=== PATIENT | female | born 1980 | race Caucasian/White ===

== ENCOUNTER 2023-06-07 14:27 | Outpatient (REF) | payer OTHER, SELFPAY ==
[2023-06-13 12:08] LABS: Age Gdln ACOG Testing Note (.); HPV Aptima Negative (Negative); IGP, Aptima HPV, rfx 16/18,45 Note (.)
== END 2023-06-07 14:28 | disposition home or self-care (01) ==
LOC: LAB 14:27
PROVIDERS: Visit Provider Obstetrics & Gynecology
DX: Z01.419 Encounter for gynecological examination (general) (routine) without abnormal findings (principal)
CPT/HCPCS: 87624; G0145

== ENCOUNTER 2023-06-11 10:19 | Outpatient (OUT) | payer OTHER, SELFPAY ==
[2023-06-11 10:56] LABS: Estimated Average Glucose 105 mg/dL; Glycohemoglobin A1C 5.3 % (4.5-6.2)
[2023-06-11 11:24] LABS: Free T3 2.22 pg/mL (2.18-3.98); Glucose 89 mg/dL (74-106); Thyroid Stimulating Hormone 1.791 uIU/mL (0.358-3.740)
[2023-06-12 07:07] LABS: Estradiol 74.1 pg/mL (.); Progesterone 0.4 ng/mL (.)
[2023-06-12 11:07] LABS: Insulin 5.3 uIU/mL (2.6-24.9)
[2023-06-12 12:07] LABS: C-Peptide, Serum 1.8 ng/mL (1.1-4.4)
[2023-06-13 16:09] LABS: Thyroglobulin Antibody <1.0 IU/mL (0.0-0.9); Thyroid Peroxidase (TPO) Ab <9 IU/mL (0-34)
[2023-06-14 13:07] LABS: Free Testosterone(Direct) 1.1 pg/mL (0.0-4.2); Testosterone 39 ng/dL (4-50)
[2023-06-15 14:09] LABS: Serotonin, Serum 101 ng/mL (31-207)
[2023-06-16 17:07] LABS: Estrone, Serum 178 pg/mL (.)
[2023-06-20 04:06] LABS: Thyroglobulin (TG-RIA) 28 ng/mL (.)
[2023-06-20 07:06] LABS: Reverse T3, Serum 23.1 ng/dL (9.2-24.1)
== END 2023-06-11 10:20 | disposition home or self-care (01) ==
LOC: LAB 10:22
PROVIDERS: PCP Family Medicine; Visit Provider Obstetrics & Gynecology
DX: R53.83 Other fatigue (principal); E34.9 Endocrine disorder, unspecified
CPT/HCPCS: 36415; 82306; 82530; 82627; 82670; 82679; 82728; 82947; 83036; 83525; 84144; 84260; 84270; 84402; 84403; 84432; 84436; 84439; 84443; 84481; 84482; 84681; 86376; 86800

== ENCOUNTER 2023-06-22 06:42 | Outpatient (OUT) | payer OTHER, SELFPAY ==
--- NOTE | 2023-06-22 06:45 | MM_ITS ---
Patient Name: MANDEEP DOMÍNGUEZ MR#: [id number] : 1980 Exam Date: 06/22/2023 Ordering Doctor: DR Rick Jones . RADIOLOGY REPORT PROCEDURE: MM TOMOSYNTHESIS SCREENING BI COMPARISON: MG MAMM SCREEN 3D JUDITH CAD, 06/15/2022. MG MAMM SCREEN 3D JUDITH CAD, 06/16/2021. INDICATIONS: Screening Calculator Name NCI Breast Cancer Risk Assessment Tool 5 Year Breast Cancer Risk 0.60% Lifetime Breast Cancer Risk 7.80% Personal Breast Cancer No Personal Ovarian Cancer No Treatments None Family Cancers Grandfather-paternal with esophagus/bone/skin cancer at age 75. LOCATION: [facility] BREAST COMPOSITION: Heterogeneously dense,which may obscure small masses. FINDINGS: DIAGNOSTIC CATEGORY 1--NEGATIVE. NO CHANGE FROM COMPARISON ASSESSMENT. Scattered benign-appearing calcifications are present. RIGHT BREAST: No significant suspicious finding. LEFT BREAST: No significant suspicious finding. RECOMMENDATIONS: ROUTINE MAMMOGRAM AND CLINICAL EVALUATION IN 12 MONTHS. PLEASE NOTE: A NORMAL MAMMOGRAM DOES NOT EXCLUDE THE POSSIBILITY OF BREAST CANCER. A CLINICALLY SUSPICIOUS PALPABLE LUMP SHOULD BE BIOPSIED. Dictated by: Mesfin Broussard MD on 06/22/2023 at 07:59 Approved by: Mesfin Broussard MD on 06/22/2023 at 08:01
== END 2023-06-22 06:43 | disposition home or self-care (01) ==
LOC: MAMMO 06:42
PROVIDERS: PCP Family Medicine; Visit Provider Obstetrics & Gynecology
DX: Z12.31 Encounter for screening mammogram for malignant neoplasm of breast (principal); Z80.8 Family history of malignant neoplasm of other organs or systems
CPT/HCPCS: 77063; 77067

== ENCOUNTER 2024-06-14 12:14 | Outpatient (REF) | payer OTHER, SELFPAY | END 2024-06-14 12:15 | disposition home or self-care (01) | LOC: LAB 12:14 | PROVIDERS: PCP Family Medicine; Visit Provider Obstetrics & Gynecology | DX: Z01.419 Encounter for gynecological examination (general) (routine) without abnormal findings (principal) | CPT/HCPCS: 87624; 88175 ==

== ENCOUNTER 2024-07-17 16:54 | Outpatient (OUT) | payer OTHER, SELFPAY ==
--- NOTE | 2024-07-17 17:00 | MM_ITS ---
Patient Name: MANDEEP DOMÍNGUEZ MR#: [id number] : 1980 Exam Date: 07/17/2024 Ordering Doctor: DR MICHELE STAFFORD . RADIOLOGY REPORT PROCEDURE: MM TOMOSYNTHESIS SCREENING BI COMPARISON: MM TOMOSYNTHESIS SCREENING BI, 06/22/2023. MG MAMM SCREEN 3D JUDITH CAD, 06/15/2022. MG MAMM SCREEN 3D JUDITH CAD, 06/16/2021. MG MAMM SCREEN JUDITH W CAD, 11/08/2019. INDICATIONS: Screening Calculator Name NCI Breast Cancer Risk Assessment Tool 5 Year Breast Cancer Risk 0.60% Lifetime Breast Cancer Risk 7.70% Personal Breast Cancer No Personal Ovarian Cancer No Treatments None Family Cancers Grandfather-paternal with esophagus/bone/skin cancer at age 75. LOCATION: [facility] BREAST COMPOSITION: The breasts are heterogeneously dense,which may obscure small masses. FINDINGS: DIAGNOSTIC CATEGORY 1--NEGATIVE. RIGHT BREAST: No significant suspicious finding. LEFT BREAST: No significant suspicious finding. RECOMMENDATIONS: ROUTINE MAMMOGRAM AND CLINICAL EVALUATION IN 12 MONTHS. PLEASE NOTE: A NORMAL MAMMOGRAM DOES NOT EXCLUDE THE POSSIBILITY OF BREAST CANCER. A CLINICALLY SUSPICIOUS PALPABLE LUMP SHOULD BE BIOPSIED. Dictated by: Varun Sauceda DO on 07/18/2024 at 15:56 Approved by: Varun Sauceda DO on 07/18/2024 at 15:57
== END 2024-07-17 16:55 | disposition home or self-care (01) ==
LOC: MAMMO 16:55
PROVIDERS: PCP Family Medicine; Visit Provider Obstetrics & Gynecology
DX: Z12.31 Encounter for screening mammogram for malignant neoplasm of breast (principal); Z80.8 Family history of malignant neoplasm of other organs or systems
CPT/HCPCS: 77063; 77067

== ENCOUNTER 2025-02-18 17:17 | Emergency (ER) | payer OTHER, SELFPAY ==
[2025-02-18 17:21] VITALS: BP 143/89; PULSE 81; TEMP 36.6; O2SAT 100; BMI 39.0
[2025-02-18 17:44] LABS: Glucose Urine UA NEGATIVE (NEGATIVE)
[2025-02-18 17:44] LABS: Hematocrit 38.4 % (36.0-48.0); Hemoglobin 12.7 g/dL (12.0-16.0); Immature Granulocytes Abs Auto 0.01 10^3/uL (0.00-0.03); Immature Granulocytes Pct Auto 0.2 % (0.0-0.5); Lymphocytes Absolute Auto 1.9 10^3/uL (1.2-3.8); Mean Corpuscular HGB Conc 33.1 g/dL (29.9-35.2); Mean Corpuscular Hemoglobin 30.5 pg (26.7-34.0); Mean Corpuscular Volume 92.3 fL (81.0-99.0); Platelet Count 227 10^3/uL (150-450); Red Blood Count 4.16 10^6/uL (4.20-5.40); White Blood Count 5.2 10^3/uL (4.0-11.0)
--- OUTSIDE RECORDS SUMMARY | 2025-02-18 17:54 | XMS_ITS | CCD ---
Author Organization [facility] Care Team Providers Care Services Host Name Role Phone Maik Brock Primary Care Provider Pricilla IBARRA, Delilah Unavailable Cali CURTIS, Keyur Unavailable KAREN ., DR BAUTISTA Attending Unavailable KAREN ., DR BAUTISTA Consulting Unavailable KAREN ., DR BAUTISTA Admitting Unavailable VINOD, DR PLEITEZ Primary Care Unavailable VINOD, DR PLEITEZ Primary Care Unavailable RICARDO ., JEANNE Admitting Unavailable GRECHNY ., ADE WONG Consulting Unavailcarmelita e RICARDO ., JEANNE Attending Unavailable VINOD, DR PLEITEZ Primary Care Unavailable HEMMER, DR KIMBERLEE Jarrett Admitting Unavailable HEMMER, DR KIMBERLEE Jarrett Attending Unavailable HEMMER, DR KIMBERLEE Jarrett Consulting Unavailable VINOD, DR PLEITEZ Primary Care Unavailable HEMMER, DR KIMBERLEE Jarrett Admitting Unavailable HEMMER, DR KIMBERLEE Jarrett Attending Unavailable ZIEBER, DR REINA Arias Consulting Unavailable HEMMER, DR KIMBERLEE Jarrett Consulting Unavailable KAREN ., DR BAUTISTA Admitting Unavailable KAREN ., DR BAUTISTA Attending Unavailable VINOD, DR PLEITEZ Primary Care Unavailable TRIANGLE, DR RUFINA Lau Consulting Unavailable KAREN ., DR BAUTISTA Consulting Unavailable Sabrina Marcos Unavailable Maik Brock MD Primary Care Provider Pricilla IBARRA, Delilah Unavailable Cali CURTIS, Keyur Unavailable MD Maik Brock Primary Care Provider [phone] PAUL Jimenez Attending Provider RINA Beth Referring Provider [phone] MD Nelson Donald Attending Provider ARIEL Us Emergency Provider MD Maik Brock Primary Care Provider [phone] DO Pretty Jimenez Emergency Provider Maik Brock MD Primary Care Provider MAIK BROCK Primary Care Unavailable KASEY PRICE Attending Un[facility] Unavailable Francisco Us Admitting Unavailable Maik Brock Primary Care Unavailable Francisco Us Attending Unavailable Maik Brock Primary Care Unavailable Pretty Jimenez Attending Unavailable Pretty Jimenez Admitting Unavailable HankinsMaik Primary Care Unavailable Nelson Donald Attending Unavailable Nelson Donald Admitting Unavailable Maik Brock MD Primary Care Provider [phone] Richard Candelario DO Unavailable Brittany MACHINIST/MACHINE BUILDER, Raiza Unavailable [phone] Brittany MACHINIST/MACHINE BUILDER, Raiza Unavailable Maik Brock MD Primary Care Provider Richard Candelario DO Attending Provider Maik Brock MD Primary Care Provider Richard Candelario DO Attending Provider Richard Candelario DO Unavailable Brittany MACHINIST/MACHINE BUILDER, Raiza Unavailable RICHARD CANDELARIO Attending Unavailable RAIZA SOTO Attending Unavailable RICK JONES Attending Unavailable KIMBERLEE BETH Attending Unavailable KIMBERLEE BETH Attending Unavailable MAIK BROCK Attending Unavailable KIMBERLEE BETH Attending Unavailable ADELE MOMIN Attending Unavailable ADELE MOMIN Attending Unavailable KIMBERLEE BETH Attending Unavailable RICHARD CANDELARIO Attending Unavailable Allergies Allergy ClassificationReported Allergen(s)Allergy TypeDate of OnsetReaction(s) Facility (20 sources)[facility] [id number] Work Phone: Medications Current Medications MedicationDrug Class(es)DatesSig (Normalized)Sig (Original)amLODIPine 5 mg oral tablet (20 sources)Dihydropyridine Calcium Channel BlockerStart: 09-20-2022 End: 06-37-6058nboy 1 tablet by mouth once dailyamlodipine besylate (AMLODIPINE ORAL) Take by mouth. 0 ActiveComment on above:Take by mouth.Take 1 tablet by mouth.amoxicillin 875 mg oral tablet (3 sources)Penicillin-class AntibacterialStart: 01-17-2025 End: 75-75-7275jvxc 1 tablet by mouth in the morningamoxicillin (Amoxil) 875 MG tablet Indications: Acute non-recurrent pansinusitis Take 1 tablet (875mg) by mouth in the morning and 1 tablet (875 mg) before bedtime. Do all this for 7 days. 14 otcbrr2401/17/2025 01/24/2025 ActiveStart: 72-31-4484zqbl 12.5 mL by mouth twice dailyAmoxicillin 400 MG/5ML 12.5 mL Orally Twice a day for 10 days 12 Oct, 2022 Activeamoxicillin 875 mg / clavulanate 125 mg oral tablet (3 sources)Penicillin-class AntibacterialStart: 75-54-7972scom 1 tablet by mouth twice dailyASHWAGANDHA EXTRACT ORAL (2 sources)take 7050 mg by mouth once dailyASHWAGANDHA EXTRACT ORAL Take by mouth once daily. VITAL HERBAL BRAND, 7050 MG DAILY 0 ActiveAtogepant (2 sources)Start: 01-68-3479ocpj 1 tablet by mouth once dailyStart: 10-11-2024 End: 46-67-1322ykrw 1 tablet by mouth once dailyAtogepant (Qulipta) 60 mg tablet Discontinued 60 MG PO Daily 90 90 0 October 11, 2024 12:00am November 15, 2024 11:34amAtogepant (Qulipta) 30 MG tablet (2 sources)Start: 11-03-2023 End: 64-95-2426pjxf 2 tablets by mouth once dailyAtogepant (Qulipta) 30 MG tablet Indications: Intractable chronic migraine without aura and withoutstatus migrainosus (CMS/HCC) Take 60 mg by mouth Daily 30 tablet 4 11/03/2023 11/21/2023 Discontinued (Other)Atogepant (Qulipta) 60 MG tablet (20 sources)Start: 71-07-5159ddnk 1 tablet by mouth once dailyAtogepant (Qulipta) 60 MG tablet Indications: Chronic migraine without aura, intractable, without status migrainosus TAKE 1 TABLET BY MOUTH DAILY 30 tablet 1 08/09/2024 ActiveStart: 51-93-7585mjfv 1 tablet by mouth once dailyAtogepant (Qulipta) 60 MG tablet Indications: Chronic migraine without aura, intractable, without st atus migrainosus (CMS/HCC) TAKE 1 TABLET BY MOUTH DAILY 30 tablet 1 08/09/2024 ActiveStart: 37-44-5533uqyi 1 tablet by mouth once dailyAtogepant (Qulipta) 60 MG tablet Indications: Chronic migraine without aura, intractable, without st atus migrainosus (CMS/HCC) Take 1 tablet by mouth Daily 30 tablet 05/16/2024 ActiveStart: 12-12-2023 End: 25-64-7577jfyr 1 tablet by mouth once dailyAtogepant (Qulipta) 60 MG tablet Indications: Intractable chronic migraine without aura and withoutstatus migrainosus (CMS/HCC) Take 1 tablet by mouth Daily 30 tablet 12/12/2023 01/11/2024 Activebaclofen 10 mg oral tablet (20 sources)gamma-Aminobutyric Acid-ergic AgonistStart: 68-29-5621uuim 1 tablet by mouth once dailyComment on above:Take 10 mg by mouth once daily.biotin 5 mg oral tablet (20 sources)Start: 95-76-7342wiry 1 tablet by mouth once dailyStart: 04-28-2018 take 1 tablet by mouth once dailybiotin 1,000 mcg chew Indications: Postoperative malabsorption , Obesity, Class I, BMI 30.0-34.9 (see actual BMI) , S/P gastric bypass Take 1 tablet by mouth once daily. 30 tablet 11 04/28/2018 ActiveComment on above:Take 1 tablet by mouth once daily.onabotulinumtoxina 200 unt injection (20 sources)Acetylcholine Release InhibitorStart: 05-03-2024 End: 06-90-7177vtwjlsmcvlxwfezmcY (Botox) injection 200 UnitsStart: 05-03-2024 End: 39-39-2203lctdgc 200 [IU] by intramuscular injection [id number] Units, Intramuscular, Once, On [place] 05/03/24 at 1430, For 1 dose, Charging context for this clinic-administered medication: Medically Necessary/InsuranceStart: 02-02-2024 End: 13-42-7638ldpbtluznvgpgorznK (Botox) injection 155 UnitsStart: 02-02-2024 End: 22-13-0927tbyanh 155 [IU] by intramuscular injection [id number] Units, Intramuscular, Once, On [place] 02/02/24 at 0945, For 1 dose, Charging context for this clinic-administered medication: Medically Necessary/InsuranceStart: 11-03-2023 End: 46-45-6975vddyqfbojxkgrxzipL (Botox) injection 200 UnitsStart: 11-03-2023 End: 18-18-2799yyrnuz 200 [IU] by intramuscular injection iwrl000 Units, Intramuscular, Once, On [place] 11/03/23 at 0945, For 1 dose, Charging context for this clinic-administered medication: Medically Necessary/Insurance onabotulinumtoxinA (Botox) 200 units injection Inject into the shoulder, thigh, or buttocks 1 (one)time Activecalcium citrate/vitamin D3 (CITRACAL + D ORAL) (8 sources)calcium citrate/vitamin D3 (CITRACAL + D ORAL) Take by mouth once daily. 0 ActiveComment on above:Take by mouth once daily.cephalexin 500 mg oral capsule (9 sources)Cephalosporin AntibacterialStart: 08-20-2024 End: 83-66-5551gtoc 1 capsule by mouth in the morning, then take 1 capsule by mouth in the evening, then take 1 capsule by mouth at bedtimecephalexin (Keflex) 500 MG capsule Indications: Acute cystitis with hematuria Take 1 capsule (500 mg) by mouth in the morning and 1 capsule (500 mg) in the evening and 1 capsule (500 mg) before bedtime. Do all this for 10 days. 30 capsule 08/20/2024 08/30/2024 ActiveStart: 11-15-2022 End: 41-65-8422tmel 1 capsule by mouth every eight hoursCephalexin 500 mg capsule Discontinued 500 MG PO Q8H 21 7 0 November 15, 2022 12:00am May 7:31pmcholecalciferol 0.025 mg oral capsule (20 sources)Vitamin DStart: 54-63-7712qgvm 1 capsule by mouth once dailyStart: 60-42-8575ytzo 1 tablet by mouth once dailycholecalciferol (VITAMIN D3) 2,000 unit tablet Indications: Postoperative malabsorption , Obesity, Class I, BMI 30.0-34.9 (see actual BMI) , S/P gastric bypass Take 1 tablet by mouth once daily. 30 tablet 11 04/28/2018 Activetake 1 capsule by mouth in the morning cholecalciferol (Vitamin D-3) 25 MCG (1000 UT) capsule Take 1,000 Units by mouth in the morning. ActiveComment on above:Take 1 tablet by mouth once daily. Elastic Bandages & Supports (Medical Compression Stockings) misc (14 sources)Start: 25-43-1784Edmixor Bandages & Supports (Medical Compression Stockings) misc Indications: Bilateral lower extremity edema , Varicose veins of both lower extremities, unspecified whether complicated 2 each Daily On in AM, off in PM. Dispense 2 pairs. 20-30 mmHg. Toeless if possible 2 each 1 10/16/2024 Activeestradiol 0.1 mg/ml vaginal cream (20 sources)EstrogenStart: 41-05-7644dkmgiargu (Estrace) 0.1 MG/GM vaginal cream Indications: Hormone imbalance 2g vaginal daily for 2 weeks, then 2 times weekly following initial 2 weeks 42.5 g 12/10/2024 ActiveStart: 32-76-6157vimw 1 tablet by mouth once dailyestradiol (ESTRACE) 1 mg tablet Take 1 mg by mouth once daily. 0 03/21/2020 ActiveComment on above:Take 1 mg by mouth once daily. estrogens, conjugated (fci) 0.9 mg oral tablet (12 sources)EstrogenStart: 05-13-2023 End: 58-35-4941vmvx 1 tablet by mouth once dailyStart: 57-04-5727wnio 1 tablet by mouth every twenty-four hoursPremarin 0.625 MG 1 tablet Orally Once a day Aug, Activefexofenadine hydrochloride 60 mg oral tablet (20 sources)Histamine-1 Receptor AntagonistStart: 23-86-1015psch 3 tablets by mouth once dailyStart: 09-20-2022 End: 30-53-5782zzxt 1 tablet by mouth once dailyFexofenadine 180 mg Tablet Discontinued 180 MG PO Daily September 20, 2022 12:00am May 26, 2023 7:32pm fluticasone propionate 0.05 mg/actuat metered dose nasal spray (18 sources)CorticosteroidStart: 97-24-9013uqpr 1 spray(s) nasal route once dailyfluticasone (FLONASE) 50 mcg/actuation nasal spray INSTILL 1 SPRAY IN EACH NOSTRIL DAILY 0 03/05/2020 ActiveFlonase Not-TakingComment on above:INSTILL 1 SPRAY IN EACH NOSTRIL DAILYfurosemide 20 mg oral tablet (20 sources)Loop Diuretic End: 46-75-6530fcef 1 tablet by mouth once dailyfurosemide (Lasix) 20 MG tablet Take 1 tablet by mouth 1 (one) time each day at the same time. 07/16/2024 DiscontinuedFUROSEMIDE ORAL Take by mouth once daily. 0 ActiveComment on above: Take by mouth once daily.hydroCHLOROthiazide 25 mg oral tablet (6 sources)Thiazide DiureticStart: 39-28-7461mnun 1 tablet by mouth once daily as needed for edematake 1 tablet by mouth every twenty-four hours hydroCHLOROthiazide 25 MG 1 tablet Orally Once a day Activelinaclotide 0.145 mg oral capsule (12 sources)Guanylate Cyclase-C AgonistStart: 07-23-2021 End: 92-83-0908lblv 1 capsule by mouth once dailylinaclotide (LINZESS) 145 mcg capsule Take 1 capsule by mouth once daily. 30 capsule 11 07/23/2021 Active Comment on above:Take 1 capsule by mouth once daily.LORazepam 1 mg oral tablet (20 sources)BenzodiazepineStart: 04-16-2024 End: 48-30-5278vxzs 1 tablet by mouth every twelve hours for anxiety and anxiety LORazepam (Ativan) 1 MG tablet Indications: Anxiety Take 1 tablet (1 mg) by mouth every 12 (twelve)hours 60 tablet 12/10/2024 ActiveStart: 10-13-2023 End: 26-49-9357shrn 1 tablet by mouth every twelve hours for anxiety and anxiety LORazepam (Ativan) 1 MG tablet Indications: Anxiety Take 1 tablet (1 mg) by mouth every 12 (twelve)hours 60 tablet 02/06/2024 04/14/2024 Discontinued (Reorder)Start: 60-73-0519izci 1 tablet by mouth every twelve hours as needed for anxietyStart: 71-39-1766dpgv 1 tablet by mouth twice daily as needed LORazepam (ATIVAN) 0.5 mg tab Take 1 mg by mouth as needed. Take 1 tab twice daily as needed. 0 06/19/2015 ActiveLORazepam ActiveComment on above:Take 1 tab twice daily as needed.magnesium oxide 500 mg oral tablet (2 sources)take 1 tablet by mouth once dailyMagnesium Oxide 500 mg magnesium tab Take 1 tablet by mouth once daily. 0 ActivemetroNIDAZOLE 500 mg oral tablet (5 sources)Nitroimidazole AntimicrobialStart: 11-20-2024 End: 66-10-8861zgvy 1 tablet by mouth in the morningmetroNIDAZOLE (Flagyl) 500 MG tablet Indications: BV (bacterial vaginosis) Take 1 tablet (500 mg) by mouth in the morning and 1 tablet (500 mg) before bedtime. Do all this for 7 days. Do not drink alcohol while taking this medication. 14 tablet 11/20/2024 11/27/2024 ActiveStart: 01-19-2022 End: 78-80-5720xlof 1 tablet by mouth three times dailymetroNIDAZOLE (FLAGYL) 500 mg tablet Take 1 tablet by mouth three times daily for 14 days. 42 tablet 0 01/19/2022 02/02/2022 ActiveComment on above:Take 1 tablet by mouth three times daily for 14 days.montelukast 10 mg oral tablet (5 sources)Leukotriene Receptor AntagonistStart: 86-85-7435hvmq 1 tablet by mouth once dailymontelukast (SINGULAIR) 10 mg tablet Take 10 mg by mouth once daily. 0 10/30/2021 ActiveComment on above:Take 10 mg by mouth once daily. Multiple Vitamin (multivitamin) capsule (20 sources)take 1 capsule by mouth once dailyMultiple Vitamin (multivitamin) capsule Take 1 capsule by mouth 1 (one) time each day. 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 0 ActiveNIFEdipine 30 mg osmotic 24 hr extended release oral tablet (20 sources)Dihydropyridine Calcium Channel BlockerStart: 11-20-2024 End: 12-02-8156pbxh 1 tablet by mouth once dailyNIFEdipine XL (Procardia XL) 30 MG 24 hr tablet Indications: Benign essential hypertension Take 1 tablet (30 mg) by mouth Daily Do not crush, chew, or split. 90 tablet 3 01/17/2025 Active Start: 13-24-3200dtma 1 tablet by mouth once dailyNIFEdipine XL (Procardia XL) 30 MG 24 hr tablet Indications: Benign essential hypertension Take 1 tablet (30 mg) by mouth Daily Do not crush, chew, or split. 30 tablet 2 08/13/2024 Active Hbplo-7-TUV-EPA-Fish Oil (FISH OIL) 1,000 mg (120 mg-180 mg) cap (2 sources)take 1 capsule by mouth twice uctrdTdxvm-8-GUI-EPA-Fish Oil (FISH OIL) 1,000 mg (120 mg-180 mg) cap Take 2 g by mouth two times a day.0 Active omeprazole 40 mg delayed release oral capsule (20 sources)Proton Pump InhibitorStart: 94-67-8052puin 1 capsule by mouth in the morningomeprazole (PriLOSEC) [address] capsule Indications: Gastroesophageal reflux disease, unspecified whether esophagitis present Take 1 capsule (40 mg) by mouth in the morning and 1 capsule (40 mg) in the evening. Take before meals. 200 capsule 3 09/28/2024 ActiveStart: 54-31-4072ynee 1 capsule by mouth before mealtimeomeprazole (PriLOSEC) [address] capsule Indications: Gastroesophageal reflux disease, unspecified whether esophagitis present Take 1 capsule (40 mg) by mouth in the morning. Take before meals. 100 capsule 3 07/30/2024 Active Start: 75-66-0300dzdm 1 capsule by mouth before mealtimeomeprazole (PriLOSEC) [address] capsule Indications: Gastroesophageal reflux disease, unspecified whether esophagitis present Take 1 capsule (40 mg) by mouth in the morning. Take before meals. 100 capsule 05/16/2024 ActiveStart: 55-44-1318njkd 1 capsule by mouth every twelve hours for gastroesophageal reflux disease and gastroesophageal reflux diseaseomeprazole (PriLOSEC) [address] capsule Indications: Gastroesophageal reflux disease, unspecified whether esophagitis present TAKE 1 CAPSULE BY MOUTH EVERY 12 HOURS 100 capsule 3 01/30/2024 ActiveStart: 09-08-2023 take 1 capsule by mouth every twelve hours for gastroesophageal reflux disease and gastroesophagealreflux diseaseomeprazole (PriLOSEC) [address] capsule Indications: Gastroesophageal reflux disease, unspecified whether esophagitis present Take 1 capsule (40 mg) by mouth every 12 (twelve) hours 100 capsule 3 09/08/2023 ActiveStart: 03-26-2021 End: 51-80-0278nhon 1 capsule by mouth twice dailytake 1 capsule by mouth once dailyOmeprazole 40 MG 1 capsule 30 minutes before morning meal Orally Once a day ActiveComment on above:Take 1 capsule by mouth twice daily before meals. 30 min before breakfast and dinner. Open capsule and take with small amount of yogurt perflutren lipid microspheres 1.3 mL in NaCl (PF) 0.9% 10 mL injection (DEFINITY) (14 sources)Start: 12-08-2020 End: 50-27-9277ybrtdhdygm lipid microspheres 1.3 mL in NaCl (PF) 0.9% 10 mL injection (DEFINITY)predniSONE 20 mg oral tablet (3 sources)Start: 81-56-0530mwjd 2 tablets by mouth once dailyPROGESTERONE, BULK, MISC (2 sources)PROGESTERONE, BULK, MISC 20 mg per day, 1 pump per day 0 Active Qulipta 60 MG tablet (13 sources)Start: 08-11-6599saus 1 tablet by mouth once dailyQulipta 60 MG tablet Indications: Chronic migraine without aura, intractable, without status migrainosus (CMS/HCC) Take 1 tablet by mouth Daily 30 tablet 07/10/2024 Active Start: 35-67-2894uzju 1 tablet by mouth once dailyQulipta 60 MG tablet Indications: Chronic migraine without aura, intractable, without status migrain osus (CMS/HCC) TAKE 1 TABLET BY MOUTH DAILY 30 tablet 4 12/09/2023 ActiveStart: 59-72-8404hkam 1 tablet by mouth once dailyQulipta 60 MG tablet Take 1 tablet by mouth Daily 11/03/2023 Drpmwb390 ml sodium chloride 9 mg/ml prefilled syringe (14 sources)Start: 12-08-2020 End: 00-11-9174tkwsfm chloride 0.9 % (flush) 10 mL (BD POSIFLUSH)topiramate 50 mg oral tablet (20 sources)Start: 05-26-2023 End: 35-19-9617ydkk 1 tablet by mouth in the morningtopiramate 50 MG tablet Indications: Migraine without aura, not intractable, without status migrainosus Take 1 tablet by mouth in the morning and 1 tablet before bedtime. 180 tablet 1 07/30/2024 ActiveStart: 01-12-2021 End: 52-54-0582Nnfaovmcgw 50 mg tablet Discontinued 50 MG PO As Directed September 20, 2022 12:00am September 23, 2022 8:33amComment on above:Take 1 tablet by mouth twice daily.TAKE 1 TABLET BY MOUTH TWICE DAILYTurmeric extract (17 sources)TURMERIC ORAL Take by mouth. 0 ActiveComment on above:Take by mouth. ubrogepant 100 mg oral tablet (20 sources)Start: 03-21-2020 End: 96-75-9669Lhbtauezma (Ubrelvy) 100 MG tablet Indications: Migraine without aura, not intractable, without status migrainosus TAKE 1 TABLET BY MOUTH at onset OF migraine may repeat in 2 (TWO) HOURS, no more TWICE DAILY and 2 (TWO) days a week 10 tablet 1 08/09/2024 ActiveComment on above:TAKE 1 TABLET at onset of migraine, may repeat in 2 HOURS but no more than 2 times per day or 2 times per weekVitamin B Complex (8 sources)vitamin B complex (B COMPLEX-VITAMIN B12 ORAL) Take by mouth once daily. 0 ActiveComment on above:Take by mouth once daily.vitamin D3-folic acid 250 mcg (10,000 unit)-1 mg tab (4 sources)take 1 tablet by mouth once dailyvitamin D3-folic acid 250 mcg (10,000 unit)-1 mg tab Take 1 tablet by mouth once daily. 0 Activezinc gluconate 50 mg oral tablet (2 sources)take 1 tablet by mouth once dailyZinc Gluconate 50 mg tablet Take 50 mg by mouth once daily. Copper 0 Active Completed/Discontinued Medications MedicationDrug Class(es)DatesSig (Normalized)Sig (Original)dexlansoprazole 60 mg delayed release oral capsule (1 source)Proton Pump Inhibitortake 1 capsule by mouth every twenty-four hours Dexilant 60 MG 1 capsule Orally Once a day Not-Takingfluconazole 150 mg oral tablet (10 sources)Azole AntifungalStart: 11-20-2024 End: 92-89-7088syxr 1 tablet by mouth once, then take 1 tablet by mouth once fluconazole (Diflucan) 150 MG tablet Indications: Yeast infection Take 1 tablet (150 mg) by mouth 1(one) time for 1 dose This is a 1 time dose, take single tablet by mouth. 1 tablet 1 11/20/2024 11/22/2024 Discontinued (Therapy completed)Start: 10-04-2021 End: 65-17-5363owrs 1 tablet by mouth oncefluconazole (DIFLUCAN) 150 mg tablet TAKE 1 TABLET BY MOUTH as a one time dose 1 tablet 1 01/19/2022 ActiveStart: 61-67-8591Babspegb 150 MG 1 tablet Orally Take 1 tablet then take 1 tablet again in 3 days after antibiotic for 3 days Nov, Not-TakingComment on above: TAKE 1 TABLET BY MOUTH as a one time doselidocaine 0.04 mg/mg medicated patch (7 sources)Antiarrhythmic, Amide Local AnestheticStart: 09-20-2022 End: 93-01-8471pjfew 1 dose topically once daily as needed for painLidocaine 4 % Adhesive Patch,Medicated Discontinued 1 PATCH TOPICAL Daily as needed for Pain September 20, 2022 12:00am September 23, 2022 8:33amLisinopril (1 source)Angiotensin Converting Enzyme InhibitorLisinopril Not-TakingMetformin & Diet Manage Prod 500 MG (1 source)Metformin & Diet Manage Prod 500 MG as directed Orally Not-Taking methylPREDNISolone 4 mg oral tablet (3 sources)CorticosteroidStart: 01-12-2025 End: 22-15-1761hrfxaxRYUJJJKnuuvu (Medrol Dospak) 4 MG tablets TAKE BY MOUTH DIRECTED ON PACKAGE 01/12/2025 01/17/2025 Discontinued (Therapy completed)Start: 50-17-0879urpsjzFTGTDKTimtfl 4 MG take half with breakfast, half with dinner Orally as directed for 6 days 2022 Activephenazopyridine hydrochloride 200 mg oral tablet (6 sources)Start: 11-15-2022 End: 08-46-1674aujz 1 tablet by mouth three times dailyPhenazopyridine (Pyridium) 200 mg tablet Discontinued 200 MG PO Three times daily 9 November 15, 2022 12:00am May 26, 2023 7:32pmpotassium chloride 1.33 meq/ml oral solution (20 sources)Start: 05-19-2023 End: 37-01-3735hrbw 15 mL by mouth in the morningPotassium Chloride 20 MEQ/15ML (10%) solution Indications: Benign essential hypertension Take 15 mL(20 mEq) by mouth in the morning and 15 mL (20 mEq) before bedtime. 450 mL 11 05/19/2023 11/22/2024Discontinued (Therapy completed)Start: 82-24-4436ches 20 mEq by mouth once dailyrifAXIMin 550 mg oral tablet (2 sources)Rifamycin AntibacterialStart: 07-16-2021 End: 82-43-3286zvfj 1 tablet by mouth twice dailyrifAXIMin (XIFAXAN) 550 mg tablet Take 1 tablet by mouth twice daily for 14 days. 28 tablet 0 07/16/2021 07/30/2021 ExpiredComment on above:Take 1 tablet by mouth twice daily for 14 days.sulfamethoxazole 800 mg / trimethoprim 160 mg oral tablet (1 source)Dihydrofolate Reductase Inhibitor Antibacterial, Sulfonamide AntimicrobialStart: 88-85-5867lram 1 tablet by mouth every twelve hoursBactrim DS 800-160 MG 1 tablet Orally Twice a day for 7 days Nov, Not-Taking Triamcinolone (1 source)CorticosteroidStart: 00-85-9417CJOIHBS - 10 mg Aug, 40 mg Problems Active Problems Problem ClassificationProblemDateDocumented DateEpisodic/ChronicAdjustment disorders (20 sources)Adjustment disorder with anxious mood; Translations: [Adjustment disorder with anxiety]Onset: 08-29-2022 Resolved: [id number]/social admission (2 sources)Drug therapy finding; Translations: [Other specified counseling] 44-67-7352SkrqdcrkFmwwgls disorders (20 sources)Anxiety; Translations: [Anxiety disorder, unspecified]Onset: 08-29-2022 Resolved: [id number] (20 sources)Asthma; Translations: [Unspecified asthma, uncomplicated]Onset: [id number] usually diagnosed in infancy, childhood, or adolescence (20 sources)Attention deficit hyperactivity disorder, predominantly inattentive type; Translations: [Other specified behavioral and emotional disorders with onset usually occurring in childhood and adolescence]Onset: ChronicEsophageal disorders (20 sources)Gastroesophageal reflux disease; Translations: [Gastro-esophageal reflux disease without esophagitis]Onset: 497559-28-5190TquocjwQytlzmdik hypertension (20 sources)Hypertensive disorder; Translations: [Essential (primary) hypertension]Onset: 06-02-2022 Resolved: 045649-13-7633VmmhgxpTumrdturtykmi congenital anomalies (20 sources)Medullary sponge kidney; Translations: [Medullary cystic kidney] Onset: 081908-99-7384OssweobZulsmaxs; including migraine (20 sources)Migraine; Translations: [Migraine, unspecified, not intractable, without status migrainosus]Onset: 07-27-2023 Resolved: 705085-10-7315HtwuhndQmassjp and fatigue (20 sources)Chronic fatigue syndrome; Translations: [Chronic fatigue syndrome] Onset: 173058-60-9115KreubugFkwqyeegih disorders (20 sources)Postartificial menopausal syndrome; Translations: [Other specified menopausal and perimenopausal disorders]Onset: 09-24-2014 Resolved: 994648-76-5320QaordupWnhxogsrbynse mental health disorders (20 sources)Primary insomnia; Translations: [Primary insomnia]Onset: 08-29-2022 Resolved: 276079-31-0575ZkocypuTtuvuuqdh of unspecified nature or uncertain behavior (20 sources)Polycythemia vera (clinical); Translations: [Polycythemia vera] Onset: 118022-49-1532EgqpbswHcniqrwuuhg deficiencies (20 sources)Vitamin D deficiency; Translations: [Vitamin D deficiency, unspecified]Onset: 245991-22-0491SqjivdxPfrlp aftercare (1 source)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; Translations: [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 THERAPY]Onset: 14-72-2671JaqoaepdXyuyf connective tissue disease (2 sources)Female pelvic floor dysfunction; Translations: [Other specified disorders of muscle]EpisodicOther connective tissue disease (1 source)Pelvic floor dysfunction; Translations: [Other specified disorders of muscle]EpisodicOther connective tissue disease (2 sources)Fibromyalgia; Translations: [Myalgia and myositis, unspecified] 66-86-7200PwmsxvhjYmcas ear and sense organ disorders (4 sources)Otalgia, left ear; Translations: [OTALGIA LEFT EAR]Onset: 06-01-2022 EpisodicOther endocrine disorders (14 sources)Hyperandrogenemia; Translations: [Androgen excess]Onset: 09-18-2009 56-45-9799DnzxnsbOzohi endocrine disorders (20 sources)Polycystic ovary syndrome; Translations: [Polycystic ovarian syndrome]Onset: 330521-88-5384LjjaotiXgjxc endocrine disorders (3 sources)Polycystic ovarian syndrome; Translations: [Polycystic ovaries]Onset: 012103-01-9875OhlrtmgZuffg endocrine disorders (20 sources)Increased androgen level; Translations: [Androgen excess]Onset: 231343-50-6961YxghfwyMvpdx endocrine disorders (4 sources)Disorder of endocrine system; Translations: [Endocrine disorder, unspecified]59-96-6802AvyunuueDfrxw female genital disorders (2 sources)Vaginal odor; Translations: [Other specified noninflammatory disorders of vagina]43-00-1000JghjaljsPmtgm female genital disorders (2 sources)Vaginal discharge; Translations: [Other specified noninflammatory disorders of vagina]10-54-0806OgvytlxaKjgub gastrointestinal disorders (20 sources)History of bypass of stomach; Translations: [Bariatric surgery status]Onset: 185784-88-6236IatgpjmiXsier gastrointestinal disorders (2 sources)Abdominal bloating; Translations: [Abdominal distension (gaseous)] EpisodicOther gastrointestinal disorders (1 source)Constipation; Translations: [Constipation, unspecified]EpisodicOther gastrointestinal disorders (2 sources)Bariatric surgery status; Translations: [Bariatric surgery status] 36-88-1494WpcnchkzWxvlh nervous system disorders (2 sources)Disturbance of attention; Translations: [Attention and concentration deficit]52-94-0971LfinroaOtufq nervous system disorders (1 source)Atypical facial pain; Translations: [ATYPICAL FACIAL PAIN]Onset: 91-28-0269SlgdbdjdUlnat nutritional; endocrine; and metabolic disorders (20 sources)Hemochromatosis; Translations: [Hemochromatosis, unspecified]Onset: 661359-06-8334MevqftjEjcjh nutritional; endocrine; and metabolic disorders (2 sources)Weight gain; Translations: [Abnormal weight gain]EpisodicOther skin disorders (2 sources)Loss of hair; Translations: [Nonscarring hair loss, unspecified] 06-07-0970ApkjqzyfXmkoh upper respiratory disease (20 sources)Seasonal allergic rhinitis; Translations: [Other seasonal allergic rhinitis]Onset: 191321-45-7174WnawgfhUsiud upper respiratory disease (2 sources)Allergic rhinitis due to pollen; Translations: [Allergic rhinitis due to pollen]66-62-7919OpqmhqwFdmrx upper respiratory infections (20 sources)Chronic sinusitis, unspecified; Translations: [Recurrent sinusitis] Onset: 08-68-7230AgtzgdzHyqjd upper respiratory infections (20 sources)Acute recurrent maxillary sinusitis; Translations: [Acute maxillary sinusitis]Onset: 03-10-2022 Resolved: 51-55-7254YupdbhxqLcqblvfr codes; unclassified (1 source)Family history of malignant neoplasm of other organs or systems; Translations: [FAM HX MALIG NEOPLASM OTH ORGN/SYS]Onset: 74-29-1711Jroqnyso Residual codes; unclassified (1 source)Acquired absence of both cervix and uterus; Translations: [ACQUIRED ABSENCE BOTH CERVIX AND UTERUS]Onset: 14-37-9786OxjzfzhtDpyciizn codes; unclassified (2 sources)Bilateral lower leg edema; Translations: [Localized edema]07-16-2024 EpisodicResidual codes; unclassified (2 sources)Bilateral lower limb edema; Translations: [Localized edema]10-16-2024 EpisodicScreening and history of mental health and substance abuse codes (1 source)Personal history of nicotine dependence; Translations: [PERSONAL HISTORY OF NICOTINE DEPEND]Onset: 78-46-5831EntregnhWlzusqjiahxh (1 source)Frequency of micturition; Translations: [Frequency of micturition] Onset: 11-15-2022 Past or Other Problems Problem ClassificationProblemDateDocumented DateEpisodic/ChronicAbdominal hernia (20 sources)Paraesophageal hernia; Translations: [Diaphragmatic hernia without obstruction or gangrene]Onset: 545562-46-9675BlkhyyufYjezhv of cervix (20 sources)Atypical squamous cells of undetermined significance on cervical Papanicolaou smear; Translations: [Atypical squamous cells of undetermined significance on cytologic smear of cervix (ASC-US)]Onset: 08-29-2022 Resolved: 953538-37-4727XfvynbmnPuqcei of other female genital organs (20 sources)Atypical squamous cells of undetermined significance on vaginal Papanicolaou smear; Translations: [Atypical squamous cells of undetermined significance on cytologic smear of vagina (ASC-US)]Onset: 08-29-2022 Resolved: 457168-17-4266CgskrgjrPsifoeauhi associated with dizziness or vertigo (20 sources)Dizziness; Translations: [Dizziness and giddiness]Onset: 08-29-2022 Resolved: 694712-64-2094WlsdqoylWeysemkueb and other anemia (20 sources)Iron deficiency anemia; Translations: [Iron deficiency anemia, unspecified]Onset: 945791-91-7526JxwgvakmTaabaygpwh and other anemia (20 sources)Anemia; Translations: [Anemia, unspecified]Onset: 08-29-2022 64-39-6364CzwkhcwzSzvvq and electrolyte disorders (20 sources)Hypokalemia; Translations: [Hypokalemia]Onset: EpisodicGastrointestinal hemorrhage (2 sources)Gastrointestinal hemorrhage; Translations: [Gastrointestinal hemorrhage, unspecified]Onset: 08-27-2018 Resolved: 742461-20-3154FyqdczwyUphlfraxekugn symptoms and ill-defined conditions (20 sources)Scalding pain on urination ; Translations: [Dysuria]Onset: 611700-81-2211OqywiwjmZyqejoqh; including migraine (20 sources)Headache; Translations: [Headache]Onset: 07-27-2023 Resolved: 031146-48-5703DoabftzrKyegsktdenuda and screening for infectious disease (20 sources)Encounter for screening for human papillomavirus (HPV); Translations: [Anti-nuclear factor positive]Onset: 434111-24-8402Vitemjtk Malaise and fatigue (20 sources)Fatigue; Translations: [Other fatigue]Onset: EpisodicMood disorders (20 sources)Depressive disorder; Translations: [Depression]Onset: 12-19-2015 Resolved: 382013-37-3964QrakhxhNgrmmbdrlsr chest pain (1 source)Chest pain, unspecified; Translations: [Chest pain, unspecified]Onset: 93-72-2492UbyawksuAqyxi circulatory disease (20 sources)Elevated blood-pressure reading without diagnosis of hypertension; Translations: [Elevated blood-pressure reading, without diagnosis of hypertension]Onset: 08-29-2022 Resolved: 998709-36-7200ZatidcnyObfda connective tissue disease (20 sources)Fibromyalgia; Translations: [Fibromyalgia]Onset: 08-29-2022 91-82-8155AcvhseblBanqb connective tissue disease (20 sources)Muscle pain; Translations: [Myalgia, unspecified site]Onset: 942606-66-5137ItiqijitNsqya connective tissue disease (1 source)Primary fibromyalgia syndrome; Translations: [Fibromyalgia]Onset: 10-61-0188BgzimydpHnwdp connective tissue disease (20 sources)Pain in limb; Translations: [Pain in unspecified limb]Onset: 07-27-2023 Resolved: 698537-57-0704VpmudmkuBpyuu gastrointestinal disorders (20 sources)Slow transit constipation; Translations: [Slow transit constipation] Onset: 200426-55-4858LpounmwoTmeah lower respiratory disease (20 sources)Dyspnea; Translations: [Shortness of breath]Onset: 11-21-2023 Resolved: 157791-14-9606PolluluvVlxdn nervous system disorders (20 sources)Skin sensation disturbance; Translations: [Unspecified disturbances of skin sensation]Onset: 366776-95-6976KbxtcambVzohq nutritional; endocrine; and metabolic disorders (20 sources)Morbid obesity; Translations: [Morbid (severe) obesity due to excess calories]Onset: 09-08-2017 Resolved: 080980-50-3115NpcmlizGcwzb screening for suspected conditions (not mental disorders or infectious disease) (20 sources)Encounter for screening mammogram for malignant neoplasm of breast; Translations: [Encounter for screening for malignant neoplasm of cervix]Onset: 91-49-5452LtymssxfKgojl upper respiratory disease (20 sources)Hypertrophy of nasal turbinates; Translations: [Hypertrophy of nasal turbinates]Onset: 166290-86-2401HftcsqjyUrgdd upper respiratory disease (20 sources)Cyst of nasal cavity; Translations: [Cyst and mucocele of nose and nasal sinus]Onset: 034433-45-6784MucwkoniBqptsbyi codes; unclassified (20 sources)Obstructive sleep apnea syndrome; Translations: [Obstructive sleep apnea (adult) (pediatric)]Onset: 08-29-2022 Resolved: 973006-03-0078IjkgwtnMmcbipqq codes; unclassified (20 sources)Insomnia; Translations: [Insomnia, unspecified]Onset: 07-27-2023 Resolved: 851780-50-8054VkajfznyGonjgih tract infections (20 sources)Urinary tract infectious disease; Translations: [Urinary tract infection, site not specified]Onset: 04-25-2023 Resolved: 651918-49-9879PrnlkxveTafjzhcs veins of lower extremity (20 sources)Varicose veins of lower extremity; Translations: [Asymptomatic varicose veins of unspecified lower extremity]Onset: Episodic Results Test NameValueInterpretationReference RangeFacility-PEPTIDEon 12-08-2024 C-PEPTIDE1.84 ng/mLNormal0.80-3.85Quest DiagnosticsComment on above:Performed By: #### 94293, 372, 20676, 58374, 5081, 457, 496, 745, 483, 867, 561, 866, 402, 4021 #### [facility] [address], [address] [place] [address] [employer] Developer: Indra Hagen MD #### 23805, 27920, 31561 #### [facility], [address] [place] [address] [employer] Developer: Gloria Segovia MD,PhD,RONAN #### 86645, 76465, 20924, 38983 #### [facility]/[place] [address] [place], [place] [employer] Developer: Antonio Reyes M.D.,PhDC-peptideon 12-08-2024 peptide [Mass/Vol]1.84 ng/mL0.80 - 3.85 ng/mLNOMS HealthcareCALCITRIOL 1,25 DIHYDROXYVITAMIN Don 48-27-1245LKTDPKY D, 1,25 (OH)2, TOTAL63 pg/oAMtsqef95-30 Quest DiagnosticsComment on above:Performed By: #### 04554, 372, 87106, 14273, 5081, 457, 496, 745, 483, 867, 561, 866, 402, 4021 #### [facility] [address], [address] [place] [address] [employer]: Indra Hagen MD #### 53294, 87403, 88932 #### [facility], [address] [place] [address] [employer]: Gloria Segovia MD,PhD,RONAN #### 03002, 95162, 99448, 83344 #### [facility] [address] [facility] [place], [place] [employer] Developer: Antonio Reyes M.D.,PhDVITAMIN D2, 1,25 (OH)2<8NormalQuest DiagnosticsComment on above:Result Comment: Vitamin D3, 1,25(OH)2 indicates both endogenous production and supplementation. Vitamin D2, 1,25(OH)2 is an indicator of exogenous sources, such as diet or supplementation. Interpretation and therapy are based on measurement of Vitamin D,1,25(OH)2, Total. This test was developed and its analytical performance characteristics have been determined by [facility] [place], [place]. It has not been cleared or approved by the FDA. This assay has been validated pursuant to the CLIA regulations and is used for clinical purposes.Performed By: #### 55773, 372, 50588, 11834, 5081, 457, 496, 745, 483, 867, 561, 866, 402, 4021 #### [facility] [address], [address] [place] [address] [employer]: Indra Hagen MD #### 49199, 43081, 97963 #### [facility]/[address] [address] [employer]: Gloria Segovia MD,PhD,RONAN #### 91871, 97860, 55415, 30893 #### [facility] [address] [facility] [place], [place] [employer] Developer: Antonio Reyes M.D.,PhDVITAMIN D3, 1,25 (OH)263 pg/mLNormal Quest DiagnosticsComment on above:Performed By: #### 51511, 372, 67690, 15509, 5081, 457, 496, 745, 483, 867, 561, 866, 402, 4021 #### [facility] [address] [facility], [address] [place], [place] [address] [employer]: Indra Hagen MD #### 14153, 73326, 68477 #### [facility], [address] [place] [address] [employer]: Gloria Segovia MD,PhD,RONAN #### 30272, 18533, 15113, 48663 #### [facility]/[place] [address] [facility] [address] [place] [employer] Developer: Antonio Reyes M.D.,PhDCORTISOL,FREE,LC/MS,[facility] 12-08-2024 CORTISOL,FREE,LC/MS,S0.68 mcg/dLNormalTallyfy DiagnosticsComment on above:Result Comment: Adult Reference Ranges for Cortisol, MS, Free: 8:00 - 10:00 AM 0.07-0.93 mcg/dL 4:00 - 6:00 PM 0.04-0.45 mcg/dL 10:00 - 11:00 PM 0.04-0.35 mcg/dL This test was developed and its analytical performance characteristics have been determined by [facility]. It has not been cleared or approved by the FDA. This assay has been validated pursuant to the CLIA regulations and is used for clinical purposes.Performed By: #### 39761, 372, 24382, 60410, 5081, 457, 496, 745, 483, 867, 561, 866, 402, 4021 #### [facility] [address], [address] [place] [address] [employer]: Indra Hagen MD #### 64012, 13889, 91804 #### [facility], [address] [place] [address] [employer]: Gloria Segovia MD,PhD,RONAN #### 92060, 04588, 02030, 80491 #### [facility] [address] [facility] [address] [place] [employer]: Antonio Reyes M.D.,PhDCortisol, free 08-64-1864Zeserkly Free [Mass/Vol]0.68mcg/dLNOMS HealthcareComment on above: Adult Reference Ranges for Cortisol, MS, Free: 8:00 - 10:00 AM 0.07-0.93 mcg/dL 4:00 - 6:00 PM 0.04-0.45 mcg/dL 10:00 - 11:00 PM 0.04-0.35 mcg/dL This test was developed and its analytical performance characteristics have been determined by [facility]. It has not been cleared or approved by the FDA. This assay has been validated pursuant to the CLIA regulations and is used for clinical purposes. DHEA SULFATEon 23-56-9544LKWT FGLJVTN766 mcg/vAXucq83-015Ipfyj Diagnostics Comment on above:Performed By: #### 53766, 372, 15462, 21274, 5081, 457, 496, 745, 483, 867, 561, 866, 402, 4021 #### [facility] [address], [address] [place] [address] [employer]: Indra Hagen MD #### 08144, 15843, 54616 #### [facility]/[place] [address] [address] [employer]: Gloria Segovia MD,PhD,RONAN #### 68892, 99383, 65207, 74353 #### [facility] [address] [place] [address] [employer]: Antonio Reyes M.D.,PhDDHEA-sulfateon 76-01-3337IEBP-S [Mass/Vol]228 ug/dLHighNONE HealthcareESTRADIOLon 23-94-1613ULZLGFEOX<15Normal [facility] DiagnosticsComment on above:Result Comment: Reference Range Follicular Phase: 19-144 Mid-Cycle: 64-357 Luteal Phase: 56-214 Postmenopausal: < or = 31 Reference range established on post-pubertal patient population. No pre-pubertal reference range established using this assay. For any patients for whom low Estradiol levels are anticipated (e.g. males, pre-pubertal children and hypogonadal/post-menopausal females), the [facility] Estradiol, Ultrasensitive, LCMSMS assay is recommended (order code 73086). Please note: patients being treated with the drug fulvestrant (Faslodex(R)) have demonstrated significant interference in immunoassay methods for estradiol measurement. The cross reactivity could lead to falsely elevated estradiol test results leading to an inappropriate clinical assessment of estrogen status. [facility] order code 91687-Pmwabdwjx, Ultrasensitive LC/MS/MS demonstrates negligible cross reactivity with fulvestrant.Performed By: #### 33983, 372, 16063, 09278, 5081, 457, 496, 745, 483, 867, 561, 866, 402, 4021 #### [facility] [place] [address] [facility], [address] [place] [address] [employer]: Indra Hagen MD #### 85129, 23497, 36102 #### [facility]/[place] [address] [place] [address] [employer]: Gloria Segovia MD,PhD,RONAN #### 12487, 09715, 64297, 52801 #### [facility] [address] [place] [address] [employer]: Antonio Reyes M.D.,PhDESTRONEon 86-50-4394DLQIHLN17 pg/mL NormalQuest DiagnosticsComment on above:Result Comment: Adult Female Reference Ranges for Estrone: Follicular Phase: 10-138 pg/mL Luteal Phase: 16-173 pg/mL Postmenopausal Phase: < or = 65 pg/mL Pediatric Female Reference Ranges for Estrone: Pre-pubertal (1-9 years): < or = 34 pg/mL 10-11 years: < or = 72 pg/mL 12-14 years: < or = 75 pg/mL 15-17 years: < or = 188 pg/mL This test was developed and its analytical performance characteristics have been determined by [facility]. It has not been cleared or approved by the FDA. This assay has been validated pursuant to the CLIA regulations and is used for clinical purposes.Performed By: #### 78357, 372, 54760, 52560, 5081, 457, 496, 745, 483, 867, 561, 866, 402, 4021 #### [facility] [address], [address] [place] [address] [employer]: Indra Hagen MD #### 79955, 59566, 43178 #### [facility]/[place] [facility], [address] [place] [address] [employer]: Gloria Segovia MD,PhD,RONAN #### 65230, 44994, 38383, 15651 #### [facility]/[place] [address] [facility] [place], [place] [employer]: Antonio Reyes M.D.,PhDEstradiolon 06-57-5078U8 [Mass/Vol] pg/mLpg/mLNOMS HealthcareComment on above:Reference Range Follicular Phase: 19-144 Mid-Cycle: 64-357 Luteal Phase: 56-214 Postmenopausal: < or = 31 Reference range established on post-pubertal patient population. No pre-pubertal reference range established using this assay. For any patients for whom low Estradiol levels are anticipated (e.g. males, pre-pubertal children and hypogonadal/post-menopausal females), the [facility] Estradiol, Ultrasensitive, LCMSMS assay is recommended (order code 33828). Please note: patients being treated with the drug fulvestrant (Faslodex(R)) have demonstrated significant interference in immunoassay methods for estradiol measurement. The cross reactivity could lead to falsely elevated estradiol test results leading to an inappropriate clinical assessment of estrogen status. [facility] order code [id number]-Dimmckrus, Ultrasensitive LC/MS/MS demonstrates negligible cross reactivity with fulvestrant. Estroneon 25-56-2914C1 [Mass/Vol]14 pg/mLNOMS HealthcareComment on above: Adult Female Reference Ranges for Estrone: Follicular Phase: 10-138 pg/mL Luteal Phase: 16-173 pg/mL Postmenopausal Phase: < or = 65 pg/mL Pediatric Female Reference Ranges for Estrone: Pre-pubertal (1-9 years): < or = 34 pg/mL 10-11 years: < or = 72 pg/mL 12-14 years: < or = 75 pg/mL 15-17 years: < or = 188 pg/mL This test was developed and its analytical performance characteristics have been determined by [facility]. It has not been cleared or approved by the FDA. This assay has been validated pursuant to the CLIA regulations and is used for clinical purposes. FERRITINon 96-16-8526Rwsswaoc [Mass/Vol]312 ng/yWObge17-172Mxhzh Diagnostics Comment on above:Performed By: #### 56046, 372, 94550, 35587, 5081, 457, 496, 745, 483, 867, 561, 866, 402, 4021 #### [facility] [address], [address] [place] [address] [employer]: Indra Hagen MD #### 87192, 56908, 05194 #### [facility] [address] [place] [address] [employer]: Gloria Segovia MD,PhD,RONAN #### 98677, 66285, 37789, 85113 #### [facility]/[place] [address] [facility] [place], [place] [employer]: Antonio Reyes M.D.,PhDFerritinon 30-95-4409Dbpkilqm [Mass/Vol]312 ng/qWIhsr41 - 232 ng/mLNOMS HealthcareGLUCOSEon 87-32-5690Cwraaen [Mass/Vol]96 mg/yIHkzaae34-28Ovthc DiagnosticsComment on above:Result Comment: Fasting reference intervalPerformed By: #### 96020, 372, 16599, 93181, 5081, 457, 496, 745, 483, 867, 561, 866, 402, 4021 #### [facility] [address], [address] [place] [address] [employer]: Indra Hagen MD #### 44181, 59477, 76643 #### [facility]/[place] [facility], [address] [place] [address] [employer]: Gloria Segovia MD,PhD,RONAN #### 19949, 52821, 16227, 84843 #### [facility] [address] [facility] [address] [place] [employer]: Antonio Reyes M.D.,PhDGlucose (Bld) [Mass/Vol]on 12-08-2024 Glucose [Mass/Vol]96 mg/dL65 - 99 mg/dLSaint Louis University Health Science CenterComment on above: Fasting reference interval HEMOGLOBIN A1con 14-31-7976EvB3a (Bld) [Mass fraction]5.4 %Normal<5.7Quest DiagnosticsComment on above:Result Comment: For the purpose of screening for the presence of diabetes: <5.7% Consistent with the absence of diabetes 5.7-6.4% Consistent with increased risk for diabetes (prediabetes) > or =6.5% Consistent with diabetes This assay result is consistent with a decreased risk of diabetes. Currently, no consensus exists regarding use of hemoglobin A1c for diagnosis of diabetes in children. According to [place] [employer] (ADA) guidelines, hemoglobin A1c <7.0% represents optimal control in non- diabetic patients. Different metrics may apply to specific patient populations. Standards of Medical Care in Diabetes(ADA). Your request to have a duplicate copy faxed has been acknowledged. Queued to: [id number] By: #### 84436, 372, 50710, 12550, 5081, 457, 496, 745, 483, 867, 561, 866, 402, 4021 #### [facility] [address], [address] [place] [address] [employer]: Indra Hagen MD #### 94290, 02320, 42227 #### [facility]/[place] [facility], [address] [place] [address] [employer]: Gloria Segovia MD,PhD,RONAN #### 53292, 07602, 85020, 95170 #### [facility]/[place] [address] [facility] [address] [place] [employer]: Antonio Reyes M.D.,PhDHemoglobin A1con 46-18-6895YxV8j (Bld) [Mass fraction]5.4 %NINF - 5.7 %[facility] Science CenterComment on above:For the purpose of screening for the presence of diabetes: <5.7% Consistent with the absence of diabetes 5.7-6.4% Consistent with increased risk for diabetes (prediabetes) > or =6.5% Consistent with diabetes This assay result is consistent with a decreased risk of diabetes. Currently, no consensus exists regarding use of hemoglobin A1c for diagnosis of diabetes in children. According to [place] Diabetes Association (ADA) guidelines, hemoglobin A1c <7.0% represents optimal control in non- diabetic patients. Different metrics may apply to specific patient populations. Standards of Medical Care in Diabetes(ADA). Your request to have a duplicate copy faxed has been acknowledged. Queued to: [id number] INSULINon 42-89-2996KEJBTKR0.6 uIU/mLNormalTohatchi Health Care Center DiagnosticsComment on above: Result Comment: Reference Range < or = 18.4 Risk: Optimal < or = 18.4 Moderate NA High >18.4 Adult cardiovascular event risk category cut points (optimal, moderate, high) are based on Insulin Reference Interval studies performed at [facility] in 2021.Performed By: #### 49972, 372, 73988, 13891, 5081, 457, 496, 745, 483, 867, 561, 866, 402, 4021 #### [facility] [address], [address] [place] [address] [employer] Developer: Indra Hagen MD #### 58349, 82132, 41404 #### [facility], [address] [place] [address], [place] [address] [employer] Developer: Gloria Segovia MD,PhD,RONAN #### 58991, 74032, 98990, 09617 #### [facility] [address] [place], [place] [employer] Developer: Antonio Reyes M.D.,PhDInsulin, fastingon 48-73-5633Qgouyzo Qn5.6 u[IU]/mLuIU/mLNNORMAN REGIONAL HEALTHPLEX – NORMAN HealthcareComment on above:Reference Range < or = 18.4 Risk: Optimal < or = 18.4 Moderate NA High >18.4 Adult cardiovascular event risk category cut points (optimal, moderate, high) are based on Insulin Reference Interval studies performed at [facility] in 2021. No Panel Informationon 52-49-2014Kilkywbvesysno and review of laboratory results ChristianaCareFASTING:YES FASTING: YESQUESTHighlands Behavioral Health System Organization Information Site ID: QPT Name: [facility] Address: [address] [place] [address], [address] [place] [phone] Director: Indra Hagen [facility] Information Site ID: AMD Name: [facility] Address: [address] [place] [address] Director: Antonio Reyes M.D.,PhDCritical access hospital Information Site ID: EZ Name: [facility], Address: [address] [place] [phone] Director: Gloria Segovia MD,PhD,[facility] HospitalPROGESTERONEon 12-08-2024 PROGESTERONE0.5 ng/mLNormalQuest DiagnosticsComment on above:Result Comment: Reference Ranges Female Follicular Phase < 1.0 Luteal Phase 2.6-21.5 Post menopausal < 0.5 1st Trimester 4.1-34.0 2nd Trimester 24.0-76.0 3rd Trimester 52.0-302.0Performed By: #### 76132, 372, 94206, 86671, 5081, 457, 496, 745, 483, 867, 561, 866, 402, 4021 #### [facility] [address] [place] [address], [address] [place] [address] [employer] Developer: Indra Haegn MD #### 76820, 60033, 92070 #### [facility], [address] [place] [address] [employer] Developer: Gloria Segovia MD,PhD,RONAN #### 06600, 64982, 52842, 52932 #### [facility]/[place] [id number] [facility] [address] [place], [place] [employer] Developer: Antonio Reyes M.D.,PhDProgesteroneon 89-49-7062Dkvzbrbgpuct [Mass/Vol]0.5 ng/mLNSt. Joseph Medical CenterComment on above:Reference Ranges Female Follicular Phase < 1.0 Luteal Phase 2.6-21.5 Post menopausal < 0.5 1st Trimester 4.1-34.0 2nd Trimester 24.0-76.0 3rd Trimester 52.0-302.0 SEROTONIN, SERUMon 24-76-5203HOTMULWLA, SERUM96 ng/yUHgipqv16-994Cavrw DiagnosticsComment on above:Result Comment: This test was developed and its analytical performance characteristics have been determined by [facility]. It has not been cleared or approved by the FDA. This assay has been validated pursuant to the CLIA regulations and is used for clinical purposes.Performed By: #### 66298, 372, 16964, 46323, 5081, 457, 496, 745, 483, 867, 561, 866, 402, 4021 #### [facility] [address], [address] [place] [address] [employer] Developer: Indra Hagen MD #### 30845, 37537, 27459 #### [facility]/[place] [address] [place] [address] [employer] Developer: Gloria Segovia MD,PhD,RONAN #### 15326, 29843, 23212, 78105 #### [facility] [address] [place] [employer] Developer: Antonio Reyes M.D.,PhDSEX HORMONE BINDING GLOBULINon 69-78-5948LSH HORMONE BINDING PZYAQOBD333 nmol/IAjcefk34-147Vgytc Diagnostics Comment on above:Performed By: #### 00464, 372, 53758, 65575, 5081, 457, 496, 745, 483, 867, 561, 866, 402, 4021 #### [facility] [address], [address] [place] [address] [employer] Developer: Indra Hagen MD #### 12171, 27993, 50999 #### [facility], [address] [place] [address] [employer] Developer: Gloria Segovia MD,PhD,RONAN #### 61353, 19052, 59772, 41206 #### [facility] [address] [facility] [place], [place] [employer] Developer: Antonio Reyes M.D.,PhDSerotonin serumon 23-19-0480Kleanjqmg (S) [Mass/Vol]96 ng/mL56 - 244 ng/mLNOMS HealthcareComment on above: This test was developed and its analytical performance characteristics have been determined by [facility]. It has not been cleared or approved by the FDA. This assay has been validated pursuant to the CLIA regulations and is used for clinical purposes. Sex hormone binding globulinon 30-66-5495Apq hormone binding globulin [Moles/Vol]116 nmol/L17 - 124 nmol/LNOMS HealthcareT3 REVERSE, LC/MS/MSon 78-13-2118O9 REVERSE, LC/MS/MS12 ng/dLNormal8-25Quest DiagnosticsComment on above:Result Comment: This test was developed and its analytical performance characteristics have been determined by [facility] [place]. It has not been cleared or approved by the U.S. Food and Drug Administration. This assay has been validated pursuant to the CLIA regulations and is used for clinical purposes.Performed By: #### 61630, 372, 95413, 53592, 5081, 457, 496, 745, 483, 867, 561, 866, 402, 4021 #### [facility] [place] [address] [employer] Developer: Indra Hagen MD #### 47623, 87319, 41786 #### [facility]/[place] [address] [place] [address] [employer] Developer: Gloria Segovia MD,PhD,RONAN #### 21241, 88258, 31240, 44657 #### [facility]/[address] [place], [place] [employer] Developer: Antonio Reyes M.D.,PhDT3, FREE 57-01-3085Lsgr T3 [Mass/Vol]2.8 pg/mLNormal2.3-4.2Quest DiagnosticsComment on above:Performed By: #### 44325, 372, 31731, 49911, 5081, 457, 496, 745, 483, 867, 561, 866, 402, 4021 #### [place] [address] [employer] Developer: Indra Hagen MD #### 09665, 94169, 27611 #### [facility]/[place] [address] [employer] Developer: Gloria Segovia MD,PhD,RONAN #### 06556, 92014, 17601, 33019 #### [facility]/[place] [address] [facility] [place], [place] [employer] Developer: Antonio Reyes M.D.,PhDT3, freeon 64-86-2888Bnwi T3 [Mass/Vol]2.8 pg/mL2.3 - 4.2 pg/mLNOMS HealthcareT3, reverseon 12-08-2024 T3.reverse [Mass/Vol]12 ng/dL8 - 25 ng/dLNOMS HealthcareComment on above: This test was developed and its analytical performance characteristics have been determined by [facility] [place]. It has not been cleared or approved by the U.S. Food and Drug Administration. This assay has been validated pursuant to the CLIA regulations and is used for clinical purposes. T4 (THYROXINE), TOTALon 40-43-0065Q2 [Mass/Vol]7.7 ug/dLNormal5.1-11.9Quest DiagnosticsComment on above:Performed By: #### 02088, 372, 40660, 69113, 5081, 457, 496, 745, 483, 867, 561, 866, 402, 4021 #### [facility] [address] [facility], [address] [place] [address] [employer] Developer: Indra Hagen MD #### 37531, 63168, 90107 #### [facility], [address] [place] [address] [employer] Developer: Gloria Segovia MD,PhD,RONAN #### 89913, 82351, 67299, 62445 #### [facility]/[address] [place], [place] [employer] Developer: Antonio Reyes M.D.,PhDT4, [facility] 26-55-6606Dxdk T4 [Mass/Vol]1.2 ng/dLNormal0.8-1.8Quest DiagnosticsComment on above:Performed By: #### 91288, 372, 83333, 23528, 5081, 457, 496, 745, 483, 867, 561, 866, 402, 4021 #### [facility] [address] [place] , [address] [place] [address] [employer] Developer: Indra Hagen MD #### 71751, 87776, 24130 #### [facility], [address] [place] [address] [employer] Developer: Gloria Segovia MD,PhD,RONAN #### 90034, 41839, 43922, 22640 #### [facility] [address] [place] [employer] Developer: Antonio Reyes M.D.,PhDT4, free21-36-3393Eqqp T4 [Mass/Vol]1.2 ng/dL0.8 - 1.8 ng/dLNONE HealthcareTESTOSTERONE, FREEon 12-08-2024 Testosterone Free [Mass/Vol]1.2 pg/mL0.2 - 5.0 pg/mLNOMS HealthcareComment on above: The concentration of free testosterone is derived from a mathematical model using total testosterone by LCMSMS, sex hormone binding globulin and albumin. This test was developed and its analytical performance characteristics have been determined by [facility] [place]. It has not been cleared or approved by the U.S. Food and Drug Administration. This assay has been validated pursuant to the CLIA regulations and is used for clinical purposes. TESTOSTERONE, FREE (DIALYSIS) AND TOTAL,MS45-72-5648ZFKLYRUOPWKU, FREE1.5 pg/mLNormal0.1-6.4Quest DiagnosticsComment on above:Result Comment: This test was developed and its analytical performance characteristics have been determined by [facility] [place]. It has not been cleared or approved by the U.S. Food and Drug Administration. This assay has been validated pursuant to the CLIA regulations and is used for clinical purposes.Performed By: #### 05632, 372, 91653, 35072, 5081, 457, 496, 745, 483, 867, 561, 866, 402, 4021 #### [facility] [place] [address] [facility], [address] [place] [address] [employer] Developer: Indra Hagen MD #### 83587, 00353, 28308 #### [facility], [address] [place] [address] [employer] Developer: Gloria Segovia MD,PhD,RONAN #### 63697, 46899, 99774, 24388 #### [facility] [address] [place], [place] [employer] Developer: Antonio Reyes M.D.,PhDTESTOSTERONE, TOTAL, MS33 ng/dLNormal 2-45Quest DiagnosticsComment on above:Result Comment: For additional information, please refer to http://education.[employer]/faq/ QhwuvXkaozmknkbnkQLKSLEGLA141 (This link is being provided for informational/ educational purposes only.) This test was developed and its analytical performance characteristics have been determined by [facility] [place]. It has not been cleared or approved by the U.S. Food and Drug Administration. This assay has been validated pursuant to the CLIA regulations and is used for clinical purposes.Performed By: #### 74209, 372, 28008, 21052, 5081, 457, 496, 745, 483, 867, 561, 866, 402, 4021 #### [facility] [address], [address] [place] [address] [employer] Developer: Indra Hagen MD #### 11430, 78828, 63163 #### [facility], [address] [place] [address] [employer] Developer: Gloria Segovia MD,PhD,RONAN #### 97637, 26134, 86180, 94718 #### [facility] [address] [facility] [place] [employer] Developer: Antonio Reyes M.D.,PhDTESTOSTERONE, FREE, CALCULATIONon 90-71-4699SIGYCLJLLWWC, FREE1.2 pg/mLNormal0.2-5.0Quest DiagnosticsComment on above:Order Comment: FASTING:YES FASTING: YESResult Comment: The concentration of free testosterone is derived from a mathematical model using total testosterone by LCMSMS, sex hormone binding globulin and albumin. This test was developed and its analytical performance characteristics have been determined by [facility] [place]. It has not been cleared or approved by the U.S. Food and Drug Administration. This assay has been validated pursuant to the CLIA regulations and is used for clinical purposes.Performed By: #### 72431, 372, 85408, 20475, 5081, 457, 496, 745, 483, 867, 561, 866, 402, 4021 #### [facility] [address], [address] [place] [address] [employer] Developer: Indra Hagen MD #### 99907, 85476, 52672 #### [facility], [address] [place] [address] [employer] Developer: Gloria Segovia MD,PhD,RONAN #### 32751, 40487, 91041, 60125 #### [facility] [address] [facility] [place] [employer] Developer: Antonio Reyes M.D.,PhDTHYROGLOBULIN PANEL 12-08-2024 UODHUAGZXEVMI56.2 ng/mLNormalQuest DiagnosticsComment on above:Result Comment: Reference Range: Intact Thyroid 2.8-40.9 Athyrotic <0.1 Note: Abnormal flagging is based on the reference interval for patients with intact thyroid. This test was performed using the Ketty Chatham chemiluminescent method. Values obtained from different assay methods cannot be used interchangeably. Thyroglobulin levels, regardless of value, should not be interpreted as absolute evidence of the presence or absence of disease. For additional information, please refer to http://education.[employer]lyFrame/faq/JNM653 (This link is being provided for informational/ educational purposes only.)Performed By: #### 36774, 372, 17286, 85497, 5081, 457, 496, 745, 483, 867, 561, 866, 402, 4021 #### [facility] [address], [address] [place] [address] [employer] Developer: Indra Hagen MD #### 82639, 44926, 43311 #### [facility], [address] [place] [address] [employer] Developer: Gloria Segovia MD,PhD,RONAN #### 13326, 44147, 01487, 19749 #### [facility]/[address] [place] [employer] Developer: Antonio Reyes M.D.,PhDTHYROGLOBULIN ANTIBODIES<1Normal< or = 1Quest DiagnosticsComment on above:Performed By: #### 63083, 372, 53573, 89082, 5081, 457, 496, 745, 483, 867, 561, 866, 402, 4021 #### [facility] [place] [address] [facility], [address] [place] [address] [employer] Developer: Indra Hagen MD #### 95549, 15179, 35871 #### [facility], [address] [place], [place] [employer] Developer: Gloria Segovia MD,PhD,RONAN #### 36252, 09780, 76908, 69188 #### [facility]/[address] [place] [employer] Developer: Antonio Reyes M.D.,PhDTHYROID PEROXIDASE ANTIBODIESon 61-05-5920OVWIJNZ PEROXIDASE ANTIBODIES1 IU/mLNormal<9Quest DiagnosticsComment on above:Performed By: #### 10794, 372, 95534, 03488, 5081, 457, 496, 745, 483, 867, 561, 866, 402, 4021 #### [facility] [address] [facility], [address] [place] [address] [employer] Developer: Indra Hagen MD #### 07167, 48298, 00016 #### [facility], [address] [place] [address] [employer] Developer: Gloria Segovia MD,PhD,RONAN #### 16101, 08148, 05225, 67121 #### [facility] [address] [facility] [address] [place] [employer] Developer: Antonio Reyes M.D.,PhDTSHon 21-15-3633DEZ Qn1.36 m[IU]/L NormalQuest DiagnosticsComment on above:Result Comment: Reference Range > or = 20 Years 0.40-4.50 Ranges First trimester 0.26-2.66 Second trimester 0.55-2.73 Third trimester 0.43-2.91Performed By: #### 13215, 372, 15893, 55149, 5081, 457, 496, 745, 483, 867, 561, 866, 402, 4021 #### [facility] [address], [address] [place] [address] [employer] Developer: Indra Hagen MD #### 04603, 60376, 94208 #### [facility] [address] [address] [employer] Developer: Gloria Segovia MD,PhD,RONAN #### 62195, 31244, 90064, 25299 #### [facility] [place] [address] [facility] [address] [place] [employer] Developer: Antonio Reyes M.D.,PhDTS Qn1.36 m[IU]/LmIU/LNOMS Healthcare Comment on above:Reference Range > or = 20 Years 0.40-4.50 Ranges First trimester 0.26-2.66 Second trimester 0.55-2.73 Third trimester 0.43-2.91 TSH Qnon 36-20-4385Cptk T4 index Calc [Mass/Vol]CANCELED1.4 - 3.8[facility] Comment on above:Result canceled by the ancillary.T4 [Mass/Vol]7.7 ug/dLNOMS HealthcareTestosterone Free/Testosterone.total [Mass fraction]on 12-08-2024 Testosterone [Mass/Vol]33 ng/dL2 - 45 ng/dLNOMS HealthcareComment on above: For additional information, please refer to http://[employer]Scrip.[employer]/faq/ GfntiLlyagsxluseuNCAHNLXQA451 (This link is being provided for informational/ educational purposes only.) This test was developed and its analytical performance characteristics have been determined by [place] It has not been cleared or approved by the U.S. Food and Drug Administration. This assay has been validated pursuant to the CLIA regulations and is used for clinical purposes. Testosterone Free [Mass/Vol]1.5 pg/mL0.1 - 6.4 pg/mLNOMS HealthcareComment on above: This test was developed and its analytical performance characteristics have been determined by [facility] [place]. It has not been cleared or approved by the U.S. Food and Drug Administration. This assay has been validated pursuant to the CLIA regulations and is used for clinical purposes. Thyroglobulinon 75-00-7987Hprsczlsppehn [Mass/Vol]28.2 ng/mLNOMS Healthcare Comment on above:Reference Range: Intact Thyroid 2.8-40.9 Athyrotic <0.1 Note: Abnormal flagging is based on the reference interval for patients with intact thyroid. This test was performed using the Ketty Chatham chemiluminescent method. Values obtained from different assay methods cannot be used interchangeably. Thyroglobulin levels, regardless of value, should not be interpreted as absolute evidence of the presence or absence of disease. For additional information, please refer to http://BioScrip.[employer]/faq/THV421 (This link is being provided for informational/ educational purposes only.) Thyroglobulin Ab Qn[IU]/mL< or = 1 IU/mLNOMS HealthcareThyroid peroxidase antibodyon 73-94-5807LXL Ab Qn1 [IU]/mLNINFNOMS HealthcareVitamin D 1,25 dihydroxyon 51,25-dihydroxyvitamin D [Mass/Vol]63 pg/mL18 - 72 pg/mL N[facility] Healthcare1,25-dihydroxyvitamin D2 [Mass/Vol]<8pg/mLNOMS HealthcareComment on above: Vitamin D3, 1,25(OH)2 indicates both endogenous production and supplementation. Vitamin D2, 1,25(OH)2 is an indicator of exogenous sources, such as diet or supplementation. Interpretation and therapy are based on measurement of Vitamin D,1,25(OH)2, Total. This test was developed and its analytical performance characteristics have been determined by [facility] [place], [place], [place]. It has not been cleared or approved by the FDA. This assay has been validated pursuant to the CLIA regulations and is used for clinical purposes. 1,25-dihydroxyvitamin D3 [Mass/Vol]63 pg/mLNOMS HealthcareRECURRENT VAGINITIS (HTRX)on 00-75-1718FOFKNJUNI ORGWHDJ65.766AbnormalNOMS HealthcareATOPOBIUM VAGINAEDetectedAbnormalNOMS HealthcareBVAB 2,3 (BACTERIAL VAGINOSIS ASSOCIATED BACTERIA 2, 3); MOBILUNCUS SPP23.555AbnormalNOMS HealthcareBVAB 2,3 (BACTERIAL VAGINOSIS ASSOCIATED BACTERIA 2, 3); MOBILUNCUS SPPDetectedAbnormalNOMS HealthcareCANDIDA ALBICANS, PARAPSILOSIS, BGWEPPYAMB1GIAH HealthcareCANDIDA ALBICANS, PARAPSILOSIS, TROPICALISNot detectedNOMS HealthcareCANDIDA GLABRATA0 NOMS HealthcareCANDIDA GLABRATANot detectedNOMS HealthcareCANDIDA COSAYU5UEBZ HealthcareCANDIDA KRUSEINot detectedNOMS HealthcareCHLAMYDIA VILJYKTSZRV3CIKW HealthcareCHLAMYDIA TRACHOMATISNot detectedNOMS HealthcareERMB, C; MEFA21.312 AbnormalNOMS HealthcareERMB, C; MEFADetectedAbnormalNOMS HealthcareGARDNERELLA VONLZDORM81.192AbnormalNOMS HealthcareGARDNERELLA VAGINALISDetectedAbnormalNOMS HealthcareInterpretation and review of laboratory resultsAbnormalNOMS Healthcare MEGASPHAERA (TYPES 1, 2)0NOMS HealthcareMEGASPHAERA (TYPES 1, 2)Not detectedNOMS HealthcareMYCOPLASMA KTNYOXUAWJ8NHNM HealthcareMYCOPLASMA GENITALIUMNot detectedNOMS HealthcareNEISSERIA NBMHAZLXYFI8RKVG HealthcareNEISSERIA GONORRHOEAENot detectedNOMS HealthcareTET B, TET M15.306AbnormalNOMS Healthcare TET B, TET MDetectedAbnormalNOMS HealthcareTRICHOMONAS VVIHCXGBB2TBKP Healthcare TRICHOMONAS VAGINALISNot detectedNOMS HealthcareNOMS HealthcareUrinalysis macro (dipstick) panel (U)on 87-75-7868Fsapqeiqi, UANegativeNegative - 4(70) +++ mg/dL NOMS HealthcareBlood, UAPositiveNegative - 50 Derrek/mcLNOMS HealthcareComment on above:traceGlucose, UANegativeNegative - 2000(110) ++++ mg/dLNOMS Healthcare Interpretation and review of laboratory resultsAbnormalNOMS HealthcareKetones, UANegativeNegative - 160(16) ++++ mg/dLNOMS HealthcareLeukocytes, UAModerate Negative - 500+++ Adriana/mcLNOMS HealthcareComment on above:largeNitrite, UA NegativeNegative - PositiveNOMS HealthcarepH, UA6.55 - 9NOMS HealthcareProtein, UANegativeNegative - 2000(20) ++++ mg/dLNOMS HealthcareSpec Grav, UA1.0051 - 1.03NOMS HealthcareUrobilinogen, UA1.00.2 - 12 mg/dLNOMS HealthcareNOMS HealthcareVITAMIN B1 (THIAMINE), SERUM/PLASMA, LC/MS/MSon 07-32-6316GJROGVU B1 (THIAMINE), SERUM/PLASMA, LC/MS/MS32 nmol/LHigh8-30Quest DiagnosticsComment on above:Result Comment: Vitamin supplementation within 24 hours prior to blood draw may affect the accuracy of the results. This test was developed and its analytical performance characteristics have been determined by [facility] [place]. It has not been cleared or approved by the U.S. Food and Drug Administration. This assay has been validated pursuant to the CLIA regulations and is used for clinical purposes.Performed By: #### 31087, 372, 78898, 15554, 5081, 457, 496, 745, 483, 867, 561, 866, 402, 4021 #### [facility] [address], [address] [place] [address] [employer] Developer: Idnra Hagen MD #### 63483, 46314, 78736 #### [facility], [address] [place] [address] [employer] Developer: Gloria Segovia MD,PhD,RONAN #### 16606, 43744, 60656, 68602 #### [facility] [address] [facility] [place], [place] [employer] Developer: Antonio Reyes M.D.,PhDVITAMIN Lobo 06-31-7990YZTHKWX K167 pg/wPQbosje615-2823Pqpiy DiagnosticsComment on above:Order Comment: FASTING:YESFASTING: YESResult Comment: This test was developed and its analytical performance characteristics have been determined by [facility] [place]. It has not been cleared or approved by the U.S. Food and Drug Administration. This assay has been validated pursuant to the CLIA regulations and is used for clinical purposes.Performed By: #### 32571, 372, 08999, 55793, 5081, 457, 496, 745, 483, 867, 561, 866, 402, 4021 #### [facility] [address], [address] [place] [address] [employer] Developer: Indra Hagen MD #### 91312, 35093, 96417 #### [facility], [address] [place] [address] [employer]: Gloria Segovia MD,PhD,RONAN #### 11882, 99627, 09979, 51693 #### [facility] [address] [facility] [place], [place] [employer]: Antonio Reyes M.D.,PhDCBC (INCLUDES DIFF/PLT)on 07-19-2024 WHITE BLOOD CELL COUNTNormalQuest DiagnosticsComment on above:Result Comment: TEST NOT PERFORMED No lavender-top tube received.Performed By: #### 43955, 372, 71785, 47655, 5081, 457, 496, 745, 483, 867, 561, 866, 402, 4021 #### [facility] [place] 8186[address] [facility], [address] [place] [address] [employer]: Indra Hagen MD #### 53515, 05170, 62350 #### [facility], [address] [place] [address] [employer] Developer: Gloria Segovia MD,PhD,RONAN #### 79750, 95063, 24347, 22242 #### [facility]/[place] 55[address]25 [facility] [place], [place] [employer] Developer: Antonio Reyes M.D.,PhDCOMPREHENSIVE METABOLIC PANELon 36-25-5808Yovdarv [Mass/Vol]4.4 g/dLNormal3.6-5.1Quest DiagnosticsComment on above:Performed By: #### 44116, 372, 55262, 31509, 5081, 457, 496, 745, 483, 867, 561, 866, 402, 4021 #### [facility] [address], [address] [place] [address] [employer] Developer: Indra Hagen MD #### 04173, 44435, 15630 #### [facility], [address] [place] [address] [employer] Developer: Gloria Segovia MD,PhD,RONAN #### 62847, 86106, 35393, 21578 #### [facility]/[place] 5532325 [facility] [place] [employer] Developer: Antonio Reyes M.D.,PhDAlbumin/Globulin [Mass ratio]2.3 {ratio}Normal1.0-2.5Quest DiagnosticsComment on above:Performed By: #### 96636, 372, 82168, 74592, 5081, 457, 496, 745, 483, 867, 561, 866, 402, 4021 #### [facility] [address], [address] [place], [place] [address] [employer] Developer: Indra Hagen MD #### 71020, 68223, 91654 #### [facility] [address] [place] [employer] Developer: Gloria Segovia MD,PhD,RONAN #### 76285, 55503, 38037, 28418 #### [facility] [address] [place], [place] [employer] Developer: Antonio Reyes M.D.,PhDALP [Catalytic activity/Vol]69 U/L Heckju52-066Wvtlt DiagnosticsComment on above:Performed By: #### 29406, 372, 58188, 35179, 5081, 457, 496, 745, 483, 867, 561, 866, 402, 4021 #### [facility] [address], [address] [place], [place] [address] [employer] Developer: Indra Hagen MD #### 24845, 50217, 46934 #### [facility], [address] [place] [employer] Developer: Gloria Segovia MD,PhD,RONAN #### 80147, 18807, 87528, 73681 #### [facility] [address] [place] [address] [place] [employer] Developer: Antonio Reyes M.D.,PhDALT [Catalytic activity/Vol]14 U/L Normal6-29Quest DiagnosticsComment on above:Performed By: #### 11198, 372, 87506, 16367, 5081, 457, 496, 745, 483, 867, 561, 866, 402, 4021 #### [facility] [address], [address] [place], [place] [address] [employer] Developer: Indra Hagen MD #### 20306, 61716, 36555 #### [facility], [address] [facility] [place] [employer] Developer: Gloria Segovia MD,PhD,RONAN #### 92750, 37362, 40371, 80782 #### [facility]/[place] [address]25 [facility] [place] [employer] Developer: Antonio Ryees M.D.,PhDAST [Catalytic activity/Vol]18 U/L Bqlwzx96-99Vjodi DiagnosticsComment on above:Performed By: #### 61064, 372, 96347, 08419, 5081, 457, 496, 745, 483, 867, 561, 866, 402, 4021 #### [facility] [address], [address] [place] [address] [employer] Developer: Indra Hagen MD #### 66803, 37609, 22876 #### [facility], [address] [place], [place] [employer] Developer: Gloria Segovia MD,PhD,RONAN #### 48175, 24472, 45957, 86007 #### [facility] [address] [place] [address] [place] [employer] Developer: Antonio Reyes M.D.,PhDBilirubin [Mass/Vol]0.4 mg/dLNormal 0.2-1.2Quest DiagnosticsComment on above:Performed By: #### 82774, 372, 22603, 54342, 5081, 457, 496, 745, 483, 867, 561, 866, 402, 4021 #### [facility] [address], [address] [place] [address] [employer] Developer: Indra Hagen MD #### 74162, 59939, 89181 #### [facility], [address] [place] [employer] Developer: Gloria Segovia MD,PhD,RONAN #### 63447, 58044, 62740, 77217 #### [facility] [address] [facility] [place] [employer] Developer: Antonio Reyes M.D.,PhDBUN/CREATININE RATIOSEE NOTE:Normal 6-22Quest DiagnosticsComment on above:Result Comment: Not Reported: BUN and Creatinine are within reference range.Performed By: #### 70313, 372, 99538, 46123, 5081, 457, 496, 745, 483, 867, 561, 866, 402, 4021 #### [facility] [address] [facility], [address] [place] [address] [employer] Developer: Indra Hagen MD #### 62280, 14091, 30963 #### [facility], [address] [place] [address] [employer] Developer: Gloria Segovia MD,PhD,RONAN #### 86276, 08706, 13451, 27180 #### [facility] [address] [facility] [place] [employer] Developer: Antonio Reyes M.D.,PhDCalcium [Mass/Vol]9.2 mg/dLNormal 8.6-10.2Quest DiagnosticsComment on above:Performed By: #### 11202, 372, 07993, 34487, 5081, 457, 496, 745, 483, 867, 561, 866, 402, 4021 #### [facility] [address], [address] [place] [address] [employer] Developer: Indra Hagen MD #### 78489, 89533, 18046 #### [facility], [address] [place] [address] [employer] Developer: Gloria Segovia MD,PhD,RONAN #### 90718, 23247, 32370, 87250 #### [facility] [address] [place] [employer] Developer: Antonio Reyes M.D.,PhDChloride [Moles/Vol]109 mmol/LNormal 98-110Quest DiagnosticsComment on above:Performed By: #### 19709, 372, 74350, 48998, 5081, 457, 496, 745, 483, 867, 561, 866, 402, 4021 #### [facility] 875 [facility], [address] [place], [place] [address] [employer] Developer: Indra Hagen MD #### 52862, 01748, 56062 #### [facility], [address] [place] [address] [employer] Developer: Gloria Segovia MD,PhD,RONAN #### 85318, 88278, 23161, 06574 #### [facility]/[place] [address] [facility] [place] [employer] Developer: Antonio Reyes M.D.,PhDCO2 [Moles/Vol]26 mmol/ZSiukmh70-73 [facility] DiagnosticsComment on above:Performed By: #### 85220, 372, 32749, 08318, 5081, 457, 496, 745, 483, 867, 561, 866, 402, 4021 #### [facility] [address], [address] [place], [place] [address] [employer] Developer: Indra Hagen MD #### 81869, 01133, 34965 #### [facility], [address] [place], [place] [employer] Developer: Gloria Segovia MD,PhD,RONAN #### 97427, 99299, 52922, 39011 #### [facility]/[place] [address] [facility] [address] [place] [employer] Developer: Antonio Reyes M.D.,PhDCreatinine [Mass/Vol]0.81 mg/dLNormal 0.50-0.99Quest DiagnosticsComment on above:Performed By: #### 81149, 372, 16593, 32877, 5081, 457, 496, 745, 483, 867, 561, 866, 402, 4021 #### [facility] [address], [address] [place] [address] [employer] Developer: Indra Hagen MD #### 08076, 14675, 82246 #### [facility], [address] [place] [address] [employer] Developer: Gloria Segovia MD,PhD,RONAN #### 56607, 71757, 92638, 67155 #### [facility]/[address] [place] [employer] Developer: Antonio Reyes M.D.,PhDGFR/1.73 sq M.predicted among non- blacks MDRD (S/P/Bld) [Vol rate/Area]91 mL/min/{1.73_m2}Normal> OR = 60Quest DiagnosticsComment on above:Performed By: #### 72230, 372, 30210, 32143, 5081, 457, 496, 745, 483, 867, 561, 866, 402, 4021 #### [facility] [address], [address] [place], [place] [address] [employer] Developer: Indra Hagen MD #### 85038, 60596, 55705 #### [facility], [address] [place] [address] [employer] Developer: Gloria Segovia MD,PhD,RONAN #### 21825, 57057, 31197, 88698 #### [facility]/[address] [place] [employer] Developer: Antonio Reyes M.D.,PhDGlobulin (S) [Mass/Vol]1.9 g/dLNormal 1.9-3.7Quest DiagnosticsComment on above:Performed By: #### 95066, 372, 35713, 25612, 5081, 457, 496, 745, 483, 867, 561, 866, 402, 4021 #### [facility] [address] [facility], [address] [place] [address] [employer] Developer: Indra Hagne MD #### 22090, 47243, 91990 #### [facility], [address] [place] [address] [employer] Developer: Gloria Segovia MD,PhD,RONAN #### 99821, 51299, 62117, 25479 #### [facility]/[place] [address] [facility] [place] [employer] Developer: Antonio Reyes M.D.,PhDGlucose [Mass/Vol]88 mg/eJErhusv11-85 [facility]osticsComment on above:Result Comment: Fasting reference intervalPerformed By: #### 06373, 372, 26438, 91487, 5081, 457, 496, 745, 483, 867, 561, 866, 402, 4021 #### [facility] [address] [facility], [address] [place] [address] [employer] Developer: Indra Hagen MD #### 54444, 10664, 55391 #### [facility], [address] [place], [place] [employer] Developer: Gloria Segovia MD,PhD,RONAN #### 06914, 03216, 81154, 97728 #### [facility] [address] [facility] [place] [employer] Developer: Antonio Reyes M.D.,PhDPotassium [Moles/Vol]3.3 mmol/LLow 3.5-5.3Quest DiagnosticsComment on above:Performed By: #### 38093, 372, 23078, 32192, 5081, 457, 496, 745, 483, 867, 561, 866, 402, 4021 #### [facility] [address], [address] [place] [address] [employer] Developer: Indra Hagen MD #### 04072, 45400, 89324 #### [facility], [address] [place] [address] [employer] Developer: Golria Segovia MD,PhD,RONAN #### 12941, 51787, 47963, 93665 #### [facility]/[place] [address] [facility] [place] [employer] Developer: Antonio Reyes M.D.,PhDProtein [Mass/Vol]6.3 g/dLNormal 6.1-8.1Quest DiagnosticsComment on above:Performed By: #### 30175, 372, 56265, 94375, 5081, 457, 496, 745, 483, 867, 561, 866, 402, 4021 #### [facility] [address] [facility], [address] [place], [place] [address] [employer] Developer: Indra Hagen MD #### 51403, 60803, 05238 #### [facility], [address] [place], [place] [employer] Developer: Gloria Segovia MD,PhD,RONAN #### 94518, 24543, 84864, 56106 #### [facility]/[place] [address] [facility] [address] [place] [employer] Developer: Antonio Reyes M.D.,PhDSodium [Moles/Vol]145 mmol/LNormal 135-146Quest DiagnosticsComment on above:Performed By: #### 88756, 372, 16994, 20413, 5081, 457, 496, 745, 483, 867, 561, 866, 402, 4021 #### [facility] [address], [address] [place], [place] [address] [employer] Developer: Indra Hagen MD #### 64009, 92528, 78906 #### [facility], [address] [place] [address] [employer] Developer: Gloria Segovia MD,PhD,RONAN #### 58288, 04817, 43419, 19901 #### [facility]/[place] [address] [facility] [place] [employer] Developer: Antonio Reyes M.D.,PhDUrea nitrogen [Mass/Vol]15 mg/dLNormal 7-25Quest DiagnosticsComment on above:Performed By: #### 85689, 372, 08888, 96017, 5081, 457, 496, 745, 483, 867, 561, 866, 402, 4021 #### [place] [address] [employer] Developer: Indra Hagen MD #### 91456, 42468, 85915 #### [facility], [address] [place] [address] [employer] Developer: Gloria Segovia MD,PhD,RONAN #### 68801, 84372, 42398, 80175 #### [facility] [address] [facility] [place] [employer] Developer: Antonio Reyes M.D.,PhDCOPPERon 46-52-7901PVUVIR31 mcg/dLLow 70-175Quest DiagnosticsComment on above:Result Comment: This test was developed and its analytical performance characteristics have been determined by [facility] [place], [place]. It has not been cleared or approved by the U.S. Food and Drug Administration. This assay has been validated pursuant to the CLIA regulations and is used for clinical purposes.Performed By: #### 54617, 372, 24203, 28486, 5081, 457, 496, 745, 483, 867, 561, 866, 402, 4021 #### [facility] [address], [address] [place] [address] [employer] Developer: Indra Hagen MD #### 41881, 88345, 35512 #### [facility], [address] [place] [address] [employer] Developer: Gloria Segovia MD,PhD,RONAN #### 91968, 09954, 84959, 72285 #### [facility]/[place] [address] [facility] [place] [employer] Developer: Antonio Reyes M.D.,PhDDOCTORS MEDICAL [facility], [facility] 22-85-8990Qwdcra [Mass/Vol]7.5 ng/mLNormalQuest DiagnosticsComment on above:Result Comment: Reference Range Low: <3.4 Borderline: 3.4-5.4 Normal: >5.4Performed By: #### 50910, 372, 64846, 49462, 5081, 457, 496, 745, 483, 867, 561, 866, 402, 4021 #### [facility] [address], [address] [place] [address] [employer] Developer: Indra Hagen MD #### 62229, 54037, 46876 #### [facility], [address] [place] [employer] Developer: Gloria Segovia MD,PhD,RONAN #### 41501, 08356, 73637, 70067 #### [facility] [address] [facility] [address] [employer] Developer: Antonio Reyes M.D.,PhDIRON, TIBC AND FERRITIN PANELon 07-19-2024% PIHUUTFXRR68 % (calc)Ngipfw08-52Tywoz DiagnosticsComment on above: Order Comment: FASTING:YESFASTING: YESPerformed By: #### 53087, 372, 36527, 52584, 5081, 457, 496, 745, 483, 867, 561, 866, 402, 4021 #### [facility] [address] [facility], [address] [place] [address] [employer] Developer: Indra Hagen MD #### 94752, 83614, 01533 #### [facility], [address] [place] [address] [employer] Developer: Gloria Segovia MD,PhD,RONAN #### 52216, 79515, 02439, 32713 #### [facility]/[address] [place] [employer] Developer: Antonio Reyes M.D.,PhDFerritin [Mass/Vol]335 ng/mKMyug27-459 [facility]osticsComment on above:Order Comment: FASTING:YESFASTING: YES Performed By: #### 51330, 372, 29692, 89499, 5081, 457, 496, 745, 483, 867, 561, 866, 402, 4021 #### [facility] [address] [facility], [address] [place] [address] [employer] Developer: Indra Hagen MD #### 12491, 78104, 20223 #### [facility], [address] [place] [address] [employer] Developer: Gloria Segovia MD,PhD,RONAN #### 98492, 99277, 64340, 41240 #### [facility]/[place] [address] [facility] [place] [employer] Developer: Antonio Reyes M.D.,PhDIRON BINDING XYUZGFFS605 mcg/dL (calc) Vajopu572-349Kgrxt DiagnosticsComment on above:Order Comment: FASTING:YESFASTING: YESPerformed By: #### 68769, 372, 42010, 84340, 5081, 457, 496, 745, 483, 867, 561, 866, 402, 4021 #### [facility] [address], [address] [place] [address] [employer] Developer: Indra Hagen MD #### 59647, 85491, 02622 #### [facility], [address] [facility] [place] [address] [employer] Developer: Gloria Segovia MD,PhD,RONAN #### 47988, 29392, 99552, 00047 #### [facility]/[place] [address] [facility] [place] [employer] Developer: Antonio Reyes M.D.,PhDIRON, TOTAL80 mcg/iYVohqxo47-963Zvdbz DiagnosticsComment on above:Order Comment: FASTING:YESFASTING: YESPerformed By: #### 96901, 372, 20919, 75608, 5081, 457, 496, 745, 483, 867, 561, 866, 402, 4021 #### [facility] [address] [facility], [address] [place] [address] [employer] Developer: Indra Hagen MD #### 57875, 78539, 87416 #### [facility], [address] [facility] [address] [employer] Developer: Gloria Segovia MD,PhD,RONAN #### 60130, 00192, 36019, 95573 #### [facility] [address] [facility] [place] [employer] Developer: Antonio Reyes M.D.,PhDLIPID PANEL, [facility] 07-19-2024 Cholesterol [Mass/Vol]165 mg/dLNormal<200Quest DiagnosticsComment on above: Performed By: #### 16796, 372, 74291, 03703, 5081, 457, 496, 745, 483, 867, 561, 866, 402, 4021 #### [facility] [address], [address] [place], [place] [address] [employer] Developer: Indra Hagen MD #### 26095, 92806, 52618 #### [facility], [address] [place] [address] [employer] Developer: Gloria Segovia MD,PhD,RONAN #### 37205, 38002, 46674, 70908 #### [facility]/[place] [address] [facility] [address] [place] [employer] Developer: Antonio Reyes M.D.,PhDCholesterol in HDL [Mass/Vol]57 mg/dL Normal> OR = 50Quest DiagnosticsComment on above:Performed By: #### 16400, 372, 53438, 17648, 5081, 457, 496, 745, 483, 867, 561, 866, 402, 4021 #### [facility] [address], [address] [place], [place] [address] [employer] Developer: Indra Hagen MD #### 61146, 00794, 48427 #### [facility], [address] [place] [address] [employer] Developer: Gloria Segovia MD,PhD,RONAN #### 53037, 17273, 33448, 91077 #### [facility] [place] [address] [facility] [address] [place] [employer] Developer: Antonio Reyes M.D.,PhDCholesterol in LDL [Mass/Vol]89 mg/dL NormalQuest DiagnosticsComment on above:Result Comment: Reference range: <100 Desirable range <100 mg/dL for primary prevention; <70 mg/dL for patients with CHD or diabetic patients with > or = 2 CHD risk factors. LDL-C is now calculated using the Lesli calculation, which is a validated novel method providing better accuracy than the Friedewald equation in the estimation of LDL-C. Immanuel DAS et al. SUNIL. 2013;310(19): 8409-4998 (http://education.FST21.SupplyFrame/faq/WJX224)Performed By: #### 17289, 372, 65254, 09517, 5081, 457, 496, 745, 483, 867, 561, 866, 402, 4021 #### [facility] [address], [address] [place] [address] [employer] Developer: Indra Hagen MD #### 08414, 62076, 20731 #### [facility], [address] [place] [address] [employer] Developer: Gloria Segovia MD,PhD,RONAN #### 62824, 50192, 40673, 09904 #### [facility]/[place] [address] [facility] [place] [employer] Developer: Antonio Reyes M.D.,PhDCholesterol.total/Cholesterol in HDL [Mass ratio]2.9 {ratio}Normal<5.0Quest DiagnosticsComment on above:Performed By: #### 55715, 372, 42122, 32469, 5081, 457, 496, 745, 483, 867, 561, 866, 402, 4021 #### [facility] [address], [address] [place] [address] [employer] Developer: Indra Hagen MD #### 46762, 50159, 18590 #### [facility], [address] [place] [address] [employer] Developer: Gloria Segovia MD,PhD,RONAN #### 02222, 24165, 34304, 85728 #### [facility] [place] [employer] Developer: Antonio Reyes M.D.,PhDNON HDL EQZVLLJRBEV382 mg/dL (calc) Normal<130Quest DiagnosticsComment on above:Result Comment: For patients with diabetes plus 1 major ASCVD risk factor, treating to a non-HDL-C goal of <100 mg/dL (LDL-C of <70 mg/dL) is considered a therapeutic option.Performed By: #### 46747, 372, 75739, 37042, 5081, 457, 496, 745, 483, 867, 561, 866, 402, 4021 #### [facility] [address], [address] [place] [address] [employer] Developer: Indra Hagen MD #### 70394, 18057, 36125 #### [facility], [address] [place] [address] [employer] Developer: Gloria Segovia MD,PhD,RONAN #### 44399, 97066, 50632, 70766 #### [facility] [address] [facility] [place] [employer] Developer: Antonio Reyes M.D.,PhDTriglyceride [Mass/Vol]99 mg/dLNormal <150Quest DiagnosticsComment on above:Performed By: #### 08740, 372, 99650, 42398, 5081, 457, 496, 745, 483, 867, 561, 866, 402, 4021 #### [facility] [address], [address] [place] [address] [employer] Developer: Indra Hagen MD #### 16258, 17554, 95274 #### [facility], [address] [place] [address] [employer] Developer: Gloria Segovia MD,PhD,RONAN #### 76897, 85391, 49736, 04387 #### [facility] [place] [address] [facility] [place] [employer] Developer: Antonio Reyes M.D.,PhDMAGNESIUMon 30-89-2344Ntfddyvui [Mass/Vol]2.1 mg/dLNormal1.5-2.5Quest DiagnosticsComment on above:Performed By: #### 94295, 372, 86219, 63268, 5081, 457, 496, 745, 483, 867, 561, 866, 402, 4021 #### [facility] [address], [address] [place] [address] [employer] Developer: Indra Hagen MD #### 72759, 79428, 14313 #### [facility] [address] [address] [employer] Developer: Gloria Segovia MD,PhD,RONAN #### 43054, 50437, 64017, 78833 #### [facility] [address] [place] [employer] Developer: Antonio Reyes M.D.,PhDTSH W/REFLEX TO FT4on 68-96-5880RZM W/REFLEX TO FT41.16 mIU/LNormalQuest DiagnosticsComment on above:Result Comment: Reference Range > or = 20 Years 0.40-4.50 Ranges First trimester 0.26-2.66 Second trimester 0.55-2.73 Third trimester 0.43-2.91Performed By: #### 91580, 372, 18920, 95109, 5081, 457, 496, 745, 483, 867, 561, 866, 402, 4021 #### [facility] [address], [address] [place] [address] [employer] Developer: Indra Hagen MD #### 28759, 33586, 33252 #### [facility], [address] [place] [address] [employer] Developer: Gloria Segovia MD,PhD,RONAN #### 17815, 73949, 13664, 60254 #### [facility] [address] [facility] [address] [place] [employer]: Antonio Reyes M.D.,PhDVITAMIN B12on 06-53-4695Ubgigwzot (Vitamin B12) [Mass/Vol]706 pg/bZAboouw769-2537Zwzlh DiagnosticsComment on above:Performed By: #### 39075, 372, 77895, 92238, 5081, 457, 496, 745, 483, 867, 561, 866, 402, 4021 #### [facility] [address], [address] [place] [address] [employer]: Indra Hagen MD #### 24838, 60331, 18521 #### [facility], [address] [place] [address] [employer] Developer: Gloria Segovia MD,PhD,RONAN #### 74846, 25758, 59487, 27702 #### [facility] [address] [facility] [address] [place] [employer]: Antonio Reyes M.D.,PhDVITAMIN D,25-OH,TOTAL,IAon 07-19-2024 VITAMIN D,25-OH,TOTAL,IA50 ng/qCPlxazf37-672Fxrco DiagnosticsComment on above: Result Comment: Vitamin D Status 25-OH Vitamin D: Deficiency: <20 ng/mL Insufficiency: 20 - 29 ng/mL Optimal: > or = 30 ng/mL For 25-OH Vitamin D testing on patients on D2-supplementation and patients for whom quantitation of D2 and D3 fractions is required, the QuestAssureD(TM) 25-OH VIT D, (D2,D3), LC/MS/MS is recommended: order code 24653 (patients >2yrs). See Note 1 Note 1 For additional information, please refer to http://education.FST21.SupplyFrame/faq/AVS521 (This link is being provided for informational/ educational purposes only.)Performed By: #### 22124, 372, 66411, 84875, 5081, 457, 496, 745, 483, 867, 561, 866, 402, 4021 #### [facility] [address] [address] [employer] Developer: Indra Hagen MD #### 21196, 28247, 29419 #### [facility], [address] [place] [address] [employer] So[employer] Developer: Gloria Segovia MD,PhD,RONAN #### 35801, 16008, 42803, 63765 #### [facility]/[place] [id number] [facility] [place], [place] [employer] Soa Developer: Antonio Reyes M.D.,PhDVITAMIN E (TOCOPHEROL)on 07-19-2024 VITAMIN E, ALPHA TOCOPHEROLNormalQuest DiagnosticsComment on above:Result Comment: TEST NOT PERFORMED No specimen received.Performed By: #### 16861, 372, 25059, 73035, 5081, 457, 496, 745, 483, 867, 561, 866, 402, 4021 #### [facility] [address], [address] [place] [address] [employer] So[employer] Developer: Indra Hagen MD #### 18880, 95508, 51608 #### [facility], [address] [place] [address] [employer] So[employer] Developer: Gloria Segovia MD,PhD,RONAN #### 51192, 41942, 08203, 02252 #### [facility] [address] [facility] [place], [place] [employer] Soa Developer: Antonio Reyes M.D.,PhDZINCon 18-36-5628XMLS42 mcg/dLLow 60-130[facility] DiagnosticsComment on above:Result Comment: This test was developed and its analytical performance characteristics have been determined by [facility] [place], [place]. It has not been cleared or approved by the U.S. Food and Drug Administration. This assay has been validated pursuant to the CLIA regulations and is used for clinical purposes.Performed By: #### 09173, 372, 65195, 55014, 5081, 457, 496, 745, 483, 867, 561, 866, 402, 4021 #### [facility] [address], [address] [place] [address] [employer] So[employer] Developer: Indra Hagen MD #### 82457, 22188, 83549 #### [facility] [address] [place] [address] [employer] Soa Developer: Gloria Segovia MD,PhD,RONAN #### 35075, 31452, 49922, 20076 #### [facility] [address] [place] [address] [employer] So[employer] Developer: Antonio Reyes M.D.,PhD TOMOSYNTHESIS SCREENING BIon 81-75-7034[place], [place] [address] Mammography Report Signed Patient: MANDEEP SPENCER MR#: [id number] : 1980 Acct:[id number] Age/Sex: 44 / F ADM Date: 07/17/24 Loc: MAMMO Attending Dr: Rick Jones D.O. Ordering Physician: Rick Jones D.O. Results: Date of Service: 07/17/24 Follow Up: Procedure(s): MM tomosynthesis screening BI Accession Number(s): [id number] cc: MAIK BROCK ; Rick Jones D.O. Patient Name: MANDEEP SPENCER MR#: [id number] : 1980 Exam Date: 07/17/2024 Ordering Doctor: DR RICK JONES . RADIOLOGY REPORT PROCEDURE: MM TOMOSYNTHESIS SCREENING BI COMPARISON: MM TOMOSYNTHESIS SCREENING BI, 06/22/2023. MG MAMM SCREEN 3D JUDITH CAD, 06/15/2022. MG MAMM SCREEN 3D JUDITH CAD, 06/16/2021. MG MAMM SCREEN JUDITH W CAD, 11/08/2019. INDICATIONS: Screening Calculator Name NCI Breast Cancer Risk Assessment Tool 5 Year Breast Cancer Risk 0.60% Lifetime Breast Cancer Risk 7.70% Personal Breast Cancer No Personal Ovarian Cancer No Treatments None Family Cancers Grandfather-paternal with esophagus/bone/skin cancer at age 75. LOCATION: [facility] BREAST COMPOSITION: The breasts are heterogeneously dense,which may obscure small masses. FINDINGS: DIAGNOSTIC CATEGORY 1--NEGATIVE. RIGHT BREAST: No significant suspicious finding. LEFT BREAST: No significant suspicious finding. RECOMMENDATIONS: ROUTINE MAMMOGRAM AND CLINICAL EVALUATION IN 12 MONTHS. PLEASE NOTE: A NORMAL MAMMOGRAM DOES NOT EXCLUDE THE POSSIBILITY OF BREAST CANCER. A CLINICALLY SUSPICIOUS PALPABLE LUMP SHOULD BE BIOPSIED. Dictated by: Varun Sauceda DO on 07/18/2024 at 15:56 Approved by: Varun Sauceda DO on 07/18/2024 at 15:57 Dictated By: Varun Sauceda M.D. Signed By: 07/18/24 1558 DD/ 1557 TD/TT: [employer] So[employer] Developer:TBHRadiology, Radiologist, - 07/18/2024 [place] [address] Mammography Report Signed Patient: MANDEEP SPENCER MR#: [id number] : 1980 Acct:[id number] Age/Sex: 44 / F ADM Date: 07/17/24 Loc: MAMMO Attending Dr: Rick Jones D.O. Ordering Physician: Rick Jones D.O. Results: Date of Service: 07/17/24 Follow Up: Procedure(s): MM tomosynthesis screening BI Accession Number(s): [id number] cc: MAIK BROCK ; Rick Jones D.O. Patient Name: MANDEEP SPENCER MR#: [id number] : 1980 Exam Date: 07/17/2024 Ordering Doctor: DR RICK JONES . RADIOLOGY REPORT PROCEDURE: MM TOMOSYNTHESIS SCREENING BI COMPARISON: MM TOMOSYNTHESIS SCREENING BI, 06/22/2023. MG MAMM SCREEN 3D JUDITH CAD, 06/15/2022. MG MAMM SCREEN 3D JUDITH CAD, 06/16/2021. MG MAMM SCREEN JUDITH W CAD, 11/08/2019. INDICATIONS: Screening Calculator Name NCI Breast Cancer Risk Assessment Tool 5 Year Breast Cancer Risk 0.60% Lifetime Breast Cancer Risk 7.70% Personal Breast Cancer No Personal Ovarian Cancer No Treatments None Family Cancers Grandfather-paternal with esophagus/bone/skin cancer at age 75. LOCATION: [facility] BREAST COMPOSITION: The breasts are heterogeneously dense,which may obscure small masses. FINDINGS: DIAGNOSTIC CATEGORY 1--NEGATIVE. RIGHT BREAST: No significant suspicious finding. LEFT BREAST: No significant suspicious finding. RECOMMENDATIONS: ROUTINE MAMMOGRAM AND CLINICAL EVALUATION IN 12 MONTHS. PLEASE NOTE: A NORMAL MAMMOGRAM DOES NOT EXCLUDE THE POSSIBILITY OF BREAST CANCER. A CLINICALLY SUSPICIOUS PALPABLE LUMP SHOULD BE BIOPSIED. Dictated by: Varun Sauceda DO on 07/18/2024 at 15:56 Approved by: Varun Sauceda DO on 07/18/2024 at 15:57 Dictated By: Varun Sauceda M.D. Signed By: 07/18/24 1558 DD/ 1557 TD/TT: [employer] So[employer] Developer: [facility] Science CenterRadiology Study observation (narrative)[facility] TOMOSYNTHESIS SCREENING BIOrdered By: Radiologist Radiology on 07-13-0325[facility] Work Phone: IGP,APTIMA HPV,AGE GDLNon 26-14-4584GHM GDLN ACOG TESTINGNote.[facility] HealthcareComment on above:TESTS RESULT FLAG UNITS REF RANGE LAB Clinician Provided Cytology Information Source.............Vagina No. of containers..01 ThinPrep Vial Age Barney SKINNER Pili... 3065 FLAG LEGEND: L-Low Normal,H-High Normal,LL-Alert Low,HH-Alert High <-Panic Low,>-Panic High,A-Abnormal,AA-Critical Abnormal Performed at: 01 =[address] [address] Marce Carpio MD, HPV APTIMANegativeNegativeNOMS HealthcareComment on above:This nucleic acid amplification test detects fourteen high- risk HPV types (16,18,31,33,35,39,45,51,52,56,58,59,66,68) without differentiation. Performed at: =[address] [id number] Finished Goods Planner: Marce Carpio MD, Phone: [phone] Performed at: [address] [id number] Finished Goods Planner: Marce Carpio MD, Phone: [phone] IGP, APTIMA HPV, RFX 16/18,45Note.NOMS HealthcareComment on above:TESTS RESULT FLAG UNITS REF RANGE LAB DIAGNOSIS: 02 NEGATIVE FOR INTRAEPITHELIAL LESION OR MALIGNANCY. THIS SPECIMEN WAS RESCREENED PART OF OUR GARMENT MANUFACTURER PROGRAM. Specimen adequacy: 02 Satisfactory for evaluation. No endocervical cells are present. This is consistent with a history of hysterectomy. Performed by: 03 Cori Howell, Home Assessment Nurse (ASCP) QC reviewed by: 02 Oly Reid, Sandwich Artist . 02 Note: Note 02 The Pap smear is a screening test designed to aid in the detection of premalignant and malignant conditions of the uterine cervix. It is not a diagnostic procedure and should not be used as the sole means of detecting cervical cancer. Both false-positive and false-negative reports do occur. Test Methodology: Note 02 This liquid based ThinPrep(R) pap test was screened with the use of an image guided system. HPV Genotype Reflex Note 02 Criteria not met, HPV Genotype not performed. FLAG LEGEND: L-Low Normal,H-High Normal,LL-Alert Low,HH-Alert High <-Panic Low,>-Panic High,A-Abnormal,AA-Critical Abnormal Performed at: 02 [facility] [address] [address] Marce Carpio MD, 03 KWCYT [facility] [place] [facility] [address] [place] [address] Chris Rosado MD, SPATULA-ALONE VAGINA CLINISYNCNOMS HealthcareUrinalysis macro (dipstick) panel (U)on 06-14-2024 Bilirubin, UANegativeNegative - 4(70) +++ mg/dLNOMS HealthcareBlood, UANegative Negative - 50 Derrek/mcLNOMS HealthcareClarity, UAClearNOMS HealthcareColor, UA YellowNOMS HealthcareGlucose, UANegativeNegative - 2000(110) ++++ mg/dLNOMS HealthcareInterpretation and review of laboratory resultsNormalSaint [facility] Science Center Ketones, UANegativeNegative - 160(16) ++++ mg/dLNONE HealthcareLeukocytes, UA NegativeNegative - 500+++ Adriana/mcLNONE HealthcareNitrite, UANegativeNegative - PositiveNONE HealthcarepH, UA5.55 - 9NONE HealthcareProtein, UANegativeNegative - 2000(20) ++++ mg/dLNONE HealthcareSpec Grav, UA1.011 - 1.03NONE Healthcare Urobilinogen, UA0.20.2 - 12 mg/dLNOCox NorthNONE Iqxzmzobza00(OH)D3 [facility] 90-54-800048421672-vapqibklcvewzd D3 [Mass/Vol]50.2 ng/vPEsihwf09.0-80.0 [facility] on above:Order Comment: Specimen Type: BLOOD SPECIMENOrdering Facility: [facility] Address:[address] [place], [place] [address]Result Comment: Classification of 25 [place] Vitamin D status: Deficiency/Insufficiency: < or = 30 ng/ml. Sufficiency/Optimal Levels: 31-80 ng/mL Toxicity: > 100 ng/mL. Test performed by chemiluminescent immunoassay.Performed By: #### 1989-3 ####[facility] LABCLIA [id number] [place] [address] [place] AMERICAA-Tocopherol Vit E [facility] 42-17-6591Hpebv tocopherol [Mass/Vol]11.6 mg/LNormal6.0-23.0[facility] on above:Order Comment: Specimen Type: BLOOD SPECIMEN [facility] Address: [address] [place], [place] [address]Performed By: #### 2923-1, 1823-4 #### [facility] CLIA [id number] [address] [place] [address] [place] AMERICAAlpha tocopherol [Mass/Vol] on 86-90-3800Kfzs+gamma tocopherol [Mass/Vol]0.7 mg/LNormal0.3-3.2CGlenbeigh Hospital on above:Order Comment: Specimen Type: BLOOD SPECIMEN [facility] Address: [address] [place], [place] [address]Result Comment: This test was developed and its performance characteristics determined by [facility] Pathology and Laboratory Medicine [place] ([facility]). It has not been cleared or approved by the FDA. -[facility] is regulated under CLIA as qualified to perform high-complexity testing. This test is used for clinical purposes. It should not be regarded as investigational orfor research.Performed By: #### 2923-1, 1823-4 #### [facility] CLIA [id number] [address] [place] [address] [place] AMERICACOPPER BLOODon 09-02-2023 Copper [Mass/Vol]80 ug/oSDraxmd40-989BuzgxbhjdGerman Hospital on above: Order Comment: Specimen Type: BLOOD SPECIMEN [facility] Address: [address] [place], [place] [address]Result Comment: This test was developed and its performance characteristics determined by [facility] and Laboratory Medicine [place] ([facility]). It has not been cleared or approved by the FDA. -[facility] is regulated under CLIA as qualified to perform high-complexity testing. This test is used for clinical purposes. It should not be regarded as investigational orfor research.Performed By: #### COPPER, 5763-8 #### [facility] CLIA [id number] [address] [place] [address] [place] AMERICAFolate SerPl-mCncon 37-93-2207Rxszln [Mass/Vol]15.1 ng/mLNormal>4.7CGlenbeigh Hospital on above:Order Comment: Specimen Type: BLOOD SPECIMEN [facility] Address: [address] [place], [place] [address]Performed By: #### 2731-8, 2284-8 #### [facility] CLIA [id number] [address] [place] [address] [place] AMERICAPTH-Intact SerPl-mCncon 57-06-8189Vvqgltbtzu.intact [Mass/Vol]35 pg/aVRztgcw85-49IdstlnwhhGerman Hospital on above:Order Comment: Specimen Type: BLOOD SPECIMEN [facility] Address: [address] [place], [place] [address]Performed By: #### 2731-8, 2284-8 #### [facility] [place] [id number] [address] [place] [address] [place] OF AMERICAVITAMIN B1 (THIAMINE), WHOLE BLOODon 65-91-1082Uzfjtcpg (Bld) [Moles/Vol]171.5 nmol/ZSjmlos88.3-213.3 [facility] on above:Order Comment: Specimen Type: BLOOD SPECIMEN [facility] Address: [address] [place], [place] [address]Result Comment: This assay measures the concentration of thiamine diphosphate (TDP), the primary active form of vitamin B1. Approximately 90 percent of vitamin B1 present in whole blood is TDP. Thiamine and thiamine monophosphate, which comprise the remaining 10 percent, are not measured. This test was developed and its performance characteristics determined by [facility] CenterJess[facility] and Laboratory Medicine [place] ([facility]). It has not been cleared or approved by the FDA. -[facility] is regulated under CLIA as qualified to perform high-complexity testing. Thistest is used for clinical purposes. It should not be regarded as investigational or for research.Performed By: #### B1WB #### [facility] [place] [id number] [address] [place] [address] [place] OF AMERICAVITAMIN Lobo 09-02-2023 VITAMIN K0.61 nmol/LNormal0.22-4.88[facility] on above: Order Comment: Specimen Type: BLOOD SPECIMEN [facility] Address: [address] [place], [place] [address]Result Comment: INTERPRETIVE INFORMATION: Vitamin K1, Serum Vitamin K concentration is reported as nanomoles per liter (nmol/L). To convert concentration to nanograms per milliliter (ng/mL), multiply the result by 0.45. This test was developed and its performance characteristics determined by [facility]. It has not been cleared or approved by the US Food and Drug Administration. This test was performed in a CLIA certified laboratory and is intended for clinical purposes. Performed By: [facility] [address] [place] [address] Egg Processor: Tenzin Kiran MD, PhD CLIA Number: [id number] By: #### VITK #### [facility] CLIA [id number] [address] [place], [place] [address]Xya A SerPl-mCncon 39-01-5784Rsbcsdv [Mass/Vol]0.76 mg/L Normal0.30-1.20[facility] on above:Order Comment: Specimen Type: BLOOD SPECIMEN [facility] Address: [address] [place], [place] [address]Result Comment: This test was developed and its performance characteristics determined by [facility] Pathology and Laboratory Medicine [place] ([facility]). It has not been cleared or approved by the FDA. [facility] is regulated under CLIA as qualified to perform high-complexity testing. This test is used for clinical purposes. It should not be regarded as investigational orfor research.Performed By: #### 2923-1, 1823-4 #### [facility] CLIA [id number] [address] [place] [id number] STATES OF AMERICAZinc SerPl-mCncon 09-02-2023 Zinc [Mass/Vol]83 ug/oHLgcayt55-013ByjimisrkGerman Hospital on above: Order Comment: Specimen Type: BLOOD SPECIMEN [facility] Address: [address] [place], [place] [address]Result Comment: This test was developed and its performance characteristics determined by [facility] Pathology and Laboratory Medicine [place] ([facility]). It has not been cleared or approved by the FDA. [facility] is regulated under CLIA as qualified to perform high-complexity testing. This test is used for clinical purposes. It should not be regarded as investigational orfor research.Performed By: #### CONNER, 5763-8 #### [facility] CLIA [id number] [address] [place] [address] [place] AMERICACNOVon 31-72-0128VOQBOqozxh Visit (BMINO) MANDEEP SPENCER ([id number]) 1980 F Date Time Provider Department 08/15/23 3:15 PM KASEY PRICE BMINO During your visit today, we recorded the following information about you: Pulse Blood pressure Weight Height 83/minute 117/84 69.9 kg 1.613 m Kasey Price, 08/15/2023 4:35 PM Signed BMI Obesity Medicine Follow-Up Note August 15, 2023 Patient Summary: is 43 year old female who presents for follow-up evaluation of her obesity and related complications to the [facility] Bariatric and Metabolic [place]. Date of Surgery: 01/23/2018 Surgeon: Kate Cardenas MD Surgical Procedure: LAPAROSCOPIC GASTRIC RESTRICTIVE SURG W/ BYPASS AND GURINDER-EN-Y 150CM OR LESS Pre-surgical weight: 100.5 kg (229 lb) Last visit weight: 159 lbs Assessement/plan from last visit (01/19/22): -Begin flagyl 500 mg twice a day x 2 weeks. -Should regularly use a probiotic and take diflucan x 1 after completing flagyl. -Reviewed recent labs that are normal. -Recommend beginning bariatric [facility] without iron and take with calcium citrate. -If no improvement on flagyl or has recurrent symptoms, consider an EGD as the previous EGD revealed erosions. She has well controlled GERD on the current dose of prilosec. HPI:Since last visit she has not had any major issues to include dysphagia, abdominal pain, diarrhea, or heartburn. She continues to take Prilosec which is controlling her reflux. She had recent labs done at an outside facility. CBC, iron studies, vitamin D, CMP, and B12 levels were normal. She did have a ferritin level which is 431. The vitamin D level was 75.6, iron was 61, TIBC was 271, and the transferrin saturation was 23. She did not have a thiamine, folate, copper, zinc, vitamin A, vitamin D and K levels drawn. Cannot take most vitamins as they make her vomit and sick to her stomach. She is on one zinc, copper, and selenium one daily. Also takes vitamin D3 31816 units + K2 daily 1 daily, and a that contains vitamin A, D, E, niacin, folate, B12, biotin, zinc, and copper. She is currently not on calcium citrate and none of the current vitamins have iron. She had an iron infusion several years ago. I initially started her on topiramate for weight loss, her neurologist is in the process of increasing by another 50 mg for total of 50 mg in the morning and 100 mg in the evening. She has no side effects from the topiramate. Anti-obesity medication: none Dietary changes: Has been including protein with all meals, has intolerances to sugar, lactose, yogart, milk which can cause low blood sugars. Unable to overeat, normal, fullness Exercise: active in general Stress: stable Sleep: Weight graph: PAST MEDICAL HISTORY Diagnosis Date Anxiety Diverticulosis GERD (gastroesophageal reflux disease) HTN (hypertension) age 21 Obesity PCOS (polycystic ovarian syndrome) age 19's Current Outpatient Medications Medication Sig Dispense Refill PREMARIN 0.9 mg tablet Take 0.9 mg by mouth once daily. vitamin D3-folic acid 250 mcg (10,000 unit)-1 mg tab Take 1 tablet by mouth once daily. fexofenadine (TATIANA) 180 mg tablet Take 1 tablet by mouth once daily. baclofen 10 mg tablet Take 1 tablet by mouth. Magnesium Oxide 500 mg magnesium tab Take 1 tablet by mouth once daily. Zinc Gluconate 50 mg tablet Take 50 mg by mouth once daily. Copper PROGESTERONE, BULK, MISC 20 mg per day, 1 pump per day Ujvqx-9-CTX-EPA-Fish Oil (FISH OIL) 1,000 mg (120 mg-180 mg) cap Take 2 g by mouth two times a day. ASHWAGANDHA EXTRACT ORAL Take by mouth once daily. VITAL HERBAL BRAND, 7050 MG DAILY vitamin D3-folic acid 250 mcg (10,000 unit)-1 mg tab Take 1 tablet by mouth once daily. naltrexone 4.5 mg cap Take 1 capsule by mouth two times a day. omeprazole (PRILOSEC) 40 mg capsule Take 1 capsule by mouth twice daily before meals. 30 min before breakfast and dinner. Open capsule and take with small amount of yogurt 180 capsule 3 amLODIPine (NORVASC) 5 mg tablet Take 1 tablet by mouth. topiramate (TOPAMAX) 50 mg tablet Take 1 tablet by mouth twice daily. 60 tablet 5 calcium citrate/vitamin D3 (CITRACAL + D ORAL) Take by mouth once daily. UBRELVY 100 mg tablet TAKE 1 TABLET at onset of migraine, may repeat in 2 HOURS but no more than 2 times per day or 2 times per week biotin 1,000 mcg chew Take 1 tablet by mouth once daily. (Patient taking differently: Take 1 tablet by mouth once daily. Phyllis brand) 30 tablet 11 LORazepam (ATIVAN) 0.5 mg tab Take 1 mg by mouth as needed. Take 1 tab twice daily as needed. montelukast (SINGULAIR) 10 mg tablet Take 10 mg by mouth once daily. fluconazole (DIFLUCAN) 150 mg tablet TAKE 1 TABLET BY MOUTH as a one time dose 1 tablet 1 baclofen (LIORESAL) 10 mg tablet Take 10 mg by mouth once daily. (Patient not taking: Reported on 08/15/2023) vitamin (more content not included)...NormalAs[facility] TOMOSYNTHESIS SCREENING BIon 02-18-2219[place]fn[place], [place] [address] Mammography Report Signed Patient: MANDEEP SPENCER MR#: [id number] : 1980 Acct:[id number] Age/Sex: 42 / F ADM Date: 06/22/23 Loc: MAMMO Attending Dr: Rick Jones D.O. Ordering Physician: Rick Jones D.O. Results: Date of Service: 06/22/23 Follow Up: Procedure(s): MM tomosynthesis screening BI Accession Number(s): [id number] cc: MAIK BROCK ; Rick Jones D.O. Patient Name: MANDEEP SPENCER MR#: [id number] : 1980 Exam Date: 06/22/2023 Ordering Doctor: DR Rick Jones . RADIOLOGY REPORT PROCEDURE: MM TOMOSYNTHESIS SCREENING BI COMPARISON: MG MAMM SCREEN 3D JUDITH CAD, 06/15/2022. MG MAMM SCREEN 3D JUDITH CAD, 06/16/2021. INDICATIONS: Screening Calculator Name NCI Breast Cancer Risk Assessment Tool 5 Year Breast Cancer Risk 0.60% Lifetime Breast Cancer Risk 7.80% Personal Breast Cancer No Personal Ovarian Cancer No Treatments None Family Cancers Grandfather-paternal with esophagus/bone/skin cancer at age 75. LOCATION: [facility] BREAST COMPOSITION: Heterogeneously dense,which may obscure small masses. FINDINGS: DIAGNOSTIC CATEGORY 1--NEGATIVE. NO CHANGE FROM COMPARISON ASSESSMENT. Scattered benign-appearing calcifications are present. RIGHT BREAST: No significant suspicious finding. LEFT BREAST: No significant suspicious finding. RECOMMENDATIONS: ROUTINE MAMMOGRAM AND CLINICAL EVALUATION IN 12 MONTHS. PLEASE NOTE: A NORMAL MAMMOGRAM DOES NOT EXCLUDE THE POSSIBILITY OF BREAST CANCER. A CLINICALLY SUSPICIOUS PALPABLE LUMP SHOULD BE BIOPSIED. Dictated by: Rufina Broussard MD on 06/22/2023 at 07:59 Approved by: Rufina Broussard MD on 06/22/2023 at 08:01 Dictated By: Rufina Broussard M.D. Signed By: 06/22/23801 DD/ 0 TD/TT: [employer] Developer:TBHRadiology, Radiologist, - 06/22/2023 [place] [address] Mammography Report Signed Patient: MANDEEP SPENCER MR#: [id number] : 1980 Acct:[id number] Age/Sex: 42 / F ADM Date: 06/22/23 Loc: MAMMO Attending Dr: Rick Jones D.O. Ordering Physician: Rick Jones D.O. Results: Date of Service: 06/22/23 Follow Up: Procedure(s): MM tomosynthesis screening BI Accession Number(s): [id number] cc: MAIK BROCK ; Rick Jones D.O. Patient Name: MANDEEP SPENCER MR#: [id number] : 1980 Exam Date: 06/22/2023 Ordering Doctor: DR Rick Jones . RADIOLOGY REPORT PROCEDURE: MM TOMOSYNTHESIS SCREENING BI COMPARISON: MG MAMM SCREEN 3D JUDITH CAD, 06/15/2022. MG MAMM SCREEN 3D JUDITH CAD, 06/16/2021. INDICATIONS: Screening Calculator Name NCI Breast Cancer Risk Assessment Tool 5 Year Breast Cancer Risk 0.60% Lifetime Breast Cancer Risk 7.80% Personal Breast Cancer No Personal Ovarian Cancer No Treatments None Family Cancers Grandfather-paternal with esophagus/bone/skin cancer at age 75. LOCATION: [facility] BREAST COMPOSITION: Heterogeneously dense,which may obscure small masses. FINDINGS: DIAGNOSTIC CATEGORY 1--NEGATIVE. NO CHANGE FROM COMPARISON ASSESSMENT. Scattered benign-appearing calcifications are present. RIGHT BREAST: No significant suspicious finding. LEFT BREAST: No significant suspicious finding. RECOMMENDATIONS: ROUTINE MAMMOGRAM AND CLINICAL EVALUATION IN 12 MONTHS. PLEASE NOTE: A NORMAL MAMMOGRAM DOES NOT EXCLUDE THE POSSIBILITY OF BREAST CANCER. A CLINICALLY SUSPICIOUS PALPABLE LUMP SHOULD BE BIOPSIED. Dictated by: Rufina Broussard MD on 06/22/2023 at 07:59 Approved by: Rufina Broussard MD on 06/22/2023 at 08:01 Dictated By: Rufina Broussard M.D. Signed By: 06/22/23801 DD/ 0 TD/TT: [employer] So[employer] Developer: MERCEDES [facility] ShawRadiology Study observation (narrative)[facility] TOMOSYNTHESIS SCREENING BIOrdered By: Radiologist Radiology on 41-52-6420HGOLSaint Louis University Health Science Center Work Phone: ct angio chest PE protocolon 06-83-3864TI angio chest PE protocolCLEVELAND [facility] [place] [address] CT Scan Report Signed Patient: Mandeep Spencer MR#: [id number] : 1980 Acct:[id number] Age/Sex: 42 / F ADM Date: 05/26/23 Loc: ER Room: Type: [facility] ER Attending Dr: Copies to: Pretty Jimenez DO Ordering Provider: Pretty Jimenez DO Date of Service: 05/26/23 CT/CT angio chest PE protocol: back pain, sob, hx of clots CT ANGIOGRAM OF THE CHEST, PULMONARY EMBOLISM PROTOCOL: CLINICAL INFORMATION: Back pain shortness of breath palpitations nausea and midsternal chest pain since Tuesday. COMPARISON: TECHNIQUE: Following intravenous injection of contrast CT scans of the chest were obtained using pulmonary embolism protocol. Coronal and sagittal reconstructed images, as well as volume rendered CT pulmonary angiographic images were also submitted.The CT exam was performed using one or more of the following dose reduction techniques: Automated exposure control, adjustment of the MA and/or Kv according to patient size, or use of the iterative reconstruction technique. FINDINGS: Pulmonary Vasculature: Contrast bolus is adequate for evaluation of pulmonary embolism. Pulmonary trunk appears nondilated. No filling defects are identified to suggest pulmonary embolism. Mediastinum : Thoracic aorta is normal in caliber. No pericardial effusion. No lymphadenopathy. The esophagus is grossly unremarkable. Lungs: No focal consolidation, pneumothorax or pleural effusion. Upper abdomen: No acute findings cystic changes involving the kidneys. Gastric bypass changes. Soft tissue/bones: Soft tissues surrounding the chest wall demonstrate no acute findings. Osseous structures demonstrate degenerative change. CT/CT angio chest PE protocol IMPRESSION: NO EVIDENCE OF ACUTE PULMONARY EMBOLISM OR PROCESS. Impression dictated by: Varun Sauceda Jr., D.O.05/27/2023 8:44 AM Dictation Location: [place] [address] Transcribed By: [facility] 05/27/23 0844 Dictated By: Varun Sauceda Jr, DO 05/27/23 0831 Signed By: 05/27/23 0844[facility] Physician GroupAlanine aminotransferase [Enzymatic activity/volume] in Serum or PlasmaOrdered By: Pretty Jimenez on 63-88-0344VOY [Catalytic activity/Vol]14 U/LNormal7-52Ohio[facility]heastern Medical CenterComment on above:Performed By: #### UA, CEPHEID NEG, COVID19 FLU RSV #### [facility] [address] [place] [address] USAAlbumin [Mass/volume] in Serum or Plasma by Bromocresol green (BCG) dye binding methoOrdered By: Pretty Jimenez on 45-01-0871Xxlnvye BCG dye [Mass/Vol]4.1 g/dL3.5-5.7FMarietta Osteopathic ClinicAlkaline phosphatase [Enzymatic activity/volume] in Serum or PlasmaOrdered By: Pretty Jimenez on 52-25-6400ZUZ [Catalytic activity/Vol]60 U/NYtogmq26-579XgwgskddvOhiohealth Southeastern Medical CenterComment on above:Performed By: #### UA, CEPHEID NEG, COVID19 FLU RSV #### [facility] [address] [place] [address] USAAspartate aminotransferase [Enzymatic activity/volume] in Serum or PlasmaOrdered By: Pretty Jimenez on 49-08-9746YIJ [Catalytic activity/Vol]15 U/CHzdpuk51-51ArncqyjavOhiohealth Southeastern Medical CenterComment on above: Performed By: #### UA, CEPHEID NEG, COVID19 FLU RSV #### [place] [address] USAAutomated basophil %Ordered By: Pretty Jimenez on 74-57-8161Smmzwhdto/100 WBC (Bld)0.7 %Normal.[facility] Comment on above:Performed By: #### UA, CEPHEID NEG, COVID19 FLU RSV #### [place] [address] USAAutomated basophil countOrdered By: Pretty Jimenez on 00-49-7177Jhgblargl (Bld) [#/Vol]0.0 10*3/uLNormal0.0-0.2FMarietta Osteopathic ClinicComment on above:Result Comment: PERFORMED BY: [place] [address] PATHOLOGIST INSTRUMENT LENS INSPECTOR MARLYN UGALDE M.D.Performed By: #### UA, CEPHEID NEG, COVID19 FLU RSV #### [place] [address] USAAutomated blood monocyte countOrdered By: Pretty Jimenez on 77-36-8676Agchwzfen (Bld) [#/Vol]0.3 10*3/uLNormal0.0-0.8[facility] Medical CenterComment on above:Performed By: #### UA, CEPHEID NEG, COVID19 FLU RSV #### [place] [address] USAAutomated eosinophil %Ordered By: Pretty Jimenez on 50-48-5227Bapgsmfuyqf/100 WBC (Bld)1.7 %Normal.[facility] Comment on above:Performed By: #### UA, CEPHEID NEG, COVID19 FLU RSV #### [facility] [address] [place] [address] USAAutomated eosinophil countOrdered By: Pretty Jimenez on 62-43-0934Jdgtmirsvlp (Bld) [#/Vol]0.1 10*3/uLNormal0.0-0.45Ohio[facility] Medical CenterComment on above:Performed By: #### UA, CEPHEID NEG, COVID19 FLU RSV #### [place] [address] USAAutomated monocyte %Ordered By: Pretty Jimenez on 78-20-3541Iuxasgzmu/100 WBC (Bld)6.5 %Normal.[facility] Comment on above:Performed By: #### UA, CEPHEID NEG, COVID19 FLU RSV #### [place] [address] USAAutomated neutrophil %Ordered By: Pretty Jimenez on 58-34-8423Pcaaqejwmiz/100 WBC (Bld)55.2 %Normal.[facility] Medical CenterComment on above:Performed By: #### UA, CEPHEID NEG, COVID19 FLU RSV #### [facility] [address] [place] [address] USAAutomated urine color determinationOrdered By: Pretty Jimenez on 09-40-1569Yoweq (U)YellowNormalYOhioHealth Shelby Hospital Comment on above:Order Comment: Name Collection Type:: Clean-Voided Midstream Performed By: #### UA, CEPHEID NEG, COVID19 FLU RSV #### [place] [address] USABNP ser/plasOrdered By: Pretty Jimeenz on 05-26-2023 Natriuretic peptide B (Bld) [Mass/Vol]19.0 pg/mLNormal5-100Ohio[facility] Medical CenterComment on above:Result Comment: PERFORMED BY: [place] [address] PATHOLOGIST INSTRUMENT LENS INSPECTOR MARLYN UGALDE M.D.Performed By: #### UA, CEPHEID NEG, COVID19 FLU RSV #### [place] [address] USABasic Metabolic Panelon 77-63-5369MQV/1.73 sq M.predicted MDRD (S/P/Bld) [Vol rate/Area]mL/min/{1.73_m2}NormalThe [facility] Hospital Physician GroupComment on above:Performed By: #### UA, CEPHEID NEG, COVID19 FLU RSV #### [place] [address] USABilirubin Test strip Ql (U)Ordered By: Pretty Jimenez on 58-10-6343Sarmmzusz Ql (U)NegativeNegativeOhiohealth Southeastern Medical Center Bilirubin.direct [Mass/volume] in Serum or PlasmaOrdered By: Pretty Jimenez on 28-51-6395Oxpvhqrui.direct [Mass/Vol]0.00 mg/dL0.03-0.18FMarietta Osteopathic ClinicComment on above:If the DBIL is less than 0.1, IBIL is not able to becalculated.Bilirubin.total [Mass/volume] in Serum or PlasmaOrdered By: Pretty Jimenez on 34-43-7901Aqipdowzz [Mass/Vol]0.3 mg/dLNormal0.3-1.0[facility] Medical CenterComment on above:Performed By: #### UA, CEPHEID NEG, COVID19 FLU RSV #### [place] [address] USACOVID CepheidOrdered By: Pretty Jimenez on 05-26-2023 SARS-CoV-2 (COVID-19) Ab IA QlNegativeNegativeOhiohealth Southeastern Medical Center Comment on above:This is a duplicate Cepheid Xpert Xpress CoV-2/Flu/RSV Plus RNA by RT-PCR result to be used for statistical tracking purpose only.SARS-CoV-2 (COVID-19) RNA NATY+probe Ql (Unsp spec)[facility] Medical CenterCOVID-19 / Flu A/B / RSV PCRon 59-84-8694RQVN-CoV-2 (COVID-19) RNA NATY+probe Ql (Unsp spec)COVID-19 Cepheid Result Negative for SARS-CoV-2 RNA by RT-PCR Flu A Cepheid Result Negative for Flu A RNA by RT-PCR Flu B Cepheid Result Negative for Flu B RNA by RT-PCR RSV Cepheid Result Negative for RSV RNA by RT-PCR COVID19 Blank Space Reference: Negative COVID19 Blank Space Cepheid Disclaimer The Cepheid Xpert Xpress CoV-2/Flu/RSV Plus has Cepheid Disclaimer not been FDA cleared or approved; this test has Cepheid Disclaimer been authorized by FDA under an EUA for use by Cepheid Disclaimer authorized laboratories; this test has been Cepheid Disclaimer authorized only for the simultaneous qualitative Cepheid Disclaimer detection and differentiation of nucleic acids from Cepheid Disclaimer SARS-CoV-2, influenza A, influenza B, and Cepheid Disclaimer respiratory syncytial virus (RSV), and not for any Cepheid Disclaimer other viruses or pathogens; and this test is only Cepheid Disclaimer authorized for the duration of the declaration that Cepheid Disclaimer circumstances exist justifying the authorization of Cepheid Disclaimer emergency use of in vitro diagnostic tests for Cepheid Disclaimer detection and/or diagnosis of COVID-19 under Cepheid Disclaimer Section 564(b)(1) of the Act, 21 U.S.C. 360bbb- Cepheid Disclaimer 3(b)(1), unless the authorization is terminated or Cepheid Disclaimer revoked sooner. PERFORMED BY: [place] [address] PATHOLOGIST INSTRUMENT LENS INSPECTOR MARLYN UGALDE M.D.NormalHca Florida Northwest Hospital Physician GroupComment on above:Performed By: #### UA, CEPHEID NEG, COVID19 FLU RSV #### [address] [address] USACalcium [Mass/volume] in Serum or PlasmaOrdered By: Pretty Jimenez on 33-79-2125Lqwekol [Mass/Vol]8.6 mg/dLNormal8.6-10.3FMarietta Osteopathic ClinicComment on above:Performed By: #### UA, CEPHEID NEG, COVID19 FLU RSV #### [place] [id number] USACarbon dioxide, total [Moles/volume] in Serum or Plasma Ordered By: Pretty Jimenez on 93-55-6622UP6 [Moles/Vol]23.3 mmol/LNormal 21.0-31.0Ohio[facility] Medical CenterComment on above:Performed By: #### UA, CEPHEID NEG, COVID19 FLU RSV #### [address] [address] USACepheid COVID PCR Negativeon 63-09-9406IOCP-CoV-2 (COVID- 19) RNA NATY+probe Ql (Unsp spec)NegativeNormalNegativeThe [facility] Physician GroupComment on above:Result Comment: This is a duplicate Cepheid Xpert Xpress CoV-2/Flu/RSV Plus RNA by RT-PCR result to be used for statistical tracking purpose only. PERFORMED BY: [place] [address] PATHOLOGIST INSTRUMENT LENS INSPECTOR MARLYN UGALDE M.D.Performed By: #### UA, CEPHEID NEG, COVID19 FLU RSV #### [address] [address] USAChloride [Moles/volume] in Serum or PlasmaOrdered By: Pretty Jimenez on 44-73-0257Uwnlxwvf [Moles/Vol]109 mmol/JBlqz77-622PdmupueysOhiohealth Southeastern Medical CenterComment on above:Performed By: #### UA, CEPHEID NEG, COVID19 FLU RSV #### [facility] [address] [place] [address] USAComplete Blood Count Auto Diffon 53-93-4716Nbqr Corpuscular HGB Conc33.5 g/vVYyiuil06.0-35.0The [facility] Physician GroupComment on above:Performed By: #### UA, CEPHEID NEG, COVID19 FLU RSV #### [place] [address] USAMonocytes/100 WBC (Bld)18.62 %Normal0.00-20.00[facility] Physician [facility] CenterComment on above:Performed By: #### UA, CEPHEID NEG, COVID19 FLU RSV #### [place] [address] USANRBC%0.1 /100{WBC}Normal0-0.5[facility] Comment on above:Performed By: #### UA, CEPHEID NEG, COVID19 FLU RSV #### [place] [address] USACreatinine [Mass/volume] in Serum or PlasmaOrdered By: Pretty Jimenez on 94-26-4313Ytqjalzuum [Mass/Vol]0.83 mg/dLNormal0.60-1.20 [facility] CenterComment on above:Performed By: #### UA, CEPHEID NEG, COVID19 FLU RSV #### [place] [address] USAECG 12 lead ECGon 38-38-6135ALU 12 lead ECGCLEVELAND CLINIC [facility] [place] [address] [place] [address] Electrocardiograph Report Signed Patient: Mandeep Spencer MR#: [id number] : 1980 Acct:[id number] Age/Sex: 42 / F ADM Date: 05/26/23 Loc: ER Room: Type: PRE ER Attending Dr: Ordering Provider: Pretty Jimenez DO Date of Service: 05/26/23 ECG/ECG 12 lead ECG: Chest Pain Copies to: Test Reason : Blood Pressure : / mmHG Vent. Rate : 095 BPM Atrial Rate : 095 BPM P-R Int : 132 ms QRS Dur : 078 ms QT Int : 342 ms P-R-T Axes : 073 058 055 degrees QTc Int : 429 ms Normal sinus rhythm Confirmed by Omari CANNON DO ([id number]) on 05/26/2023 7:39:37 PM Referred By: Electronically Signed By:Omari CANNON DO Transcribed By: MUS Signed By Omari Cannon DO 0 05/26/[address] [place] [address] Physician GroupErythrocyte distribution width [Ratio] by Automated countOrdered By: Pretty Jimenez on 07-29-3436Abaichxlzmu distribution width (RBC) [Ratio]12.9 %Snynog41.9-15.3FMarietta Osteopathic ClinicComment on above:Performed By: #### UA, CEPHEID NEG, COVID19 FLU RSV #### [facility] [address] [place] [address] USAErythrocytes [#/volume] in Blood by Automated countOrdered By: Pretty Jimenez on 50-01-8477DQT (Bld) [#/Vol]4.37 10*6/uLNormal3.60-5.00 [facility] Medical CenterComment on above:Performed By: #### UA, CEPHEID NEG, COVID19 FLU RSV #### [facility] [address] [place], [place] [address] USAGlucose [Mass/volume] in Serum or PlasmaOrdered By: Pretty Jimenez on 61-05-2363Gxzpjya [Mass/Vol]96 mg/lHXwczxv55-416FwrnluxgzOhiohealth Southeastern Medical CenterComment on above:ADA recommended reference rangeRandom Glucose Reference Range is dependent on time and content of last meal. Glucose of more than 200 mg/dL in a nonstressed, ambulatory subject supports the diagnosisof Diabetes Mellitus.Result Comment: Random Glucose Reference Range is dependent on time and content of last meal. Glucose of more than 200 mg/dL in a nonstressed, ambulatory subject supports the diagnosis of Diabetes Mellitus. ADA recommended reference rangePerformed By: #### UA, CEPHEID NEG, COVID19 FLU RSV #### [place] [address] USAHematocrit [Volume Fraction] of Blood by Automated count Ordered By: Pretty Jimenez on 24-12-1393Ccnrrugcvj (Bld) [Volume fraction]38.8 %Pikljb97.0-46.4FMarietta Osteopathic ClinicComment on above:Performed By: #### UA, CEPHEID NEG, COVID19 FLU RSV #### [place] [address] USAHemoglobin [Mass/volume] in BloodOrdered By: Pretty Jimenez on 45-87-6652Hdkessieyx (Bld) [Mass/Vol]13.0 g/kYGlgbek44.8-15.4FMarietta Osteopathic ClinicComment on above:Performed By: #### UA, CEPHEID NEG, COVID19 FLU RSV #### [place] [address] USAHepatic Panelon 50-38-0518Hruggml [Mass/Vol]4.1 g/dLNormal 3.5-5.7The [facility] Physician GroupComment on above:Performed By: #### UA, CEPHEID NEG, COVID19 FLU RSV #### [place] [address] USABilirubin,Indirect0.3 mg/dLNormalThe [facility] Physician [facility] CenterComment on above:Performed By: #### UA, CEPHEID NEG, COVID19 FLU RSV #### [place] [address] USABilirubin.indirect [Mass/Vol]0.00 mg/dLLow0.03-0.18[facility] Physician GroupComment on above:Result Comment: If the DBIL is less than 0.1, IBIL is not able to be calculated.Performed By: #### UA, CEPHEID NEG, COVID19 FLU RSV #### [place] [address] USAKetones Auto test strip (U) [Mass/Vol]Ordered By: Pretty Jimenez on 22-67-7344Mtbkzkt (U) [Mass/Vol]NegativeNegativeOhiohealth Southeastern Medical CenterLeukocytes [#/volume] corrected for nucleated erythrocytes in Blood by Automated counOrdered By: Pretty Jimenez on 05-26-2023 WBC corrected for nucl RBC Auto (Bld) [#/Vol]5.2 10*3/uL3.8-11.6FMarietta Osteopathic ClinicLeukocytes [#/volume] in Blood by Automated countOrdered By: Pretty Jimenez on 49-42-9846FHE (Bld) [#/Vol]5.2 10*3/uLNormal3.8-11.6 [facility] CenterComment on above:Performed By: #### UA, CEPHEID NEG, COVID19 FLU RSV #### [facility] [address] [place] [address] USALipase [Enzymatic activity/volume] in Serum or Plasma Ordered By: Pretty Jimenez on 59-95-2514Tzmmtc [Catalytic activity/Vol]32.0 U/L Jbxezb20.0-82.0[facility] Medical CenterComment on above:Result Comment: PERFORMED BY: [place] [address] PATHOLOGIST INSTRUMENT LENS INSPECTOR MARLYN UGALDE M.D.Performed By: #### UA, CEPHEID NEG, COVID19 FLU RSV #### [facility] [address] [place] [address] USALymphocytes [#/volume] in Blood by Automated countOrdered By: Pretty Jimenez on 78-14-6371Lamzrcrslqz (Bld) [#/Vol]1.9 10*3/uLNormal 1.00-4.8[facility] Medical CenterComment on above:Performed By: #### UA, CEPHEID NEG, COVID19 FLU RSV #### [facility] [address] [place], [place] [address] USALymphocytes/100 leukocytes in Blood by Automated count Ordered By: Pretty Jimenez on 25-69-0768Xmimctrccrq/100 WBC (Bld)35.9 %Normal. [facility] CenterComment on above:Performed By: #### UA, CEPHEID NEG, COVID19 FLU RSV #### [facility] [address] [Entitic mass] by Automated countOrdered By: Pretty Jimenez on 28-53-5754XKZ (RBC) [Entitic mass]29.8 txEunsgy84.7-34.3FMarietta Osteopathic ClinicComment on above:Performed By: #### UA, CEPHEID NEG, COVID19 FLU RSV #### [facility] [address]HC Auto (RBC) [Mass/Vol]Ordered By: Pretty Jimenez on 59-78-3473VCKG (RBC) [Mass/Vol]33.5 g/dL32.0-35.0[facility] Medical CenterV [Entitic volume] by Automated countOrdered By: Pretty Jimenez on 15-36-7846VRW (RBC) [Entitic vol]88.8 iMQlfoji29-108EnteezzdtOhiohealth Southeastern Medical CenterComment on above:Performed By: #### UA, CEPHEID NEG, COVID19 FLU RSV #### [facility] [address] [place] [address] USAMonocyte distribution width [Entitic volume] in Blood by AutomatedOrdered By: Pretty Jimenez on 57-10-4442Otszihzi distribution width Auto (Bld) [Entitic vol]18.62 %0.00-20.00[facility] Neutrophils [#/volume] in Blood by Automated countOrdered By: Pretty Jimenez on 73-45-3447Sepnvflyayf (Bld) [#/Vol]2.9 10*3/uLNormal1.8-7.7FMarietta Osteopathic ClinicComment on above:Performed By: #### UA, CEPHEID NEG, COVID19 FLU RSV #### [facility] [address] [place] [address] USANitrite Test strip Ql (U)Ordered By: Pretty Jimenez on 55-47-4583Pjcvkal Ql (U)NegativeNegativeOhiohealth Southeastern Medical CenterNo Panel InformationOrdered By: Pretty Jimenez on 72-71-2930Wgflcbgxn GFR (CKD-EPI)> 60.0 mL/MinOhiohealth Southeastern Medical CenterPharmacy Creatinine Clearance (ChemN/AFMarietta Osteopathic ClinicNucleated erythrocytes [Presence] in Blood by Automated countOrdered By: Pretty Jimenez on 05-26-2023 Nucleated RBC Auto Ql (Bld)0.1 /100{WBC}0-0.5FMarietta Osteopathic Clinic Platelet mean volume [Entitic volume] in Blood by Automated countOrdered By: Pretty Jimenez on 62-14-6735Bjoccryu mean volume (Bld) [Entitic vol]7.0 fL Normal6.3-10.7FMarietta Osteopathic ClinicComment on above:Performed By: #### UA, CEPHEID NEG, COVID19 FLU RSV #### [facility] [address] [place] [address] USAPlatelets [#/volume] in Blood by Automated countOrdered By: Pretty Jimenez on 74-89-1462Kiutjtccv (Bld) [#/Vol]239 10*3/xDMfozbr880-368 [facility] CenterComment on above:Performed By: #### UA, CEPHEID NEG, COVID19 FLU RSV #### [facility] [address] [place] [address] USAPotassium [Moles/volume] in Serum or PlasmaOrdered By: Pretty Jimenez on 78-91-6706Tioayaygn [Moles/Vol]3.5 mmol/LNormal3.5-5.1 [facility] CenterComment on above:Performed By: #### UA, CEPHEID NEG, COVID19 FLU RSV #### [facility] [address] [place] [address] USAProtein Auto test strip (U) [Mass/Vol]Ordered By: Pretty Jimenez on 36-12-8604Bqbwaba (U) [Mass/Vol]NegativeNegativeOhiohealth Southeastern Medical CenterProtein [Mass/volume] in Serum or PlasmaOrdered By: Pretty Jimenez on 49-91-1881Sxorpzd [Mass/Vol]6.8 g/dLNormal6.4-8.9[facility] Medical CenterComment on above:Performed By: #### UA, CEPHEID NEG, COVID19 FLU RSV #### [facility] [address] [place] [address] USASerum globulin measurement by calculation (mass/volume) Ordered By: Pretty Jimenez on 72-14-5630Sumppzuq (S) [Mass/Vol]2.7 g/dLNormal [facility] CenterComment on above:Performed By: #### UA, CEPHEID NEG, COVID19 FLU RSV #### [facility] [address] [place] [address] USASerum or plasma albumin/globulin mass ratioOrdered By: Pretty Jimenez on 69-24-3100Abcdarz/Globulin [Mass ratio]1.5 {ratio}Normal [facility] CenterComment on above:Performed By: #### UA, CEPHEID NEG, COVID19 FLU RSV #### [place] [address] USASerum or plasma anion gap determinationOrdered By: Pretty Jimenez on 55-76-5421Xhdtc gap [Moles/Vol]11.2 mmol/LNormal6.0-15.0 [facility] CenterComment on above:Performed By: #### UA, CEPHEID NEG, COVID19 FLU RSV #### [place] [address] USASerum or plasma non-glucuronidated bilirubin measurement (mass/volume)Ordered By: Pretty Jimenez on 92-34-0015Criphtuuo.indirect [Mass/Vol]0.3 mg/dLSt. Rita's Hospitalodium [Moles/volume] in Serum or PlasmaOrdered By: Pretty Jimenez on 74-97-9725Dflpda [Moles/Vol]140 mmol/BHomnms490-245BhuwaioxuOhiohealth Southeastern Medical CenterComment on above:Performed By: #### UA, CEPHEID NEG, COVID19 FLU RSV #### [place] [address] USASpecific gravity Auto test strip (U) [Rel density]Ordered By: Pretty Jimenez on 56-96-9861Ebnifkwg gravity (U) [Rel density]1.015 1.001-1.030[facility] Medical CenterTroponin I High Sensitivityon 74-45-7450Mmyltwiy I High Sensitivity< 2.1Ksqysm6.0-15.0[facility] Physician GroupComment on above:Result Comment: PERFORMED BY: [place] [address] PATHOLOGIST INSTRUMENT LENS INSPECTOR MARLYN UGALDE M.D.Performed By: #### UA, CEPHEID NEG, COVID19 FLU RSV #### [place] [address] USATroponin I.cardiac [Mass/volume] in Serum or Plasma by Detection limit <= 0.01 ng/Ordered By: Pretty Jimenez on 71-53-1828Dgctlvdp I.cardiac DL <= 0.01 ng/mL [Mass/Vol]< 2.3 pg/mL0.0-15.0[facility] Medical CenterUrea nitrogen [Mass/volume] in Serum or PlasmaOrdered By: Pretty Jimenez on 11-28-1584Rplp nitrogen [Mass/Vol]11 mg/dLNormal7-25[facility] Medical CenterComment on above:Performed By: #### UA, CEPHEID NEG, COVID19 FLU RSV #### [facility] [address] [place], [place] [address] USAUrinalysison 14-28-4704Gvsdxcsidy (U)ClearNormalClearThe [facility] Hospital Physician GroupComment on above:Order Comment: Name Collection Type:: Clean-Voided MidstreamPerformed By: #### UA, CEPHEID NEG, COVID19 FLU RSV #### [facility] [address] [place] [address] USABilirubin,UrineNegativeNormalNegativeThe [facility] Physician GroupComment on above:Order Comment: Name Collection Type:: Clean- Voided MidstreamPerformed By: #### UA, CEPHEID NEG, COVID19 FLU RSV #### [facility] [address] [place], [place] [address] USAGlucose Ql (U)NormalNormalNormalThe [facility] Physician GroupComment on above:Order Comment: Name Collection Type:: Clean-Voided MidstreamPerformed By: #### UA, CEPHEID NEG, COVID19 FLU RSV #### [place] [address] USAKetones Ql (U)NegativeNormalNegativeThe [facility] Physician GroupComment on above:Order Comment: Name Collection Type:: Clean- Voided MidstreamPerformed By: #### UA, CEPHEID NEG, COVID19 FLU RSV #### [place] [address] USALeukocyte esterase Test strip Ql (U)NegativeNormalNegative [facility] Physician GroupComment on above:Order Comment: Name Collection Type:: Clean-Voided MidstreamPerformed By: #### UA, CEPHEID NEG, COVID19 FLU RSV #### [place] [address] USANitrite,UrineNegativeNormalNegativeThe [facility] Physician GroupComment on above:Order Comment: Name Collection Type:: Clean-Voided MidstreamPerformed By: #### UA, CEPHEID NEG, COVID19 FLU RSV #### [place] [address] USAOccult Blood,UrineNegativeNormalNegativeThe [facility] Physician GroupComment on above:Order Comment: Name Collection Type:: Clean- Voided MidstreamResult Comment: PERFORMED BY: [place] [address] PATHOLOGIST INSTRUMENT LENS INSPECTOR MARLYN UGALDE M.D.Performed By: #### UA, CEPHEID NEG, COVID19 FLU RSV #### [place] [address] USAProtein,UrineNegativeNormalNegativeThe Levine [facility] Hospital Physician GroupComment on above:Order Comment: Name Collection Type:: Clean-Voided MidstreamPerformed By: #### UA, CEPHEID NEG, COVID19 FLU RSV #### [place] [address] USASpecificy Jewett,Urine1.469Pxfbeg1.001-1.030The [facility] Physician GroupComment on above:Order Comment: Name Collection Type:: Clean- Voided MidstreamPerformed By: #### UA, CEPHEID NEG, COVID19 FLU RSV #### [facility] [address] [place] [address] USAUrobilinogen,UrineNormalNormalNormalThe Levine [facility] Hospital Physician GroupComment on above:Order Comment: Name Collection Type:: Clean- Voided MidstreamPerformed By: #### UA, CEPHEID NEG, COVID19 FLU RSV #### [facility] [address] [place] [address] USAUrine clarity by refractometry automatedOrdered By: Pretty Jimenez on 95-79-8422Ujuttqt Refractometry automated (U)ClearClear [facility] Medical CenterUrine glucose measurement by automated test strip (mass/volume)Ordered By: Pretty Jimenez on 70-68-7077Cngbvwh Auto test strip (U) [Mass/Vol]Normal mg/dLProMedica Toledo HospitalUrine hemoglobin detection by automated test stripOrdered By: Pretty Jimenez on 12-18-0691Idfxtonufi Auto test strip Ql (U)NegativeNegDayton Osteopathic HospitalUrine leukocyte esterase detection by automated test stripOrdered By: Pretty Jimenez on 62-18-1834Fiumkzftq esterase Auto test strip Ql (U) NegativeNegDayton Osteopathic HospitalUrine pH measurement by automated test stripOrdered By: Pretty Jimenez on 49-08-2676kM (U)6.5 [pH] Normal5.0-9.0[facility] Medical CenterComment on above:Order Comment: Name Collection Type:: Clean-Voided MidstreamPerformed By: #### UA, CEPHEID NEG, COVID19 FLU RSV #### [facility] [address] [place] [address] USAUrobilinogen Auto test strip (U) [Mass/Vol]Ordered By: Pretty Jimenez on 02-81-0449Bjbrdiczpbfz (U) [Mass/Vol]Normal mg/dLMercy Health St. Vincent Medical CenterAutomated erythrocytes count in urine sediment (number/area)Ordered By: Francisco Us on 71-77-9480BUN Auto (Urine sed) [#/Area] 5-9 [HPF]0-4FMarietta Osteopathic ClinicAutomated leukocytes count in urine sediment (number/area)Ordered By: Francisco Us on 17-64-5392JSZ Auto (Urine sed) [#/Area]Innumerable [HPF]0-4FMarietta Osteopathic ClinicAutomated urine color determinationOrdered By: Francisco Us on 70-75-3459Ynxkr (U)Dark yellowCritically abnormalYellowOhiohealth Southeastern Medical CenterComment on above:Order Comment: Name Collection Type:: Clean-Voided MidstreamPerformed By: #### UA, CEPHEID NEG, COVID19 FLU RSV #### [facility] [address] [place] [address] USABilirubin Test strip Ql (U)Ordered By: Francisco Us on 00-98-3047Hwspookul Ql (U)2+NegativeOhiohealth Southeastern Medical CenterDipstick and Microscopicon 99-43-1492Oqvedgjeqr (U)CloudyCritically abnormalClearThSt. Luke's [facility] Physician GroupComment on above:Order Comment: Name Collection Type:: Clean-Voided MidstreamPerformed By: #### UA, CEPHEID NEG, COVID19 FLU RSV #### [facility] [address] [place], [place] [id number] USABacteria,Urine2+HighNone SeenThe Levine [facility]ician Group Comment on above:Order Comment: Name Collection Type:: Clean-Voided Midstream Performed By: #### UA, CEPHEID NEG, COVID19 FLU RSV #### [facility] [address] [place] [address] USABilirubin,Urine2+HighNegativeThe [facility]ine [facility] Comment on above:Order Comment: Name Collection Type:: Clean-Voided Midstream Performed By: #### UA, CEPHEID NEG, COVID19 FLU RSV #### [place] [id number] USAGlucose Ql (U)NormalNormalNormalThe [facility]ine [facility] Hospital Physician GroupComment on above:Order Comment: Name Collection Type:: Clean-Voided MidstreamPerformed By: #### UA, CEPHEID NEG, COVID19 FLU RSV #### [place] [address] USAHyaline Casts,Rgjxf3-9Mnxfuj9-7Cwp [facility] Physician GroupComment on above:Order Comment: Name Collection Type:: Clean-Voided MidstreamPerformed By: #### UA, CEPHEID NEG, COVID19 FLU RSV #### [place] [address] USAKetones Ql (U)TraceHighNegativeThe [facility]ine [facility] Hospital Physician GroupComment on above:Order Comment: Name Collection Type:: Clean-Voided MidstreamPerformed By: #### UA, CEPHEID NEG, COVID19 FLU RSV #### [place] [address] USALeukocyte esterase Test strip Ql (U)3+HighNegativeHca Florida Northwest Hospital Physician GroupComment on above:Order Comment: Name Collection Type:: Clean-Voided MidstreamPerformed By: #### UA, CEPHEID NEG, COVID19 FLU RSV #### [place] [address] USANitrite,UrineNegativeNormalNegativeHca Florida Northwest Hospital Physician GroupComment on above:Order Comment: Name Collection Type:: Clean-Voided MidstreamPerformed By: #### UA, CEPHEID NEG, COVID19 FLU RSV #### [place] [address] USAOccult Blood,UrineTraceHighNegativeThe Levine [facility] Hospital Physician GroupComment on above:Order Comment: Name Collection Type:: Clean-Voided MidstreamResult Comment: PERFORMED BY: [place] [address] PATHOLOGIST INSTRUMENT LENS INSPECTOR MARLYN UGALDE M.D.Performed By: #### UA, CEPHEID NEG, COVID19 FLU RSV #### [place] [address] USARBC,Dmjyi5-5Qziy3-8Qcb [facility] Physician GroupComment on above:Order Comment: Name Collection Type:: Clean-Voided MidstreamPerformed By: #### UA, CEPHEID NEG, COVID19 FLU RSV #### [place] [address] USASpecificy Jewett,Urine1.685Hdgzpz6.001-1.030The [facility] Physician GroupComment on above:Order Comment: Name Collection Type:: Clean- Voided MidstreamPerformed By: #### UA, CEPHEID NEG, COVID19 FLU RSV #### [place] [address] USASquamous Epithelial Cell,Nhyti4-7Xdukxz2-6Tcl [facility] Physician GroupComment on above:Order Comment: Name Collection Type:: Clean- Voided MidstreamPerformed By: #### UA, CEPHEID NEG, COVID19 FLU RSV #### [place] [address] USAUrobilinogen,UrineNormalNormalNormalThe [facility]ine [facility] Hospital Physician GroupComment on above:Order Comment: Name Collection Type:: Clean- Voided MidstreamPerformed By: #### UA, CEPHEID NEG, COVID19 FLU RSV #### [place] [address] USAWBC,UrineInnumerableHigh0-4The [facility] Comment on above:Order Comment: Name Collection Type:: Clean-Voided Midstream Performed By: #### UA, CEPHEID NEG, COVID19 FLU RSV #### [place] [address] USAYeast,UrineNone SeenNormalNone SeenThe Levine [facility]S Hospital Physician GroupComment on above:Order Comment: Name Collection Type:: Clean-Voided MidstreamResult Comment: PERFORMED BY: [place] [address] PATHOLOGIST INSTRUMENT LENS INSPECTOR MARLYN UGALDE M.D.Performed By: #### UA, CEPHEID NEG, COVID19 FLU RSV #### [place] [address] USAKetones Auto test strip (U) [Mass/Vol]Ordered By: Francisco Us on 88-33-6580Cjfpsls (U) [Mass/Vol]TraceNegativeOhiohealth Southeastern Medical CenterLaboratory - UrinalysisOrdered By: Francisco Us on 00-11-1963Adciafq casts LM Ql (Urine sed)0-8 [LPF]0-8[facility] Medical CenterNitrite Test strip Ql (U)Ordered By: Francisco Us on 46-76-2735Zqcoqcs Ql (U)Negative NegativeSt. Rita's Hospitalpecific gravity Auto test strip (U) [Rel density]Ordered By: Francisco Us on 94-44-3965Gmklmaqx gravity (U) [Rel density]1.0291.001-1.030St. Rita's Hospitalquamous epithelial cells detection in urine sediment by light microscopyOrdered By: Francisco Us on 35-58-5019Svanctmuka cells.squamous LM Ql (Urine sed)1-2 [HPF]0-2FMarietta Osteopathic ClinicUrine Cultureon 58-48-4615Jdjqvula identified Cx Nom (U) ORGANISM: Escherichia coli (O:ESCCOL) [place] Count >100,000 Aerobic FADI Charge (NMIC56) SUSCEPTIBILITY ORGANISM: O:ESCCOL ANTIBIOTIC INTERPRETATION FADI Amikacin S <16 Amoxacillin/K Clavulanate S <8 Ampicillin R >16 Ampicillin/Sulbactam I 1616/8 Aztreonam S <4 Cefazolin S <2 Cefepime S <2 Ceftazidime S <1 Ceftazidime/Avibactam S <4 Ceftolozane/Tazobactam S <2 Ceftriaxone S <1 Cefuroxime S <4 Ciprofloxacin S <0.25 Ertapenem S <0.5 Gentamicin S <2 Levofloxacin S <0.5 Meropenem S <1 Meropenem/Vaborbactam S <2 Nitrofurantoin S <32 Piperacillin/Tazobactam S <8 Tetracycline S <4 Tigecycline S <2 Tobramycin S <2 Trimethoprim/Sulfamethoxazole S <0.5 S = SUSCEPTIBLE I = INTERMEDIATE R = RESISTANT BLANK = DATA NOT AVAILABLE, OR DRUG NOT ADVISABLE OR TESTED R* = RESISTANCE DUE TO EXTENDED SPECTRUM BETA-LACTAMASES ESBL = EXTENDED SPECTRUM BETA-LACTAMASE TFG = THYMIDINE-DEPENDENT STRAIN SHELBY = BETA-LACTAMASE POSITIVE IB = INDUCIBLE BETA-LACTAMASE. APPEARS IN PLACE OF 'S' WITH SPECIES KNOWN TO POSSESS INDUCIBLE BETA-LACTAMASES. POTENTIALLY THEY MAY BECOME RESISTANT TO ALL B-LACTAM DRUGS. PERFORMED BY: [place] [address] PATHOLOGIST INSTRUMENT LENS INSPECTOR MARLYN UGALDE M.D.NormalThe Levine [facility]'S Hospital Physician GroupComment on above:Performed By: #### UA, CEPHEID NEG, COVID19 FLU RSV #### [facility] [address] [place] [address] USAUrine bacteria detection by automated methodOrdered By: Francisco Us on 54-19-8782Zsmwoypg Auto Ql (U)2+None SeenOhiohealth Southeastern Medical CenterUrine clarity by refractometry automatedOrdered By: Francisco Us on 28-75-9237Znmfnhl Refractometry automated (U)CloudyCleCleveland Clinic South Pointe HospitalUrine glucose measurement by automated test strip (mass/volume) Ordered By: Francisco Us on 36-75-2340Dxkatcg Auto test strip (U) [Mass/Vol] Normal mg/dLNormalOhiohealth Southeastern Medical CenterUrine hemoglobin detection by automated test stripOrdered By: Francisco Us on 35-16-9488Yzzhpmhqth Auto test strip Ql (U)TraceNegativeOhiohealth Southeastern Medical CenterUrine leukocyte esterase detection by automated test stripOrdered By: Francisco Us on 11-15-2022 Leukocyte esterase Auto test strip Ql (U)3+NegativeOhiohealth Southeastern Medical CenterUrine pH measurement by automated test stripOrdered By: Francisco Us on 80-25-2092zP (U)5.5 [pH]Normal5.0-9.0[facility] Medical CenterComment on above:Order Comment: Name Collection Type:: Clean-Voided MidstreamPerformed By: #### UA, CEPHEID NEG, COVID19 FLU RSV #### [facility] [address] [place] [id number] USAUrine protein measurement by automated test strip (mass/volume)Ordered By: Francisco Us on 63-91-5097Yymnymy (U) [Mass/Vol]30 mg/dLHighNegativeOhiohealth Southeastern Medical CenterComment on above:Order Comment: Name Collection Type:: Clean-Voided MidstreamPerformed By: #### UA, CEPHEID NEG, COVID19 FLU RSV #### [facility] [address] [place] [address] USAUrobilinogen Auto test strip (U) [Mass/Vol]Ordered By: Francisco Us on 98-63-3299Hucvceqzejrb (U) [Mass/Vol]Normal mg/dLNormalOhiohealth Southeastern Medical CenterYeast detection in urine sediment by light microscopy Ordered By: Francisco Us on 32-92-0771Lltpu LM Ql (Urine sed)None seen [HPF]None SeenOhiohealth Southeastern Medical CenterAlanine aminotransferase [Enzymatic activity/volume] in Serum or PlasmaOrdered By: Nelson Donald on 49-75-8172NNP [Catalytic activity/Vol]16 U/LNormal7-52Ohio[facility] Medical CenterComment on above:Performed By: #### ADDONUAPLUS, CRP, CMP, CBC, ESR #### [facility] [address] [place] [address] [place] #### C3, CH50, C4 #### [facility] ,Albumin [Mass/volume] in Serum or Plasma by Bromocresol green (BCG) dye binding methoOrdered By: Nelson Donald on 49-38-5241Himywsb BCG dye [Mass/Vol]4.2 g/dL 3.5-5.7FMarietta Osteopathic ClinicAlkaline phosphatase [Enzymatic activity/volume] in Serum or PlasmaOrdered By: Nelson Donald on 10-22-7802TNE [Catalytic activity/Vol]66 U/EDjgofi21-991QihlvfxltOhiohealth Southeastern Medical Center Comment on above:Performed By: #### ADDONUAPLUS, CRP, CMP, CBC, ESR #### [facility] [address] [place] [address] [place] #### C3, CH50, C4 #### [facility] ,Aspartate aminotransferase [Enzymatic activity/volume] in Serum or Plasma Ordered By: Nelson Donald on 95-11-6079TTG [Catalytic activity/Vol]16 U/LNormal 13-39Ohio[facility] Medical CenterComment on above:Performed By: #### ADDONUAPLUS, CRP, CMP, CBC, ESR #### [address] #### C3, CH50, C4 #### [facility] ,Automated basophil %Ordered By: Nelson Taylorrow on 12-01-1477Xqsnigker/100 WBC (Bld)0.8 %Normal.Ohio[facility] Medical CenterComment on above:Performed By: #### ADDONUAPLUS, CRP, CMP, CBC, ESR #### [facility] [address] [place] [address] #### C3, CH50, C4 #### [facility] ,Automated basophil countOrdered By: Nelson Taylorrow on 28-62-6790Yckqefzpa (Bld) [#/Vol]0.0 10*3/uLNormal0.0-0.2FMarietta Osteopathic ClinicComment on above:Performed By: #### ADDONUAPLUS, CRP, CMP, CBC, ESR #### [place] [address] [place] #### C3, CH50, C4 #### [facility] ,Automated blood monocyte countOrdered By: Nelson Odilon on 11-39-7074Vxobylehl (Bld) [#/Vol]0.3 10*3/uLNormal0.0-0.8[facility] Medical CenterComment on above:Performed By: #### ADDONUAPLUS, CRP, CMP, CBC, ESR #### [place] [address] [place] #### C3, CH50, C4 #### [facility] ,Automated eosinophil %Ordered By: Nelson Taylorrow on 74-58-0045Mwumpsgovtc/100 WBC (Bld)3.9 %Normal.[facility] Medical CenterComment on above:Performed By: #### ADDONUAPLUS, CRP, CMP, CBC, ESR #### [place] [address] [place] #### C3, CH50, C4 #### [facility] ,Automated eosinophil countOrdered By: Nelson Taylorrow on 05-34-4300Xgityykczjp (Bld) [#/Vol]0.2 10*3/uLNormal0.0-0.45Ohio[facility] Medical CenterComment on above:Performed By: #### ADDONUAPLUS, CRP, CMP, CBC, ESR #### [place] [address] [place] #### C3, CH50, C4 #### [facility] ,Automated erythrocytes count in urine sediment (number/area)Ordered By: Nelson Taylorrow on 14-73-5644ZPO Auto (Urine sed) [#/Area]0-1 [HPF]0-4FMarietta Osteopathic ClinicAutomated leukocytes count in urine sediment (number/area)Ordered By: Nelson Taylorrow on 46-69-3973PSV Auto (Urine sed) [#/Area]1-2 [HPF]0-4 [facility] Medical CenterAutomated monocyte %Ordered By: Nelson Donald on 24-07-9722Zgsjplysr/100 WBC (Bld)5.9 %Normal.[facility] Medical CenterComment on above:Performed By: #### ADDONUAPLUS, CRP, CMP, CBC, ESR #### [place] [address] [place] #### C3, CH50, C4 #### [facility] ,Automated neutrophil %Ordered By: Nelsonenriqueta Donald on 11-54-6453Jjbphzonluu/100 WBC (Bld)57.6 %Normal.[facility] Medical CenterComment on above: Performed By: #### ADDONUAPLUS, CRP, CMP, CBC, ESR #### [place] [address] [place] #### C3, CH50, C4 #### [facility] ,Automated urine color determinationOrdered By: Nelson Donald on 11-08-2022 Color (U)YellowNormalYellowOhiohealth Southeastern Medical CenterComment on above: Order Comment: Name Collection Type:: Clean-Voided MidstreamPerformed By: #### ADDONUAPLUS, CRP, CMP, CBC, ESR #### [facility] [address] [place] [address] #### C3, CH50, C4 #### [facility] ,Bilirubin Test strip Ql (U)Ordered By: Nelson Donald on 25-56-4391Ijajjdlmx Ql (U)NegativeNegativeOhiohealth Southeastern Medical CenterBilirubin.total [Mass/volume] in Serum or PlasmaOrdered By: Nelson Donald on 11-08-2022 Bilirubin [Mass/Vol]0.4 mg/dLNormal0.3-1.0[facility] Comment on above:Performed By: #### ADDONUAPLUS, CRP, CMP, CBC, ESR #### [facility] [address] [place] [address] #### C3, CH50, C4 #### [facility] ,C reactive protein [Mass/volume] in Serum or PlasmaOrdered By: Nelson Taylorrow on 44-54-0808LJQ [Mass/Vol]< 0.5 mg/dL0.0-0.5FMarietta Osteopathic ClinicC- Reactive Proteinon 08-50-0913ZDX [Mass/Vol]mg/LNormal0.0-0.5The [facility] Physician GroupComment on above:Result Comment: PERFORMED BY: [place] [address] PATHOLOGIST INSTRUMENT LENS INSPECTOR MARLYN UGALDE M.D.Performed By: #### ADDONUAPLUS, CRP, CMP, CBC, ESR #### [facility] [address] [place] [address] [place] #### C3, CH50, C4 #### [facility] ,Calcium [Mass/volume] in Serum or PlasmaOrdered By: Nelsonenriqueta Donald on 02-03-5453Snlyaqz [Mass/Vol]9.0 mg/dLNormal8.6-10.3FMarietta Osteopathic ClinicComment on above:Performed By: #### ADDONUAPLUS, CRP, CMP, CBC, ESR #### [facility] [address] [place] [address] [place] #### C3, CH50, C4 #### [facility] ,Carbon dioxide, total [Moles/volume] in Serum or PlasmaOrdered By: Nelson Odilon on 20-05-1005HF4 [Moles/Vol]29.0 mmol/XIgxvmk69.0-31.0[facility] Medical CenterComment on above:Performed By: #### ADDONUAPLUS, CRP, CMP, CBC, ESR #### [place] [address] [place] #### C3, CH50, C4 #### [facility] ,Chloride [Moles/volume] in Serum or PlasmaOrdered By: Nelson Donald on 57-90-2856Mzrdbnlj [Moles/Vol]111 mmol/UYzmp69-372OukhkzpybOhiohealth Southeastern Medical CenterComment on above:Performed By: #### ADDONUAPLUS, CRP, CMP, CBC, ESR #### [facility] [address] [place] [address] [place] #### C3, CH50, C4 #### [facility] ,Complement C3on 52-22-7681Rmunyvrbgr C399 mg/dKTpaxik10-008Bcj [facility] Physician GroupComment on above:Result Comment: Performed at: - [facility] [address] [id number] Finished Goods Planner: Edinson Ayon PhD, Phone: [phone] By: #### ADDONUAPLUS, CRP, CMP, CBC, ESR #### [place] [address] [place] #### C3, CH50, C4 #### [facility] ,Complement C4on 79-64-5075Ntodwpvkci C425 mg/rRTyjbkt73-45Phk [facility] Physician GroupComment on above:Result Comment: PERFORMED BY: [place] [address] PATHOLOGIST INSTRUMENT LENS INSPECTOR MARLYN UGALDE M.D.Performed By: #### ADDONUAPLUS, CRP, CMP, CBC, ESR #### [address] #### C3, CH50, C4 #### [facility] ,Complement Total (CH50)on 04-58-1985Bxkxlmobwn Total (CH50)55Normal>41The [facility] Physician [facility] CenterComment on above:Result Comment: Age Male Female 1 - 30 days Not Estab. Not Estab. 31 days - 6 months >32 >20 7 months - 17 years >39 >39 >17 years >41 >41 NOTE: The adult ( >17 years ) reference interval range is used to flag abnormals on this report. If the patient is 17 years old or younger, use the table above to determine out of range values. Performed at: - [facility] [address] [id number] Finished Goods Planner: Edinson Ayon PhD, Phone: [phone] PERFORMED BY: [place] [address] PATHOLOGIST INSTRUMENT LENS INSPECTOR MARLYN UGALDE M.D.Performed By: #### UA, CEPHEID NEG, COVID19 FLU RSV #### [place] [address] USAComplete Blood Count Auto Diffon 07-18-7144Atnd Corpuscular HGB Conc33.4 g/iNGegdfh73.0-35.0The Acmh HospitalComment on above:Performed By: #### ADDONUAPLUS, CRP, CMP, CBC, ESR #### [place] [address] [place] #### C3, CH50, C4 #### [facility] ,NRBC%0.1 /100{WBC}Normal0-0.5The [facility] Physician [facility] Medical CenterComment on above: Performed By: #### ADDONUAPLUS, CRP, CMP, CBC, ESR #### [facility] [address] [place] [address] [place] #### C3, CH50, C4 #### [facility] ,Comprehensive Metabolic Panelon 82-97-2194Aomzqhv [Mass/Vol]4.2 g/dLNormal 3.5-5.7The [facility] Physician GroupComment on above:Performed By: #### ADDONUAPLUS, CRP, CMP, CBC, ESR #### [place] [address] [place] #### C3, CH50, C4 #### [facility] ,GFR/1.73 sq M.predicted MDRD (S/P/Bld) [Vol rate/Area]mL/min/{1.73_m2}NormalHca Florida Northwest Hospital Physician GroupComment on above:Performed By: #### ADDONUAPLUS, CRP, CMP, CBC, ESR #### [place] [address] [place] #### C3, CH50, C4 #### [facility] ,Creatinine [Mass/volume] in Serum or PlasmaOrdered By: Nelson Donald on 77-05-0649Fdpnskeoiq [Mass/Vol]0.96 mg/dLNormal0.60-1.20[facility] Medical CenterComment on above:Performed By: #### ADDONUAPLUS, CRP, CMP, CBC, ESR #### [place] [address] [place] #### C3, CH50, C4 #### [facility] ,Dipstick and Microscopicon 98-93-9306Aerscvciky (U)ClearNormalClearThe [facility] Physician GroupComment on above:Order Comment: Name Collection Type:: Clean-Voided MidstreamPerformed By: #### ADDONUAPLUS, CRP, CMP, CBC, ESR #### [place] [address] [place] #### C3, CH50, C4 #### [facility] ,Bacteria,UrineNone SeenNormalNone SeenThe [facility] Physician GroupComment on above:Order Comment: Name Collection Type:: Clean-Voided MidstreamPerformed By: #### ADDONUAPLUS, CRP, CMP, CBC, ESR #### [address] #### C3, CH50, C4 #### [facility] ,Bilirubin,UrineNegativeNormalNegativeHca Florida Northwest Hospital Physician GroupComment on above:Order Comment: Name Collection Type:: Clean-Voided MidstreamPerformed By: #### ADDONUAPLUS, CRP, CMP, CBC, ESR #### [address] #### C3, CH50, C4 #### [facility] ,Glucose Ql (U)NormalNormalNormBaptist Medical Center South Physician GroupComment on above: Order Comment: Name Collection Type:: Clean-Voided MidstreamPerformed By: #### ADDONUAPLUS, CRP, CMP, CBC, ESR #### [address] #### C3, CH50, C4 #### [facility] ,Hyaline Casts,Drrlc2-6Fpdpej6-9Tet [facility] Physician GroupComment on above: Order Comment: Name Collection Type:: Clean-Voided MidstreamResult Comment: PERFORMED BY: [place] [address] PATHOLOGIST INSTRUMENT LENS INSPECTOR MARLYN UGALDE M.D.Performed By: #### ADDONUAPLUS, CRP, CMP, CBC, ESR #### [address] #### C3, CH50, C4 #### [facility] ,Ketones Ql (U)NegativeNormalNegativeHca Florida Northwest Hospital Physician GroupComment on above:Order Comment: Name Collection Type:: Clean-Voided MidstreamPerformed By: #### ADDONUAPLUS, CRP, CMP, CBC, ESR #### [address] #### C3, CH50, C4 #### [facility] ,Leukocyte esterase Test strip Ql (U)NegativeNormalNegativeThe [facility] Physician GroupComment on above:Order Comment: Name Collection Type:: Clean- Voided MidstreamPerformed By: #### ADDONUAPLUS, CRP, CMP, CBC, ESR #### [address] #### C3, CH50, C4 #### [facility] ,Nitrite,UrineNegativeNormalNegativeThe [facility] Physician GroupComment on above:Order Comment: Name Collection Type:: Clean-Voided MidstreamPerformed By: #### ADDONUAPLUS, CRP, CMP, CBC, ESR #### [address] #### C3, CH50, C4 #### [facility] ,Occult Blood,UrineNegativeNormalNegativeThe [facility] Physician GroupComment on above:Order Comment: Name Collection Type:: Clean-Voided MidstreamPerformed By: #### ADDONUAPLUS, CRP, CMP, CBC, ESR #### [address] #### C3, CH50, C4 #### [facility] ,Protein,UrineNegativeNormalNegativeThe [facility] Physician GroupComment on above:Order Comment: Name Collection Type:: Clean-Voided MidstreamPerformed By: #### ADDONUAPLUS, CRP, CMP, CBC, ESR #### [address] #### C3, CH50, C4 #### [facility] ,RBC LM.HPF (Urine sed) [#/Area]0 /[HPF]Normal0-4The [facility] Comment on above:Order Comment: Name Collection Type:: Clean-Voided Midstream Performed By: #### ADDONUAPLUS, CRP, CMP, CBC, ESR #### [address] #### C3, CH50, C4 #### [facility] ,Specificy Jewett,Urine1.677Psebsi0.001-1.030The [facility] Comment on above:Order Comment: Name Collection Type:: Clean-Voided Midstream Performed By: #### ADDONUAPLUS, CRP, CMP, CBC, ESR #### [address] #### C3, CH50, C4 #### [facility] ,Squamous Epithelial Cell,Icasl3-1Potrap9-1Gza [facility] Physician GroupComment on above:Order Comment: Name Collection Type:: Clean-Voided MidstreamPerformed By: #### ADDONUAPLUS, CRP, CMP, CBC, ESR #### [address] #### C3, CH50, C4 #### [facility] ,Urobilinogen,UrineNormalNormalNormalThe [facility] Physician GroupComment on above:Order Comment: Name Collection Type:: Clean-Voided MidstreamPerformed By: #### ADDONUAPLUS, CRP, CMP, CBC, ESR #### [address] #### C3, CH50, C4 #### [facility] ,WBC,Zneqi3-0Bofryv9-6Jkg [facility] Physician GroupComment on above:Order Comment: Name Collection Type:: Clean-Voided MidstreamPerformed By: #### ADDONUAPLUS, CRP, CMP, CBC, ESR #### [address] #### C3, CH50, C4 #### [facility] ,Erythrocyte Sedimentation Rateon 21-89-6328UWF (Bld) [Velocity]6 mm/hNormal0-19 The [facility] Physician GroupComment on above:Result Comment: PERFORMED BY: [place] [address] PATHOLOGIST INSTRUMENT LENS INSPECTOR MARLYN UGALDE M.D.Performed By: #### ADDONUAPLUS, CRP, CMP, CBC, ESR #### [place] [address] [place] #### C3, CH50, C4 #### [facility] ,Erythrocyte distribution width [Ratio] by Automated countOrdered By: Nelson Donald on 29-35-4476Dppskmicrvh distribution width (RBC) [Ratio]12.9 %Normal 11.9-15.3FMarietta Osteopathic ClinicComment on above:Performed By: #### ADDONUAPLUS, CRP, CMP, CBC, ESR #### [place] [address] [place] #### C3, CH50, C4 #### [facility] ,Erythrocyte sedimentation rate by Photometric methodOrdered By: Nelson Donald on 81-87-1738SUS Photometric method (Bld) [Velocity]6 mm/hr0-19[facility] CenterErythrocytes [#/volume] in Blood by Automated count Ordered By: Nelson Donald on 64-18-2034SMP (Bld) [#/Vol]4.70 10*6/uLNormal 3.60-5.00[facility] Medical CenterComment on above:Performed By: #### ADDONUAPLUS, CRP, CMP, CBC, ESR #### [place] [address] [place] #### C3, CH50, C4 #### [facility] ,Glucose [Mass/volume] in Serum or PlasmaOrdered By: Nelson Donald on 35-06-6536Ocmjlms [Mass/Vol]95 mg/zLTacqeg49-911NqjbespcqOhiohealth Southeastern Medical CenterComment on above:ADA recommended reference rangeRandom Glucose Reference Range is dependent on time and content of last meal. Glucose of more than 200 mg/dL in a nonstressed, ambulatory subject supports the diagnosisof Diabetes Mellitus.Result Comment: Random Glucose Reference Range is dependent on time and content of last meal. Glucose of more than 200 mg/dL in a nonstressed, ambulatory subject supports the diagnosis of Diabetes Mellitus. ADA recommended reference rangePerformed By: #### ADDONUAPLUS, CRP, CMP, CBC, ESR #### [place] [address] [place] #### C3, CH50, C4 #### [facility] ,Hematocrit [Volume Fraction] of Blood by Automated countOrdered By: Nelson Donald on 53-11-3461Nejozbkypr (Bld) [Volume fraction]42.9 %Vyjqlz10.0-46.4 [facility] CenterComment on above:Performed By: #### ADDONUAPLUS, CRP, CMP, CBC, ESR #### [place] [address] [place] #### C3, CH50, C4 #### [facility] ,Hemoglobin [Mass/volume] in BloodOrdered By: Nelson Donald on 11-08-2022 Hemoglobin (Bld) [Mass/Vol]14.3 g/wWRyjoba36.8-15.4FMarietta Osteopathic ClinicComment on above:Performed By: #### ADDONUAPLUS, CRP, CMP, CBC, ESR #### [place] [address] [place] #### C3, CH50, C4 #### [facility] ,Ketones Auto test strip (U) [Mass/Vol]Ordered By: Nelson Donald on 11-08-2022 Ketones (U) [Mass/Vol]NegativeNegativeOhiohealth Southeastern Medical Center Laboratory - UrinalysisOrdered By: Nelson Donald on 75-21-3564Dtgqkcd casts LM Ql (Urine sed)0-8 [LPF]0-8[facility] Medical CenterLeukocytes [#/volume] corrected for nucleated erythrocytes in Blood by Automated counOrdered By: Nleson Donald on 17-81-5031FZV corrected for nucl RBC Auto (Bld) [#/Vol]4.3 10*3/uL3.8-11.6FMarietta Osteopathic ClinicLeukocytes [#/volume] in Blood by Automated countOrdered By: Nelson Donald on 18-16-7952ZAG (Bld) [#/Vol]4.3 10*3/uLNormal3.8-11.6FMarietta Osteopathic ClinicComment on above:Performed By: #### ADDONUAPLUS, CRP, CMP, CBC, ESR #### [place] [address] [place] #### C3, CH50, C4 #### [facility] ,Lymphocytes [#/volume] in Blood by Automated countOrdered By: Nelson Taylorrow on 34-18-5307Vuihbpztenw (Bld) [#/Vol]1.4 10*3/uLNormal1.00-4.8[facility] CenterComment on above:Performed By: #### ADDONUAPLUS, CRP, CMP, CBC, ESR #### [place] [address] [place] #### C3, CH50, C4 #### [facility] ,Lymphocytes/100 leukocytes in Blood by Automated countOrdered By: Nelson Taylorrow on 79-38-8855Eefvonauyvj/100 WBC (Bld)31.8 %Normal.[facility] Medical CenterComment on above:Performed By: #### ADDONUAPLUS, CRP, CMP, CBC, ESR #### [place] [address] [place] #### C3, CH50, C4 #### [facility] ,MCH [Entitic mass] by Automated countOrdered By: Nelson Taylorrow on 11-08-2022 MCH (RBC) [Entitic mass]30.4 ulTmhwca00.7-34.3FMarietta Osteopathic Clinic Comment on above:Performed By: #### ADDONUAPLUS, CRP, CMP, CBC, ESR #### [address] [address] [place] #### C3, CH50, C4 #### [facility] ,MCHC Auto (RBC) [Mass/Vol]Ordered By: Nelsonenriqueta Donald on 10-19-3101KILX (RBC) [Mass/Vol]33.4 g/dL32.0-35.0[facility] CenterMCV [Entitic volume] by Automated countOrdered By: Nelson Taylorrow on 79-84-6229DLP (RBC) [Entitic vol]91.2 qHEyytek46-532VtmmgmjaxOhiohealth Southeastern Medical CenterComment on above:Performed By: #### ADDONUAPLUS, CRP, CMP, CBC, ESR #### [facility] [address] [place] [address] #### C3, CH50, C4 #### [facility] ,Neutrophils [#/volume] in Blood by Automated countOrdered By: Nelson Donald on 70-78-6536Ztfwablfzzh (Bld) [#/Vol]2.5 10*3/uLNormal1.8-7.7FMarietta Osteopathic ClinicComment on above:Performed By: #### ADDONUAPLUS, CRP, CMP, CBC, ESR #### [facility] [address] [place] [address] #### C3, CH50, C4 #### [facility] ,Nitrite Test strip Ql (U)Ordered By: Nelson Donald on 61-12-7377Zkpkiff Ql (U) NegativeNegativeOhiohealth Southeastern Medical CenterNo Panel InformationOrdered By: Nelson Donald on 68-14-3860Qdolvznqe GFR (CKD-EPI)> 60.0 mL/MinOhiohealth Southeastern Medical CenterPharmacy Creatinine Clearance (ChemN/[facility] HospitalTotal Complement (CH50)55 U/mL>41[facility] Comment on above:Age Male Female 1 - 30 days Not Estab. Not Estab. 31 days - 6 months >32 >20 7 months - 17 years >39 >39 >17 years >41 >41 NOTE: The adult ( >17 years ) reference intervalrange is used to flag abnormals on this report. If the patient is 17 years old or younger, use the table above to determine out of range values.Performed at: [address] [id number] Director: Edinson Ayon PhD, Phone: [phone] Nucleated erythrocytes [Presence] in Blood by Automated countOrdered By: Nelson Donald on 01-15-6766Qkvqageqm RBC Auto Ql (Bld)0.1 /100{WBC}0-0.5FMarietta Osteopathic ClinicPlatelet mean volume [Entitic volume] in Blood by Automated countOrdered By: Nelson Donald on 53-65-4680Ighshzkm mean volume (Bld) [Entitic vol]7.4 fLNormal6.3-10.7FMarietta Osteopathic ClinicComment on above:Performed By: #### ADDONUAPLUS, CRP, CMP, CBC, ESR #### [address] #### C3, CH50, C4 #### [facility] ,Platelets [#/volume] in Blood by Automated countOrdered By: Nelson Donald on 51-68-0764Kcfonurjm (Bld) [#/Vol]187 10*3/kFGnznsa756-076UomteufuxOhiohealth Southeastern Medical CenterComment on above:Performed By: #### ADDONUAPLUS, CRP, CMP, CBC, ESR #### [place] [address] [place] #### C3, CH50, C4 #### [facility] ,Potassium [Moles/volume] in Serum or PlasmaOrdered By: Nelson Donald on 60-37-7636Xbvqaiojd [Moles/Vol]4.0 mmol/LNormal3.5-5.1FMarietta Osteopathic ClinicComment on above:Performed By: #### ADDONUAPLUS, CRP, CMP, CBC, ESR #### [place] [address] [place] #### C3, CH50, C4 #### [facility] ,Protein Auto test strip (U) [Mass/Vol]Ordered By: Nelson Donald on 11-08-2022 Protein (U) [Mass/Vol]NegativeNegativeOhiohealth Southeastern Medical CenterProtein [Mass/volume] in Serum or PlasmaOrdered By: Nelson Donald on 44-67-9233Ysictyi [Mass/Vol]6.7 g/dLNormal6.4-8.9[facility] Medical CenterComment on above:Performed By: #### ADDONUAPLUS, CRP, CMP, CBC, ESR #### [place] [address] [place] #### C3, CH50, C4 #### [facility] ,Serum globulin measurement by calculation (mass/volume)Ordered By: Nelson Donald on 56-21-8337Ctsmtgnu (S) [Mass/Vol]2.5 g/dLNormCherrington HospitalComment on above:Performed By: #### ADDONUAPLUS, CRP, CMP, CBC, ESR #### [facility] [address] [place] [address] [place] #### C3, CH50, C4 #### [facility] ,Serum or plasma albumin/globulin mass ratioOrdered By: Nelson Donald on 07-32-3980Fctdtut/Globulin [Mass ratio]1.7 {ratio}NormalOhiohealth Southeastern Medical CenterComment on above:Performed By: #### ADDONUAPLUS, CRP, CMP, CBC, ESR #### [facility] [address] [place] [address] [place] #### C3, CH50, C4 #### [facility] ,Serum or plasma anion gap determinationOrdered By: Nelson Donald on 11-08-2022 Anion gap [Moles/Vol]7.0 mmol/LNormal6.0-15.0[facility] Comment on above:Performed By: #### ADDONUAPLUS, CRP, CMP, CBC, ESR #### [facility] [address] [place] [address] [place] #### C3, CH50, C4 #### [facility] ,Serum or plasma complement C3 measurement (mass/volume)Ordered By: Nelsonenriqueta Donald on 22-58-4214Sngtezjxsw C3 [Mass/Vol]99 mg/pG51-141IiaudbfqaOhiohealth Southeastern Medical CenterComment on above:Performed at: [facility] [place] [id number] Director: Edinson Ayon PhD, Phone: [phone] Serum or plasma complement C4 measurement (mass/volume)Ordered By: Nelson Donald on 74-57-6100Mlwvqqgddi C4 [Mass/Vol]25 mg/vB11-52EsoddkdfwSt. Rita's Hospitalodium [Moles/volume] in Serum or PlasmaOrdered By: Nelson Donald on 22-66-4137Rmmbej [Moles/Vol]143 mmol/OPtqjlr718-844OlalxlzmtOhiohealth Southeastern Medical CenterComment on above:Performed By: #### ADDONUAPLUS, CRP, CMP, CBC, ESR #### [facility] [address] [place] [address] #### C3, CH50, C4 #### [facility] ,Specific gravity Auto test strip (U) [Rel density]Ordered By: Nelson Taylorrow on 47-37-9148Ktacyoay gravity (U) [Rel density]1.0201.001-1.030St. Rita's Hospitalquamous epithelial cells detection in urine sediment by light microscopyOrdered By: Nelson Donald on 69-55-4110Wmtpknqehb cells.squamous LM Ql (Urine sed)1-2 [HPF]0-2FMarietta Osteopathic ClinicUrea nitrogen [Mass/volume] in Serum or PlasmaOrdered By: Nelsonenriqueta Donald on 26-94-3820Htcg nitrogen [Mass/Vol]13 mg/dLNormal7-25[facility] Medical CenterComment on above:Performed By: #### ADDONUAPLUS, CRP, CMP, CBC, ESR #### [facility] [address] [place] [address] [place] #### C3, CH50, C4 #### [facility] ,Urine bacteria detection by automated methodOrdered By: Nelson Donald on 22-46-1633Dtpaovny Auto Ql (U)None seenNone SeenOhiohealth Southeastern Medical CenterUrine clarity by refractometry automatedOrdered By: Nelson Donald on 87-71-1278Pgyzpqh Refractometry automated (U)ClearCleCleveland Clinic South Pointe HospitalUrine glucose measurement by automated test strip (mass/volume) Ordered By: Nelson Donald on 72-08-7622Lzqtrph Auto test strip (U) [Mass/Vol] Normal mg/dLProMedica Toledo HospitalUrine hemoglobin detection by automated test stripOrdered By: Nelson Donald on 79-11-2648Rwhmqwgcoa Auto test strip Ql (U)NegativeNegDayton Osteopathic HospitalUrine leukocyte esterase detection by automated test stripOrdered By: Nelson Donald on 57-97-7483Luigbzues esterase Auto test strip Ql (U)NegativeNegDayton Osteopathic HospitalUrine pH measurement by automated test stripOrdered By: Nelson Donald on 00-25-9706yJ (U)6.5 [pH]Normal5.0-9.0[facility] Medical CenterComment on above:Order Comment: Name Collection Type:: Clean- Voided MidstreamPerformed By: #### ADDONUAPLUS, CRP, CMP, CBC, ESR #### [address] #### C3, CH50, C4 #### [facility] ,Urobilinogen Auto test strip (U) [Mass/Vol]Ordered By: Nelson Donald on 29-00-2474Omuhsidxstfm (U) [Mass/Vol]Normal mg/dLProMedica Toledo HospitalMG MAMM SCREEN 3D JUDITH CADon 54-27-3335MC MAMM SCREEN 3D JUDITH CAD Patient: MANDEEP SPENCER Exam Date: 06/15/2022 : 1980 Gender:F Ordering : DR RICK JONES . Admission #: [id number] Family : Order #: [id number] CLICK HERE TO VIEW EXAM RADIOLOGY REPORT PROCEDURE: MAMMOGRAM SCREENING 3D BILATERAL CAD COMPARISON: MG MAMM SCREEN JUDITH W CAD, 11/08/2019. MG MAMM SCREEN 3D JUDITH CAD, 06/16/2021. INDICATIONS: Screening for malignant neoplasm of breast Calculator Name NCI Breast Cancer Risk Assessment Tool 5 Year Breast Cancer Risk 0.50% Lifetime Breast Cancer Risk 7.90% Personal Breast Cancer No Personal Ovarian Cancer No Treatments None Family Cancers Grandfather-paternal with esophagus/bone/skin cancer at age 75. LOCATION: [facility] BREAST COMPOSITION: Heterogeneously dense,which may obscure small masses. FINDINGS: DIAGNOSTIC CATEGORY 1--NEGATIVE. NO CHANGE FROM COMPARISON ASSESSMENT. RIGHT BREAST: No significant suspicious finding. LEFT BREAST: No significant suspicious finding. RECOMMENDATIONS: ROUTINE MAMMOGRAM AND CLINICAL EVALUATION IN 12 MONTHS. PLEASE NOTE: A NORMAL MAMMOGRAM DOES NOT EXCLUDE THE POSSIBILITY OF BREAST CANCER. A CLINICALLY SUSPICIOUS PALPABLE LUMP SHOULD BE BIOPSIED. Dictated by: Rufina Broussard MD on 06/16/2022 at 08:09 Approved by: Rufina Broussard MD on 06/16/2022 at 08:11German HospitalOG PANEL 2: 30 to 65on 06-09-2022..NormalThe [facility]enan Private HospitalComment on above:Result Comment: Performed at: WBPerformed By: #### [id number] #### [facility] [address] [place] [address] Dr. Dimitri Connolly Gdln ACOG Afdcvsi03-58DclzdbPimProMedica Memorial HospitalComment on above:Performed By: #### [id number] #### [facility] [address] [place] [address] Dr. Dimitri DoveDIAGNOSIS:CommentMercy Health Anderson Hospital on above: Result Comment: NEGATIVE FOR INTRAEPITHELIAL LESION OR MALIGNANCY. Performed at: WBPerformed By: #### [id number] #### [facility] [address] [address] [address] Dimitri DoveHPV AptimaNegativeNormalNegativeFort Hamilton Hospital on above:Result Comment: This nucleic acid amplification test detects fourteen high-risk HPV types (16,18,31,33,35,39,45,51,52,56,58,59,66,68) without differentiation. Performed at: =GPerformed By: #### [id number] #### [facility] [address] [place] [address] Dr. Dimitri DoveHPV Genotype ReflexCommentNoUniversity Hospitals Cleveland Medical Center on above:Result Comment: Criteria not met, HPV Genotype not performed. Performed at: WBPerformed By: #### [id number] #### [facility] [address] [place] [address] Dr. Dimitri DoveMethodology:CommentMercy Health Anderson Hospital on above: Result Comment: This liquid based ThinPrep(R) pap test was screened with the use of an image guided system. Performed at: WBPerformed By: #### [id number] #### [facility] [address] [place] [address] Dr. Dimitri DoveNote:CommentNoUniversity Hospitals Cleveland Medical Center on above:Result Comment: The Pap smear is a screening test designed to aid in the detection of premalignant and malignant conditions of the uterine cervix. It is not a diagnostic procedure and should not be used as the sole means of detecting cervical cancer. Both false-positive and false-negative reports do occur. . Performed at: WBPerformed By: #### [id number] #### [facility] [address] [place] [address] Dr. Dimitri DovePerformed by:CommentNoUniversity Hospitals Cleveland Medical Center on above: Result Comment: Kylie Guo, Sandwich Artist (ASCP) Performed at: WBPerformed By: #### [id number] #### [facility] [address] [place] [address] Dr. Dimitri DoveSpecimen adequacy:CommentMercy Health Anderson Hospital on above:Result Comment: Satisfactory for evaluation. No endocervical component is identified. Performed at: WBPerformed By: #### [id number] #### [facility] [address] [place] [address] Dr. Dimitri DoveRESPIRATORY PANEL PLUSon 91-93-0664SjlxigxngaLxt detectedNormal NOT DETECTEDThe [facility] on above:Performed By: #### RSPLUS #### [facility] [address] [place] [address] Dr. Dimitri Muhammad ParapertusisNot detectedNormalNOT DETECTEDThe [facility] HospitalComment on above:Performed By: #### RSPLUS #### [facility] [address] [address] [address] Dimitri Muhammad PertussisNot detectedNormalNOT DETECTEDThe [facility] Comment on above:Performed By: #### RSPLUS #### [facility] [address] [address] [address] Dimitri DoveChlamydia PneumoniaeNot detectedNormalNOT DETECTEDThe [facility] HospitalComment on above:Performed By: #### RSPLUS #### [facility] [address] [address] [address] Dimitri DoveCoronavirus 229ENot detectedNormalNOT DETECTEDThe [facility] HospitalComment on above:Performed By: #### RSPLUS #### [facility] [address] [address] [address] Dimitri DoveCoronavirus BQJ9Zkh detectedNormalNOT DETECTEDThe [facility] HospitalComment on above:Performed By: #### RSPLUS #### [facility] [address] [address] [address] Dimitri DoveCoronavirus LK53Nwv detectedNormalNOT DETECTEDThe [facility] HospitalComment on above:Performed By: #### RSPLUS #### [facility] [address] [address] [address] Dimitri DoveCoronavirus CB32Uoi detectedNormalNOT DETECTEDThe [facility] HospitalComment on above:Performed By: #### RSPLUS #### [facility] [address] [address] [address] Dimitri DoveInflmerritt A H1 2009Not detectedNormalNOT DETECTEDThe [facility] HospitalComment on above:Performed By: #### RSPLUS #### [facility] [address] [address] [address] Dimitri Berrios A H3Not detectedNormalNOT DETECTEDThe [facility] Comment on above:Performed By: #### RSPLUS #### [facility] [address] [address] [address] Dimitri Berrios BNot detectedNormalNOT DETECTEDThe [facility] Comment on above:Performed By: #### RSPLUS #### [facility] [address] [address] [address] Dimitri CortesapneumovirusNot detectedNormalNOT DETECTEDThe [facility] HospitalComment on above:Performed By: #### RSPLUS #### [facility] [address] [address] [address] Dimitri Pappas. PneumoniaeNot detectedNormalNOT DETECTEDThe [facility] HospitalComment on above:Performed By: #### RSPLUS #### [facility] [address] [address] [address] Dimitri Moy 1Not detectedNormalNOT DETECTEDThe [facility] HospitalComment on above:Performed By: #### RSPLUS #### [facility] [address] [address] [address] Dimitri Moy 2Not detectedNormalNOT DETECTEDThe [facility] HospitalComment on above:Performed By: #### RSPLUS #### [facility] [address] [address] [address] Dimitri Moy 3Not detectedNormalNOT DETECTEDThe [facility] HospitalComment on above:Performed By: #### RSPLUS #### [facility] [address] [address] [address] Dimitri Moy 4Not detectedNormalNOT DETECTEDThe [facility] HospitalComment on above:Performed By: #### RSPLUS #### [facility] [address] [address] [address] Dimitri DoveRhjuan daniel/EnterovirusNot detectedNormalNOT DETECTEDThe [facility] HospitalComment on above:Performed By: #### RSPLUS #### [facility] [address] [address] [address] Dimitri Carlton Header 1RESPIRATORY PANEL: VIRUSESOhioHealth Grove City Methodist Hospital Comment on above:Performed By: #### RSPLUS #### [facility] [address] [address] [address] Dimitri DoveRP2 Header 2RESPIRATORY PANEL: BACTERIANoProMedica Memorial HospitalComment on above:Performed By: #### RSPLUS #### [facility] [address] [address] [address] Dimitri DoveRSVNot detectedNormalNOT DETECTEDThe [facility] HospitalCommclaren flint on above:Performed By: #### RSPLUS #### [facility] [address] [address] [address] Dimitri Vines-CoV-2 (COVID-19) RNA NATY+probe Ql (Unsp spec)Not detected NormalNOT DETECTEDThe [facility] Private HospitalCommclaren flint on above:Performed By: #### RSPLUS #### [facility] [address] [place] [address] Dr. Dimitri DoveCT SINUSES WO CONon 08-81-9013ET SINUSES WO CONEXAMINATION: CT SINUSES WO CON HISTORY: Chronic sinusitis COMPARISON: No relevant comparison available. TECHNIQUE: Axial and Coronal CT images were created without IV contrast. Dose reduction techniques were achieved by using automated exposure control and/or adjustment of mA and/or kV according to patient size and/or use of iterative reconstruction technique. FINDINGS: MAXILLARY SINUSES: Bilateral antrectomies. Small mucocele/retention cysts within base of right and left maxillary sinus and trace amount mucosal thickening. ETHMOID SINUSES: No significant mucosal thickening or fluid. Fovea ethmoidali and lamina papyracea are symmetric and intact. SPHENOID SINUSES: No significant mucosal thickening or fluid. Sphenoethmoidal recesses are patent. No bony dehiscence. FRONTAL SINUSES: No significant mucosal thickening or fluid. Frontal recesses are patent. NASAL FOSSA: No significant deviation of the nasal septum. No irwin bullosa or paradoxical turbinates are identified. OTHER: Negative. Limited views of the skull base and orbits are unremarkable. IMPRESSION: 1. Bilateral maxillary mild chronic sinusitis. Electronically authenticated by: REINA LARKIN Date: 2022-03-08 15:40[facility] HospitalXR DEFECOGRAPHYon [id number] ClinicHISTORY PHYSICALon 39-65-6748MHRZGBS PHYSICALHNO ID: [id number] Author: Armani Palafox MD Service: General Surgery Author Type: Physician Type: HANDP Filed: 01/23/2021 12:03 PM Note Text: PRE ANESTHESIA ASSESSMENT FOR ENDOSCOPY SERVICE DATE: 01/23/2021 SERVICE TIME: 12:02 PM History AND Physical RRR CTA No history of anesthetic issues Have there been any changes: No Relevant diagnostic studies/labs evaluated: Yes : No ASA Classification of Physical Status: II. Mild to moderate systemic disease Plan for Anesthesia: Moderate sedation Mallampati Classification: Class I Determination if Patient is a Candidate: Patient has been assessed and is a candidate for sedation during procedure. Significant risks, benefits and alternatives of the procedure have been discussed in layman's terms, all questions answered and consent for procedure/sedation signed. Plan EGD with sedation SIGNATURE: Armani Palafox MD PATIENT NAME: Mandeep Spencer DATE: January 23, 2021 TIME: 12:02 [facility] [id number] PROGHNO ID: [id number] Author: Anastasiya Jessica RN Service: Nursing Author Type: Registered Nurse Type: Nursing Progress Note Filed: 01/23/2021 12:39 PM Note Text: PATIENT EDUCATION TOPIC: PROCEDURE / SURGERY: Post Procedure Teaching: Discharge instructions PATIENT NAME: Mandeep Spencer PATIENT LOCATION: [facility] ENDO POOL/[facility] ENDO POOL READINESS TO LEARN COGNITIVE ABILITY: Alert and oriented MOTIVATION TO LEARN: Interested FAMILY SUPPORT: Unable to assess - Family not present INSTRUCTION PROVIDED TO: Patient PATIENT LEARNS BEST BY: Written Instruction - Hand-outs Verbal Instruction FACTORS AFFECTING LEARNING: None PHYSICAL LIMITATIONS AFFECTING LEARNING: None LEARNING RESPONSE DIAGNOSIS: ADULT: Marginal gastric erosions PATIENT/FAMILY RESPONSE: Verbalizes understanding of: POST-PROCEDURE INSTRUCTIONS-Correct actions to take to reduce post procedure complications METHOD OF INSTRUCTION: Verbal instruction FOLLOW-UP PLAN: Complete - No need for follow-up INSTRUCTIONAL AIDS USED: NA SUPPLEMENTAL MATERIAL PROVIDED TO PATIENT: None REFERRAL (RECOMMENDATION): None Electronically Signed By: Anastasiya JessicaMcLean Hospital ID: [id number] Author: Ale Santana RN Service: Nursing Author Type: Registered Nurse Type: Nursing Progress Note Filed: 01/23/2021 11:34 AM Note Text: PATIENT EDUCATION TOPIC: PROCEDURE / SURGERY: Procedure/Surgery: EGD PATIENT NAME: Mandeep Spencer PATIENT LOCATION: [facility] PO[facility] READINESS TO LEARN COGNITIVE ABILITY: Alert and oriented MOTIVATION TO LEARN: Interested FAMILY SUPPORT: None - Unavailable/disinterested INSTRUCTION PROVIDED TO: Patient PATIENT LEARNS BEST BY: Individual Instruction FACTORS AFFECTING LEARNING: None PHYSICAL LIMITATIONS AFFECTING LEARNING: None LEARNING RESPONSE DIAGNOSIS: ADULT: PATIENT/FAMILY RESPONSE: Verbalizes understanding of: PRE-PROCEDURE INSTRUCTIONS-Correct action to take to follow pre-procedure instructions METHOD OF INSTRUCTION: Individual instruction FOLLOW-UP PLAN: Complete - No need for follow-up INSTRUCTIONAL AIDS USED: NA SUPPLEMENTAL MATERIAL PROVIDED TO PATIENT: None REFERRAL (RECOMMENDATION): None Electronically Signed By: Ale Santana Nursing Progress Note Patient Name: Mandeep Spencer Patient Location: [facility] ENDO POOL This note was completed by: Ale SantanaDeuel County Memorial Hospital [id number] HEALTHHNO ID: [id number] Author: RT Jose(R) Service: Radiology Author Type: Technologist Type: Allied Health Filed: 01/12/2021 10:41 AM Note Text: Radiology Service Progress Note PATIENT NAME: Mandeep Spencer DATE OF SERVICE: January 12, 2021 TIME: 10:41 AM PATIENT IDENTITY VERIFICATION COMPLETED USING TWO (2) IDENTIFIERS: Name and Date of confirmed by patient verbally and Name and Date of confirmed by identification band. FALL SCREENING: Has the patient had 2 falls in the last year or 1 fall with injury or currently using an Ambulatory Assistive Device (Walker, Cane, Wheelchair, Crutches, etc.)? No PATIENT GENDER DATA: Female. status: : No status: NO. PATIENT RELEVANT IMPLANT DATA REVIEWED: Not Applicable RADIOLOGY DEPARTMENT: General X-ray: Exam(s) Completed: GI/ Procedure(s): Upper GI with barium contrast PERIPHERAL IV DATA: Not applicable SIGNED BY: RT Jose(R) January 12, 2021 10:41 [facility]ASTon [id number] UPPER GI SINGLE CONTRAST* * *Final Report* * * DATE OF EXAM: Jan 12 2021 10:35AM MMX 5380 - XR UPPER GI SINGLE CONTRAST / PROCEDURE REASON: multiple diagnoses * * * * Physician Interpretation * * * * UPPER GI COMPARISON: 01/24/2018 INDICATION: Gastroesophageal reflux disease, unspecified whether esophagitis present Epigastric pain TECHNIQUE: After ingestion of oral contrast (300 cc EZHD), multiple fluoroscopic images of the distal esophagus, stomach, and proximal small bowel were obtained. Fluoroscopy time = 2:30 (minutes:seconds). Number of images: 19 images: Includes static images and cine clips RESULT: Patient is S/P gastric bypass. Contour of the distal esophagus, postsurgical stomach, and proximal small bowel is normal. The duodenal folds are normal in caliber. No unusual mass effect is noted. Spontaneous gastroesophageal reflux was demonstrated to the level of the midesophagus. Normal esophageal motility. - IMPRESSION: Spontaneous gastroesophageal reflux to the level of the midesophagus. Patient is S/P gastric bypass.. [employer] Soa Developer: ALVIN Transcribe Date/Time: Jan 12 2021 12:58P Dictated by : JASON HERRERA MD This examination was interpreted and the report reviewed and electronically signed by: JASON HERRERA MD on Jan 12 2021 1:01PM EST [id number] Health TroyCoding Summary.on 35-50-4774Rpjmun Summary.CODING DATE: 12/13/2018 FINAL [facility] STATUS: Home (Routine DC) PAYOR: [place] APC DESCRIPTION 5301 Level 1 Upper GI Procedures ADMIT DX: REASON FOR VISIT DX: D50.9 Iron deficiency anemia, unspecified FINAL DX: PRINCIPAL: D50.9 Iron deficiency anemia, unspecified SECONDARY: K28.9 Gastrojejunal ulcer, unspecified as acute or chronic, without hemorrhage or perforation Z98.84 Bariatric surgery status PYMT PROC APC STAT DESCRIPTION DOCTOR NAME DATE 39848 5300 Tanika PLEITEZ MD, Delilah 12/07/2018 phagogastroduodenoscopy, flexible, transoral; diagnostic, including collection of specimen(s) by brushing or washing, when performed (separate procedure) 26960 Anesthesia for Lobo Villafana Jr., DO 12/07/2018 gastrointestinal endoscopic procedures, endoscope introduced proximal to duodenum; not otherwise specified NOTE: The code number assigned matches the documented diagnosis and / or procedure in the patient's chart. However, the narrative phrase printed from the coding software may appear abbreviated, or result in slightly different terminology. Revised Coded By: Phyllis Bucio Revised Date Saved: 12/13/2018 09:34 [facility] [id number] Summary.CODING DATE: 12/08/2018 FINAL [facility] STATUS: PAYOR: [place] APC DESCRIPTION 9441 Inj ferric carboxymaltos 1mg 5693 Level 3 Drug Administration ADMIT DX: REASON FOR VISIT DX: D50.9 Iron deficiency anemia, unspecified FINAL DX: PRINCIPAL: D50.9 Iron deficiency anemia, unspecified SECONDARY: PYMT PROC APC STAT DESCRIPTION DOCTOR NAME DATE NOTE: The code number assigned matches the documented diagnosis and / or procedure in the patient's chart. However, the narrative phrase printed from the coding software may appear abbreviated, or result in slightly different terminology. Coded By: Tiara Lerner Date Saved: 12/06/2018 09:25 [facility] Summary. CODING DATE: 12/06/2018 FINAL [facility] STATUS: Home (Routine DC) PAYOR: [place] APC DESCRIPTION 9441 Inj ferric carboxymaltos 1mg 5693 Level 3 Drug Administration ADMIT DX: REASON FOR VISIT DX: D50.9 Iron deficiency anemia, unspecified FINAL DX: PRINCIPAL: D50.9 Iron deficiency anemia, unspecified SECONDARY: PYMT PROC APC STAT DESCRIPTION DOCTOR NAME DATE NOTE: The code number assigned matches the documented diagnosis and / or procedure in the patient's chart. However, the narrative phrase printed from the coding software may appear abbreviated, or result in slightly different terminology. Coded By: Tiara Lerner Date Saved: 12/06/2018 09:25 [facility] HospitalCopper Lvlon 62-06-4780Wkudhb [Mass/Vol]125 microgram/oQ80-847BghyliKettering Health Behavioral Medical Center Comment on above:Result Comment: This test was developed and its performance characteristics determined by [facility]. It has not been cleared or approved by the Food and Drug Administration. Detection Limit = 5 Performed at: [facility] [id number] MD [place] BarfieldiPerformed By: #### [id number], [id number], [id number], [id number], [id number], [id number], [id number], [id number], [id number] #### [facility] [address] [place] [place], [place] [address]Cqho OR Intraoperative Recordon [id number] OR Intraoperative RecordIntraOp Document Type FT Summary Primary Physician: Delilah PLEITEZ MD Finalized Date/Time: 12/08/18 09:16:15 Pt. Name: MANDEEP LIRA/Sex: 1980 Female Med Rec #: [id number] Physician: Delilah PLIETEZ MD Financial #: [id number] Pt. Type: O Room/Bed: / Admit/Disch: 12/07/18 12:55:05 - 12/07/18 23:59:59 Institution: Case Times FT Entry 1 Patient Times In Room 12/07/18 14:16:00 Out Room 12/07/18 14:31:00 Procedure Times Start 12/07/18 14:20:00 Stop 12/07/18 14:27:00 Anesthesia Times Start 12/07/18 14:16:00 Stop 12/07/18 14:31:00 Last Modified By: Siomara Mao CST 12/07/18 14:32:19 General Comments: 12/08/18 Chart opened to review and send charges Corie Mao CST Case Attendance FT Entry 1 Entry 2 Entry 3 Case Attendee Tony HIDALGO, Brooklynn Downs RN, Hafsa Vinson VIBRATION ANALYST/SA, Gabby Role Performed Anesthesiologist Superintendent Maintenance - Primary Scrub - Primary Cotton Cleaner Time In 12/07/18 14:16:00 12/07/18 14:16:00 12/07/18 14:16:00 Time Out 12/07/18 14:31:00 12/07/18 14:31:00 12/07/18 14:31:00 Procedure EGD(.) EGD(.) EGD(.) Comments Dr. Ascencio supervising procedure. Last Modified By: Hafsa Downs RN, RN, Kara N Schaffer RN, Kara N 12/07/18 14:32:25 12/07/18 14:32:25 12/07/18 14:32:25 Entry 4 Case Attendee Delilah PLEITEZ MD Role Performed Surgeon - Primary Time In 12/07/18 14:16:00 Time Out 12/07/18 14:31:00 Procedure EGD(.) Comments Last Modified By: Hafsa Downs RN 12/07/18 14:32:25 Perioperative Protocols FT Pre-Care Text: Implements protective measures prior to operative or invasive procedure, confirms identity before the operative or invasive procedure, verifies operative procedure, surgical site, and laterality Entry 1 Procedure(s) EGD(.) Patient Identity Birthday, ID Band Verified (select at Check, Patient least 2): Participation Consents / H and P Anesthesia Consent, Operative Site N/A Verified HandP, Surgery/Procedure Marking Verified Consent Surgical Site No Laterality Verified n/a Verified Procedure Verified Yes Correct Patient Yes Position Verified Availability Equipment, Medication Prep Dry n/a Verified (If Applicable) PreOp Antibiotic No Time Out Brooklynn Santana, Given Participants Hafsa Downs RN, SALAM MD, Maher, Timmons VIBRATION ANALYST/SA, Gabby Time Out Complete 12/07/18 14:18:00 Outcomes Met? Yes Last Modified By: Hafsa Downs RN 12/07/18 14:19:22 Post-Care Text: The patient is free from signs and symptoms of injury caused by extraneous objects Allergy Information FT Pre-Care Text: Verifies allergies Entry 1 Allergies Reviewed? Yes Allergies Reviewed Self/Patient With Outcomes Met? Yes Last Modified By: Hafsa Downs RN 12/07/18 10:38:13 Post-Care Text: The patient received appropriate medication(s) safely administered during the perioperative period Surgical Procedures FT Entry 1 Procedure Description Procedure EGD Modifiers . Surgeon Description EGD Primary Procedure Yes Primary Surgeon Delilah PLEITEZ MD 12/07/18 14:20:00 Stop 12/07/18 14:27:00 Anesthesia Type General Surgical Service Gastroenterology Wound Class 2 - Clean-Contaminated Last Modified By: Hafsa Downs RN 12/07/18 14:27:49 General Case Data FT Pre-Care Text: Classifies surgical wound, implements aseptic technique, initiates traffic control Entry 1 Case Information OR ENDO 1 FT Case Level Level 2 Wound Class 2 - Clean-Contaminated Specialty Gastroenterology ASA Class 3 Preop Diagnosis ANEMIA Postop Same As Preop No Postop Diagnosis Anastomotic ulcer, Outcomes Met? Yes normal post gastric bypass surgery Last Modified By: Hasfa Downs RN 12/07/18 14:27:44 Post-Care Text: The patient is free from signs and symptoms of infection Skin Assessment (Pre Procedure) FT Pre-Care Text: Implements protective measures to prevent skin/ tissue injury due to thermal or mechanical sources Evaluates for signs and symptoms of physical injury to skin and tissue Entry 1 Skin Integrity Intact, [place], Warm, and Skin Abnormality No Dry Outcomes Met? Yes Last Modified By: Hafsa Downs RN 12/07/18 10:38:39 Post-Care Text: The patient is free from signs and symptoms of injury caused by extraneous objects Patient Positioning FT Pre-Care Text: Identifies physical alterations that require additional precautions for procedure-specific positioning, verifies presence of prosthetics or corrective devices, positions the patient, evaluates the patient for signs and symptoms of injury as a result of positioning Entry 1 Procedure EGD(.) Body Position Lateral, right side up Feet Uncrossed? Yes Left Arm Position Resting at Side Right Arm Position Resting at Side Left Leg Position Extended Right Leg Position Extended Positioning Device Safety Strap, Pillow Under Head Large Press Points Checked Yes By Hafsa Downs RN, Brown CAA, Carly C Outcomes Met? Yes Last Modified By: Hafsa Downs RN 12/07/18 10:38:51 Post-Care Text: The patient is free from signs and symptoms of injury related to positioning Patient Care Devices FT Pre-Care Text: Implements protective measures to prevent skin/ tissue injury due to thermal or mechanical sources Entry 1 Entry 2 Equipment Type ENDOSCOPY VIDEO MONITOR CHARGE SURGERY SYSTEM[F] [F] Equipment Number [id number] Equipment Setting Outcomes Met? Yes Yes Last Modified By: Hafsa Downs RN, RN, Kara N 12/07/18 10:39:08 12/07/18 10:39:08 Post-Care Text: The patient is free from signs and symptoms of injury caused by extraneous objects Transport To OR FT Pre-Care Text: Transports according to individual needs. Evaluates for signs and symptoms of skin and tissue injury as a result of transfer or transport Entry 1 Via Cart By Hafsa Downs RN Safety Precautions Side Rails Up Outcomes Met? Yes Last Modified By: Hafsa Downs RN 12/07/18 10:39:16 Post-Care Text: The patient is free from signs and symptoms of injury related to transfer/transport Departure From OR FT Pre-Care Text: Transports according to individual needs. Evaluates for signs and symptoms of skin and tissue injury as a result of transfer or transport. Entry 1 Via Cart Safety Precautions Side Rails Up PostOp Destination PACU Transported By Hafsa Downs RN Patient Status Stable Skin. Condition Intact, [place], Warm, and Dry Airway Maintenance Oxygen in Use? No Airway Device N/A Outcomes Met? Yes Last Modified By: Hafsa Downs RN 12/07/18 10:39:24 Post-Care Text: The patient is free from signs and symptoms of injury related to transfer/transport General Comments: Report given to PACU,RN/GISELLA,siphon operator Administration FT Pre-Care Text: Verifies allergies, administers prescribed medications and solutions, administers prescribed antibiotic therapy and immunizing agents as ordered, evaluates response to medications Administers prescribed medications and solutions Entry 1 Expiration Date Yes Outcomes Met? Yes Verified Last Modified By: Hafsa Downs RN 12/07/18 10:39:31 Post-Care Text: The patient received appropriate medication(s) safely administered during the perioperative period For [facility] please see scanned medication reconcilliation form for medications used at the field during the procedure. Cultures and Specimens FT Pre-Care Text: Manages specimen handling and disposition Manages culture specimen collection Entry 1 Cultures Ordered n/a Specimens Ordered No Frozen Section Times Outcomes Met? Yes Last Modified By: Hafsa Downs RN 12/07/18 14:27:46 Post-Care Text: The patient is free from signs and symptoms of injury caused by extraneous objects The patient is free from signs and symptoms of infection Case Comments Finalized By: Mayco VIBRATION ANALYST, Siomara Document Signatures Signed By: Himanshu VILLEGAS Hafsa N 12/07/18 14:32 Siomara Mao CST 12/08/18 09:16NormalKettering Health Behavioral Medical CenterVit Aon 89-79-7096Wcaiwby [Mass/Vol]40.8 microgram/dL18.9-57.3FOhioHealth Pickerington Methodist HospitalComment on above:Result Comment: Reference intervals for vitamin A determined from [facility] internal studies. Individuals with vitamin A less than 20 ug/dL are considered vitamin A deficient and those with serum concentrations less than 10 ug/dL are considered severely deficient. This test was developed and its performance characteristics determined by [facility]. It has not been cleared or approved by the Food and Drug Administration. Performed at: [address] [id number] MD [place] Perezformed By: #### [id number], [id number], [id number], [id number], [id number], [id number], 25792987, 86914455, [id number], [id number] ####[facility] [address] [place], [place] [address]Joz B1on 72-58-9576Rrxerxec (Bld) [Moles/Vol]114.4 nmol/L66.5-200.0[facility] Medical CenterComment on above:Result Comment: This test was developed and its performance characteristics determined by [facility]. It has not been cleared or approved by the Food and Drug Administration. Performed at: [address] [id number] MD [place] Perezformed By: #### [id number], [id number], [id number], [id number], [id number], [id number], 68366270, [id number], [id number], [id number] #### [facility] [address], [place] [address]Lfd Raul 77-07-6430Earma tocopherol [Mass/Vol]8.7 mg/L5.9-19.4 [facility] Medical CenterComment on above:Result Comment: This test was developed and its performance characteristics determined by [facility]. It has not been cleared or approved by the Food and Drug Administration.Performed By: #### [id number], 5360240, 3474921, [id number], 10824432, 66772101, 23505218, [id number], 21283812, [id number] #### [facility] [address], [place] [address]Zxnwb tocopherol [Mass/Vol]0.8 mg/L0.7-4.9[facility] Medical CenterComment on above:Result Comment: This test was developed and its performance characteristics determined by [facility]. It has not been cleared or approved by the Food and Drug Administration. Reference intervals for alpha and gamma-tocopherol determined from National Health and Nutrition Examination Survey, 5163-2467. Individuals with alpha-tocopherol levels less than 5.0 mg/L are considered vitamin E deficient. Performed at: [address] [id number] MD [place] Perezformed By: #### [id number], 2702721, 9984638, [id number], 13661489, 76883947, 14706531, 80855945, [id number], [id number] #### [facility] [address], [place] [address]Vjkrjst B6on 78-09-0927Acymtmzfsq [Mass/Vol]2.4 microgram/L 2.0-32.8[facility] Medical CenterComment on above:Result Comment: This test was developed and its performance characteristics determined by [facility]. It has not been cleared or approved by the Food and Drug Administration. Performed at: [address] [id number] MD [place] Perezformed By: #### [id number], 2517630, 6219505, [id number], 97766102, 95315423, 43204950, 82937408, 41878763, [id number] ####[facility] [address] [place], [place] [address]Mjyo Lvlon 34-26-1417Qnne [Mass/Vol]67 microgram/vT14-343ZtmwfhKettering Health Behavioral Medical CenterComment on above:Result Comment: This test was developed and its performance characteristics determined by [facility]. It has not been cleared or approved by the Food and Drug Administration. Detection Limit = 5 Performed at: [facility] [id number] MD [place] Perezformed By: #### [id number], [id number], 4184892, [id number], 23775853, 01206089, 97605770, 73437208, 93053564, [id number] #### [facility] [address], [place] [address]Xvwvtsfmv Patient Summaryon 89-70-4623Uomnystdw Patient Summary [facility] Clinical Discharge Instructions PERSON INFORMATION Name: MANDEEP LIRA PHYSICIANS Admitting Physician: Delilah PLEITEZ MD Attending Physician: Delilah PLEITEZ MD PCP: MAIK BROCK MD Discharge Diagnosis: Acute anastomotic ulcer Comment: PATIENT EDUCATION INFORMATION Instructions: Esophagogastroduodenoscopy, Care After; Peptic Ulcer Disease Medication Leaflets: Follow up: Type Location Start Finish State ASU [facility] (FT) [facility] Surgical Services 12/12/2018 12:30 PM 12/12/2018 2:30 PM Confirmed MEDICATION LIST Fill New Prescriptions: sucralfate (Carafate 1 gram Tab) 1 gram By Mouth 4 times a day Comment:[facility] Recordon [id number] OR PACU I RecordPACU Phase I Document Type FT Summary Primary Physician: Delilah PLEITEZ MD Finalized Date/Time: 12/07/18 15:03:51 Pt. Name: MANDEEP LIRA D.O.B./Sex: 1980 Female Med Rec #: [id number] Physician: Delilah PLEITEZ MD Financial #: [id number] Pt. Type: O Room/Bed: / Admit/Disch: 12/07/18 12:55:05 - Institution: Case Times PACU I FT Pre-Care Text: Identifies barriers to communication and implements measures to provide psychological support Develops individualized plan of care, and ensures continuity of care Maintains patient's dignity and privacy, and maintains patient confidentiality Identifies and reports philosophical, cultural, and spiritual beliefs and values Identifies individual values and wishes concerning care Implements aseptic technique, and administers prescribed antibiotic therapy and immunizing agents as ordered Evaluates postoperative tissue perfusion Implements thermoregulation measures, and monitors body temperature Evaluates postoperative respiratory status Evaluates postoperative cardiac status Evaluates postoperative neurological status Assesses pain control, collaborated in initiating patient-controlled analgesia and implements alternative methods of pain control Verifies allergies, administers prescribed medications and solutions, evaluates response to medications Entry 1 In PACU I 12/07/18 14:31:00 Discharge from PACU 12/07/18 15:01:00 I Outcomes Met? Yes Last Modified By: Genesis Ye RN 12/07/18 15:03:35 Post-Care Text: The patient demonstrates knowledge of the expected response to the operative or invasive procedure The patient's care is consistent with the individualized perioperative plan of care The patient's rightto privacy is maintained The patient's value system, lifestyle, ethnicity, and culture are considered, respected, and incorporated into the perioperative plan of care The patient participates in decisions affecting his or her perioperative plan of care The patient is free from signs and symptoms of infection The patient has wound/tissue perfusion consistent with or improved from baseline levels established preoperatively The patient is at or returning to normothermia at the conclusion of the immediate postoperative period The patient's respiratory function is consistent with or improved from baseline levels established preoperativelyThe patient's cardiovascular status is consistent with or improved from baseline levels established preoperatively The patient's cardiovascular status is consistent with or improved from baseline levels established preoperatively The patient demonstrates and/or reports adequate pain control throughout the perioperative period The patient received appropriate medication(s), safely administered during the perioperativeperiod Acuity Level PACU I FT Entry 1 Start Time 12/07/18 14:31:00 Stop Time 12/07/18 15:01:00 Acuity Level Acuity Level I Last Modified By: Genesis Ye RN 12/07/18 15:03:49 Finalized By: Genesis Ye RN Document Signatures Signed By: Genesis Ye RN 12/07/18 15:03[facility]Main OR Preoperative Recordon [id number] OR Preoperative RecordHolding Area Document Type FT Summary Primary Physician: Delilah PLEITEZ MD Finalized Date/Time: 12/07/18 13:18:21 Pt. Name: MANDEEP LIRA Martin Mcrae/Sex: 1980 Female Med Rec #: [id number] Physician: Delilah PLEITEZ MD Financial #: [id number] Pt. Type: O Room/Bed: / Admit/Disch: 12/07/18 12:55:05 - Institution: Case Times Holding FT Pre-Care Text: Verifies consent for planned procedure, identifies individual values and wishes concerning care, includes family members in perioperative teaching Secures patient's records' belongings, and valuables, maintains patient's dignity and privacy, and maintains patient confidentiality Entry 1 In Holding 12/07/18 13:10:00 Outcomes Met? Yes Last Modified By: Janet Jacobsen RN 12/07/18 13:14:20 Post-Care Text: The patient participates in decisions affecting his or her perioperative plan of care The patient'sright to privacy is maintained Surgery Checklist FT Entry 1 Patient Birthday, ID Band Procedure History and Physical, Identification: Check, Patient Verification: Surgical Consent, With Participation Patient NPO after Midnight: Yes Personal Items NONE Comment: Limitations: DENIES Complaints of Pain: No Pain Comment: NONE Operative Site n/a Marking: Availability Equipment Verified: Does Patient Smoke No Patient states Yes Comment - Adult BOYFRIEND postop adult Supervision supervision available Case Cancelled in No Holding Area see comments below for reason Last Modified By: Janet Jacobsen RN 12/07/18 13:15:06 Finalized By: Janet Jacobsen RN Document Signatures Signed By: Janet Jacobsen RN 12/07/18 13:15 Janet Jacobsen RN 12/07/18 13:18[facility] CenterPatient Education - Texton 30-15-5275Iehpgoo Education - TextPeptic Ulcer A peptic ulcer is a sore in the lining of your esophagus (esophageal ulcer), stomach (gastric ulcer), or in the first part of your small intestine (duodenal ulcer). The ulcer causes erosion into the deeper tissue. CAUSES Normally, the lining of the stomach and the small intestine protects itself from the acid that digests food. The protective lining can be damaged by: ? An infection caused by a bacterium called Helicobacter pylori (H. pylori). ? Regular use of nonsteroidal anti-inflammatory drugs (NSAIDs), such as ibuprofen or aspirin. ? Smoking tobacco. Other risk factors include being older than 50, drinking alcohol excessively, and having a family history of ulcer disease. SYMPTOMS ? Burning pain or gnawing in the area between the chest and the belly button. ? Heartburn. ? Nausea and vomiting. ? Bloating. The pain can be worse on an empty stomach and at night. If the ulcer results in bleeding, it can cause: ? Black, tarry stools. ? Vomiting of bright red blood. ? Vomiting of xgjcmt-yxtkre-avsnyeu materials. DIAGNOSIS A diagnosis is usually made based upon your history and an exam. Other tests and procedures may be performed to find the cause of the ulcer. Finding a cause will help determine the best treatment. Tests and procedures may include: ? Blood tests, stool tests, or breath tests to check for the bacterium H. pylori. ? An upper gastrointestinal (GI) series of the esophagus, stomach, and small intestine. ? An endoscopy to examine the esophagus, stomach, and small intestine. ? A biopsy. TREATMENT Treatment may include: ? Eliminating the cause of the ulcer, such as smoking, NSAIDs, or alcohol. ? Medicines to reduce the amount of acid in your digestive tract. ? Antibiotic medicines if the ulcer is caused by the H. pylori bacterium. ? An upper endoscopy to treat a bleeding ulcer. ? Surgery if the bleeding is severe or if the ulcer created a hole somewhere in the digestive system. HOME CARE INSTRUCTIONS ? Avoid tobacco, alcohol, and caffeine. Smoking can increase the acid in the stomach, and continuedsmoking will impair the healing of ulcers. ? Avoid foods and drinks that seem to cause discomfort or aggravate your ulcer. ? Only take medicines as directed by your caregiver. Do not substitute fyxz-xtp-zicwxfi medicines for prescription medicines without talking to your caregiver. ? Keep any follow-up appointments and tests as directed. SEEK MEDICAL CARE IF: ? Your do not improve within 7 days of starting treatment. ? You have ongoing indigestion or heartburn. SEEK IMMEDIATE MEDICAL CARE IF: ? You have sudden, sharp, or persistent abdominal pain. ? You have bloody or dark black, tarry stools. ? You vomit blood or vomit that looks like coffee grounds. ? You become light-headed, weak, or feel faint. ? You become sweaty or clammy. MAKE SURE YOU: ? Understand these instructions. ? Will watch your condition. ? Will get help right away if you are not doing well or get worse. Document Released: 02/25/2001 Document Revised: 07/15/2014 Document Reviewed: 09/27/2012 ExitCare? Patient Information ?2014 [place]. This information is not intended to replace advice given to you by your health care provider. Make sure you discuss any questions you have with yourhealth care provider. Family Medicine Esophagogastroduodenoscopy Care After Refer to this sheet in the next few weeks. These instructions provide you with information on caring for yourself after your procedure. Your caregiver may also give you more specific instructions. Your treatment has been planned according to current medical practices, but problems sometimes occur. Call your caregiver if you have any problems or questions after your procedure. HOME CARE INSTRUCTIONS ? Do not eat or drink anything until the numbing medicine (local anesthetic) has worn off and your gag reflex has returned. You will know that the local anesthetic has worn off when you can swallow comfortably. ? Do not drive for 12 hours after the procedure or as directed by your caregiver. ? Only take medicines as directed by your caregiver. SEEK MEDICAL CARE IF: ? You cannot stop coughing. ? You are not urinating at all or less than usual. SEEK IMMEDIATE MEDICAL CARE IF: ? You have difficulty swallowing. ? You cannot eat or drink. ? You have worsening throat or chest pain. ? You have dizziness, lightheadedness, or you faint. ? You have nausea or vomiting. ? You have chills. ? You have a fever. ? You have severe abdominal pain. ? You have black, tarry, or bloody stools. Document Released: 02/14/2013 Document Reviewed: 02/14/2013 ExitCare? Patient Information ?2014 [place]. This information is not intended to replace advice given to you by your health care provider. Make sure you discuss any questions you have with yourhealth care provider.NormalFisher Thomas B. Finan CenterFolateon 51-42-4003Nweldj [Mass/Vol]ng/mLNormal>=6.7Fisher Thomas B. Finan CenterComment on above:Performed By: #### [id number], [id number], [id number], [id number], [id number], [id number], [id number], [id number], [id number], [id number] #### [facility] [address], [place] [address]Pjhva Counton 93-45-6525Fllmbjynhuuur (Bld) [#/Vol]0.7 %Normal 0.5-1.5FOhioHealth Pickerington Methodist HospitalComment on above:Performed By: #### [id number], [id number], [id number], [id number], [id number], [id number], 46896024, 86492536, [id number], [id number] #### [facility] [address], [place] [address]Knb B12on 40-68-9011Mfhmfmfxu (Vitamin B12) [Mass/Vol]728 pg/mL Zwwtdt84-4158GxcoynKettering Health Behavioral Medical CenterComment on above:Performed By: #### [id number], 2869204, 8519071, [id number], [id number], 45526293, 04391101, [id number], [id number], [id number] #### [facility] [address], [place] [address]Vgwhkus D 25 Hydroxyon 43-35-4778Hzqikkaav [Mass/Vol]50.3 ng/mL Jxcnvr51.0-100.0[facility] Behavioral Medical CenterComment on above:Result Comment: Vitamin D deficiency has been defined as a level of serum 25-OH vitamin D less than 20 ng/mL (1,2) by the [place] of Medicine and an Endocrine Society practice guideline. The Endocrine Society further defined vitamin D insufficiency as a level between 21 and 29 ng/mL (2). 1. IOM ([place] of Medicine). 2010. Dietary reference intakes for calcium and D. [place]: The National Academies Press. 2. Atiya MF, Mihcael FARIAS, Opal MARTÍNEZ, et al. Evaluation, treatment, and prevention of vitamin D deficiency: an Endocrine Society clinical practice guideline. JCEM. 2010; 96 (7):1911-30.Performed By: #### [id number], 6909783, 3822123, [id number], [id number], 31959313, 71921145, 68294517, [id number], [id number] #### [facility] [address] [place], [place] [address]Kftkve Summary.on 56-38-5617Xxyirm Summary.CODING DATE: 11/06/2018 FINAL [facility] STATUS: PAYOR: Federico APC DESCRIPTION 9441 Inj ferric carboxymaltos 1mg 5693 Level 3 Drug Administration ADMIT DX: REASON FOR VISIT DX: D50.0 Iron deficiency anemia secondary to blood loss (chronic) FINAL DX: PRINCIPAL: D50.0 Iron deficiency anemia secondary to blood loss (chronic) SECONDARY: PYMT PROC APC STAT DESCRIPTION DOCTOR NAME DATE NOTE: The code number assigned matches the documented diagnosis and / or procedure in the patient's chart. However, the narrative phrase printed from the coding software may appear abbreviated, or result in slightly different terminology. Revised Coded By: Tiara Lerner Revised Date Saved: 11/06/2018 01:22 [facility].on 85-69-9172Fpzbao Summary.CODING DATE: 11/02/2018 FINAL [facility] STATUS: Home (Routine DC) PAYOR: Federico ADMIT DX: REASON FOR VISIT DX: D50.0 Iron deficiency anemia secondary to blood loss (chronic) FINAL DX: PRINCIPAL: D50.0 Iron deficiency anemia secondary to blood loss (chronic) SECONDARY: A04.9 Bacterial intestinal infection, unspecified Z98.84 Bariatric surgery status Z98.890 Other specified postprocedural states PROCEDURES DOCTOR NAME DATE NOTE: The code number assigned matches the documented diagnosis and / or procedure in the patient's chart. However, the narrative phrase printed from the coding software may appear abbreviated, or result in slightly different terminology. Coded By: Laure Nelson CphT Date Saved: 11/02/2018 01:14 [facility] Vital Signs Date TimeVital SignValuePerforming JidpbwdauAsxjvsbr86-61-4473 15:19-0500Body ntvqse978.6 cmKimberlee BOOKER Work Phone: [facility] NorthQwlgrxtgov90-87-1018 15:19-0500Body mass index (BMI) [Ratio]21.87 kg/a1Deofl Hemmer PA Work Phone: [facility] CenterXkjjhzzdhx11-28-5377 15:19-0500Body temperature 97.81 [degF]Kimberlee Hemmer PA Work Phone: [facility] CenterOsbdmyhrvm54-77-6878 15:19-0500Body sffbqy96.79 kgWilliamsen Hemmer PA Work Phone: [facility] CenterCfxzpcxwdu20-81-8000 15:19-0500Diastolic blood ynmtqdrs53 mm[Hg]Kimberlee Hemmer PA Work Phone: [facility] CenterPlpbcfsuaj03-24-9089 15:19-0500Heart bkzi573 /min Kimberlee Hemmer PA Work Phone: [facility] CenterEfuxubwggr95-01-8887 15:19-0500Respiratory rate16 /minWilliamsen Hemmer PA Work Phone: [facility] CenterZdauazgnjj32-13-9283 15:19-1298GoM3% (BldA) [Mass fraction]98 %Kimberlee Hemmer PA Work Phone: [facility] CenterZvcjxeibzf60-22-6813 15:19-0500Systolic blood nnladewt858 mm[Hg]Kimberlee Hemmer PA Work Phone: [facility] CenterWcxqapxtru38-25-5001 08:33-0400Diastolic blood ybekacze13 mm[Hg]Maik Brock MD Work Phone: [facility]10-23-2025 08:33-0400 Heart bcbt095 /minMaik Brock MD Work Phone: [facility]10-23-2025 08:33-0400 Systolic blood cibxdavq852 mm[Hg]Maik Brock MD Work Phone: [facility]09-11-2025 14:19-0400 Body ansnwy993.6 cmAdele Momin NP Work Phone: [facility] CenterMpgwxmseia49-66-2207 14:19-0400Body mass index (BMI) [Ratio]21.97 kg/i3JsfbcixtAdele Momin NP Work Phone: [facility] CenterTxdzfahgho17-71-3810 14:19-0400Body awqzuc96.06 kgAdele Liliane MACHINIST/MACHINE BUILDER Work Phone: [facility] CenterQbxuxvdkwu73-44-7911 16:29-0400Body bgruqj766.6 cmKaren Hemmer PA Work Phone: [facility] CenterPmakfwcvjx12-42-6059 16:29-0400Body mass index (BMI) [Ratio]22.73 kg/q2Yicxj Hemmer PA Work Phone: [facility] CenterHmiyxgqisl51-40-1472 16:29-0400Body beyafe89.06 kgKaren Hemmer PA Work Phone: [facility] CenterVpbhiclqxn40-52-9665 16:29-0400Diastolic blood zanoagcv81 mm[Hg]Kimberlee Hemmer PA Work Phone: [facility] CenterDvydjedazq35-21-7882 16:29-0400Heart rate78 /min Kimberlee Hemmer PA Work Phone: [facility] CenterExbceklpxw08-09-5985 16:29-0400Respiratory rate16 /minKaren Hemmer PA Work Phone: [facility] CenterFdeqvovtug84-14-1792 16:29-4990HvP9% (BldA) [Mass fraction]96 %Kimberlee Hemmer PA Work Phone: [facility] CenterIuhxnbogty25-75-2764 16:29-0400Systolic blood pzzxnpim479 mm[Hg]Kimberlee Hemmer PA Work Phone: [facility] CenterSilpjlpzns65-04-1830 13:39-0400Body suybfp769.6 Felicitas Brock MD Work Phone: [facility] CenterGasygmkqin00-04-3437 13:39-0400Body mass index (BMI) [Ratio]23.17 kg/u2WhjtaMaik Brock MD Work Phone: [facility] CenterJxsbgxifwv90-70-1927 13:39-0400Body hqgduv93.24 kgMaik Brock MD Work Phone: [facility] CenterOtxccwzugl47-61-4015 13:39-0400Diastolic blood ictmbrrx57 mm[Hg]Maik Brock MD Work Phone: [facility] CenterJgusogunbu83-46-8126 13:39-0400Heart rate97 /min Maik Brock MD Work Phone: [facility] CenterJncvfvivum67-75-1266 13:39-0877QcI1% (BldA) [Mass fraction]100 %Maik Brock MD Work Phone: [facility] CenterFuilqaoell73-97-1692 13:39-0400Systolic blood mm[Hg]Maik Brock MD Work Phone: [facility] CenterLbqmfmghgn35-76-4294 08:03-0400Body wyzuvh621.6 cmKaren Hemmer PA Work Phone: [facility] CenterKqbywjidmx21-96-5259 08:03-0400Body mass index (BMI) [Ratio]23.07 kg/n2Dxwos Hemmer PA Work Phone: [facility] CenterIchovchvqy49-83-0510 08:03-0400Body aqmwts66.96 kgKaren Hemmer PA Work Phone: [facility] CenterYuxvxlvyxc65-14-0220 08:03-0400Diastolic blood qwklndup14 mm[Hg]Kimberlee Hemmer PA Work Phone: [facility] CenterHrepsopwkf62-21-9487 08:03-0400Heart rate86 /min Kimberlee Hemmer PA Work Phone: [facility] CenterBqwbyssgde07-13-2813 08:03-0400Respiratory rate16 /minKaren Hemmer PA Work Phone: [facility] CenterRuheczqwzk02-17-6068 08:03-3382IxP5% (BldA) [Mass fraction]99 %Kimberlee Hemmer PA Work Phone: [facility] CenterHrenakvaey06-98-8567 08:03-0400Systolic blood zbmzjzmy683 mm[Hg]Kimberlee Hemmer PA Work Phone: [facility] CenterGclbhbciop32-73-5694 08:44-0400Body mass index (BMI) [Ratio]23.31 kg/o5Ybxpy Karen DO Work Phone: [facility] CenterKvhavncqjd31-56-3356 08:44-0400Body yzampm64.6 kg Rick Karen DO Work Phone: [facility] CenterAlbemcehyw83-78-9443 08:44-0400Diastolic blood wukdodyc15 mm[Hg]Rick Karen DO Work Phone: [facility] CenterCswzwutneu33-81-6450 08:44-0400Systolic blood jhmytzyb528 mm[Hg]Rick Karen DO Work Phone: [facility] CenterYcmitbibho66-01-5606 14:00-0500Diastolic blood ersoxpmh42 mm[Hg]Richard Kodak DO Work Phone: [facility] CenterAldrykuhfo97-97-6532 14:00-0500Systolic blood urzarwnx879 mm[Hg]Richard Kodak DO Work Phone: [facility] CenterPnscbbjnqs97-84-5579 09:20-0500Body marmtn014.56 cmOhio[facility]01-13-2025 09:20-0500Body mass index (BMI) [Ratio]23.6 kg/f6CnwpeorynOhiohealth Southeastern Medical Center01-13-2025 09:20-0500Body zzkunfnfqhf86.5 [degF][facility]01-13-2025 09:20-0500Body earixg82.31 kgOhiohealth Southeastern Medical Center01-13-2025 09:20-0500Diastolic blood awgjbfql11 mm[Hg][facility]01-13-2025 09:20-0500 Heart camb551 /[facility]01-13-2025 09:20-0500 Respiratory rate18 /[facility]01-13-2025 09:20-0500 SaO2% (BldA) [Mass fraction]96 %[facility]01-13-2025 09:20-0500Systolic blood hdcyziag914 mm[Hg][facility] 02-02-2024 08:59-0500Diastolic blood afmioozu79 mm[Hg]Richard Kodak DO Work Phone: [facility] CenterRxaudnjywy47-68-9224 08:59-0500Heart rate78 /min Richard Kodak DO Work Phone: noCox NorthXzaodrilwn27-87-4243 08:59-6987GkG8% (BldA) [Mass fraction]99 %Richard Kodak DO Work Phone: [facility] CenterDmpgpvufag51-03-3330 08:59-0500Systolic blood qyltqgwd326 mm[Hg]Richard Kodak DO Work Phone: [facility] CenterUlcmbfhkfg98-40-3937 08:04-0400Body .6 Felicitas Brock MD Work Phone: [facility] CenterHssysmqyhh95-10-4087 08:04-0400Body mass index (BMI) [Ratio]25.23 kg/x4GqaqmMaik Brock MD Work Phone: [facility] CenterJuysmdnvpj76-60-8577 08:04-0400Body hakbsw67.68 kgMaik Brock MD Work Phone: [facility] CenterWzixmimuol93-39-4069 08:04-0400Diastolic blood ooqsfjqu36 mm[Hg]Maik Brock MD Work Phone: [facility] CenterSgjctcoynl91-86-2743 08:04-0400Heart rate82 /min Maik Brock MD Work Phone: [facility] CenterVbqvlggnkn62-31-9243 08:04-0260FjU1% (BldA) [Mass fraction]97 %Maik Brock MD Work Phone: [facility] CenterUwmfvygzql27-34-8238 08:04-0400Systolic blood ngvmjemx381 mm[Hg]Maik Brock MD Work Phone: [facility] CenterOjpcnyigko67-78-0916 09:01-0400Diastolic blood jmgkvtoc46 mm[Hg]Richard Kodak DO Work Phone: [facility] CenterFspbackesf75-97-1143 09:01-0400Systolic blood uyalnkyx573 mm[Hg]Richard Kodak DO Work Phone: [facility] CenterFqhxmjvpls23-93-7306 15:18-0400Body ejerpd418.3 cmKasey Wagonerin DO Work Phone: [place] Mhtalm93-38-1215 15:18-0400Body mass index (BMI) [Ratio]26.85 kg/l0Kjhqrel Cetin DO Work Phone: [place] Pldkcq39-26-0353 15:18-0400Body lpeptz91.85 kgKasey Wagonerin DO Work Phone: [place] Gxjuuw97-80-7050 15:18-0400Diastolic blood tcqfzesf05 mm[Hg]Kasey Wagonerin DO Work Phone: [place] Nbmqlc57-97-7073 15:18-0400Heart rate83 /min Kasey Wagonerin DO Work Phone: [place] Jbbzmh02-56-3261 15:18-0400Systolic blood ulukevss665 mm[Hg]Kasey Wagonerin DO Work Phone: [place] Yqazoc85-03-9853 22:05-0400Diastolic blood mgbqpasg44 mm[Hg]MD Maik Brock Work Phone: 1(727)101-[address] [place], [place] 1135603-14-2024 22:05-0400 Heart rate78 /minMD Maik Brock Work Phone: 1(882)512-[address] [place], [place] 1135603-14-2024 22:05-0400 Respiratory rate16 /minMD Maik Brock Work Phone: 1(053)844-[address] [place], [place] 1135603-14-2024 22:05-0400 SaO2% (BldA) [Mass fraction]100 %MD Maik Brock Work Phone: 1(921)726-[address] [place], [place] 1135603-14-2024 22:05-0400 Systolic blood nsvvgooy860 mm[Hg]MD Maik Brock Work Phone: 1(559)[address]03-14-2024 18:33-0400 Body muafxupisay63.5 [degF]MD Maik Brock Work Phone: 1(460)[address]09-04-2023 13:07-0400 Body pasxzv962.56 cmMD Maik Brock Work Phone: 1(642)602-[address] [place], [place] 1135609-04-2023 13:07-0400 Body pzpanofnjlu33.9 [degF]MD Maik Brock Work Phone: 1(925)[address]09-04-2023 13:07-0400 Body .8 kgMD Maik Brock Work Phone: 1(753)383-[address] [place], [place] 1135609-04-2023 13:07-0400 Diastolic blood vuafgbne55 mm[Hg]MD Maik Brock Work Phone: 1(153)[address]09-04-2023 13:07-0400 Heart rate95 /minMD Maik Vinod Work Phone: 1(412)[address]09-04-2023 13:07-0400 Respiratory rate18 /minMD Maik Vinod Work Phone: 1(201)014-[address] [place], [place] 1135609-04-2023 13:07-0400 SaO2% (BldA) [Mass fraction]98 %MD Maik Brock Work Phone: 1(073)457-[address] [place], [place] 1135609-04-2023 13:07-0400 Systolic blood lqcwyhxk046 mm[Hg]MD Maik Brock Work Phone: 1(919)320-[address] [place], [place] 1135608-12-2023 13:35-0400 Body lmcruh036.1 Eleanor Marcos Other [employer] Other 08-12-2023 13:35-0400Body mass index (BMI) [Ratio] 27.85 kg/v1NpegycSabrina Marcos Other [employer] Other 08-12-2023 13:35-0400Body ooxvggcuuhu51.3 [degF]Sabrina Marcos Other [employer] Other 08-12-2023 13:35-0400Body .93 kgSabrina Marcos Other [employer] [place] [employer] Other 08-12-2023 13:35-0400Respiratory rate18 /minSabrina Marcos Other [employer] [address] [employer] Other 08-12-2023 13:35-9557ViH2% (BldA) [Mass fraction]98 % Sabrina Priti Other [employer] Other 07-13-2023 08:42-0400Body cmuvro05.7 kgMD Maik Hankins Work Phone: [facility]07-13-2023 08:42-0400 Diastolic blood mm[Hg]MD Maik Brock Work Phone: 1(081)014-[address] [place], [place] 5475707-13-2023 08:42-0400 Heart rate89 /minMD Maik Vinod Work Phone: 1(033)222-[address] [place], [place] 5475707-13-2023 08:42-0400 Respiratory rate20 /minMD Maik Vinod Work Phone: 1(677)584-[address] [place], [place] 1135607-13-2023 08:42-0400 SaO2% (BldA) [Mass fraction]97 %MD Maik Brock Work Phone: 1(999)820-[address] [place], [place] 5475707-13-2023 08:42-0400 Systolic blood cujluduh919 mm[Hg]MD Maik Brock Work Phone: [facility]07-13-2023 08:26-0400 Body yrsbey818.1 cmMD Maik Brock Work Phone: 1(333)974-[address] [place], [place] 1135611-08-2022 16:19-0500 Body gsbenv320.1 cmKasey Price DO Work Phone: c[facility] HospitalNsqxtp35-44-3073 16:19-0500Body okvlgx74.12 kgKasey Cetin DO Work Phone: cMer[facility] HospitalSztwpz17-01-7611 16:19-0500Diastolic blood jmkxyguq55 mm[Hg]Kasey Price DO Work Phone: [phone] HospitalBlyfbe55-64-1366 16:19-0500Heart rate78 /min Kasey Price DO Work Phone: [phone] HospitalKzqvcc24-45-9422 16:19-0500Systolic blood cepylqwj397 mm[Hg]Kasey Price DO Work Phone: XMer[facility] Allen HospitalLwphpv81-52-8865 15:32-0400Body .6 cmAnna Rodrick DO Work Phone: [phone]06-27-2022 15:32-0400Body bzimzc00.58 kgAnna Rodrick DO Work Phone: [facility]05-12-2022 16:05-0400Body wkfojr965.6 cmYi Florence IBARRA Work Phone: [facility]05-12-2022 16:05-0400Body qrulpo89.12 kgYi Florence IBARRA Work Phone: [phone]05-12-2022 16:05-0400Diastolic blood jauouuou85 mm[Hg]Toshia Henriquez MD Work Phone: [facility]05-12-2022 16:05-0400Heart rate80 /min Toshia Henriquez MD Work Phone: [phone]05-12-2022 16:05-8396FjF4% (BldA) [Mass fraction]95 %Toshia Henriquez MD Work Phone: [phone]05-12-2022 16:05-0400Systolic blood yychbtbp799 mm[Hg]Toshia Henriquez MD Work Phone: [phone] Encounters Encounter DateEncounter TypeCare ProviderFacilityStart: 01-17-2025 End: 26-17-8012Gkxgvz outpatient visit 25 minutesKimberlee BOOKER Work Phone: [facility] MedinceComment on above:Benign essential hypertension (Primary Dx); Generalized anxiety disorder; Acute non-recurrent pansinusitis; H/O gastric bypassStart: 01-17-2025 End: 30-61-5511lmmvhdnscqCVRODMilagros Jorgensen AvailableStart: 01-17-2025 End: 01-62-4124Pcagyr Dasia Beth PA Work Phone: [facility] MedinceStart: 01-17-2025 End: 92-93-2360Lrwldj Dasia Beth PA Work Phone: [facility] MedinceStart: 01-03-2025 End: 44-31-6626yminlkldreKmmsa M Alda MD Work Phone: -[facility] BellevueStart: 01-03-2025 End: 63-53-2342Vjmnjwg encounter procedureRichard Candelario DO-[facility] Work Phone: Start: 12-17-2024 End: 68-24-0149sjxqzpkpfvYYXZVMNX EBERLYNot AvailableStart: 12-17-2024 End: 89-01-1088Qszivi flowsheetAdele Momin MACHINIST/MACHINE BUILDER Work Phone: [facility] OBGYNStart: 12-17-2024 End: 98-18-6238Psgyca flowsTiffany Momin MACHINIST/MACHINE BUILDER Work Phone: [facility] OBGYNStart: 12-17-2024 End: 04-23-7913Omknghk encounter procedureAdele Momin MACHINIST/MACHINE BUILDER Work Phone: [facility] Opp OBGYNComment on above:Encounter for medication review and counseling (Primary Dx)Start: 12-10-2024 End: 35-53-2596FnyeahBhecr M Alda MD Work Phone: [facility] MedinceComment on above:Anxiety Start: 11-23-2024 End: 32-31-1536Wbvutasq Result EncounterAdele Momin NP Work Phone: [facility] External Department UnsolicitedStart: 11-23-2024 End: 13-58-8888Pvjjzbmj Result EncounterOdellsamuel Liliane CUMMINGS Work Phone: [facility] External Department UnsolicitedStart: 11-22-2024 End: 72-11-1013Klpacl outpatient visit 15 minutesAdele Momin NP Work Phone: [facility] Opp OBGYNComment on above:Hormone imbalance; H/O: hysterectomy; Vaginal odor; Vaginal discharge; Hair loss; Menopausal vaginal dryness; Hormone disorder; Postmenopausal atrophic vaginitisStart: 11-22-2024 End: 58-15-7520Rfvfoi Dane Momin NP Work Phone: [facility] OBGYNStart: 11-22-2024 End: 88-33-8068Cuecaj jeanieTiffany Momin MACHINIST/MACHINE BUILDER Work Phone: [facility]ino OBGYNStart: 11-22-2024 End: 42-17-1782Mjhqbjzp Result EncounterOdellsamuel Liliane CUMMINGS Work Phone: [facility] External Department UnsolicitedStart: 11-22-2024 End: 98-93-9264hzttqttxunYCZUMHBB EBERLYNot AvailableStart: 10-16-2024 End: 30-32-1794Jofofq outpatient visit 25 minutesKimberlee BOOKER Work Phone: [facility] MedinceComment on above:Benign essential hypertension (Primary Dx); Generalized anxiety disorder ; Bilateral lower extremity edema; Varicose veins of both lower extremities, unspecified whether complicated; Chronic fatigue syndrome; FibromyalgiaStart: 10-16-2024 End: 47-73-6278qwofdelwgkKZWPXMilagros Jorgensen AvailableStart: 10-16-2024 End: 65-01-4826Zzctmwpatricia BOOKER Work Phone: [facility] MedinceStart: 10-16-2024 End: 10-95-2172Masoxypatricia BOOKER Work Phone: [facility] MedinceStart: 10-09-2024 End: 48-40-2935CdyuorQbjwp M Alda MD Work Phone: [facility] MedinceComment on above:Anxiety Start: 10-04-2024 End: 18-13-9463oicriwundzHsjhb M Alda MD Work Phone: [facility] Work Phone: Start: 10-04-2024 End: 78-50-0147Egyghop encounter procedureNicshe Fontenot [facility] Work Phone: Start: 08-20-2024 End: 26-21-7961Ryjqyumfr encounterMaik Brock MD Work Phone: noMS CI FMStart: 08-20-2024 End: 03-56-4761Jlzpbb outpatient visit 25 minutesMaik Brock MD Work Phone: noMS CI FMComment on above:Acute cystitis with hematuria (Primary Dx); Burning with urination; Gross hematuriaStart: 08-20-2024 End: 15-35-1208xzicumzbobCMGVO M ALDANot AvailableStart: 08-13-2024 End: 75-58-9993ZnztxkXzhzi M Alda MD Work Phone: noMS CI FMComment on above:AnxietyStart: 08-03-2024 End: 18-90-3171miqgoupjzsRJSGCMilagros Jorgensen AvailableStart: 07-18-2024 End: 71-64-6141Gjhlfirpq Result EncounterGeneric External Data ProviderNOMS External Department UnsolicitedStart: 07-18-2024 End: 97-16-7918Aapgutvnq Result EncounterGeneric External Data ProviderNOMS External Department UnsolicitedStart: 07-16-2024 End: 45-25-0520Fbldpcclarke BOOKER Work Phone: NOMS CI FMStart: 07-16-2024 End: 51-17-4890Sstqxhclarke BOOKER Work Phone: NOOX CI FMStart: 07-16-2024 End: 28-33-3927Psqyijk encounter statusKimberlee Jarrett Golden BOOKER Work Phone: [facility] Work Phone: Start: 07-16-2024 End: 19-17-4796Tadqjdhk preventive med est patient 40-64yrsKaren Luiza Golden BOOKER Work Phone: noms CI FMComment on above:Wellness examination (Primary Dx); Benign essential hypertension (CMS/HCC); Myalgia; Other hemochromatosis (CMS/HCC); Vitamin D deficiency; Other iron deficiency anemia; Anemia, unspecified type; Elevated ferritin; H/O gastric bypass; Hypokalemia; Malaise and fatigue; Polycythemia vera; Seasonal allergic rhinitis due to pollen; Medullary sponge kidney; Varicose veins of both lower extremities, unspecified whether complicated; Edema of both lower legs; Chronic fatigue syndrome; Disturbance of skin sensation; Primary insomnia; Mild intermittent asthma without complication (CMS/HCC); Paraesophageal hernia; Gastroesophageal reflux disease without esophagitis; Slow transit constipation; Fibromyalgia; PCOS (polycystic ovarian syndrome); Positive EDMUND (antinuclear antibody); Recurrent sinusitis; Adjustment disorder with anxiety (CMS/HCC); Androgen excess, 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; Generalized anxiety disorder (CMS/HCC); Attention or concentration deficit; Benign paroxysmal positional vertigo due to bilateral vestibular disorder; History of hysterectomy; Hypertrophy of nasal turbinates; Menopausal symptoms; Migraine without aura and without status migrainosus, not intractable (CMS/HCC); Retention cyst of nasal cavityStart: 07-16-2024 End: 88-78-1475qstaakoggtCOTGG Luiza Joslyn AvailableStart: 06-14-2024 End: 91-58-9914Giiich flowsheetCorey Karen DO Work Phone: NOTQ BCP OBStart: 06-14-2024 End: 30-90-2586Drcrpc flowsheetCorey Karen DO Work Phone: noms BCP OBStart: 06-14-2024 End: 11-04-4756Rptcsgbso Result EncounterGeneric External Data ProviderNOMS External Department UnsolicitedStart: 06-14-2024 End: 47-53-2683Zzcescn encounter procedureCorey Karen DO Work Phone: [facility] Work Phone: Start: 06-14-2024 End: 34-36-2044Japugeac preventive med est patient 40-64yrsCorey Karen DO Work Phone: noMS BCP OBComment on above:Well woman exam with routine gynecological exam; Breast cancer screening by mammogramStart: 06-14-2024 End: 45-76-4971bvbxnbyarhHWQUI FAZIONot AvailableStart: 06-07-2024 End: 61-01-5367VwpjclBnhgl M Alda MD Work Phone: NOMS CI FMComment on above:AnxietyStart: 05-22-2024 End: 97-91-3408txtxakreupEGPWCA GILLMORNot AvailableStart: 05-03-2024 End: 04-86-9643Hncnynn encounter procedureNicole Kodak DO Work Phone: aNA BELLEVUEComment on above:Intractable chronic migraine without aura and without status migrainosus (CMS/HCC) (Primary Dx) Start: 05-03-2024 End: 97-83-2728yvqpfbpqpgDMFQBK DANNERNot AvailableStart: 04-14-2024 End: 98-93-4713SbbgsgNmikp M Alda MD Work Phone: NOMS CI FMComment on above:AnxietyStart: 03-26-2024 End: 98-41-9509hgjzqnnsnaIbjfwcextAultman [facility] Work Phone: Start: 03-26-2024 End: 23-24-1501Yuqimwd encounter procedureLevine [facility] [place] Work Phone: Start: 02-06-2024 End: 03-89-1768IutqtcCgsjueThierry Burciaga NP Work Phone: noMS CI FMComment on above:AnxietyStart: 02-02-2024 End: 76-46-3745Fxjfek flowsheetNicole Kodak DO Work Phone: NOMS [place] STATE ROUTEStart: 02-02-2024 End: 82-97-8518Flyuap flowsheetNicole Kodak DO Work Phone: NOMS [place] STATE ROUTEStart: 02-02-2024 End: 63-21-8213Eshxxuc encounter procedureNicole Kodak DO Work Phone: NOMS [place] STATE ROUTEComment on above:Intractable chronic migraine without aura and without status migrainosus (CMS/HCC) (Primary Dx)Start: 02-02-2024 End: 79-29-9914kobpxovjrzAZWXXY DANNERNot AvailableStart: 12-12-2023 End: 61-60-2456OtcznhYzmlxf M Shively MACHINIST/MACHINE BUILDER Work Phone: NOMS CI FMComment on above:AnxietyStart: 12-08-2023 End: 49-16-6402HemoabCiuppm Gillmor NP Work Phone: NOMS [place] STATE ROUTEComment on above:Migraine without aura, not intractable, without status migrainosus (CMS/HCC)Start: 11-21-2023 End: 97-82-5687Ufgmtx outpatient visit 25 minutesMaik Brock MD Work Phone: NOMS CI FMComment on above:Primary hypertension (CMS/HCC) (Primary Dx); H/O gastric bypass; Slow transit constipationStart: 11-03-2023 End: 40-78-3945Cesvkq flowsheetNicole Kodak DO Work Phone: NOMS [place] STATE ROUTEStart: 11-03-2023 End: 89-48-1661Mkwefy flowsheetNicole Kodak DO Work Phone: NOMS [place] STATE ROUTEStart: 11-03-2023 End: 90-85-9712Bbozajt encounter procedureNicole Kodak DO Work Phone: NOMS [place] STATE ROUTEComment on above:Intractable chronic migraine without aura and without status migrainosus (CMS/HCC) (Primary Dx)Start: 66-40-2106Exoufznui to same day surgery Janusz Price DO Work Phone: General SurgeryComment on above:copayStart: 09-26-2023 E-mail encounter from caregiverKasey Price DO Work Phone: General SurgeryStart: 09-02-2023 End: 30-84-7587nwmfmfzinbYDGEK MABALAY ALDAFacility:[facility] Start: 08-15-2023 End: 16-56-9625fhzofhdddxQTFQTBV C CETINFacility:[facility] Ohiotart: 08-15-2023 End: 29-28-9717Kqwubbw encounter procedureKasey Price DO Work Phone: General SurgeryComment on above:Weight gain following gastric bypass surgery (Primary Dx)Start: 06-22-2023 End: 61-25-5107Jjndzsrpm Result EncounterCorey Karen DO Work Phone: noms External Department UnsolicitedStart: 06-22-2023 End: 44-64-0297Meaigzkni Result EncounterCorey Karen DO Work Phone: noms External Department UnsolicitedStart: 05-26-2023 End: 85-84-5031Yegtkinxu department patient visitMD Maik Eubanksa Work Phone: [facility] Work Phone: Start: 11-15-2022 End: 96-94-2672Hpraarkax department patient visitMD Maik Hankins Work Phone: [facility] Work Phone: Start: 11-08-2022 End: 08-94-2936Jabskhr encounter procedureMD Maik Vinod Work Phone: [facility] [address] Work Phone: Start: 11-08-2022 End: 77-71-1016zovheegzbaTT Maik M Vinod Work Phone: [facility] Work Phone: Start: 39-23-5508dfejlvlctzNtpoyta C Cetin DO Work Phone: General SurgeryComment on above:Unanswered emailStart: 10-23-2022 End: 52-14-5808oldtdjnmfxLoesvq Bailey Other Ovid [place] Other Start: 28-14-3372Paikgq outpatient new 20 minutes Sabrina VarelaG Urgent Care ClydeStart: 77-87-0890Pactwhacyj RecurringMD Rugen Vinod Work Phone: [facility] Work Phone: Start: 06-15-2022 End: 51-73-9668vetytlzfdgHG RICK KAREN .Facility:L7Bqkhe: 06-02-2022 End: 28-41-0056agdeoluukxEK RICK KAREN .Facility:V2Pxixm: 06-01-2022 End: 75-24-4352uyufvhgfaoQS RUGEN ALDAFacility:N9Lfufu: 03-10-2022 End: 60-57-6066grjsttvpslCE RUGEN ALDAFacility:Q2Lrqrk: 03-08-2022 End: 96-66-1068vkyexubpuaLX RUGEN ALDAFacility:H0Jgytg: 63-43-2320UxluplNn Qin MD Work Phone: GastroenterologyComment on above:Refill RequestStart: 01-19-2022 End: 57-83-2297Agsuhfl encounter procedureKasey Price DO Work Phone: General SurgeryComment on above:Weight gain following gastric bypass surgery (Primary Dx)Start: 88-24-4221JamagkGeunojw C Cetin DO Work Phone: General SurgeryComment on above:Refill RequestStart: 38-28-9929jccvftjafgSzxkrww C Cetin DO Work Phone: General SurgeryComment on above:Schedule apptStart: 09-07-2021 End: 86-25-2587Nodeowd encounter Lani Rodrick DO Work Phone: Colorectal SurgeryComment on above:Constipation, unspecified constipation type (Primary Dx)Start: 94-29-0220sfoercksoxDxuxncxsr Norman APRN.CNP Work Phone: colorectal SurgeryComment on above:SigmoidoceleStart: 17-69-9068Y-mail encounter from Adalberto Swanson APRN.CNP Work Phone: [facility] MAINStart: 66-17-4586xakbylmccx Abiola Swanson APRN.CLINICAL RESEARCH DIRECTOR Work Phone: colorectal SurgeryComment on above:Test resultStart: 08-06-2021 End: 04-94-6104Rtujrmrflt hospital visit by physicianGi Radio Main Qb1 (I-Stat) RadiologyComment on above:Pelvic floor dysfunction in female [M62.89]Start: 07-23-2021 End: 78-01-4136Bduphza encounter Natty Henriquez MD Work Phone: GastroenterologyComment on above:Bloating (Primary Dx) Start: 28-52-7410Xjksuvgtl encounterToshia Henriquez MD Work Phone: GastroenterologyComment on above:Medication Preauthorization (Xifaxan)Start: 07-03-2021 End: 75-02-6547Mxllfyw encounter Bucky Swanson APRN.CLINICAL RESEARCH DIRECTOR Work Phone: colorectal SurgeryComment on above:Pelvic floor dysfunction in female (Primary Dx)Start: 18-96-9432XytttaFbdtiyq C Cetin DO Work Phone: General SurgeryStart: 85-51-3362IP Get Medical Advice Kasey Price DO Work Phone: General SurgeryComment on above:Medication refill Start: 12-19-2017 End: 48-80-8430Yuppxuwchxvdo examination Marcos Price DO Work Phone: [facility] Procedures DateProcedureProcedure DetailPerforming ClinicianStart: 54-02-3986Yafjh of ferritinAdele Momin NP Work Phone: Start: 43-26-4825Ozbpbqdtom antibodies oRsio Momin MACHINIST/MACHINE BUILDER Work Phone: Start: 64-40-8947TXZFQJSZRLFN, FREEAdele Momin MACHINIST/MACHINE BUILDER Work Phone: Start: 60-15-5529XOSHHIDHA VAGINITIS (HTRX)Adele Momin MACHINIST/MACHINE BUILDER Work Phone: Start: 74-67-7107Vjaka dip stick/tablet rgnt non-auto w/o micrscpRugejelani Brock MD Work Phone: Start: 72-13-0780IM TOMOSYNTHESIS SCREENING BIGeneric External Data ProviderStart: 08-22-7374JpzqdbgovucKevrebw ProviderStart: 94-72-6438Uhank dip stick/tablet rgnt non-auto w/o micrscpCorey Karen DO Work Phone: Start: 23-01-7879KPW,APTIMA HPV,AGE GDLNCorey Karen DO Work Phone: Start: 32-12-7557CQ TOMOSYNTHESIS SCREENING BICorey Karen DO Work Phone: Start: 45-34-0689JxyrdrzawnqUknlcl Kodak DO Work Phone: Start: 96-14-0060GRMI-CoV-2, Influenza & RSV (PCR)MD Maik Brock Work Phone: Start: 08-29-2022H/O: hysterectomyHistory of hysterectomyNicole Kodak DO Work Phone: Start: 92-38-2714Mwsfndnjte exam colon single contrast studyStjing Swanson APRN.CLINICAL RESEARCH DIRECTOR Work Phone: Start: 59-79-6925Nmtdf depression screening assessment Kasey Price DO Work Phone: Start: 00-88-5285Qqbparwshm consultationStart: 17-71-8308Fugklmpfsl consultationStart: 24-01-9238ScbiefmpelaKbugx Hemmer PA Work Phone: H/O: hysterectomyHistory of hysterectomyKimberlee BOOKER Work Phone: H/O: hysterectomyH/O: hysterectomyKyliea Liliane CUMMINGS Work Phone: Plan of Treatment DateCare ActivityDetailAuthorStart: 96-24-3152Jesafedvw for malignant neoplasm of colonNOMS HealthcareStart: 47-56-3108Ehkduewzg vaccinationInfluenza Vaccine (#1)NOMS HealthcareComment on above:Postponed from 11/12/2024 (Patient Refused) Start: 10-16-8536Ddwctjdmr for malignant neoplasm of breastMammogramNOMS HealthcareStart: 06-20-2025 End: 93-84-4394Bgfhmme encounter procedureNOMS BCP OBStart: 05-21-2025 End: 38-15-7457Bnmrgmc encounter myubiqial50/10/2026 5:30 PM EDT Office Visit [place] [address] [place] [address] Richard Candelario DO [address] [place] [id number] EDMUND DANIELLEUEStart: 04-17-2025 End: 99-16-3626Jwuhdsi encounter /04/2026 4:30 PM EST Office Visit [facility] [place] [facility] [address] [address] [place] [address] Kimberlee Beth PA [address] [place] [address] [place] [address] [facility] [place] [facility] MedinceStart: 01-17-2025 End: 97-16-3971Ysebtgk encounter procedureNOMS [place] Family MedinceComment on above:ArrivedStart: 01-15-2025 End: 77-00-3154Upzlepm encounter rtuntkuqf19/04/2025 4:30 PM EST Office [facility] [address] [facility] [address] [place] [address] Kimberlee Beth PA [address] [facility] [address] [place] [address] NOMKingsley Phan MedinceStart: 11-22-2024 End: 98-25-0002Tuhibdt encounter zgfaupzgu00/11/2025 2:30 PM EDT Office Visit MERCEDES FRIAS [address] [place] [address] Adele Momin, MACHINIST/MACHINE BUILDER [address] [place] [address] Idalia FRIAS Comment on above:ArrivedStart: 11-22-2024 End: 40-97-6276R-peptideC-peptide Lab Routine Hormone disorder Expected: 11/22/2024 (Approximate), Expires: 11/22/2025NOMS HealthcareComment on above: Expected: 11/22/2024 (Approximate), Expires: 11/22/2025Start: 11-22-2024 End: 12-11-0812Twfowpyl freeCortisol, free Lab Routine Hormone disorder Expected: 11/22/2024 (Approximate), Expires: 11/22/2025NONE HealthcareComment on above:Expected: 11/22/2024 (Approximate), Expires: 11/22/2025Start: 11-22-2024 End: 07-37-2689Mqkuwip [Mass/volume] in Serum or PlasmaGlucose, random Lab Routine Hormone disorder Expected: 11/22/2024 (Approximate), Expires: 11/22/2025 NOMS HealthcareComment on above:Expected: 11/22/2024 (Approximate), Expires: 11/22/2025Start: 11-22-2024 End: 12-58-6483Becgdck, totalInsulin, total Lab Routine Hormone disorder Expected: 11/22/2024 (Approximate), Expires: 11/22/2025NOMS HealthcareComment on above:Expected: 11/22/2024 (Approximate), Expires: 11/22/2025Start: 11-22-2024 End: 01-29-3285Yqujrxefz serumSerotonin serum Lab Routine Hormone disorder Expected: 11/22/2024 (Approximate), Expires: 11/22/2025NOMS HealthcareComment on above:Expected: 11/22/2024 (Approximate), Expires: 11/22/2025Start: 11-22-2024 End: 76-27-5240LjerizkuuqgovDtbnfebgmmoya Lab Routine Hormone disorder Expected: 11/22/2024 (Approximate), Expires: 11/22/2025NONE HealthcareComment on above: Expected: 11/22/2024 (Approximate), Expires: 11/22/2025Start: 11-22-2024 End: 74-79-6933Gwhdphwzpcahk AntibodyThyroglobulin Antibody Lab Routine Hormone disorder Expected: 11/22/2024 (Approximate), Expires: 11/22/2025[facility] Comment on above:Expected: 11/22/2024 (Approximate), Expires: 11/22/2025Start: 11-22-2024 End: 47-42-7030Tqpacmxzjak [Units/volume] in Serum or PlasmaNONE Healthcare Comment on above:Ordered: 11/22/2024Expected: 11/22/2024 (Approximate), Expires: 11/22/2025Start: 57-97-9318QNAFA-19 Vaccine ( season)COVID-19 Vaccine ( season)NOMS HealthcareStart: 54-04-9604Vfrydbhfi vaccinationNOMS HealthcareStart: 10-16-2024 End: 24-33-5842Vjqcajk encounter procedureNOMS CI FMComment on above:Arrived Start: 08-20-2024 End: 71-86-3119DSMIUOS TRACT INFECTION (HTRX)URINARY TRACT INFECTION (HTRX) Lab Routine Burning with urination Expected: 08/20/2024 (Approximate), Expires: 08/20/2025[facility] Work Phone: Comment on above:Expected: 08/20/2024 (Approximate), Expires: 08/20/2025Start: 08-09-2024 End: 76-80-6315Wzxqyhr encounter mgeodbheh43/29/2025 1:00 PM EDT Procedure Visit [place] [address] [place] [phone] Richard Candelario DO [address] [place] [id number] EDMUND JOSEPHtart: 07-16-2024 End: 49-98-5943Xajysiiht (Vitamin B12) [Mass/volume] in Serum or PlasmaVitamin B12 Lab Routine Wellness examination H/O gastric bypass Expected: 07/16/2024 (Approximate),Expires: 07/16/2025NOMS HealthcareComment on above:Expected: 07/16/2024 (Approximate), Expires: 07/16/2025Start: 07-16-2024 End: 73-16-5830Gzxsst, serumCopper, serum Lab Routine Wellness examination H/O gastric bypass Expected: 07/16/2024 (Approximate), Expires: 07/16/2025NOMS HealthcareComment on above:Expected: 07/16/2024 (Approximate), Expires: 07/16/2025Start: 07-16-2024 End: 15-02-8900Hhzurg [Mass/volume] in Serum or PlasmaFolate Lab Routine Wellness examination H/O gastric bypass Expected: 07/16/2024 (Approximate), Expires: 07/16/2025NOMS HealthcareComment on above:Expected: 07/16/2024 (Approximate), Expires: 07/16/2025Start: 07-16-2024 End: 17-54-7312Tekscqmwn [Mass/volume] in Serum or PlasmaMagnesium Lab Routine Wellness examination H/O gastric bypass Expected: 07/16/2024 (Approximate), Ex sergio: 07/16/2025NOMS HealthcareComment on above:Expected: 07/16/2024 (Approximate), Expires: 07/16/2025Start: 07-16-2024 End: 83-52-7314Cyerein AVitamin A Lab Routine Wellness examination H/O gastric bypass Expected: 07/16/2024 (Approximate), Expires: 07/16/2025[facility] Comment on above:Expected: 07/16/2024 (Approximate), Expires: 07/16/2025Start: 07-16-2024 End: 52-92-3801Dmdqmzf A2Kxopgpp B1 Lab Routine Wellness examination H/O gastric bypass Expected: 07/16/2024 (Approximate), Expires: 07/16/2025[facility] Comment on above:Expected: 07/16/2024 (Approximate), Expires: 07/16/2025Start: 07-16-2024 End: 64-59-1604Wtcyfqm EVitamin E Lab Routine Wellness examination H/O gastric bypass Expected: 07/16/2024 (Approximate), Expires: 07/16/2025[facility] Comment on above:Expected: 07/16/2024 (Approximate), Expires: 07/16/2025Start: 07-16-2024 End: 25-34-7283TWQRQTE KVITAMIN K Lab Routine Wellness examination H/O gastric bypass Expected: 07/16/2024 (Approximate), Expires: 07/16/2025[facility] Comment on above:Expected: 07/16/2024 (Approximate), Expires: 07/16/2025Start: 07-16-2024 End: 64-40-7292WgebMqmb Lab Routine Wellness examination H/O gastric bypass Expected: 07/16/2024 (Approximate), Expires: 07/16/2025[facility] HealthcareComment on above:Expected: 07/16/2024 (Approximate), Expires: 07/16/2025Start: 07-16-2024 End: 59-78-0198Dffmpmz encounter procedureNOMS CI FMComment on above:Arrived Start: 69-91-2835Nnermojzj for malignant neoplasm of breastMammogramNOMS HealthcareStart: 06-14-2024 End: 79-51-0279BS Breast - bilateral ScreeningBilateral screening mammogram Imaging Routine Breast cancer screening by mammogram Expected: 06/14/2024 (Approximate), Expires: 08/14/2025[facility] Work Phone: Comment on above:Expected: 06/14/2024 (Approximate), Expires: 08/14/2025Start: 06-14-2024 End: 96-08-5911Rqcwwcq encounter procedureNOMS [facility] OBComment on above:Arrived Start: 05-22-2024 End: 03-42-2267Xexpvxc encounter ykwjcggbg57/11/2025 8:40 AM EDT Office Visit [place] [address] [place] [address] Raiza Soto, ZOILA [address] [place], [place] EDMUND BELLEVUEStart: 05-03-2024 End: 47-64-2842Rwdaeuk encounter procedureNOMS [place] [facility] ROUTEStart: 02-06-2024 End: 22-63-5910Gzedain encounter /25/2024 2:45 PM EST Office Visit General Surgery [address] [place] [address] Kasey Price, DO [address] [place], [place] [id number] 6mth f/uGeneral SurgeryComment on above:6mth f/uStart: 02-02-2024 End: 06-95-7719Twblhwu encounter procedureNOMS [place] [facility] ROUTEComment on above:ArrivedStart: 11-21-2023 End: 36-20-0473Kgkyyzj encounter xuwzztvvj63/09/2024 8:00 AM EDT Office Visit NOMS CI FM [address] [facility] [address] [place] [address] Maik Brock MD [address] [facility] [address] [place] [address] NOMS CI FMStart: 50-42-8105Uvvottylk vaccinationDixfield ClinicStart: 11-03-2023 End: 26-37-3905Kncikdz encounter /22/2024 9:00 AM EDT Procedure Visit [facility] [place] [facility] [address] [place] [address] Richard Candelario, [address] [place] [address] Idalia [place] [facility] ROUTEComment on above: ArrivedStart: 08-15-2023 End: 324471-biaulgcvhtckqo D3 [Mass/volume] in Serum or PlasmaVITAMIN D 25 HYDROXY Lab Routine Weight gain following gastric bypass surgery Expected: 08/15/2023,Expires: 11/14/2023[facility] ClinicComment on above:Expected: 08/15/2023, Expires: 11/14/2023Start: 08-15-2023 End: 47-89-6389Ubyyj tocopherol [Mass/volume] in Serum or PlasmaVITAMIN E/TOCOPHEROL Lab Routine Weight gain following gastric bypass surgery Expected: 08/15/2023,Expires: 11/14/2023[facility] ClinicComment on above:Expected: 08/15/2023, Expires: 11/14/2023Start: 08-15-2023 End: 94-18-9216LRVWMZ BLOODCOPPER BLOOD Lab Routine Weight gain following gastric bypass surgery Expected: 08/15/2023, Expires: 11/14/2023[facility] Comment on above:Expected: 08/15/2023, Expires: 11/14/2023Start: 08-15-2023 End: 20-77-1000Svwnne [Mass/volume] in Serum or PlasmaFOLATE, SERUM Lab Routine Weight gain following gastric bypass surgery Expected: 08/15/2023, Expires: 11/14/2023[facility] ClinicComment on above:Expected: 08/15/2023, Expires: 11/14/2023Start: 08-15-2023 End: 36-52-8326Bmztliwtrf.intact [Mass/volume] in Serum or PlasmaPTH INTACT Lab Routine Weight gain following gastric bypass surgery Expected: 08/15/2023, Expires: 11/14/2023[facility] Work Phone: comment on above:Expected: 08/15/2023, Expires: 11/14/2023Start: 08-15-2023 End: 98-46-4705Ubcemcx [Mass/volume] in Serum or PlasmaVITAMIN A/RETINOL Lab Routine Weight gain following gastric bypass surgery Expected: 08/15/2023, Exp ires: 11/14/2023[facility] ClinicComment on above:Expected: 08/15/2023, Expires: 11/14/2023Start: 08-15-2023 End: 92-00-2076NLZVXYD B1 (THIAMINE), WHOLE BLOODVITAMIN B1 (THIAMINE), WHOLE BLOOD Lab Routine Weight gain following gastric bypass surgery Expected: 08/15/2023, Expires: 11/14/2023[facility] ClinicComment on above:Expected: 08/15/2023, Expires: 11/14/2023Start: 08-15-2023 End: 88-93-3512CONFCZN KVITAMIN K Lab Routine Weight gain following gastric bypass surgery Expected: 08/15/2023, Expires: 11/14/2023[facility] ClinicComment on above:Expected: 08/15/2023, Expires: 11/14/2023Start: 08-15-2023 End: 79-70-4993Otip [Mass/volume] in Serum or PlasmaZINC BLD Lab Routine Weight gain following gastric bypass surgery Expected: 08/15/2023, Expires: 11/14/2023 [facility]Comment [facility]:Expected: 08/15/2023, Expires: 11/14/2023Start: 94-02-7055Afqcareqk for malignant neoplasm of breastMammogram Screening [facility] Hospitaltart: 00-99-3362NR angiography of thoraxCT angio chest PE protocolSt. Rita's Hospitaltart: 12-66-6460AM [facility] Hospitaltart: 02-24-8452Jfsyzwxinp Health ScreeningBehavioral Health ScreeningOhioHealth Grady Memorial Hospitaltart: 83-32-4386ZL CONTROLLED (<130/80)BP CONTROLLED (<130/80)[facility] Hospitaltart: 88-64-4828Pwirjiqj identified in Urine by CultureSt. Rita's Hospitaltart: 84-23-5529Vouab-19 Vaccine ()Covid-19 Vaccine ()[facility] Hospitaltart: 98-25-8935Ctcgkoxcs vaccinationINFLUENZA (#1)[facility] Hospitaltart: 69-87-2821Mbbhttvqk complement [facility] Start: 78-20-0827TG CONTROLLED (<130/80)BP CONTROLLED (<130/80)[facility] Start: 32-91-6108ZX CONTROLLED (<130/80)BP CONTROLLED (<130/80)[facility] Start: 78-56-5749OWDRFBWDBR ASSESSMENTDEPRESSION ASSESSMENTEast [facility] Regional Hospital Start: 86-77-8778Kbdri depression screening assessmentDEPRESSION SCREENING [facility] Hospitaltart: 60-87-5546Ehphyxfvt vaccinationOhioHealth Grady Memorial Hospitaltart: 10-12-2021 End: 32-37-627236914523-zmdbsuhdwmhluo D3 [Mass/volume] in Serum or PlasmaVITAMIN D 25 HYDROXY Lab Routine Primary hypertension Expected: 10/12/2021, Expires: 12/12/2021[facility] Work Phone: comment on above:Expected: 10/12/2021, Expires: 12/12/2021tart: 10-12-2021 End: 33-92-6776WQT W Auto Differential panel - BloodCBC + DIFF Lab Routine Primary hypertension Expected: 10/12/2021, Expires: 12/12/2021[facility] Work Phone: comment on above:Expected: 10/12/2021, Expires: 12/12/2021tart: 10-12-2021 End: 35-53-9697Ebmgmvhco (Vitamin B12) [Mass/volume] in Serum or PlasmaVITAMIN B12 BLOOD Lab Routine Primary hypertension Expected: 10/12/2021, Expires: 12/12/2021[facility] Work Phone: comment on above:Expected: 10/12/2021, Expires: 12/12/2021tart: 10-12-2021 End: 30-30-4110Bqmnyqunbjcja metabolic 2000 panel - Serum or PlasmaCOMP METABOLIC PANEL Lab Routine Primary hypertension Expected: 10/12/2021, Expires: 12/12/2021[facility] Work Phone: comment on above:Expected: 10/12/2021, Expires: 12/12/2021tart: 10-12-2021 End: 45-55-3304Wbruknrq [Mass/volume] in Serum or PlasmaFERRITIN BLD Lab Routine Primary hypertension Expected: 10/12/2021, Expires: 12/12/2021[facility] Work Phone: comment on above:Expected: 10/12/2021, Expires: 12/12/2021tart: 10-12-2021 End: 39-71-4077Ujwpcu [Mass/volume] in Serum or PlasmaFOLATE SERUM Lab Routine Primary hypertension Expected: 10/12/2021, Expires: 12/12/2021[facility] Work Phone: comment on above:Expected: 10/12/2021, Expires: 12/12/2021tart: 10-12-2021 End: 21-90-6021Ffjl and Iron binding capacity panel - Serum or PlasmaIRON + TIBC Lab Routine Primary hypertension Expected: 10/12/2021, Expires: 12/12/2021 [facility] Work Phone: comment on above:Expected: 10/12/2021, Expires: 12/12/2021tart: 10-12-2021 End: 66-80-6442Clsfzezegc.intact [Mass/volume] in Serum or PlasmaPTH INTACT BLD Lab Routine Primary hypertension Expected: 10/12/2021, Expires: 12/12/2021 [facility] Work Phone: comment on above:Expected: 10/12/2021, Expires: 12/12/2021tart: 10-12-2021 End: 32-61-6528ZDXQCPU B1 (THIAMINE), WHOLE BLOODVITAMIN B1 (THIAMINE), WHOLE BLOOD Lab Routine Primary hypertension Expected: 10/12/2021, Expires: 12/12/2021 [facility] Work Phone: comment on above:Expected: 10/12/2021, Expires: 12/12/2021tart: 34-46-3403LYQQZ-19 VACCINE (4 - Booster for Pfizer series) COVID-19 VACCINE (4 - Booster for Pfizer series)[facility]: 53-91-1175MNSII-19 VACCINE (4 - Pfizer series)COVID-19 VACCINE (4 - Pfizer series)[facility]: 19-04-7176ESZFBKWFTH ASSESSMENTDEPRESSION ASSESSMENTOhioHealth Grady Memorial Hospitaltart: 00-33-8311XlovxmxnfdtWSXKYJDQKMdvcznqdt Clinic Start: 33-41-7076EMO TESTINGHPV TESTINGOhioHealth Grady Memorial Hospitaltart: 06-25-2009 Screening for malignant neoplasm of cervixHPV TestingOhioHealth Grady Memorial Hospitaltart: 62-64-5781RQI TESTINGPAP TESTINGOhioHealth Grady Memorial Hospitaltart: 57-76-9513Oakmenlsj for malignant neoplasm of cervixOhioHealth Grady Memorial Hospitaltart: 45-09-0505Odietsqnj B Vaccine (1 of 3 - 19+ 3-dose series)Hepatitis B Vaccine (1 of 3 - 19+ 3-dose series) [facility]: 56-00-6831Uuuhpmjmpsqi Vaccine: Pediatrics (0 to 5 Years) and At-Risk Patients (6 to 64 Years) (1 of 2 - PCV)Pneumococcal Vaccine: Pediatrics (0 to 5 Years) and At-Risk Patients (6 to 64 Years) (1 of 2 - PCV) [facility]Start: 25-68-5627Rkqwj microalbumin profileOhioHealth Grady Memorial Hospitaltart: 07-23-3974IIPEVF PCP TEAM CHRONIC DISEASE VISITANNUAL PCP TEAM CHRONIC DISEASE VISITOhioHealth Grady Memorial Hospitaltart: 93-58-6345YF Controlled (<130/80)BP Controlled (<130/80)[facility]: 49-86-8332ZDV SCREENINGHIV SCREENINGOhioHealth Grady Memorial Hospitaltart: 37-15-0009UQO screeningHIV ScreeningOhioHealth Grady Memorial Hospitaltart: 88-22-5164CAYCBWGQR B (1 of 3 - 3-dose series)HEPATITIS B (1 of 3 - 3-dose series)[facility]: 12-00-1212Gntuaakfx for malignant neoplasm of colonNONE Ugpzrcbbri39-slhcxfvtjrgltv D3 [Mass/volume] in Serum or PlasmaVitamin D 25 hydroxy Total Lab Routine Wellness examination Myalgia Vitamin D deficiency H/O gastric bypass Malaise and fatigue Ordered: 07/16/2024[facility] HealthcareComment on above:Ordered: 07/16/2024BC W Auto Differential panel - BloodCBC and differential Lab Routine Wellness examination Benign essential hypertension (CMS/HCC) Otherhemochromatosis (CMS/HCC) Other iron deficiency anemia Anemia, unspecified type Elevated ferritin Malaise and fatigue Polycythemia vera Seasonal allergic rhinitis due to pollen Medullary sponge kidney Ordered: 07/16/2024[facility] Work Phone: Comment on above:Ordered: 07/16/2024HLAMYDIA TRACHOMATIS (GENITO/STI)CHLAMYDIA TRACHOMATIS (GENITO/STI) Lab Routine Vaginal odor Vaginal discharge Ordered: 11/22/2024[facility] HealthcareComment on above: Ordered: 11/22/2024omprehensive metabolic 2000 panel - Serum or Plasma Comprehensive metabolic panel Lab Routine Wellness examination Benign essential hypertension (CMS/HCC) H/O gastric bypass Hypokalemia Malaise and fatigue Medullary sponge kidney Ordered: 07/16/2024[facility] HealthcareComment on above: Ordered: 07/16/20246276GTIS-gqsuxclZHKS-ovneycr Lab Routine Hormone disorder Ordered: 11/22/2024[facility] HealthcareComment on above:Ordered: 11/22/2024Estradiol Estradiol Lab Routine Hormone disorder Ordered: 11/22/2024[facility] HealthcareComment on above:Ordered: 11/22/2024EstroneEstrone Lab Routine Hormone disorder Ordered: 11/22/2024[facility] HealthcareComment on above:Ordered: 11/22/2024Ferritin [Mass/volume] in Serum or PlasmaFerritin Lab Routine Hormone disorder Ordered: 11/22/2024[facility] HealthcareComment on above:Ordered: 11/22/2024Hemoglobin A1c/Hemoglobin.total in BloodHemoglobin A1c Lab Routine Hormone disorder Ordered: 11/22/2024[facility] HealthcareComment on above:Ordered: 11/22/2024Iron + transferrin + TIBCIron + transferrin + TIBC Lab Routine Wellness examination Other hemochromatosis (CMS/HCC) Other iron deficiency anemia Anemia, unspecified type Elevated ferritin H/O gastric bypass Malaise and fatigue Polycythemia vera Ordered: 07/16/2024[facility] HealthcareComment on above:Ordered: 07/16/2024Lipid 1996 panel - Serum or PlasmaLipid panel Lab Routine Wellness examination Benign essential hypertension (CMS/HCC) H/O gastric bypass Ordered: 07/16/2024[facility] HealthcareComment on above:Ordered: 07/16/2024Neisseria gonorrhoeae DNA [Presence] in Unspecified specimen by NATY with probe detectionNeisseria gonorrhea DNA probe, direct Lab Routine Vaginal odor Vaginal discharge Ordered: 11/22/2024[facility] HealthcareComment on above:Ordered: 11/22/2024Patient Education Urinary Tract Infection, [facility] Work Phone: [facility] Work Phone: ProgesteroneProgesterone Lab Routine Hormone disorder Ordered: 11/22/2024[facility] HealthcareComment on above:Ordered: 11/22/2024 End: 55-26-9933Tnwesapaoa exam colon single contrast studyXR DEFECOGRAPHY Radiology Routine Pelvic floor dysfunction in female 1 Occurrences starting 07/03/2021 until 08/02/2022[facility] Work Phone: comment on above:1 Occurrences starting 07/03/2021 until 08/02/2022Sex hormone binding globulinSex hormone binding globulin Lab Routine Hormone disorder Ordered: 11/22/2024[facility] HealthcareComment on above: Ordered: 11/22/2024SURESWAB(R) ADVANCED VAGINITIS PLUS, TMASURESWAB(R) ADVANCED VAGINITIS PLUS, TMA Pathology and Cytology Routine Vaginal odor Vaginal dischar ge Ordered: 11/22/2024[facility] Work Phone: comment on above:Ordered: 11/22/2024T3, reverseT3, reverse Lab Routine Hormone disorder Ordered: 11/22/2024[facility] HealthcareComment on above:Ordered: 11/22/2024TESTOSTERONE, FREETESTOSTERONE, FREE Lab Routine Hormone disorder Ordered: 11/22/2024[facility] HealthcareComment on above:Ordered: 11/22/2024Testosterone, free, totalTestosterone, free, total Lab Routine Hormone disorder Ordered: 11/22/2024[facility] HealthcareComment on above:Ordered: 11/22/2024 THIN PREP TIS PAP AND HR HPV DNATHIN PREP TIS PAP AND HR HPV DNA Pathology and Cytology Routine Well woman exam with routine gynecological exam Ordered: 06/14/2024[facility] HealthcareComment on above:Ordered: 06/14/2024Thyroid peroxidase antibodyThyroid peroxidase antibody Lab Routine Hormone disorder Ordered: 11/22/2024[facility] HealthcareComment on above:Ordered: 11/22/2024Thyroxine (T4) free [Mass/volume] in Serum or PlasmaT4, free Lab Routine Hormone disorder Ordered: 11/22/2024[facility] HealthcareComment on above:Ordered: 11/22/2024Triiodothyronine (T3) Free [Mass/volume] in Serum or PlasmaT3, free Lab Routine Hormone disorder Ordered: 11/22/2024[facility] HealthcareComment on above:Ordered: 11/22/2024TSH W/REFLEX TO FT4TSH W/REFLEX TO FT4 Lab Routine Wellness examination Myalgia H/O gastric bypass Malaise and fatigueOrdered: 07/16/2024[facility] HealthcareComment on above:Ordered: 07/16/2024Vitamin D 1,25 dihydroxyVitamin D 1,25 dihydroxy Lab Routine Hormone disorder Ordered: 11/22/2024[facility] HealthcareComment on above: Ordered: 11/22/2024 End: 05-16-0546ID COLONIC TRANSIT IMAGE 1XR COLONIC TRANSIT IMAGE 1 Radiology Routine Constipation, unspecified constipation type 1 Occurrences starting 09/07/2021 until 10/07/2022[facility] Work Phone: Comment on above:1 Occurrences starting 09/07/2021 until 10/07/2022 End: 04-91-6533RL COLONIC TRANSIT IMAGE 2XR COLONIC TRANSIT IMAGE 2 Radiology Routine Constipation, unspecified constipation type 1 Occurrences starting 09/07/2021 until 10/07/2022[facility] Work Phone: Comment on above:1 Occurrences starting 09/07/2021 until 10/07/2022 End: 74-41-8664GR COLONIC TRANSIT IMAGE 3XR COLONIC TRANSIT IMAGE 3 Radiology Routine Constipation, unspecified constipation type 1 Occurrences starting 09/07/2021 until 10/07/2022[facility] Work Phone: Comment on above:1 Occurrences starting 09/07/2021 until 10/07/2022[facility] Immunizations Immunization DateImmunizationNotesCare YnrelbbnSwvngduo28-31-3589DZJKM-55 vaccine, age 12+ yr (PFIZER-BIONTECH - PURPLE TOP)Kasey Price DO Work Phone: [place] Dvuzyo87-05-5576YHDQY-01 vaccine, age 12+ yr (PFIZER-BIONTECH - PURPLE TOP)Kasey Price DO Work Phone: [place] Lpfqbr94-33-1277tcwfwxflg virus vaccine, unspecified formulationKasey Price DO Work Phone: [facility] Payers DatePayer CategoryPayerPolicy [id number] Health [id number] Health Insurance [id number] Health [id number]-oyb [id number] Health InsuranceAETNA AETNA CHOICE POS II [id number] 2020-[facility] [phone] [address] [place] [address] [id number] [id number] Health [id number]91.315 [id number] 2.0.1.364387.3.57[id number] 2..1.304775.3.57[id number] 2.0.1.411711.3.57[id number] 2.0.1.572074.3.57[id number] 2.16.840.1.082904.3.57[id number] 2.16.840.1.265398.3.57[id number] 2.16.840.1.053527.3.57[id number] 2..840.1.444385.3.57[id number] 2..840.1.787064.3.57[id number] 2..840.1.061503.3.57[id number] 2..840.1.332729.3.57[id number] 2.16.840.1.085476.3.57[id number] 2..840.1.401928.3.57[id number] 2.0.1.072644.3.57[id number] 2.0.1.661925.3.57[id number] 2.840.1.133777.3.579.2.634182-48-0546Kiebmcn Health [id number] 69-19-2931Pkoj-[id number] Health [id number] 2.16.840.1.7[id number] 2.16.840.1.483659.3.579.2.531 [id number] 2.16.840.1.728345.3.579.2.531 Social History DateTypeDetailFacilityStart: 02-73-9424Wnyyero smoking status NHISTobacco smoking consumption unknown[facility] Work Phone: Start: 04-30-2021 End: 66-27-4766Escwkii use and exposureSmokeless tobacco non-userEast [facility] Hospital Work Phone: Start: 04-30-2021 End: 87-93-2077Upjghrd intakeEx-drinker (finding)[facility]tart: 04-30-2021 End: 95-76-0415Oyngdjj intakeOhioHealth Grady Memorial Hospitaltart: 60-65-3671Bpojvwc SDOH Alcohol CommentoccasionallyOhioHealth Grady Memorial Hospitaltart: 08-63-0614Xya [facility]igned At [facility]FeFormerly [facility] ClinicStart: 06-23-2021 End: 56-67-7143Sytrwcyo to SARS-CoV-2 (event)Not sureOhioHealth Grady Memorial Hospitaltart: 09-07-2021 End: 09-29-1725Dzevviw smoking status NHISNever smoked tobaccoEast [facility] Regional Hospital Start: 01-19-2022 End: 41-85-4567Huu Assigned At [facility]tart: 18-52-2813Gcgfb Depression Screening Utnqxqcoka1Pnvbzszao ClinicStart: 99-84-6524Wrgnty identity Identifies as female gender (finding)[facility]tart: 88-14-1890Xhwgcl orientationChoose not to discloseOhioHealth Grady Memorial Hospitaltart: 03-22-9243Hzfmwxi smoking status NHISEx-smokerNOMS HealthcareHistory of tobacco useCurrent smoker [facility] HealthcareHistory of tobacco useCigarette SmokerNOMS HealthcareStart: 11-21-2023 End: 82-37-9748Jvxvilsgo beverage intakeLifetime non-drinker (finding)[facility] HealthcareWithin the last year, have you been afraid of your partner or ex-partner?NoNOMS HealthcareAre you now , , , , never or living with a partner?MarriedNOMS HealthcareHow often to you have a drink containing alcohol?NeverNOMS HealthcareHow hard is it for you to pay for the very basics like food, housing, medical care, and heatingHardNOMS HealthcareDo you feel stress - tense, restless, nervous, or anxious, or unable to sleep at night because yourmind is troubled all the time - these days [OSQ]To some extentNOMS Healthcare(I/We) worried whether (my/our) food would run out before (I/we) got money to buy more.Sometimes trueNOMS HealthcareThe food that (I/we) bought just didn't last, and (I/we) didn't have money to get more.Never trueNONE HealthcareStart: 76-28-6342Bkczgmq CommentCaffeine intake: soda and eta [facility] HealthcareStart: 90-66-4146Luw assigned at birthNot on fileNONE Healthcare Start: 95-81-6654BecNiqydl (finding)[facility] CenterHow hard is it for you to pay for the very basics like food, housing, medical care, and heatingSomewhat hardNONE Healthcare Functional Status EbdjGkizemkobgHrlougPeyhqtui37-84-6978Lcdyhfj Health Questionnaire 2 item (PHQ- 2) [Reported][facility] CenterTaevxuctzu54-85-6463Qvyhptq Health Questionnaire 2 item (PHQ- 2) [Reported][facility] CenterUomwokxigz05-50-7280Tqdvgdb Health Questionnaire 2 item (PHQ- 2) [Reported][facility] CenterGxclzagfta56-36-0852Kjoatvp Health Questionnaire 2 item (PHQ- 2) [Reported][facility] CenterKzqwhyeyio80-80-0788Uiqow score [AUDIT-C]0 07/10/2024 6:06 PM EDT Alext, GenericSaint Louis University Health Science CenterCozdoesogr50-88-5265Tcx often do you have a drink containing alcohol?Never 07/10/2024 6:06 PM EDT Mychart, Generic NeverSaint Louis University Health Science CenterAjrqvolulr85-61-6625Yjpinchblj statusPatient does not drink 07/10/2024 6:06 PM EDT i-design Multimediat, Generic Patient does not drinkNOCox NorthSycwbetlti52-00-4032Ntd often do you have 6 or more drinks on 1 occasion?Never 07/10/2024 6:06 PM EDT Alma Rosahart, Generic NeverSaint [facility] Clinical Notes 08-27-2018 to 01-17-2025 Note Date & PrekBggrQqqaosrw88-22-1468 History of Present illness Narrative* ADE Fitzgerald - 01/17/2025 3:30 PM EST Images from the original note were not included. HPI Med Refill Additional comments: Nifedipine - Exp scripts Last edited by Amanda Starkey LPN on 01/17/2025 3:18 PM. Subjective Patient ID: Mandeep Spencer is a 44 y.o. female who presents for anxiety. Mandeep is present today for follow up anxiety. She is currently on Lorazepam as needed and is working well for her. Sinus symptoms - Admits sinus pressure, nasal congestion, post nasal drainage, scratchy throat, ears feel plugged, fatigue, nausea. She has been sick since last Tue/. She has tried sinus/cold medicine, allergy meds and does not seem to be helping. She also just finished a medrol dose pedro. Thinks the Medrol helped with her throat. [facility] for an issue with her adrenal gland. Sees an Analysis Manager on the , Dr. Mccullough. Sticks to healthy snacks throughout the day. Drinks Herbal Life tea in the morning with probiotics,does have some protein in it also. Stopped Yoga-pilate's. She admits she felt better when she was doing it routinely, but it was making her lose weight more quickly. Over the past 2 weeks, how often have you been bothered by any of the following problems? Little interest or pleasure in doing things: Not at all Feeling down, depressed, or hopeless: Not at all Patient Health Questionnaire-2 Score: 0 Current Outpatient Medications on File Prior to Visit Medication Sig Dispense Refill [DISCONTINUED] methylPREDNISolone (Medrol Dospak) 4 MG tablets TAKE BY MOUTH DIRECTED ON PACKAGE Atogepant (Qulipta) 60 MG tablet TAKE 1 TABLET BY MOUTH DAILY 30 tablet 1 baclofen (Lioresal) 10 MG tablet Take 1 tablet by mouth in the morning and 1 tablet in the evening and 1 tablet before bedtime. biotin 5 MG tablet Take 1 tablet by mouth in the morning. cholecalciferol (Vitamin D-3) 25 MCG (1000 UT) capsule Take 1,000 Units by mouth in the morning. Elastic Bandages & Supports (Medical Compression Stockings) misc 2 each Daily On in AM, off in PM. Dispense 2 pairs. 20-30 mmHg. Toeless if possible 2 each 1 estradiol (Estrace) 0.1 MG/GM vaginal cream 2g vaginal daily for 2 weeks, then 2 times weekly following initial 2 weeks 42.5 g 0 fexofenadine (Tatiana) 180 MG tablet Take 1 tablet by mouth 1 (one) time each day at the same time. LORazepam (Ativan) 1 MG tablet Take 1 tablet (1 mg) by mouth every 12 (twelve) hours 60 tablet 0 Multiple Vitamin (multivitamin) capsule Take 1 capsule by mouth 1 (one) time each day. naltrexone (Depade) 50 MG tablet Take 4.5 mg by mouth Daily 4.5mg Micro dose for pain from director patient financial services NIFEdipine XL (Procardia XL) 30 MG 24 hr tablet Take 1 tablet (30 mg) by mouth Daily Do not crush, chew, or split. 90 tablet 0 omeprazole (PriLOSEC) [address] capsule Take 1 capsule (40 mg) by mouth in the morning and 1 capsule(40 mg) in the evening. Take before meals. 200 capsule 3 onabotulinumtoxinA (Botox) 200 units injection Inject into the shoulder, thigh, or buttocks 1 (one)time topiramate 50 MG tablet Take 1 tablet by mouth in the morning and 1 tablet before bedtime. 180 tablet 1 Ubrogepant (Ubrelvy) 100 MG tablet TAKE 1 TABLET BY MOUTH at onset OF migraine may repeat in 2 (TWO) HOURS, no more TWICE DAILY and 2 (TWO) days a week 10 tablet 1 No current facility-administered medications on file prior to visit. I have reviewed and reconciled the history and medication list with the patient today. Allergies Allergen Reactions Olmesartan GI intolerance Nausea, Fatigue Social History Tobacco Use Smoking status: Former Types: Cigarettes Smokeless tobacco: Never Vaping Use Vaping status: Never Used Substance Use Topics Alcohol use: Never Comment: Caffeine intake: soda and eta Drug use: Never Family History Problem Relation Name Age of Onset No Known Problems Mother Hypertension Father Ej peterson Stroke Father Ej peterson Arthritis Father Ej peterson Diabetes Maternal Grandmother Araceli peterson Arthritis Maternal Grandmother Araceli peterson Vision loss Maternal Grandmother Araceli peterson Stroke Paternal Grandmother Araceli Bone cancer Paternal Grandfather Natalio Stroke Paternal Grandfather Natalio Cancer Paternal Grandfather Natalio Accidental Son Chintan Seizures Maternal Grandfather Natalio peterson Past Medical History: Diagnosis Date Allergic Allergic rhinitis Anemia Anxiety disorder 10/31/2013 Arthritis Atypical squamous cell changes of cervix undetermined significance favor benign Atypical squamous cells of undetermined significance (ASCUS) on Papanicolaou smear of cervix 08/29/2022 Atypical squamous cells of undetermined significance on cytologic smear of vagina (ASC-US) Benign paroxysmal positional vertigo 07/28/2015 BMI 29.0-29.9,adult Depression screening Disturbance of skin sensation 11/22/2011 Eczema Encounter for gynecological examination (general) (routine) without abnormal findings Fibromyalgia, primary Gastroesophageal reflux 01/12/2021 Spontaneous gastroesophageal reflux to the level of the midesophagus GERD (gastroesophageal reflux disease) GI bleed 08/17/2018 H/O abnormal cervical Papanicolaou smear H/O CT scan 01/10/2020 CT scan of Abdomen and Pelvis: Bilateral medullary Kidney Disease. H/O CT scan 07/21/2020 CT scan No suspicious enhancing hepatic mass, multiple B/L renal Cysts Headache 01/03/2014 Hypertension 10/31/2013 Insomnia, unspecified 10/31/2013 Malaise and fatigue 10/31/2013 Medullary sponge kidney Menopause syndrome Migraine 10/31/2013 Mild acid reflux MRI of brain abnormal 08/01/2017 except for slightly enlarged pituitary fossa Obstructive sleep apnea 08/29/2022 Pain in limb 11/22/2011 Personal history of medical treatment 07/08/[address] Emptying Study Dr. Pleitez Personal history of medical treatment 08/07/2021 High Sigmoidocele Defecography ([facility]) prolapsed rectocele, cystocele 2011 Sleep disorder, nonorganic 01/03/2014 TIA (transient ischemic attack) UTI (urinary tract infection) Visual impairment Past Surgical History: Procedure Laterality Date ADENOIDECTOMY 2012 APPENDECTOMY BLADDER REPAIR 2012 prolapsed rectocele and cystocele CHOLECYSTECTOMY 2012 COLONOSCOPY 08/27/2018 ESOPHAGOGASTRODUODENOSCOPY 08/27/2018 ESOPHAGOGASTRODUODENOSCOPY 12/07/2018 GASTRIC BYPASS 01/23/2018 HERNIA REPAIR 2002 HYSTERECTOMY KNEE ARTHROSCOPY W/ DEBRIDEMENT 2007 SEPTOPLASTY 02/08/2012 SINUS SURGERY 01/02/2016 cyst removal TONSILLECTOMY Visit Vitals BP 108/82 Pulse (!) 111 Temp 97.8 F Resp 16 Ht 5' 4 Wt 127 lb 6.4 oz SpO2 98% BMI 21.87 kg/m OB Status Hysterectomy Smoking Status Former BSA 1.62 m Review of Systems Constitutional: Positive for fatigue and unexpected weight change (Loss). Negative for chills and fever. HENT: Positive for congestion, ear pain, postnasal drip, rhinorrhea, sinus pressure, sinus pain andsore throat. Respiratory: Negative for cough, shortness of breath and wheezing. Cardiovascular: Negative for chest pain, palpitations and leg swelling. Gastrointestinal: Positive for nausea. Negative for abdominal pain, constipation, diarrhea and vomiting. Psychiatric/Behavioral: Positive for agitation. Objective Physical Exam Constitutional: General: She is not in acute distress. Appearance: She is well-developed. She is ill-appearing (Mild). HENT: Head: Normocephalic and atraumatic. Right Ear: Tympanic membrane and ear canal normal. Left Ear: Tympanic membrane and ear canal normal. Nose: Congestion present. Right Turbinates: Swollen. Left Turbinates: Swollen. Mouth/Throat: Mouth: Mucous membranes are moist. Pharynx: No posterior oropharyngeal erythema. Eyes: General: No scleral icterus. Conjunctiva/sclera: Conjunctivae normal. Cardiovascular: Rate and Rhythm: Regular rhythm. Tachycardia present. Heart sounds: Normal heart sounds. No murmur heard. Pulmonary: Effort: Pulmonary effort is normal. No respiratory distress. Breath sounds: Normal breath sounds. No wheezing, rhonchi or rales. Lymphadenopathy: Cervical: No cervical adenopathy. Skin: General: Skin is warm and dry. Neurological: General: No focal deficit present. Mental Status: She is alert and oriented to person, place, and time. Psychiatric: Mood and Affect: Mood normal. Behavior: Behavior normal. Assessment/Plan Diagnoses and all orders for this visit: Benign essential hypertension - NIFEdipine XL (Procardia XL) 30 MG 24 hr tablet; Take 1 tablet (30 mg) by mouth Daily Do not crush, chew, or split. Patient's blood pressure is currently well controlled. Continue with current medications and I willcontinue to monitor. Generalized anxiety disorder Encouraged her to restart Yoga for mental and physical health without the pilate's. Medication choice and dosage is appropriate for patient's current medical conditions. Patient will continue to be required to be seen in our office at least every three months for monitoring. At eachfollow up visit I will reassess the patient's need for the medication. Patient is to have this medication prescribed only through this office. Failure to follow the rules and regulations will result in tapering and discontinuation of medications if applicable. Patient verbalized understanding. OARRS Report was reviewed for this patient. Acute non-recurrent pansinusitis - amoxicillin (Amoxil) 875 MG tablet; Take 1 tablet (875 mg) by mouth in the morning and 1 tablet (875 mg) before bedtime. Do all this for 7 days. Start the above as directed. Reviewed potential s/e with patient. Encouraged continue probiotic while on antibiotic. Increase water intake, get plenty of rest. Follow up if no improvement in one week. H/O gastric bypass Encouraged pt to continue to focus on getting adequate protein in her diet. Follow up with ADE Riggins in 3 months (on 04/17/2025 Medication Follow Up). documented in this encounterSaint Louis University Health Science [id number] History of Present illness Narrative* Adele Momin NP - 12/17/2024 1:30 PM EDT Reason for Appointment: Patient ID: Mandeep Spencer is a 44 y.o. female who presents for No chief complaint on file. Patient presents today via telephone call for a telehealth appointment. Patients Phone #: [phone] (mobile) Date: 12/17/2024 Time: 5:08 PM of the visit Platform Used: Audio call performed via in house telephone system. Location of Patient and Provider: Patient at home, provider at clinic Consent for Telehealth: Patient provided verbal consent to conduct the visit virtually via audio only phone call Current Medications: has a current medication list which includes the following prescription(s): qulipta, baclofen, biotin, cholecalciferol, medical compression stockings, estradiol, fexofenadine, lorazepam, multivitamin, naltrexone, nifedipine xl, omeprazole, onabotulinumtoxina, topiramate, and ubrelvy. Medical History: Active Ambulatory Problems Diagnosis Date Noted Adjustment disorder with anxiety 08/29/2022 Anemia 08/29/2022 Asthma (HCC) 08/29/2022 Attention deficit disorder 08/29/2022 Benign essential hypertension 08/29/2022 Chronic fatigue syndrome 08/29/2022 Fibromyalgia 08/29/2022 Gastroesophageal reflux disease 08/29/2022 Hemochromatosis 08/29/2022 History of hysterectomy 08/29/2022 Hypokalemia 08/29/2022 Iron deficiency anemia 08/29/2022 Medullary sponge kidney 08/29/2022 Menopausal symptoms 08/29/2022 PCOS (polycystic ovarian syndrome) 08/29/2022 Polycythemia vera (HCC) 08/29/2022 Primary insomnia 08/29/2022 Retention cyst of nasal cavity 08/29/2022 Recurrent sinusitis 08/29/2022 Seasonal allergic rhinitis 08/29/2022 Slow transit constipation 08/29/2022 Varicose veins of lower extremity 08/29/2022 Vitamin D deficiency 08/29/2022 H/O gastric bypass 08/30/2022 Androgen excess, 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 09/18/2009 Elevated ferritin 04/25/2023 Hypertrophy of nasal turbinates 01/14/2016 Paraesophageal hernia 09/08/2017 Positive EDMUND (antinuclear antibody) 04/25/2023 Disturbance of skin sensation 07/27/2023 Anxiety disorder 07/27/2023 Malaise and fatigue 07/27/2023 BPPV (benign paroxysmal positional vertigo) 07/27/2023 Migraine without aura and without status migrainosus, not intractable 07/27/2023 Myalgia 11/21/2023 Acute cystitis with hematuria 08/20/2024 Burning with urination 08/20/2024 Gross hematuria 08/20/2024 Resolved Ambulatory Problems Diagnosis Date Noted Acute recurrent maxillary sinusitis 08/29/2022 Anxiety 08/29/2022 Atypical squamous cells of undetermined significance (ASCUS) on Papanicolaou smear of cervix 08/29/2022 Atypical squamous cells of undetermined significance on cytologic smear of vagina (ASC-US) 08/29/2022 Bipolar affective disorder (HCC) 08/29/2022 Dizziness 08/29/2022 Elevated blood-pressure reading without diagnosis of hypertension 08/29/2022 Grief reaction 08/29/2022 Menopausal syndrome 08/29/2022 Obstructive sleep apnea 08/29/2022 HTN (hypertension) 04/25/2023 Morbid obesity ([facility]) 09/08/2017 Urinary tract infection 04/25/2023 Pain in limb 07/27/2023 Headache 07/27/2023 Insomnia, unspecified 07/27/2023 Migraine 07/27/2023 Sleep disorder, nonorganic 07/27/2023 Shortness of breath 11/21/2023 Past Medical History: Diagnosis Date Allergic Allergic rhinitis Arthritis Atypical squamous cell changes of cervix undetermined significance favor benign Benign paroxysmal positional vertigo 07/28/2015 BMI 29.0-29.9,adult Depression screening Eczema Encounter for gynecological examination (general) (routine) without abnormal findings Fibromyalgia, primary Gastroesophageal reflux 01/12/2021 GERD (gastroesophageal reflux disease) GI bleed 08/17/2018 H/O abnormal cervical Papanicolaou smear H/O CT scan 01/10/2020 H/[address] scan 07/21/2020 Hypertension 10/31/2013 Menopause syndrome Mild acid reflux MRI of brain abnormal 08/01/2017 Personal history of medical treatment 07/08/2017 Personal history of medical treatment 08/07/2021 ([facility] prolapsed rectocele, cystocele 2011 TIA (transient ischemic attack) UTI (urinary tract infection) Visual impairment Family History Problem Relation Name Age of Onset No Known Problems Mother Hypertension Father Ej andersonbruna Stroke Father Ej andersonbruna Arthritis Father Ej andersonbruna Diabetes Maternal Grandmother Araceli peterson Arthritis Maternal Grandmother Araceli peterson Vision loss Maternal Grandmother Araceli peterson Stroke Paternal Grandmother Araceli Bone cancer Paternal Grandfather Natalio Stroke Paternal Grandfather Natalio Cancer Paternal Grandfather Natalio Accidental Son Chintan Seizures Maternal Grandfather Natalio peterson Social History Tobacco Use Smoking status: Former Types: Cigarettes Smokeless tobacco: Never Vaping Use Vaping status: Never Used Substance Use Topics Alcohol use: Never Comment: Caffeine intake: soda and eta Drug use: Never Past Surgical History: Procedure Laterality Date ADENOIDECTOMY 2012 APPENDECTOMY BLADDER REPAIR 2012 prolapsed rectocele and cystocele CHOLECYSTECTOMY 2012 COLONOSCOPY 08/27/2018 ESOPHAGOGASTRODUODENOSCOPY 08/27/2018 ESOPHAGOGASTRODUODENOSCOPY 12/07/2018 GASTRIC BYPASS 01/23/2018 HERNIA REPAIR 2002 HYSTERECTOMY KNEE ARTHROSCOPY W/ DEBRIDEMENT 2006 SEPTOPLASTY 02/08/2012 SINUS SURGERY 01/02/2016 cyst removal TONSILLECTOMY Allergies Allergen Reactions Olmesartan GI intolerance Nausea, Fatigue Vitals: Estimated body mass index is 21.97 kg/m as calculated from the following: Height as of 11/22/24: 5' 4 . Weight as of 11/22/24: 128 lb. BP: No LMP recorded. Patient has had a hysterectomy. Assessment/Plan No diagnosis found. Today's telehealth visit consisted of spending 15 minutes talking to patient on the phone. Reviewedall lab values with patient today. Patient reports concerns with continued Fatigue thinning of hairand weight gain. Discussed Estrogen options and concern related to patients history of TIA and patient verbalizes understanding. Discussed options moving forward and she would like to be evaluated byendocrinology. A referral will be place to [facility] for further evaluation ofpatients symptoms. Patient reports improvement in vaginal dryness symptoms with Estrace cream and will continue twice weekly application. Documented by Adele Momin NP on behalf of: Adele Momin NP documented in this encounterSaint Louis University Health Science [id number] History of Present illness Narrative* Adele Momin NP - 11/22/2024 2:30 PM EDT Reason for Appointment: Patient ID: Mandeep Spencer is a 44 y.o. female who presents for Hormone Imbalance (Pt present today to discuss hormones, foul odor and vaginal discharge.) Patient presents today for Acute Visit. MEDICATIONS Current Outpatient Medications Medication Instructions Atogepant (Qulipta) 60 MG tablet 1 tablet, Oral, Daily baclofen (Lioresal) 10 MG tablet 1 tablet, 3 times daily biotin 5 MG tablet 1 tablet, Daily cholecalciferol (VITAMIN D-3) 1,000 Units, Daily Elastic Bandages & Supports (Medical Compression Stockings) misc 2 each, Does not apply, Daily,On in AM, off in PM. Dispense 2 pairs. 20-30 mmHg. Toeless if possible estradiol (Estrace) 0.1 MG/GM vaginal cream 2g vaginal daily for 2 weeks, then 2 times weekly following initial 2 weeks fexofenadine (Tatiana) 180 MG tablet 1 tablet, Every 24 hours LORazepam (ATIVAN) 1 mg, Oral, Every 12 hours metroNIDAZOLE (FLAGYL) 500 mg, Oral, 2 times daily, Do not drink alcohol while taking this medication Multiple Vitamin (multivitamin) capsule 1 capsule, Daily naltrexone (DEPADE) 4.5 mg, Daily NIFEdipine XL (PROCARDIA XL) 30 mg, Oral, Daily, Do not crush, chew, or split. omeprazole (PRILOSEC) 40 mg, Oral, 2 times daily before meals onabotulinumtoxinA (Botox) 200 units injection Once topiramate 50 MG tablet 1 tablet, Oral, 2 times daily Ubrogepant (Ubrelvy) 100 MG tablet TAKE 1 TABLET BY MOUTH at onset OF migraine may repeat in 2 (TWO) HOURS, no more TWICE DAILY and 2 (TWO) days a week ALLERGIES Allergies Allergen Reactions Olmesartan GI intolerance Nausea, Fatigue PROBLEMS Active Ambulatory Problems Diagnosis Date Noted Adjustment disorder with anxiety 08/29/2022 Anemia 08/29/2022 Asthma (HCC) 08/29/2022 Attention deficit disorder 08/29/2022 Benign essential hypertension 08/29/2022 Chronic fatigue syndrome 08/29/2022 Fibromyalgia 08/29/2022 Gastroesophageal reflux disease 08/29/2022 Hemochromatosis 08/29/2022 History of hysterectomy 08/29/2022 Hypokalemia 08/29/2022 Iron deficiency anemia 08/29/2022 Medullary sponge kidney 08/29/2022 Menopausal symptoms 08/29/2022 PCOS (polycystic ovarian syndrome) 08/29/2022 Polycythemia vera (HCC) 08/29/2022 Primary insomnia 08/29/2022 Retention cyst of nasal cavity 08/29/2022 Recurrent sinusitis 08/29/2022 Seasonal allergic rhinitis 08/29/2022 Slow transit constipation 08/29/2022 Varicose veins of lower extremity 08/29/2022 Vitamin D deficiency 08/29/2022 H/O gastric bypass 08/30/2022 Androgen excess, 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 09/18/2009 Elevated ferritin 04/25/2023 Hypertrophy of nasal turbinates 01/14/2016 Paraesophageal hernia 09/08/2017 Positive EDMUND (antinuclear antibody) 04/25/2023 Disturbance of skin sensation 07/27/2023 Anxiety disorder 07/27/2023 Malaise and fatigue 07/27/2023 BPPV (benign paroxysmal positional vertigo) 07/27/2023 Migraine without aura and without status migrainosus, not intractable 07/27/2023 Myalgia 11/21/2023 Acute cystitis with hematuria 08/20/2024 Burning with urination 08/20/2024 Gross hematuria 08/20/2024 Resolved Ambulatory Problems Diagnosis Date Noted Acute recurrent maxillary sinusitis 08/29/2022 Anxiety 08/29/2022 Atypical squamous cells of undetermined significance (ASCUS) on Papanicolaou smear of cervix 08/29/2022 Atypical squamous cells of undetermined significance on cytologic smear of vagina (ASC-US) 08/29/2022 Bipolar affective disorder (HCC) 08/29/2022 Dizziness 08/29/2022 Elevated blood-pressure reading without diagnosis of hypertension 08/29/2022 Grief reaction 08/29/2022 Menopausal syndrome 08/29/2022 Obstructive sleep apnea 08/29/2022 HTN (hypertension) 04/25/2023 Morbid obesity ([facility]) 09/08/2017 Urinary tract infection 04/25/2023 Pain in limb 07/27/2023 Headache 07/27/2023 Insomnia, unspecified 07/27/2023 Migraine 07/27/2023 Sleep disorder, nonorganic 07/27/2023 Shortness of breath 11/21/2023 Past Medical History: Diagnosis Date Allergic Allergic rhinitis Arthritis Atypical squamous cell changes of cervix undetermined significance favor benign Benign paroxysmal positional vertigo 07/28/2015 BMI 29.0-29.9,adult Depression screening Eczema Encounter for gynecological examination (general) (routine) without abnormal findings Fibromyalgia, primary Gastroesophageal reflux 01/12/2021 GERD (gastroesophageal reflux disease) GI bleed 08/17/2018 H/O abnormal cervical Papanicolaou smear H/O CT scan 01/10/2020 H/[address] scan 07/21/2020 Hypertension 10/31/2013 Menopause syndrome Mild acid reflux MRI of brain abnormal 08/01/2017 Personal history of medical treatment 07/08/2017 Personal history of medical treatment 08/07/2021 ([facility]) prolapsed rectocele, cystocele 2011 TIA (transient ischemic attack) UTI (urinary tract infection) Visual impairment HISTORY PAST MEDICAL HISTORY SOCIAL HISTORY Past Medical History: Diagnosis Date Allergic Allergic rhinitis Anemia Anxiety disorder 10/31/2013 Arthritis Atypical squamous cell changes of cervix undetermined significance favor benign Atypical squamous cells of undetermined significance (ASCUS) on Papanicolaou smear of cervix 08/29/2022 Atypical squamous cells of undetermined significance on cytologic smear of vagina (ASC-US) Benign paroxysmal positional vertigo 07/28/2015 BMI 29.0-29.9,adult Depression screening Disturbance of skin sensation 11/22/2011 Eczema Encounter for gynecological examination (general) (routine) without abnormal findings Fibromyalgia, primary Gastroesophageal reflux 01/12/2021 Spontaneous gastroesophageal reflux to the level of the midesophagus GERD (gastroesophageal reflux disease) GI bleed 08/17/2018 H/O abnormal cervical Papanicolaou smear H/O CT scan 01/10/2020 CT scan of Abdomen and Pelvis: Bilateral medullary Kidney Disease. H/O CT scan 07/21/2020 CT scan No suspicious enhancing hepatic mass, multiple B/L renal Cysts Headache 01/03/2014 Hypertension 10/31/2013 Insomnia, unspecified 10/31/2013 Malaise and fatigue 10/31/2013 Medullary sponge kidney Menopause syndrome Migraine 10/31/2013 Mild acid reflux MRI of brain abnormal 08/01/2017 except for slightly enlarged pituitary fossa Obstructive sleep apnea 08/29/2022 Pain in limb 11/22/2011 Personal history of medical treatment 07/08/[address] Pleitez Personal history of medical treatment 08/07/2021 High Sigmoidocele Defecography ([facility]) prolapsed rectocele, cystocele 2011 Sleep disorder, nonorganic 01/03/2014 TIA (transient ischemic attack) UTI (urinary tract infection) Visual impairment Social History Tobacco Use Smoking status: Former Types: Cigarettes Smokeless tobacco: Never Vaping Use Vaping status: Never Used Substance Use Topics Alcohol use: Never Comment: Caffeine intake: soda and eta Drug use: Never FAMILY HISTORY Family History Problem Relation Name Age of Onset No Known Problems Mother Hypertension Father Ej shetzer Stroke Father Ej peterson Arthritis Father Ej andersontzleila Diabetes Maternal Grandmother Araceli andersonbruna Arthritis Maternal Grandmother Araceli andersonbruna Vision loss Maternal Grandmother Araceli andersonbruna Stroke Paternal Grandmother Araceli Bone cancer Paternal Grandfather Natalio Stroke Paternal Grandfather Natalio Cancer Paternal Grandfather Natalio Accidental Son Chintan Seizures Maternal Grandfather Natalio peterson SURGICAL HISTORY Past Surgical History: Procedure Laterality Date ADENOIDECTOMY 2012 APPENDECTOMY BLADDER REPAIR 2011 prolapsed rectocele and cystocele CHOLECYSTECTOMY 2011 COLONOSCOPY 08/27/2018 ESOPHAGOGASTRODUODENOSCOPY 08/27/2018 ESOPHAGOGASTRODUODENOSCOPY 12/07/2018 GASTRIC BYPASS 01/23/2018 HERNIA REPAIR 2002 HYSTERECTOMY KNEE ARTHROSCOPY W/ DEBRIDEMENT 2006 SEPTOPLASTY 02/08/2012 SINUS SURGERY 01/02/2016 cyst removal TONSILLECTOMY REVIEW OF SYSTEMS Review of Systems: Review of Systems Constitutional: Positive for fatigue, unexpected weight change and hot flashes. HENT: Negative. Eyes: Negative. Respiratory: Negative. Cardiovascular: Negative. Gastrointestinal: Negative. Genitourinary: Positive for dyspareunia, vaginal discharge and vaginal dryness. Musculoskeletal: Negative. Skin: Negative. Neurological: Negative. All other systems reviewed and are negative. Hematological: Negative. Allergic/Immunologic: Negative. OBJECTIVE Objective: Physical Exam Constitutional: Appearance: Normal appearance. She is well-developed. Genitourinary: Vulva normal. Cardiovascular: Rate and Rhythm: Normal rate and regular rhythm. Pulmonary: Effort: Pulmonary effort is normal. Breath sounds: Normal breath sounds. Abdominal: General: Bowel sounds are normal. There is no distension. Palpations: Abdomen is soft. Tenderness: There is no abdominal tenderness. There is no guarding or rebound. Musculoskeletal: General: No swelling. Normal range of motion. Right lower leg: No edema. Left lower leg: No edema. Neurological: Mental Status: She is alert and oriented to person, place, and time. Skin: General: Skin is warm and dry. Psychiatric: Mood and Affect: Mood normal. Behavior: Behavior normal. Vitals and nursing note reviewed. Exam conducted with a independent jeweler present. Vitals: Estimated body mass index is 21.97 kg/m as calculated from the following: Height as of this encounter: 5' 4 . Weight as of this encounter: 128 lb. BP: No LMP recorded. Patient has had a hysterectomy. ASSESSMENT & PLAN ICD-10-CM 1. Hormone imbalance E34.9 estradiol (Estrace) 0.1 MG/GM vaginal cream 2. H/O: hysterectomy Z90.710 3. Vaginal odor N89.8 SURESWAB(R) ADVANCED VAGINITIS PLUS, TMA CHLAMYDIA TRACHOMATIS (GENITO/STI) Neisseria gonorrhea DNA probe, direct 4. Vaginal discharge N89.8 SURESWAB(R) ADVANCED VAGINITIS PLUS, TMA CHLAMYDIA TRACHOMATIS (GENITO/STI) Neisseria gonorrhea DNA probe, direct 5. Hair loss L65.9 6. Menopausal vaginal dryness N95.1 7. Hormone disorder E34.9 Estradiol Estrone Cortisol, free DHEA-sulfate Sex hormone binding globulin Insulin, total Serotonin serum TSH T4, free T3, reverse Progesterone Vitamin D 1,25 dihydroxy Ferritin T3, free Thyroglobulin Thyroglobulin Antibody Thyroid peroxidase antibody T4 TESTOSTERONE, FREE Testosterone, free, total Hemoglobin A1c Glucose, random C-peptide Cortisol, free Insulin, total Serotonin serum Thyroglobulin Thyroglobulin Antibody T4 Glucose, random C-peptide 8. Postmenopausal atrophic vaginitis N95.2 Patient presents with complaints of vaginal discharge and foul odor. She was treated with Diflucan on 11/20/24 and Flagyl on 11/20/24 through nurse telephone triage. She would also like to discuss her hormones. She reports night sweats and vasomotor symptoms. She reports fatigue being tired all the time Brain fog and hair loss and vaginal dryness. She has a history of complete hysterectomy and has trialed compounded estrogen in the past. We discussed a trial of vaginal estrogen to help with vaginal dryness and dyspareunia. Will complete hormonal lab panel and discussed using Climara patch in the future after lab results. Patient will schedule a telehealth visit for 3-4 weeks. Documented by Adele Momin NP on behalf of: Adele Momin NP documented in this encounterSaint Louis University Health Science [id number] History of Present illness Narrative* ADE Fitzgerald - 10/16/2024 4:30 PM EDT Images from the original note were not included. HPI Hypertension Additional comments: BP seems to be good with the Nifedipine. Last edited by ADE Fitzgerald on 10/16/2024 4:41 PM. Subjective Patient ID: Mandeep Spencer is a 44 y.o. female who presents for anxiety. Mandeep is present today for follow up anxiety. She is currently on Lorazepam as needed and is working well for her. C/o Edema States 3 5 days a weeks wakes up and hand and legs are red and then starts swelling in her calves, legs, and feet. She does wear compression stockings off/on. She feels her compression stockings are old and could probably benefit with a new pair. She does not notice the swelling in her hands as much as her legs. Tires to walk and not sit a lot. Does use Vibration plate and just started using it. Feels like the swelling goes down quicker with using it. Drinks 20-40 ounce of water a day. Also drinks 30 ounces of vitamin tea a day. Sees the Life Insurance Sales Agent every 6 months. Next appt in January. Sees Dr. Donald. Over the past 2 weeks, how often have you been bothered by any of the following problems? Little interest or pleasure in doing things: Not at all Feeling down, depressed, or hopeless: Not at all Patient Health Questionnaire-2 Score: 0 Current Outpatient Medications on File Prior to Visit Medication Sig Dispense Refill Atogepant (Qulipta) 60 MG tablet TAKE 1 TABLET BY MOUTH DAILY 30 tablet 1 baclofen (Lioresal) 10 MG tablet Take 1 tablet by mouth in the morning and 1 tablet in the evening and 1 tablet before bedtime. biotin 5 MG tablet Take 1 tablet by mouth in the morning. cholecalciferol (Vitamin D-3) 25 MCG (1000 UT) capsule Take 1,000 Units by mouth in the morning. fexofenadine (Tatiana) 180 MG tablet Take 1 tablet by mouth 1 (one) time each day at the same time. LORazepam (Ativan) 1 MG tablet Take 1 tablet (1 mg) by mouth every 12 (twelve) hours 60 tablet 0 Multiple Vitamin (multivitamin) capsule Take 1 capsule by mouth 1 (one) time each day. naltrexone (Depade) 50 MG tablet Take 4.5 mg by mouth Daily 4.5mg Micro dose for pain from director patient financial services NIFEdipine XL (Procardia XL) 30 MG 24 hr tablet Take 1 tablet (30 mg) by mouth Daily Do not crush, chew, or split. 30 tablet 2 omeprazole (PriLOSEC) [address] capsule Take 1 capsule (40 mg) by mouth in the morning and 1 capsule(40 mg) in the evening. Take before meals. 200 capsule 3 onabotulinumtoxinA (Botox) 200 units injection Inject into the shoulder, thigh, or buttocks 1 (one)time Potassium Chloride 20 MEQ/15ML (10%) solution Take 15 mL (20 mEq) by mouth in the morning and 15 mL(20 mEq) before bedtime. 450 mL 11 topiramate 50 MG tablet Take 1 tablet by mouth in the morning and 1 tablet before bedtime. 180 tablet 1 Ubrogepant (Ubrelvy) 100 MG tablet TAKE 1 TABLET BY MOUTH at onset OF migraine may repeat in 2 (TWO) HOURS, no more TWICE DAILY and 2 (TWO) days a week 10 tablet 1 No current facility-administered medications on file prior to visit. I have reviewed and reconciled the history and medication list with the patient today. Allergies Allergen Reactions Olmesartan GI intolerance Nausea, Fatigue Social History Tobacco Use Smoking status: Former Types: Cigarettes Smokeless tobacco: Never Vaping Use Vaping status: Never Used Substance Use Topics Alcohol use: Never Comment: Caffeine intake: soda and eta Drug use: Never Family History Problem Relation Name Age of Onset No Known Problems Mother Hypertension Father Ej peterson Stroke Father Ej peterson Arthritis Father Ej peterson Diabetes Maternal Grandmother Araceli andersonbruna Arthritis Maternal Grandmother Araceli kristen Vision loss Maternal Grandmother Araceli andersonbruna Stroke Paternal Grandmother Araceli Bone cancer Paternal Grandfather Natalio Stroke Paternal Grandfather Natalio Cancer Paternal Grandfather Natalio Accidental Son Chintan Seizures Maternal Grandfather Natalio peterson Past Medical History: Diagnosis Date Allergic Allergic rhinitis Anemia Anxiety disorder 10/31/2013 Arthritis Atypical squamous cell changes of cervix undetermined significance favor benign Atypical squamous cells of undetermined significance (ASCUS) on Papanicolaou smear of cervix 08/29/2022 Atypical squamous cells of undetermined significance on cytologic smear of vagina (ASC-US) Benign paroxysmal positional vertigo 07/28/2015 BMI 29.0-29.9,adult Depression screening Disturbance of skin sensation 11/22/2011 Eczema Encounter for gynecological examination (general) (routine) without abnormal findings Fibromyalgia, primary Gastroesophageal reflux 01/12/2021 Spontaneous gastroesophageal reflux to the level of the midesophagus GERD (gastroesophageal reflux disease) GI bleed 08/17/2018 H/O abnormal cervical Papanicolaou smear H/O CT scan 01/10/2020 CT scan of Abdomen and Pelvis: Bilateral medullary Kidney Disease. H/O CT scan 07/21/2020 CT scan No suspicious enhancing hepatic mass, multiple B/L renal Cysts Headache 01/03/2014 Hypertension 10/31/2013 Insomnia, unspecified 10/31/2013 Malaise and fatigue 10/31/2013 Medullary sponge kidney Menopause syndrome Migraine 10/31/2013 Mild acid reflux MRI of brain abnormal 08/01/2017 except for slightly enlarged pituitary fossa Obstructive sleep apnea 08/29/2022 Pain in limb 11/22/2011 Personal history of medical treatment 07/08/[address] Empt[address] Study Dr. Pleitez Personal history of medical treatment 08/07/2021 High Sigmoidocele Defecography ([facility]) prolapsed rectocele, cystocele 2011 Sleep disorder, nonorganic 01/03/2014 TIA (transient ischemic attack) UTI (urinary tract infection) Visual impairment Past Surgical History: Procedure Laterality Date ADENOIDECTOMY 2011 APPENDECTOMY BLADDER REPAIR 2011 prolapsed rectocele and cystocele CHOLECYSTECTOMY 2011 COLONOSCOPY 08/27/2018 ESOPHAGOGASTRODUODENOSCOPY 08/27/2018 ESOPHAGOGASTRODUODENOSCOPY 12/07/2018 GASTRIC BYPASS 01/23/2018 HERNIA REPAIR 2002 HYSTERECTOMY KNEE ARTHROSCOPY W/ DEBRIDEMENT 2006 SEPTOPLASTY 02/08/2012 SINUS SURGERY 01/02/2016 cyst removal TONSILLECTOMY Visit Vitals BP 118/76 Pulse 78 Resp 16 Ht 5' 4 Wt 132 lb 6.4 oz SpO2 96% BMI 22.73 kg/m OB Status Hysterectomy Smoking Status Former BSA 1.65 m Review of Systems Constitutional: Positive for fatigue. Negative for chills and fever. Respiratory: Negative for cough, shortness of breath and wheezing. Cardiovascular: Positive for leg swelling. Negative for chest pain and palpitations. Gastrointestinal: Negative for abdominal pain, constipation, diarrhea, nausea and vomiting. Musculoskeletal: Positive for myalgias. Skin: Negative for rash. Objective Physical Exam Constitutional: General: She is not in acute distress. Appearance: Normal appearance. She is well-developed. HENT: Head: Normocephalic and atraumatic. Eyes: General: No scleral icterus. Conjunctiva/sclera: Conjunctivae normal. Cardiovascular: Rate and Rhythm: Normal rate and regular rhythm. Heart sounds: Normal heart sounds. No murmur heard. Pulmonary: Effort: Pulmonary effort is normal. No respiratory distress. Breath sounds: Normal breath sounds. No wheezing, rhonchi or rales. Musculoskeletal: Right lower leg: Edema present. Left lower leg: Edema present. Comments: Edema is mild-moderate, non-pitting. Skin: General: Skin is warm and dry. Neurological: General: No focal deficit present. Mental Status: She is alert and oriented to person, place, and time. Psychiatric: Mood and Affect: Mood normal. Behavior: Behavior normal. Assessment/Plan Diagnoses and all orders for this visit: Benign essential hypertension Patient's blood pressure is currently well controlled. Continue with current medication and I will continue to monitor. Goal BP remains less than 130/80. Generalized anxiety disorder Medication choice and dosage is appropriate for patient's current medical conditions. Patient will continue to be required to be seen in our office at least every three months for monitoring. At eachfollow up visit I will reassess the patient's need for the medication. Patient is to have this medication prescribed only through this office. Failure to follow the rules and regulations will result in tapering and discontinuation of medications if applicable. Patient verbalized understanding. OARRS Report was reviewed for this patient. Bilateral lower extremity edema - Elastic Bandages & Supports (Medical Compression Stockings) misc; 2 each Daily On in AM, off in PM. Dispense 2 pairs. 20-30 mmHg. Toeless if possible Provided pt with updated order to get new compression stockings at the [facility] in [place]Encouraged her to continue with the vibration plate for now as she does feel it is starting to help. Elevate legs in the evenings. Be sure to move periodically throughout the day. Can provide pt with referral to Lymphedema clinic in the future if needed. Varicose veins of both lower extremities, unspecified whether complicated - Elastic Bandages & Supports (Medical Compression Stockings) misc; 2 each Daily On in AM, off in PM. Dispense 2 pairs. 20-30 mmHg. Toeless if possible See above. Chronic fatigue syndrome The patient is seeing a medical staff services manager for this condition, treatment is deferred to that specialist. Fibromyalgia The patient is seeing a medical staff services manager for this condition, treatment is deferred to that specialist. Follow up in about 3 months (around 01/16/2025) for Medication Follow Up. documented in this encounterSaint Louis University Health Science [id number] History of Present illness Narrative* Maik Brock MD - 08/20/2024 2:02 PM EDTAssociated Problem(s): Gross hematuria May need a CT scan May need a urolgy consult * Maik Brock MD - 08/20/2024 1:54 PM EDTAssociated Problem(s): Burning with urination UA reviewed Antibiotic called in * Maik Brock MD - 08/20/2024 1:54 PM EDTAssociated Problem(s): Acute cystitis with hematuria Add Probiotic to help replenish the good bacteria that are destroyed by the Antibiotics Florastor Florajen Align or try Activia in Yogurt Probiotics reduce the risk of antibiotic induced diarrhea Pyelonephritis is an ascending infection from the bladder to the kidneys. This can make people veryill. Symptoms include fevers, High HR, Lo BP and severe nausea and vomiting and back pain, could bepyelonephritis. Go to ER for fluids should the symptoms worsen. * Maik Brock MD - 08/20/2024 1:45 PM EDT Images from the original note were not included. Subjective Patient ID: Mandeep Spencer is a 44 y.o. female who presents for UTI. Pt states she passed a big clot and burning ever since , pt stated she has lots of burning, pain, urgency, and not able to urinate fever, fatigued Pt has been drinking lots of fluid, UTI This is a new problem. The current episode started today. The problem has been gradually worsening since onset. Associated symptoms include hematuria and pain. The pain is present in the abdomen. Current Outpatient Medications on File Prior to Visit Medication Sig Dispense Refill Atogepant (Qulipta) 60 MG tablet TAKE 1 TABLET BY MOUTH DAILY 30 tablet 1 baclofen (Lioresal) 10 MG tablet Take 1 tablet by mouth in the morning and 1 tablet in the evening and 1 tablet before bedtime. biotin 5 MG tablet Take 1 tablet by mouth in the morning. cephalexin (Keflex) 500 MG capsule Take 1 capsule (500 mg) by mouth in the morning and 1 capsule (500 mg) in the evening and 1 capsule (500 mg) before bedtime. Do all this for 10 days. 30 capsule 0 cholecalciferol (Vitamin D-3) 25 MCG (1000 UT) capsule Take 1,000 Units by mouth in the morning. fexofenadine (Tatiana) 180 MG tablet Take 1 tablet by mouth 1 (one) time each day at the same time. LORazepam (Ativan) 1 MG tablet Take 1 tablet (1 mg) by mouth every 12 (twelve) hours 60 tablet 0 Multiple Vitamin (multivitamin) capsule Take 1 capsule by mouth 1 (one) time each day. naltrexone (Depade) 50 MG tablet Take 4.5 mg by mouth Daily 4.5mg Micro dose for pain from director patient financial services NIFEdipine XL (Procardia XL) 30 MG 24 hr tablet Take 1 tablet (30 mg) by mouth Daily Do not crush, chew, or split. 30 tablet 2 omeprazole (PriLOSEC) [address] capsule Take 1 capsule (40 mg) by mouth in the morning. Take before meals. 100 capsule 3 onabotulinumtoxinA (Botox) 200 units injection Inject into the shoulder, thigh, or buttocks 1 (one)time Potassium Chloride 20 MEQ/15ML (10%) solution Take 15 mL (20 mEq) by mouth in the morning and 15 mL(20 mEq) before bedtime. 450 mL 11 topiramate 50 MG tablet Take 1 tablet by mouth in the morning and 1 tablet before bedtime. 180 tablet 1 Ubrogepant (Ubrelvy) 100 MG tablet TAKE 1 TABLET BY MOUTH at onset OF migraine may repeat in 2 (TWO) HOURS, no more TWICE DAILY and 2 (TWO) days a week 10 tablet 1 No current facility-administered medications on file prior to visit. I have reviewed and reconciled the history and medication list with the patient today. Allergies Allergen Reactions Olmesartan GI intolerance Nausea, Fatigue Social History Tobacco Use Smoking status: Former Types: Cigarettes Smokeless tobacco: Never Vaping Use Vaping status: Never Used Substance Use Topics Alcohol use: Never Comment: Caffeine intake: soda and eta Drug use: Never Family History Problem Relation Name Age of Onset No Known Problems Mother Hypertension Father Ej peterson Stroke Father Ej peterson Arthritis Father Ej peterson Diabetes Maternal Grandmother Araceli peterson Arthritis Maternal Grandmother Araceli peterson Vision loss Maternal Grandmother Araceli peterson Stroke Paternal Grandmother Araceli Bone cancer Paternal Grandfather Natalio Stroke Paternal Grandfather Natalio Cancer Paternal Grandfather Natalio Accidental Son Chintan Seizures Maternal Grandfather Natalio peterson Past Medical History: Diagnosis Date Allergic Allergic rhinitis Anemia Anxiety disorder 10/31/2013 Arthritis Atypical squamous cell changes of cervix undetermined significance favor benign Atypical squamous cells of undetermined significance (ASCUS) on Papanicolaou smear of cervix 08/29/2022 Atypical squamous cells of undetermined significance on cytologic smear of vagina (ASC-US) Benign paroxysmal positional vertigo 07/28/2015 BMI 29.0-29.9,adult Depression screening Disturbance of skin sensation 11/22/2011 Eczema Encounter for gynecological examination (general) (routine) without abnormal findings Fibromyalgia, primary Gastroesophageal reflux 01/12/2021 Spontaneous gastroesophageal reflux to the level of the midesophagus GERD (gastroesophageal reflux disease) GI bleed 08/17/2018 H/O abnormal cervical Papanicolaou smear H/O CT scan 01/10/2020 CT scan of Abdomen and Pelvis: Bilateral medullary Kidney Disease. H/O CT scan 07/21/2020 CT scan No suspicious enhancing hepatic mass, multiple B/L renal Cysts Headache 01/03/2014 Hypertension (CMS/HCC) 10/31/2013 Insomnia, unspecified 10/31/2013 Malaise and fatigue 10/31/2013 Medullary sponge kidney Menopause syndrome Migraine 10/31/2013 Mild acid reflux MRI of brain abnormal 08/01/2017 except for slightly enlarged pituitary fossa Obstructive sleep apnea 08/29/2022 Pain in limb 11/22/2011 Personal history of medical treatment 07/08/[address] Emptying Study Dr. 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 TIA (transient ischemic attack) UTI (urinary tract infection) Visual impairment Past Surgical History: Procedure Laterality Date ADENOIDECTOMY 2012 APPENDECTOMY BLADDER REPAIR 2012 prolapsed rectocele and cystocele CHOLECYSTECTOMY 2011 COLONOSCOPY 08/27/2018 ESOPHAGOGASTRODUODENOSCOPY 08/27/2018 ESOPHAGOGASTRODUODENOSCOPY 12/07/2018 GASTRIC BYPASS 01/23/2018 HERNIA REPAIR 2002 HYSTERECTOMY KNEE ARTHROSCOPY W/ DEBRIDEMENT 2006 SEPTOPLASTY 02/08/2012 SINUS SURGERY 01/02/2016 cyst removal TONSILLECTOMY Visit Vitals BP 118/82 Pulse 97 Ht 5' 4 Wt 135 lb SpO2 100% BMI 23.17 kg/m OB Status Hysterectomy Smoking Status Former BSA 1.66 m Review of Systems Constitutional: Positive for fatigue and fever. Genitourinary: Positive for hematuria. Musculoskeletal: Positive for back pain. Has had about 2 weeks, possible kidney stone Objective Physical Exam Constitutional: Appearance: Normal appearance. She is normal weight. Cardiovascular: Rate and Rhythm: Normal rate and regular rhythm. Pulmonary: Effort: Pulmonary effort is normal. Breath sounds: Normal breath sounds. Abdominal: Tenderness: There is left CVA tenderness. Neurological: Mental Status: She is alert. Office Visit on 08/20/2024 Component Date Value Ref Range Status Glucose, UA 08/20/2024 Negative Negative - 1999(110) ++++ mg/dL Final Bilirubin, UA 08/20/2024 Negative Negative - 4(70) +++ mg/dL Final Ketones, UA 08/20/2024 Negative Negative - 160(16) ++++ mg/dL Final Spec Grav, UA 08/20/2024 1.005 1 - 1.03 Final Blood, UA 08/20/2024 Positive Negative - 50 Derrek/mcL Final trace pH, UA 08/20/2024 6.5 5 - 9 Final Protein, UA 08/20/2024 Negative Negative - 1999(20) ++++ mg/dL Final Urobilinogen, UA 08/20/2024 1.0 0.2 - 12 mg/dL Final Leukocytes, UA 08/20/2024 Moderate Negative - 500+++ Adriana/mcL Final large Nitrite, UA 08/20/2024 Negative Negative - Positive Final Assessment/Plan Problem List Items Addressed This Visit Acute cystitis with hematuria - Primary Add Probiotic to help replenish the good bacteria that are destroyed by the Antibiotics Florastor Florajen Align or try Activia in Yogurt Probiotics reduce the risk of antibiotic induced diarrhea Pyelonephritis is an ascending infection from the bladder to the kidneys. This can make people veryill. Symptoms include fevers, High HR, Lo BP and severe nausea and vomiting and back pain, could bepyelonephritis. Go to ER for fluids should the symptoms worsen. Burning with urination UA reviewed Antibiotic called in Relevant Orders POCT Urinalysis dipstick (Completed) URINARY TRACT INFECTION (HTRX) Gross hematuria May need a CT scan May need a urolgy consult No follow-ups on file. documented in this encounterNOCox [id number] Telephone encounter Note* Telephone Encounter - KIRSTY HUITRON - 08/20/2024 8:08 AM EDT I called the office to see if they could reach out to patient after they are able to see what Dr. Brock would like to do. I spoke with Mer and she stated that the nurse is aware and they are going to talk to the provider and then reach out to the patient on what the provider decides. [facility] [id number] Miscellaneous Notes* Telephone Encounter - KIRSTY HUITRON - 08/20/2024 8:08 AM EDT I called the office to see if they could reach out to patient after they are able to see what Dr. Brock would like to do. I spoke with Mer and she stated that the nurse is aware and they are going to talk to the provider and then reach out to the patient on what the provider decides. * Telephone Encounter - KIRSTY HUITRON - 08/20/2024 7:33 AM EDT Patient is calling and stated that she knows she has a UTI. She stated that she is peeing blood. Patient stated that her pain is about 8/10. She stated that when she does pee its just blood documented in this encounterSaint Louis [facility] Science [id number] Telephone encounter Note* Telephone Encounter - KIRSTY HUITRON - 08/20/2024 7:33 AM EDT Patient is calling and stated that she knows she has a UTI. She stated that she is peeing blood. Patient stated that her pain is about 8/10. She stated that when she does pee its just blood [facility] [id number] History of Present illness Narrative* ADE Fitzgerald - 07/16/2024 8:00 AM EDT Images from the original note were not included. Subjective Patient ID: Mandeep Spencer is a 44 y.o. female who presents for wellness. Subjective Mandeep Spencer is a 44 y.o. female and is here for a comprehensive physical exam. The patient reports she did have bariatric surgery and her insurance does not pay for her to see her surgeon so she is asking for a full vitamin panel along with her normal labs. Does wall piliates and yoga for exercise. Drinks at least 40 ounces of water a day. C/o swelling in her lower legs as the day goes on. Tried compression stockings, but they cause her feet to cramp and she fights it for hours. Current Outpatient Medications on File Prior to Visit Medication Sig Dispense Refill onabotulinumtoxinA (Botox) 200 units injection Inject into the shoulder, thigh, or buttocks 1 (one)time baclofen (Lioresal) 10 MG tablet Take 1 tablet by mouth in the morning and 1 tablet in the evening and 1 tablet before bedtime. biotin 5 MG tablet Take 1 tablet by mouth in the morning. cholecalciferol (Vitamin D-3) 25 MCG (1000 UT) capsule Take 1,000 Units by mouth in the morning. fexofenadine (Tatiana) 180 MG tablet Take 1 tablet by mouth 1 (one) time each day at the same time. LORazepam (Ativan) 1 MG tablet Take 1 tablet (1 mg) by mouth every 12 (twelve) hours 60 tablet 0 Multiple Vitamin (multivitamin) capsule Take 1 capsule by mouth 1 (one) time each day. naltrexone (Depade) 50 MG tablet Take 4.5 mg by mouth Daily 4.5mg Micro dose for pain from director patient financial services omeprazole (PriLOSEC) [address] capsule Take 1 capsule (40 mg) by mouth in the morning. Take before meals. 100 capsule 0 Potassium Chloride 20 MEQ/15ML (10%) solution Take 15 mL (20 mEq) by mouth in the morning and 15 mL(20 mEq) before bedtime. 450 mL 11 Qulipta 60 MG tablet Take 1 tablet by mouth Daily 30 tablet 0 topiramate 50 MG tablet TAKE 1 TABLET BY MOUTH TWICE DAILY 60 tablet 0 Ubrogepant (Ubrelvy) 100 MG tablet TAKE 1 TABLET BY MOUTH at the onset OF MIGRAINE *may repeat in 2(TWO) HOURS, no more than TWICE DAILY and 2 (TWO) days a week* 10 tablet 1 [DISCONTINUED] amLODIPine (Norvasc) 5 MG tablet Take 1 tablet (5 mg) by mouth Daily 100 tablet 0 [DISCONTINUED] Atogepant (Qulipta) 60 MG tablet Take 1 tablet by mouth Daily 30 tablet 0 [DISCONTINUED] furosemide (Lasix) 20 MG tablet Take 1 tablet by mouth 1 (one) time each day at the same time. (Patient not taking: Reported on 07/16/2024) No current facility-administered medications on file prior to visit. I have reviewed and reconciled the history and medication list with the patient today. No Known Allergies Social History Tobacco Use Smoking status: Former Types: Cigarettes Smokeless tobacco: Never Vaping Use Vaping status: Never Used Substance Use Topics Alcohol use: Never Comment: Caffeine intake: soda and eta Drug use: Never Family History Problem Relation Name Age of Onset No Known Problems Mother Hypertension Father Ej peterson Stroke Father Ej peterson Arthritis Father Ej peterson Diabetes Maternal Grandmother Araceli leighleila Arthritis Maternal Grandmother Araceli andersonbruna Vision loss Maternal Grandmother Araceli andersonbruna Stroke Paternal Grandmother Araceli Bone cancer Paternal Grandfather Natalio Stroke Paternal Grandfather Natalio Cancer Paternal Grandfather Natalio Accidental Son Chintan Seizures Maternal Grandfather Natalio leighleila Past Medical History: Diagnosis Date Allergic Allergic rhinitis Anemia Anxiety disorder 10/31/2013 Arthritis Atypical squamous cell changes of cervix undetermined significance favor benign Atypical squamous cells of undetermined significance (ASCUS) on Papanicolaou smear of cervix 08/29/2022 Atypical squamous cells of undetermined significance on cytologic smear of vagina (ASC-US) Benign paroxysmal positional vertigo 07/28/2015 BMI 29.0-29.9,adult Depression screening Disturbance of skin sensation 11/22/2011 Eczema Encounter for gynecological examination (general) (routine) without abnormal findings Fibromyalgia, primary Gastroesophageal reflux 01/12/2021 Spontaneous gastroesophageal reflux to the level of the midesophagus GERD (gastroesophageal reflux disease) GI bleed 08/17/2018 H/O abnormal cervical Papanicolaou smear H/O CT scan 01/10/2020 CT scan of Abdomen and Pelvis: Bilateral medullary Kidney Disease. H/O CT scan 07/21/2020 CT scan No suspicious enhancing hepatic mass, multiple B/L renal Cysts Headache 01/03/2014 Hypertension (CMS/HCC) 10/31/2013 Insomnia, unspecified 10/31/2013 Malaise and fatigue 10/31/2013 Medullary sponge kidney Menopause syndrome Migraine 10/31/2013 Mild acid reflux MRI of brain abnormal 08/01/2017 except for slightly enlarged pituitary fossa Obstructive sleep apnea 08/29/2022 Pain in limb 11/22/2011 Personal history of medical treatment 07/08/[address] Emptying Study Dr. 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 TIA (transient ischemic attack) UTI (urinary tract infection) Visual impairment Past Surgical History: Procedure Laterality Date ADENOIDECTOMY 2012 APPENDECTOMY BLADDER REPAIR 2012 prolapsed rectocele and cystocele CHOLECYSTECTOMY 2011 COLONOSCOPY 08/27/2018 ESOPHAGOGASTRODUODENOSCOPY 08/27/2018 ESOPHAGOGASTRODUODENOSCOPY 12/07/2018 GASTRIC BYPASS 01/23/2018 HERNIA REPAIR 2002 HYSTERECTOMY KNEE ARTHROSCOPY W/ DEBRIDEMENT 2006 SEPTOPLASTY 02/08/2012 SINUS SURGERY 01/02/2016 cyst removal TONSILLECTOMY Visit Vitals BP 108/78 Pulse 86 Resp 16 Ht 5' 4 Wt 134 lb 6.4 oz SpO2 99% BMI 23.07 kg/m OB Status Hysterectomy Smoking Status Former BSA 1.66 m Review of Systems Constitutional: Negative for chills, fatigue and fever. HENT: Negative for congestion, ear pain, rhinorrhea and sore throat. Eyes: Negative for pain, discharge and visual disturbance. Respiratory: Negative for cough, shortness of breath and wheezing. Cardiovascular: Positive for leg swelling. Negative for chest pain and palpitations. Gastrointestinal: Negative for abdominal pain, constipation, diarrhea, nausea and vomiting. Genitourinary: Negative for difficulty urinating, dysuria and frequency. Musculoskeletal: Negative for arthralgias and back pain. Skin: Negative for rash. Neurological: Negative for dizziness and numbness. Psychiatric/Behavioral: Negative for sleep disturbance. The patient is not nervous/anxious. Objective Physical Exam Constitutional: General: She is not in acute distress. Appearance: Normal appearance. She is well-developed. HENT: Head: Normocephalic and atraumatic. Right Ear: Tympanic membrane and ear canal normal. Left Ear: Tympanic membrane and ear canal normal. Nose: Nose normal. Mouth/Throat: Mouth: Mucous membranes are moist. Pharynx: No posterior oropharyngeal erythema. Eyes: General: No scleral icterus. Extraocular Movements: Extraocular movements intact. Conjunctiva/sclera: Conjunctivae normal. Pupils: Pupils are equal, round, and reactive to light. Cardiovascular: Rate and Rhythm: Normal rate and regular rhythm. Heart sounds: Normal heart sounds. No murmur heard. Pulmonary: Effort: Pulmonary effort is normal. No respiratory distress. Breath sounds: Normal breath sounds. No wheezing, rhonchi or rales. Abdominal: General: Bowel sounds are normal. There is no distension. Palpations: Abdomen is soft. Tenderness: There is no abdominal tenderness. There is no guarding. Musculoskeletal: General: No swelling or deformity. Normal range of motion. Cervical back: Normal range of motion and neck supple. No tenderness. Skin: General: Skin is warm and dry. Capillary Refill: Capillary refill takes less than 2 seconds. Findings: No rash. Neurological: General: No focal deficit present. Mental Status: She is alert and oriented to person, place, and time. Cranial Nerves: No cranial nerve deficit. Sensory: No sensory deficit. Motor: No weakness. Gait: Gait normal. Deep Tendon Reflexes: Reflexes normal. Psychiatric: Mood and Affect: Mood normal. Behavior: Behavior normal. Thought Content: Thought content normal. Judgment: Judgment normal. Assessment/Plan Diagnoses and all orders for this visit: Wellness examination - CBC and differential - Comprehensive metabolic panel - Iron + transferrin + TIBC - Lipid panel - Vitamin D 25 hydroxy Total - TSH W/REFLEX TO FT4 - Vitamin B12; Future - Vitamin E; Future - Copper, serum; Future - Zinc; Future - Folate; Future - VITAMIN K; Future - Vitamin B1; Future - Vitamin A; Future - Magnesium; Future Wellness form reviewed in detail with the patient. Encouraged patient to stay up to date on immunizations and preventative testing. Encouraged healthy diet, stay active. Will continue with yearly wellness exams. Benign essential hypertension (CMS/HCC) - CBC and differential - Comprehensive metabolic panel - Lipid panel Decrease amlodipine to 2.5 mg for the next week. If BP is stable, stop it. Will see if her intermittent swelling improves. None noted on exam today. Pt cannot tolerate water pills due to electrolyte abnormalities. Myalgia - Vitamin D 25 hydroxy Total - TSH W/REFLEX TO FT4 Will get fasting labs today. Other hemochromatosis (CMS/HCC) - CBC and differential - Iron + transferrin + TIBC Will get fasting labs today. Vitamin D deficiency - Vitamin D 25 hydroxy Total Will get fasting labs today. Other iron deficiency anemia - CBC and differential - Iron + transferrin + TIBC Will get fasting labs today. Anemia, unspecified type - CBC and differential - Iron + transferrin + TIBC Will get fasting labs today. Elevated ferritin - CBC and differential - Iron + transferrin + TIBC Will get fasting labs today. H/O gastric bypass - Comprehensive metabolic panel - Iron + transferrin + TIBC - Lipid panel - Vitamin D 25 hydroxy Total - TSH W/REFLEX TO FT4 - Vitamin B12; Future - Vitamin E; Future - Copper, serum; Future - Zinc; Future - Folate; Future - VITAMIN K; Future - Vitamin B1; Future - Vitamin A; Future - Magnesium; Future Pt is unable to follow up with her specialist for this condition. Routine yearly labs ordered for pt. She is doing well since the surgery. Weight is healthy. Hypokalemia - Comprehensive metabolic panel Will get fasting labs today. Malaise and fatigue - CBC and differential - Comprehensive metabolic panel - Iron + transferrin + TIBC - Vitamin D 25 hydroxy Total - TSH W/REFLEX TO FT4 Will get fasting labs today. Polycythemia vera - CBC and differential - Iron + transferrin + TIBC Will get fasting labs today. Seasonal allergic rhinitis due to pollen - CBC and differential Can take OTC allergy medication prn. Medullary sponge kidney - CBC and differential - Comprehensive metabolic panel Will recheck kidney function with today's labs. Varicose veins of both lower extremities, unspecified whether complicated Elevate legs when possible. She is unable to tolerate compression stockings. Edema of both lower legs Re-evaluate after Amlodipine discontinued. Chronic fatigue syndrome This is a chronic medical condition that is stable since last assessment. No changes in treatment are suggested at this time. Disturbance of skin sensation This is a chronic medical condition that is stable since last assessment. No changes in treatment are suggested at this time. Primary insomnia This is a chronic medical condition that is stable since last assessment. No changes in treatment are suggested at this time. Mild intermittent asthma without complication (CMS/HCC) This is a chronic medical condition that is stable since last assessment. No changes in treatment are suggested at this time. Paraesophageal hernia This is a chronic medical condition that is stable since last assessment. No changes in treatment are suggested at this time. Gastroesophageal reflux disease without esophagitis This is a chronic medical condition that is stable since last assessment. No changes in treatment are suggested at this time. Slow transit constipation This is a chronic medical condition that is stable since last assessment. No changes in treatment are suggested at this time. Fibromyalgia This is a chronic medical condition that is stable since last assessment. No changes in treatment are suggested at this time. PCOS (polycystic ovarian syndrome) The patient is seeing a medical staff services manager for this condition, treatment is deferred to that specialist. Correspondence from that specialist and any available testing were reviewed during today's visit. Positive EDMUND (antinuclear antibody) This is a chronic medical condition that is stable since last assessment. No changes in treatment are suggested at this time. Recurrent sinusitis This is a chronic medical condition that is stable since last assessment. No changes in treatment are suggested at this time. Adjustment disorder with anxiety (CMS/HCC) Medication choice and dosage is appropriate for patient's current medical conditions. Patient will continue to be required to be seen in our office at least every three months for monitoring. At eachfollow up visit I will reassess the patient's need for the medication. Patient is to have this medication prescribed only through this office. Failure to follow the rules and regulations will result in tapering and discontinuation of medications if applicable. Patient verbalized understanding. OARRS Report was reviewed for this patient. 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 Correspondence from that specialist and any available testing were reviewed during today's visit. Generalized anxiety disorder (CMS/HCC) This is a chronic medical condition that is stable since last assessment. No changes in treatment are suggested at this time. Attention or concentration deficit This is a chronic medical condition that is stable since last assessment. No changes in treatment are suggested at this time. Benign paroxysmal positional vertigo due to bilateral vestibular disorder This is a chronic medical condition that is stable since last assessment. No changes in treatment are suggested at this time. History of hysterectomy The patient is seeing a medical staff services manager for this condition, treatment is deferred to that specialist. Correspondence from that specialist and any available testing were reviewed during today's visit. Hypertrophy of nasal turbinates This is a chronic medical condition that is stable since last assessment. No changes in treatment are suggested at this time. Menopausal symptoms This is a chronic medical condition that is stable since last assessment. No changes in treatment are suggested at this time. Migraine without aura and without status migrainosus, not intractable (CMS/HCC) The patient is seeing a medical staff services manager for this condition, treatment is deferred to that specialist. Correspondence from that specialist and any available testing were reviewed during today's visit. Retention cyst of nasal cavity This is a chronic medical condition that is stable since last assessment. No changes in treatment are suggested at this time. Follow up in about 3 months (around 10/16/2024) for Medication Follow Up. documented in this encounterSaint Louis [facility] Science [id number] History of Present illness Narrative* Genesis Lee, HARMAN - 06/14/2024 8:30 AM EDT Reason for Appointment: Patient ID: Mandeep Spencer is a 43 y.o. female who presents for Well Women Visit Patient presents today for Annual Exam. MEDICATIONS Current Outpatient Medications Medication Instructions amLODIPine (NORVASC) 5 mg, Oral, Daily Atogepant (Qulipta) 60 MG tablet 1 tablet, Oral, Daily baclofen (Lioresal) 10 MG tablet 1 tablet, 3 times daily biotin 5 MG tablet 1 tablet, Daily cholecalciferol (VITAMIN D-3) 1,000 Units, Daily fexofenadine (Tatiana) 180 MG tablet 1 tablet, Every 24 hours furosemide (Lasix) 20 MG tablet 1 tablet, Every 24 hours LORazepam (ATIVAN) 1 mg, Oral, Every 12 hours Multiple Vitamin (multivitamin) capsule 1 capsule, Daily naltrexone (DEPADE) 4.5 mg, Daily omeprazole (PRILOSEC) 40 mg, Oral, Daily before breakfast Potassium Chloride 20 MEQ/15ML (10%) solution 20 mEq, Oral, 2 times daily topiramate 50 MG tablet 1 tablet, Oral, 2 times daily Ubrogepant (Ubrelvy) 100 MG tablet TAKE 1 TABLET BY MOUTH at the onset OF MIGRAINE *may repeat in 2(TWO) HOURS, no more than TWICE DAILY and 2 (TWO) days a week* ALLERGIES No Known Allergies PROBLEMS Active Ambulatory Problems Diagnosis Date Noted Acute recurrent maxillary sinusitis 08/29/2022 Adjustment disorder with anxiety (CMS/HCC) 08/29/2022 Anemia 08/29/2022 Anxiety 08/29/2022 Asthma 08/29/2022 Attention deficit disorder 08/29/2022 Atypical squamous cells of undetermined significance (ASCUS) on Papanicolaou smear of cervix 08/29/2022 Atypical squamous cells of undetermined significance on cytologic smear of vagina (ASC-US) 08/29/2022 Benign essential hypertension ([facility]) 08/29/2022 Bipolar affective disorder ([facility]) 08/29/2022 Chronic fatigue syndrome 08/29/2022 Dizziness 08/29/2022 Fibromyalgia 08/29/2022 Elevated blood-pressure reading without diagnosis of hypertension 08/29/2022 Gastroesophageal reflux disease 08/29/2022 Grief reaction 08/29/2022 Hemochromatosis 08/29/2022 History of hysterectomy 08/29/2022 Hypokalemia 08/29/2022 Iron deficiency anemia 08/29/2022 Medullary sponge kidney 08/29/2022 Menopausal symptoms 08/29/2022 Obstructive sleep apnea 08/29/2022 PCOS (polycystic ovarian syndrome) 08/29/2022 Polycythemia vera 08/29/2022 Primary insomnia 08/29/2022 Retention cyst of nasal cavity 08/29/2022 Recurrent sinusitis 08/29/2022 Seasonal allergic rhinitis 08/29/2022 Slow transit constipation 08/29/2022 Varicose veins of lower extremity 08/29/2022 Vitamin D deficiency 08/29/2022 H/O gastric bypass 08/30/2022 Androgen excess, 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 09/18/2009 Elevated ferritin 04/25/2023 HTN (hypertension) ([facility]) 04/25/2023 Hypertrophy of nasal turbinates 01/14/2016 Morbid obesity ([facility]) 09/08/2017 Paraesophageal hernia 09/08/2017 Positive EDMUND (antinuclear antibody) 04/25/2023 Urinary tract infection 04/25/2023 Pain in limb 07/27/2023 Disturbance of skin sensation 07/27/2023 Headache 07/27/2023 Insomnia, unspecified 07/27/2023 Anxiety disorder 07/27/2023 Migraine 07/27/2023 Malaise and fatigue 07/27/2023 BPPV (benign paroxysmal positional vertigo) 07/27/2023 Sleep disorder, nonorganic 07/27/2023 Migraine without aura and without status migrainosus, not intractable ([facility]) 07/27/2023 Myalgia 11/21/2023 Shortness of breath 11/21/2023 Resolved Ambulatory Problems Diagnosis Date Noted Menopausal syndrome 08/29/2022 Past Medical History: Diagnosis Date Allergic Allergic rhinitis Arthritis Atypical squamous cell changes of cervix undetermined significance favor benign Benign paroxysmal positional vertigo 07/28/2015 BMI 29.0-29.9,adult Depression screening Eczema Encounter for gynecological examination (general) (routine) without abnormal findings Fibromyalgia, primary Gastroesophageal reflux 01/12/2021 GERD (gastroesophageal reflux disease) GI bleed 08/17/2018 H/O abnormal cervical Papanicolaou smear H/O CT scan 01/10/2020 H/O CT scan 07/21/2020 Hypertension ([facility]) 10/31/2013 Menopause syndrome Mild acid reflux MRI of brain abnormal 08/01/2017 Personal history of medical treatment 07/08/2017 Personal history of medical treatment 08/07/2021 prolapsed rectocele, cystocele 2011 TIA (transient ischemic attack) UTI (urinary tract infection) Visual impairment HISTORY PAST MEDICAL HISTORY SOCIAL HISTORY Past Medical History: Diagnosis Date Allergic Allergic rhinitis Anemia Anxiety disorder 10/31/2013 Arthritis Atypical squamous cell changes of cervix undetermined significance favor benign Atypical squamous cells of undetermined significance on cytologic smear of vagina (ASC-US) Benign paroxysmal positional vertigo 07/28/2015 BMI 29.0-29.9,adult Depression screening Disturbance of skin sensation 11/22/2011 Eczema Encounter for gynecological examination (general) (routine) without abnormal findings Fibromyalgia, primary Gastroesophageal reflux 01/12/2021 Spontaneous gastroesophageal reflux to the level of the midesophagus GERD (gastroesophageal reflux disease) GI bleed 08/17/2018 H/O abnormal cervical Papanicolaou smear H/O CT scan 01/10/2020 CT scan of Abdomen and Pelvis: Bilateral medullary Kidney Disease. H/O CT scan 07/21/2020 CT scan No suspicious enhancing hepatic mass, multiple B/L renal Cysts Headache 01/03/2014 Hypertension (CMS/HCC) 10/31/2013 Insomnia, unspecified 10/31/2013 Malaise and fatigue 10/31/2013 Medullary sponge kidney Menopause syndrome Migraine 10/31/2013 Mild acid reflux MRI of brain abnormal 08/01/2017 except for slightly enlarged pituitary fossa Pain in limb 11/22/2011 Personal history of medical treatment 07/08/[address] Emptying Study Dr. 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 TIA (transient ischemic attack) UTI (urinary tract infection) Visual impairment Social History Tobacco Use Smoking status: Former Types: Cigarettes Smokeless tobacco: Never Substance Use Topics Alcohol use: Never Comment: Caffeine intake: soda and eta Drug use: Never FAMILY HISTORY Family History Problem Relation Name Age of Onset No Known Problems Mother Hypertension Father Ej shetzer Stroke Father Ej andersontzer Arthritis Father Ej andersontzer Diabetes Maternal Grandmother Araceli andersonbruna Arthritis Maternal Grandmother Araceli andersonbruna Vision loss Maternal Grandmother Araceli andersonbruna Stroke Paternal Grandmother Araceli Bone cancer Paternal Grandfather Natalio Stroke Paternal Grandfather Natalio Cancer Paternal Grandfather Natalio Accidental Son Chintan Seizures Maternal Grandfather Natalio andersontzer SURGICAL HISTORY Past Surgical History: Procedure Laterality Date ADENOIDECTOMY 2012 APPENDECTOMY BLADDER REPAIR 2012 prolapsed rectocele and cystocele CHOLECYSTECTOMY 2012 COLONOSCOPY 08/27/2018 ESOPHAGOGASTRODUODENOSCOPY 08/27/2018 ESOPHAGOGASTRODUODENOSCOPY 12/07/2018 GASTRIC BYPASS 01/23/2018 HERNIA REPAIR 2002 HYSTERECTOMY KNEE ARTHROSCOPY W/ DEBRIDEMENT 2007 SEPTOPLASTY 02/08/2012 SINUS SURGERY 01/02/2016 cyst removal TONSILLECTOMY REVIEW OF SYSTEMS Review of Systems: Review of Systems Constitutional: Negative. HENT: Negative. Eyes: Negative. Respiratory: Negative. Cardiovascular: Negative. Gastrointestinal: Negative. Genitourinary: Negative. Musculoskeletal: Negative. Skin: Negative. Neurological: Negative. All other systems reviewed and are negative. Hematological: Negative. Endocrine: Negative. Allergic/Immunologic: Negative. OBJECTIVE Objective: Physical Exam Constitutional: Appearance: Normal appearance. She is well-developed. Genitourinary: Vulva normal. Vaginal cuff intact. Right Adnexa: not tender and no mass present. Left Adnexa: not tender and no mass present. Cervix is absent. No cervical discharge. Uterus is absent. Breasts: Breasts are soft. Right: Normal. Left: Normal. HENT: Head: Normocephalic. Nose: Nose normal. Mouth/Throat: Mouth: Mucous membranes are moist. Cardiovascular: Rate and Rhythm: Normal rate and regular rhythm. Pulmonary: Effort: Pulmonary effort is normal. Abdominal: General: Bowel sounds are normal. There is no distension. Palpations: Abdomen is soft. Tenderness: There is no abdominal tenderness. There is no guarding or rebound. Musculoskeletal: General: No swelling. Normal range of motion. Cervical back: Normal range of motion. Right lower leg: No edema. Left lower leg: No edema. Neurological: General: No focal deficit present. Mental Status: She is alert and oriented to person, place, and time. Skin: General: Skin is warm and dry. Psychiatric: Mood and Affect: Mood normal. Behavior: Behavior normal. Vitals and nursing note reviewed. Exam conducted with a independent jeweler present. Vitals: Estimated body mass index is 23.31 kg/m as calculated from the following: Height as of 05/22/24: 5' 4 . Weight as of this encounter: 135 lb 12.8 oz. BP: 120/70 No LMP recorded. Patient has had a hysterectomy. ASSESSMENT & PLAN ICD-10-CM 1. Well woman exam with routine gynecological exam Z01.419 THIN PREP TIS PAP AND HR HPV DNA POCT urinalysis dipstick manually resulted 2. Breast cancer screening by mammogram Z12.31 Bilateral screening mammogram Bilateral screening mammogram Annual: Patient presents today for an annual exam. Patient states she is doing well and has no complaints. Pap was obtained without difficulty and patient given mammogram order to have scheduled/obtained.\ Orders Placed This Encounter Procedures Bilateral screening mammogram POCT urinalysis dipstick manually resulted Follow Up: Patient is to return in one year for annual unless needed otherwise. Documented by Genesis Lee LPN on behalf of: Pau Murillo PA-C documented in this encounterSaint Louis University Health Science [id number] History of Present illness Narrative* Richard Candelario, DO - 05/03/2024 2:00 PM EST Procedure - Therapeutic injection, Botulinum Toxin, Chronic Migraine Indication Chronic Migraine 43-year-old female with chronic migraines that have been responding well to Botox injections. Does meet criteria for chronic migraine with more than 15 headache days per month and more than 8 of which are migraine. They last more than 4 hours and are worse with exertion at migraine features. These have been under fairly good control with the use of the Botox in the combination of the medications.There was an issue with new insurance. Unfortunately with the help of staff we were able to get theapproval to day. She is now approved. We called her to get her in. She was fortunately was able to come in and get injected to continue control. The patient was counseled on the physiology of botulinum toxin and the risks and benefits of the injections. This was reviewed with the patient and included but not limited to bleeding, infection, dysphagia or weakness of the muscles. All questions were answered and they agreed to proceed with Botox injections. Identification The patient was positively identified by name and date of . Consent The procedure with risks and benefits was explained to the patient. The risks included but were notlimited to bleeding/bruising, weakness, ptosis, dysphagia, infection, and . Informed consent for the procedure was obtained and witnessed. All further questions were answered during this visit. Site Prep The areas to be injected were sterilized with 70% isopropanol alcohol. Lot # [id number] Exp: 06/2026 Dilution: 1:1 Procedure Procerus 10 units Hvac Engineering Technician, L 5 units Hvac Engineering Technician, R 5 units Frontalis, L 10+5 units Frontalis, R 10+5 units Temporalis, L 5+5+5+5 units Temporalis, R 5+5+5+5 units Occipitalis, L 5+5+10 units Occipitalis, R 5+5+10 units Paraspinalis cervicis, L 10+5 units Paraspinalis cervicis, R 10+5 units Trapezius, L 5+10+5 units Trapezius, L 5+10+5 units Other TOTAL UNITS INJECTED 200 WASTED 0 Disposition The patient tolerated the procedure well. Post-op care was discussed. The patient is aware that duration of action is ~ 90 days, and that delay in reinjection often results in recurrence of migraines Patient Instructions The patient was instructed to call or return for any excessive,weakness or any other unexpected symptoms. Assessment Chronic migraine without aura, intractable, without status migrainosus - G43.719 documented in this [facility]11-25-2024 Telephone encounter Note* Telephone Encounter - CHENTE BURNETTE - 02/06/2024 8:45 AM EST Patient called asking for a refill on her Lorazepam 1mg. To [facility] in [place] [facility] [id number] Miscellaneous Notes* Telephone Encounter - CHENTE BURNETTE - 02/06/2024 8:45 AM EST Patient called asking for a refill on her Lorazepam 1mg. To [facility] in [place] documented in this [facility]11-21-2024 History of Present illness Narrative* Richard Candelario DO - 02/02/2024 9:00 AM EST Procedure - Therapeutic injection, Botulinum Toxin, Chronic Migraine Indication Chronic Migraine 43-year-old female with chronic migraines that have been responding well to Botox injections. Does meet criteria for chronic migraine with more than 15 headache days per month and more than 8 of which are migraine. They last more than 4 hours and are worse with exertion at migraine features. These have been under fairly good control with the use of the Botox in the combination of the medications.Overall she is doing well but it does start to wear off this prior to next set of injections and she needs repeat injections. She was having more rheumatologic issues with some rashes and other things as they are trying to sort out. She can see Dr. Manning with a [facility] wellness for a functional medical doctor and see if they can sort anything out also. The patient was counseled on the physiology of botulinum toxin and the risks and benefits of the injections. This was reviewed with the patient and included but not limited to bleeding, infection, dysphagia or weakness of the muscles. All questions were answered and they agreed to proceed with Botox injections. Identification The patient was positively identified by name and date of . Consent The procedure with risks and benefits was explained to the patient. The risks included but were notlimited to bleeding/bruising, weakness, ptosis, dysphagia, infection, and . Informed consent for the procedure was obtained and witnessed. All further questions were answered during this visit. Site Prep The areas to be injected were sterilized with 70% isopropanol alcohol. Lot # [id number] Exp: 04/2026 Dilution: 1:1 Procedure Procerus 10 units Hvac Engineering Technician, L 5 units Hvac Engineering Technician, R 5 units Frontalis, L 10+5 units Frontalis, R 10+5 units Temporalis, L 5+5+5+5 units Temporalis, R 5+5+5+5 units Occipitalis, L 5+5+10 units Occipitalis, R 5+5+10 units Paraspinalis cervicis, L 10+5 units Paraspinalis cervicis, R 10+5 units Trapezius, L 5+10+5 units Trapezius, L 5+10+5 units Other TOTAL UNITS INJECTED 200 WASTED 0 Disposition The patient tolerated the procedure well. Post-op care was discussed. The patient is aware that duration of action is ~ 90 days, and that delay in reinjection often results in recurrence of migraines Patient Instructions The patient was instructed to call or return for any excessive,weakness or any other unexpected symptoms. Assessment Chronic migraine without aura, intractable, without status migrainosus - G43.719 documented in this encounterSaint Louis University Health Science [id number] History of Present illness Narrative* Maik Brock MD - 11/21/2023 8:35 AM EDTAssociated Problem(s): H/O gastric bypass Does do martini * Maik Brock MD - 11/21/2023 8:30 AM EDTAssociated Problem(s): Slow transit constipation Senokot S gets diarrhea after 2-3 days H/O Gastric bypass Did have large BM this weekend has some relief Consider Colonoscopy Last one was 40 years ago * Maik Brock MD - 11/21/2023 8:19 AM EDTAssociated Problem(s): HTN (hypertension) (CMS/HCC) Our specific goals, for your hypertension, is to keep your blood pressure less than 140/90, and theimportance of weight control. We made recommendations on how to control your blood pressure, and minimize your risk of these copmplications. We also discussed your current barriers to a healthy living and importance of healthy diet and exercise. Prior to your visit today we have reviewed your chart and formed a plan to assist with providing you the best possible care. We reviewed the possible complications of hypertension including, stroke, heart failure and kidney impairment. In addition, we discussed your medications, the importance of taking them as prescribed. DASH diet handouts * Maik Brock MD - 11/21/2023 8:00 AM EDT Images from the original note were not included. Subjective Patient ID: Mandeep Spencer is a 43 y.o. female who presents for Hypertension. Subjective Patient here for follow-up of elevated blood pressure. Cardiac symptoms: none. Patient denies: chest pain, claudication, dyspnea, orthopnea, palpitations, paroxysmal nocturnal dyspnea, syncope, and tachypnea. Pt has been having stomach issues with her bowels, she states she is having cramping ,she is drinking more water probiotics and eating fiber, she will take a laxative if needed Pt has a rash on her left arm so she started taking medrol pedro from dr donald Hypertension This is a chronic problem. The current episode started more than 1 year ago. The problem has been gradually improving since onset. The problem is controlled. Pertinent negatives include no anxiety, chest pain, headaches or palpitations. There are no associated agents to hypertension. There are no known risk factors for coronary artery disease. Past treatments include calcium channel blockers and diuretics. The current treatment provides significant improvement. There are no compliance problems.There is no history of angina, CAD/AR, CVA, heart failure, left ventricular hypertrophy, PVD or retinopathy. There is no history of chronic renal disease or renovascular disease. Current Outpatient Medications on File Prior to Visit Medication Sig Dispense Refill Qulipta 60 MG tablet Take 1 tablet by mouth Daily amLODIPine (Norvasc) 5 MG tablet TAKE 1 TABLET BY MOUTH DAILY 90 tablet 3 baclofen (Lioresal) 10 MG tablet Take 1 tablet by mouth in the morning and 1 tablet in the evening and 1 tablet before bedtime. biotin 5 MG tablet Take 1 tablet by mouth in the morning. cholecalciferol (Vitamin D-3) 25 MCG (1000 UT) capsule Take 1,000 Units by mouth in the morning. fexofenadine (Tatiana) 180 MG tablet Take 1 tablet by mouth 1 (one) time each day at the same time. furosemide (Lasix) 20 MG tablet Take 1 tablet by mouth 1 (one) time each day at the same time. LORazepam (Ativan) 1 MG tablet Take 1 tablet (1 mg) by mouth every 12 (twelve) hours 60 tablet 0 Multiple Vitamin (multivitamin) capsule Take 1 capsule by mouth 1 (one) time each day. 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 450 mL 11 topiramate 50 MG tablet TAKE 1 TABLET BY MOUTH TWICE DAILY 60 tablet 1 Ubrelvy 100 MG tablet TAKE 1 TABLET BY MOUTH at the onset OF MIGRAINE, may repeat in 2 (TWO) HOURS.no more than 2 (TWO) times a day and 2 (TWO) days a week 10 tablet 1 [DISCONTINUED] Atogepant (Qulipta) 30 MG tablet Take 60 mg by mouth Daily 30 tablet 4 [DISCONTINUED] estrogens, conjugated, (Premarin) 0.9 MG tablet Take 1 tablet (0.9 mg) by mouth Daily 30 tablet 11 No current facility-administered medications on file prior to visit. I have reviewed and reconciled the history and medication list with the patient today. No Known Allergies Social History Tobacco Use Smoking status: Former Types: Cigarettes Smokeless tobacco: Never Substance Use Topics Alcohol use: Never Comment: Caffeine intake: soda and eta Drug use: Never Family History Problem Relation Name Age of Onset No Known Problems Mother Hypertension Father Ej peterson Stroke Father Ej peterson Arthritis Father Ej peterson Diabetes Maternal Grandmother Araceli peterson Arthritis Maternal Grandmother Araceli peterson Vision loss Maternal Grandmother Arcaeli peterson Stroke Paternal Grandmother Araceli Bone cancer Paternal Grandfather Natalio Stroke Paternal Grandfather Natalio Cancer Paternal Grandfather Natalio Accidental Son Chintan Seizures Maternal Grandfather Natalio peterson Past Medical History: Diagnosis Date Allergic Allergic rhinitis Anemia Anxiety disorder 10/31/2013 Arthritis Atypical squamous cell changes of cervix undetermined significance favor benign Atypical squamous cells of undetermined significance on cytologic smear of vagina (ASC-US) Benign paroxysmal positional vertigo 07/28/2015 BMI 29.0-29.9,adult Depression screening Disturbance of skin sensation 11/22/2011 Eczema Encounter for gynecological examination (general) (routine) without abnormal findings Fibromyalgia, primary Gastroesophageal reflux 01/12/2021 Spontaneous gastroesophageal reflux to the level of the midesophagus GERD (gastroesophageal reflux disease) GI bleed 08/17/2018 H/O abnormal cervical Papanicolaou smear H/O CT scan 01/10/2020 CT scan of Abdomen and Pelvis: Bilateral medullary Kidney Disease. H/O CT scan 07/21/2020 CT scan No suspicious enhancing hepatic mass, multiple B/L renal Cysts Headache 01/03/2014 Hypertension (CMS/HCC) 10/31/2013 Insomnia, unspecified 10/31/2013 Malaise and fatigue 10/31/2013 Medullary sponge kidney Menopause syndrome Migraine (CMS/HCC) 10/31/2013 Mild acid reflux MRI of brain abnormal 08/01/2017 except for slightly enlarged pituitary fossa Pain in limb 11/22/2011 Personal history of medical treatment 07/08/2017 [address] G[address] Emptying Study Dr. 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 TIA (transient ischemic attack) UTI (urinary tract infection) Visual impairment Past Surgical History: Procedure Laterality Date ADENOIDECTOMY 2012 APPENDECTOMY BLADDER REPAIR 2012 prolapsed rectocele and cystocele CHOLECYSTECTOMY 2011 COLONOSCOPY 08/27/2018 ESOPHAGOGASTRODUODENOSCOPY 08/27/2018 ESOPHAGOGASTRODUODENOSCOPY 12/07/2018 GASTRIC BYPASS 01/23/2018 HERNIA REPAIR 2002 HYSTERECTOMY KNEE ARTHROSCOPY W/ DEBRIDEMENT 2007 SEPTOPLASTY 02/08/2012 SINUS SURGERY 01/02/2016 cyst removal TONSILLECTOMY Visit Vitals BP 118/86 Pulse 82 Ht 5' 4 Wt 147 lb SpO2 97% BMI 25.23 kg/m Smoking Status Former BSA 1.74 m Review of Systems Cardiovascular: Negative for chest pain and palpitations. Gastrointestinal: Positive for constipation. Negative for diarrhea. Neurological: Negative for headaches. Objective Physical Exam Assessment/Plan Problem List Items Addressed This Visit Slow transit constipation Senokot S gets diarrhea after 2-3 days H/O Gastric bypass Did have large BM this weekend has some relief H/O gastric bypass Does do martini HTN (hypertension) (CMS/[facility]) - Primary Our specific goals, for your hypertension, is to keep your blood pressure less than 140/90, and theimportance of weight control. We made recommendations on how to control your blood pressure, and minimize your risk of these copmplications. We also discussed your current barriers to a healthy living and importance of healthy diet and exercise. Prior to your visit today we have reviewed your chart and formed a plan to assist with providing you the best possible care. We reviewed the possible complications of hypertension including, stroke, heart failure and kidney impairment. In addition, we discussed your medications, the importance of taking them as prescribed. DASH diet handouts No follow-ups on file. documented in this encounterSaint Louis University Health Science [id number] History of Present illness Narrative* Richard Candelario DO - 11/03/2023 9:00 AM EDT Procedure - Therapeutic injection, Botulinum Toxin, Chronic Migraine Indication Chronic Migraine 43-year-old female with chronic migraines that have been responding well to Botox injections. She was Having more headaches so we added in Qulipta and the combination has been working very well for her. We will go ahead and get her a prescription for that. She is now under much better control. The injections are wearing off now that we get closer to the 3 month ej and she needs repeat injections today to keep control. Identification The patient was positively identified by name and date of . Consent The procedure with risks and benefits was explained to the patient. The risks included but were notlimited to bleeding/bruising, weakness, ptosis, dysphagia, infection, and . Informed consent for the procedure was obtained and witnessed. All further questions were answered during this visit. Site Prep The areas to be injected were sterilized with 70% isopropanol alcohol. Lot # [id number] Exp: 02/2026 Dilution: 1:1 Procedure Procerus 10 units Hvac Engineering Technician, L 5 units Hvac Engineering Technician, R 5 units Frontalis, L 10+5 units Frontalis, R 10+5 units Temporalis, L 5+5+5+5 units Temporalis, R 5+5+5+5 units Occipitalis, L 5+5+10 units Occipitalis, R 5+5+10 units Paraspinalis cervicis, L 10+5 units Paraspinalis cervicis, R 10+5 units Trapezius, L 5+10+5 units Trapezius, L 5+10+5 units Other TOTAL UNITS INJECTED 200 WASTED 0 Disposition The patient tolerated the procedure well. Post-op care was discussed. The patient is aware that duration of action is ~ 90 days, and that delay in reinjection often results in recurrence of migraines Patient Instructions The patient was instructed to call or return for any excessive,weakness or any other unexpected symptoms. Assessment Chronic migraine without aura, intractable, without status migrainosus - G43.719 documented in this encounterSaint Louis University Health Science [id number] NoteHNO ID: [id number] Author: KASEY PRICE DO Service: ? Author Type: Physician Type: Progress Notes Filed: 08/15/2023 16:35 Note Text: BMI Obesity Medicine Follow-Up Note August 15, 2023 Patient Summary: is 43 year old female who presents for follow-up evaluation of her obesity and related complications to the [facility] [place]. Date of Surgery: 01/23/2018 Surgeon: Kate Cardenas MD Surgical Procedure: LAPAROSCOPIC GASTRIC RESTRICTIVE SURG W/ BYPASS AND GURINDER-EN-Y 150CM OR LESS Pre-surgical weight: 100.5 kg (229 lb) Last visit weight: 159 lbs Assessement/plan from last visit (01/19/22): -Begin flagyl 500 mg twice a day x 2 weeks. -Should regularly use a probiotic and take diflucan x 1 after completing flagyl. -Reviewed recent labs that are normal. -Recommend beginning bariatric [facility] without iron and take with calcium citrate. -If no improvement on flagyl or has recurrent symptoms, consider an EGD as the previous EGD revealed erosions. She has well controlled GERD on the current dose of prilosec. HPI:Since last visit she has not had any major issues to include dysphagia, abdominal pain, diarrhea, or heartburn. She continues to take Prilosec which is controlling her reflux. She had recent labs done at an outside facility. CBC, iron studies, vitamin D, CMP, and B12 levels were normal. She did have a ferritin level which is 431. The vitamin D level was 75.6, iron was 61, TIBC was 271, and the transferrin saturation was 23. She did not have a thiamine, folate, copper, zinc, vitamin A, vitamin D and K levels drawn. Cannot take most vitamins as they make her vomit and sick to her stomach. She is on one zinc, copper, and selenium one daily. Also takes vitamin D3 56108 units + K2 daily 1 daily, and a that contains vitamin A, D, E, niacin, folate, B12, biotin, zinc, and copper. She is currently not on calcium citrate and none of the current vitamins have iron. She had an iron infusion several years ago. I initially started her on topiramate for weight loss, her neurologist is in the process of increasing by another 50 mg for total of 50 mg in the morning and 100 mg in the evening. She has no side effects from the topiramate. Anti-obesity medication: none Dietary changes: Has been including protein with all meals, has intolerances to sugar, lactose, yogart, milk which can cause low blood sugars. Unable to overeat, normal, fullness Exercise: active in general Stress: stable Sleep: Weight graph: PAST MEDICAL HISTORY Diagnosis Date Anxiety Diverticulosis GERD (gastroesophageal reflux disease) HTN (hypertension) age 21 Obesity PCOS (polycystic ovarian syndrome) age 19's Current Outpatient Medications Medication Sig Dispense Refill PREMARIN 0.9 mg tablet Take 0.9 mg by mouth once daily. vitamin D3-folic acid 250 mcg (10,000 unit)-1 mg tab Take 1 tablet by mouth once daily. fexofenadine (TATIANA) 180 mg tablet Take 1 tablet by mouth once daily. baclofen 10 mg tablet Take 1 tablet by mouth. Magnesium Oxide 500 mg magnesium tab Take 1 tablet by mouth once daily. Zinc Gluconate 50 mg tablet Take 50 mg by mouth once daily. Copper PROGESTERONE, BULK, MISC 20 mg per day, 1 pump per day Ljkeb-7-CNY-EPA-Fish Oil (FISH OIL) 1,000 mg (120 mg-180 mg) cap Take 2 g by mouth two times a day. ASHWAGANDHA EXTRACT ORAL Take by mouth once daily. VITAL HERBAL BRAND, 7050 MG DAILY vitamin D3-folic acid 250 mcg (10,000 unit)-1 mg tab Take 1 tablet by mouth once daily. naltrexone 4.5 mg cap Take 1 capsule by mouth two times a day. omeprazole (PRILOSEC) 40 mg capsule Take 1 capsule by mouth twice daily before meals. 30 min before breakfast and dinner. Open capsule and take with small amount of yogurt 180 capsule 3 amLODIPine (NORVASC) 5 mg tablet Take 1 tablet by mouth. topiramate (TOPAMAX) 50 mg tablet Take 1 tablet by mouth twice daily. 60 tablet 5 calcium citrate/vitamin D3 (CITRACAL + D ORAL) Take by mouth once daily. UBRELVY 100 mg tablet TAKE 1 TABLET at onset of migraine, may repeat in 2 HOURS but no more than 2 times per day or 2 times per week biotin 1,000 mcg chew Take 1 tablet by mouth once daily. (Patient taking differently: Take 1 tablet by mouth once daily. Phyllis brand) 30 tablet 11 LORazepam (ATIVAN) 0.5 mg tab Take 1 mg by mouth as needed. Take 1 tab twice daily as needed. montelukast (SINGULAIR) 10 mg tablet Take 10 mg by mouth once daily. fluconazole (DIFLUCAN) 150 mg tablet TAKE 1 TABLET BY MOUTH as a one time dose 1 tablet 1 baclofen (LIORESAL) 10 mg tablet Take 10 mg by mouth once daily. (Patient not taking: Reported on 08/15/2023) vitamin B complex (B COMPLEX-VITAMIN B12 ORAL) Take by mouth once daily. (Patient not taking: Reported on 08/15/2023) FUROSEMIDE ORAL Take by mouth once daily. (Patient not taking: Reported on 08/15/2023) linaclotide (LINZESS) 145 mcg capsule Take 1 capsule by mouth o (more content not included)...[facility]06-03-2024 History of Present illness Narrative* Kasey Price, DO - 08/15/2023 3:39 PM EDT Images from the original note were not included. BMI Obesity Medicine Follow-Up Note August 15, 2023 Patient Summary: is 43 year old female who presents for follow-up evaluation of her obesity and related complications to the [facility] [place]. Date of Surgery: 01/23/2018 Surgeon: Kate Cardenas MD Surgical Procedure: LAPAROSCOPIC GASTRIC RESTRICTIVE SURG W/ BYPASS & GURINDER-EN-Y 150CM OR LESS Pre-surgical weight: 100.5 kg (229 lb) Last visit weight: 159 lbs Assessement/plan from last visit (01/19/22): -Begin flagyl 500 mg twice a day x 2 weeks. -Should regularly use a probiotic and take diflucan x 1 after completing flagyl. -Reviewed recent labs that are normal. -Recommend beginning bariatric [facility] without iron and take with calcium citrate. -If no improvement on flagyl or has recurrent symptoms, consider an EGD as the previous EGD revealed erosions. She has well controlled GERD on the current dose of prilosec. HPI:Since last visit she has not had any major issues to include dysphagia, abdominal pain, diarrhea, or heartburn. She continues to take Prilosec which is controlling her reflux. She had recent labsdone at an outside facility. CBC, iron studies, vitamin D, CMP, and B12 levels were normal. She didhave a ferritin level which is 431. The vitamin D level was 75.6, iron was 61, TIBC was 271, and the transferrin saturation was 23. She did not have a thiamine, folate, copper, zinc, vitamin A, vitamin D and K levels drawn. Cannot take most vitamins as they make her vomit and sick to her stomach. She is on one zinc, copper, and selenium one daily. Also takes vitamin D3 87295 units + K2 daily 1 daily, and a that contains vitamin A, D, E, niacin, folate, B12, biotin, zinc, and copper. She is currently not on calcium citrate and none of the current vitamins have iron. She had an iron infusion several years ago. I initially started her on topiramate for weight loss, her neurologist is in the process of increasing by another 50 mg for total of 50 mg in the morning and 100 mg in the evening. She has no side effects from the topiramate. Anti-obesity medication: none Dietary changes: Has been including protein with all meals, has intolerances to sugar, lactose, yogart, milk which can cause low blood sugars. Unable to overeat, normal, fullness Exercise: active in general Stress: stable Sleep: Weight graph: PAST MEDICAL HISTORY Diagnosis Date Anxiety Diverticulosis GERD (gastroesophageal reflux disease) HTN (hypertension) age 21 Obesity PCOS (polycystic ovarian syndrome) age 19's Current Outpatient Medications Medication Sig Dispense Refill PREMARIN 0.9 mg tablet Take 0.9 mg by mouth once daily. vitamin D3-folic acid 250 mcg (10,000 unit)-1 mg tab Take 1 tablet by mouth once daily. fexofenadine (TATIANA) 180 mg tablet Take 1 tablet by mouth once daily. baclofen 10 mg tablet Take 1 tablet by mouth. Magnesium Oxide 500 mg magnesium tab Take 1 tablet by mouth once daily. Zinc Gluconate 50 mg tablet Take 50 mg by mouth once daily. Copper PROGESTERONE, BULK, MISC 20 mg per day, 1 pump per day Fvpmp-0-IMB-EPA-Fish Oil (FISH OIL) 1,000 mg (120 mg-180 mg) cap Take 2 g by mouth two times a day. ASHWAGANDHA EXTRACT ORAL Take by mouth once daily. VITAL HERBAL BRAND, 7050 MG DAILY vitamin D3-folic acid 250 mcg (10,000 unit)-1 mg tab Take 1 tablet by mouth once daily. naltrexone 4.5 mg cap Take 1 capsule by mouth two times a day. omeprazole (PRILOSEC) 40 mg capsule Take 1 capsule by mouth twice daily before meals. 30 min beforebreakfast and dinner. Open capsule and take with small amount of yogurt 180 capsule 3 amLODIPine (NORVASC) 5 mg tablet Take 1 tablet by mouth. topiramate (TOPAMAX) 50 mg tablet Take 1 tablet by mouth twice daily. 60 tablet 5 calcium citrate/vitamin D3 (CITRACAL + D ORAL) Take by mouth once daily. UBRELVY 100 mg tablet TAKE 1 TABLET at onset of migraine, may repeat in 2 HOURS but no more than 2 times per day or 2 times per week biotin 1,000 mcg chew Take 1 tablet by mouth once daily. (Patient taking differently: Take 1 tabletby mouth once daily. Phyllis brand) 30 tablet 11 LORazepam (ATIVAN) 0.5 mg tab Take 1 mg by mouth as needed. Take 1 tab twice daily as needed. montelukast (SINGULAIR) 10 mg tablet Take 10 mg by mouth once daily. fluconazole (DIFLUCAN) 150 mg tablet TAKE 1 TABLET BY MOUTH as a one time dose 1 tablet 1 baclofen (LIORESAL) 10 mg tablet Take 10 mg by mouth once daily. (Patient not taking: Reported on 08/15/2023) vitamin B complex (B COMPLEX-VITAMIN B12 ORAL) Take by mouth once daily. (Patient not taking: Reported on 08/15/2023) FUROSEMIDE ORAL Take by mouth once daily. (Patient not taking: Reported on 08/15/2023) linaclotide (LINZESS) 145 mcg capsule Take 1 capsule by mouth once daily. 30 capsule 11 topiramate (TOPAMAX) 50 mg tablet Take 1 tablet by mouth twice daily. 60 tablet 5 amlodipine besylate (AMLODIPINE ORAL) Take by mouth. (Patient not taking: Reported on 08/15/2023) TURMERIC ORAL Take by mouth. estradiol (ESTRACE) 1 mg tablet Take 1 mg by mouth once daily. fluticasone (FLONASE) 50 mcg/actuation nasal spray INSTILL 1 SPRAY IN EACH NOSTRIL DAILY (Patient not taking: Reported on 08/15/2023) cholecalciferol (VITAMIN D3) 2,000 unit tablet Take 1 tablet by mouth once daily. (Patient not taking: Reported on 08/15/2023) 30 tablet 11 No current facility-administered medications for this visit. Physical exam:BP 117/84 Pulse 83 Ht 161.3 cm (5' 3.5 ) Wt 69.9 kg (154 lb) LMP 08/26/2013 BMI 26.85 kg/m General Appearance: Well appearing, alert, in no acute distress, well-hydrated, well nourished. Respiratory: Lungs clear to auscultation. No wheezing, rhonchi, rales. Heart: RRR without murmur, gallop, or rubs. No ectopy Abdomen: Normal abdominal exam, Abdomen soft, non-tender. Bowel sounds normal. No masses, organomegaly Skin: exposed skin is warm, dry, intact Assessment/Plan: Mandeep Spencer is a 43 year old female with Overweight (Pre-obesity) who presents today for supervised weight loss follow-up. Total weight loss of 75 pounds or 33% of initial/highest body weight since the gastric bypass January 23, 2018. Patient has been successful with the personalized nutrition and physical activity plan we discussed last visit. Plan: -The patient will continue the current minerals and vitamins which seems to be effective in preventing any vitamin and mineral deficiencies based on recent lab test. She is unable to take most of thevitamins to include Centrum, bariatric capsules, etc. The patient is agreeable to beginning bariatric fusion calcium chews and take 2 daily. She is considering starting the bariatric fusion soft chewmultivitamin and if started on this option will take 2 daily. For now she prefers to stay on the same multivitamins and minerals and add the bariatric fusion calcium chews. -I will schedule vitamin and mineral levels that were not recently checked (see orders in epic). -Follow-up visit for management of above interventions in 6 months for the 6- year postop follow-up. I spent a total of 35 minutes on the date of the service which included [id number]-[id number] patient care, completing clinical documentation, obtaining and/or reviewing separately obtained history, performing a medically appropriate examination, counseling and educating the patient/family/caregiver, and ordering medications, tests, or procedures. Medical Decision Making: Medical Decision Making Level: 1 - N/A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 Take 1 tablet by mouth twice daily. 60 tablet 5 TURMERIC ORAL Take by mouth. Current Facility-Administered Medications Medication Dose Route Frequency Provider Last Rate Last Admin perflutren lipid microspheres 1.3 mL in NaCl (PF) 0.9% 10 mL injection (DEFINITY) INTRAVENOUS DIRECTED PRN Luci Terrazas MD sodium chloride 0.9 % (flush) 10 mL (BD POSIFLUSH) 10 mL INTRAVENOUS DIRECTED PRN Luci Terrazas MD Past medical, surgical and social history is reviewed and unchanged from prior visit. PHYSICAL EXAMINATION BP 114/77 Pulse 80 Ht 5' 4 (1.63m) Wt 159 lb (72.1kg) SpO2 95% LMP 08/26/2013 BMI 27.28 kg/(m^2). General Normal, healthy, cooperative, in no acute distress Able to interact well. Psych ORIENTATION: normal to time place, person and situation Mood/Affect: AFFECT AND MOOD: Normal Head/Neuro Normal size and shape Facial appearance normal Pulmonary respiratory effort normal Peripheral extremities normal, warm, no cyanosis,no clubbing, and no edema Skin abnormal lesions not visualized Motor patient seen sitting with Normal appearing strength and coordination Assessment ASSESSMENT AND PLAN # bloating # SIBO # pelvic floor dysfunction/ rectocele/ pelvic organ prolapse - unable to take miralax due to bloating - takes Dulcolax frequently at night, maybe some improvement. Has a BM every other day, depending on how much pressure built up in the bottom. - suppository does not work - IB idania caused too much reflux - has tried Gas-x, no improvement Plan: - try Linzess 145 mcg daily, may need to up or down-titrate, message me your response - we will wait for prior auth on rifaximin # GERD Symptoms of sour taste have improved, overall symptoms are improved with open capsule omeprazole twice a day. Still has bad breath. I spent a total of 30 minutes on the date of the service which included preparing to see the patient, [id number] patient care, completing clinical documentation, obtaining and/or reviewing separately obtained history, counseling and educating the patient/family/caregiver and ordering medications, tests, or procedures. Toshia Henriquez MD July 23, 2021 4:43 PM documented in this encounter[facility]05-[facility]22 Miscellaneous Notes* Telephone Encounter - Breanna Le - 07/17/2021 1:54 PM EDT Processed prior authorization for medication (Xifaxan 550 mg) thru Covermymeds. Awaiting for insurance's decision. Dx: GERD (K21.00) and Bloating (R14.0) documented in this encounterEast [facility]04-22-[facility]22 History and physical note * Abiola Swanson APRN.CLINICAL RESEARCH DIRECTOR - 07/03/2021 8:30 AM EDT PELVIC FLOOR COLON & RECTAL SURGERY Reason for visit: Review anorectal manometry and EMG results History of Present Illness: Mandeep Spencer is a 41 year old FEMALE who was seen at the request of Dr. Henriquez for anorectal manometry testing, rectal sensation testing and EMG recruitment. Ms. Spencer was referred for testing due to symptoms of straining to defecate. She states she always feel pressure in her rectum and lower abdominal area. She does not use medication she will not go. If she takes daily ducolax most of the time she can go every day a little bit.She tried Miralax, but the bloating was to much for her to continue. She is straining to go to the bathroom, and sit long times on the toilet. The consistency of the stool is solid/firm with normal amount. She will see mucus in her stool. She denies any increase in mucus and has actually seen decrease in it. She does feel hemorrhoids in her bottom but nothing larger, she has history of cystocele and rectocele in which that was repaired in 2011. She did do pelvic floor therapy after surgery. Shedenies any vaginal pressure or bulging. She is sometimes having urinary frequency which is normal for her and has been present for a long time. Prior hysterectomy: Yes Obstetric history: 3 Para 3 Vaginal delivery: 3 vaginal births. - Episiotomy: No - Tear: No - Forceps No Previous Testing Results include: Colonoscopy: Yes Date:08/29/2018 - random biopsies: Yes - polyps: Yes Manometry: today Defecography: No PAST MEDICAL HISTORY Diagnosis Date Anxiety Diverticulosis GERD (gastroesophageal reflux disease) HTN (hypertension) age 21 Obesity PCOS (polycystic ovarian syndrome) age 19's PAST SURGICAL HISTORY Procedure Laterality Date APPENDECTOMY CHOLECYSTECTOMY Cholecystectomy LAP GASTRIC BYPASS/GURINDER-EN-Y 01/23/2018 LAP. REPAIR PARAESOPHAGEAL HERNIA 01/23/2018 PAST SURGICAL HISTORY OF adenoids removed PAST SURGICAL HISTORY OF multiple ear surgeries s/p infections PAST SURGICAL HISTORY OF abscess oral PAST SURGICAL HISTORY OF hernia, multiple, lower abdomen PAST SURGICAL HISTORY OF right knee surgery, repair meniscal tear REPAIR UMBILICAL HERNIA RPR 1ST INGUN HRNA AGE 4 YRS/> REDUCIBLE Left Hernia repair, inguinal RPR 1ST INGUN HRNA AGE 4 YRS/> REDUCIBLE Right Hernia repair, inguinal TOT ABD HYST W/WO RMVL TUBE OVARY W/COLPURETHRXY Hysterectomy with MMK TUBAL LIGATION, VAGINAL SURGERY HX Current Outpatient Medications Medication Sig Dispense Refill topiramate (TOPAMAX) 50 mg tablet Take 1 tablet by mouth twice daily. 60 tablet 5 topiramate (TOPAMAX) 50 mg tablet Take 1 tablet by mouth twice daily. 60 tablet 5 omeprazole (PRILOSEC) 40 mg capsule Take 1 capsule by mouth twice daily before meals. 30 min beforebreakfast and dinner. Open capsule and take with small amount of yogurt 180 capsule 3 amlodipine besylate (AMLODIPINE ORAL) Take by mouth. TURMERIC ORAL Take by mouth. estradiol (ESTRACE) 1 mg tablet Take 1 mg by mouth once daily. fluticasone (FLONASE) 50 mcg/actuation nasal spray INSTILL 1 SPRAY IN EACH NOSTRIL DAILY UBRELVY 100 mg tablet TAKE 1 TABLET at onset of migraine, may repeat in 2 HOURS but no more than 2 times per day or 2 times per week cholecalciferol (VITAMIN D3) 2,000 unit tablet Take 1 tablet by mouth once daily. 30 tablet 11 biotin 1,000 mcg chew Take 1 tablet by mouth once daily. 30 tablet 11 LORazepam (ATIVAN) 0.5 mg tab Take 1 tab twice daily as needed. Current Facility-Administered Medications Medication Dose Route Frequency Provider Last Rate Last Admin perflutren lipid microspheres 1.3 mL in NaCl (PF) 0.9% 10 mL injection (DEFINITY) INTRAVENOUS DIRECTED PRN Luci Terrazas MD sodium chloride 0.9 % (flush) 10 mL (BD POSIFLUSH) 10 mL INTRAVENOUS DIRECTED PRN Luci Terrazas MD ALLERGIES No Known Allergies FAMILY HISTORY Problem Relation Age of Onset None Mother doesn't know mother Stroke Father TIAs Social History Tobacco Use Smoking status: Not on file Smokeless tobacco: Never Used Substance Use Topics Alcohol use: Not Currently Alcohol/week: 2.5 standard drinks Types: 1 Glasses of Wine (5oz) per week Comment: occasionally Drug use: No Physical Exam: There were no vitals filed for this visit. General Appearance: Well appearing, alert, in no acute distress, well-hydrated, well nourished. Anorectal: Perianal skin is intact. No erythema, induration or excoriation. No fissure, fistula or external hemorrhoids. Digital Rectal Exam: Anus: closed Resting tone: NORMAL Squeeze tone: NORMAL Valsalva: pelvic floor relaxation is Normal. Puborectalis: tender in Left anterior, Left posterior and Right posterior to palpation on valsalva Rectocele: Absent Full thickness rectal prolapse: No Assessment Anorectal Physiology tests reviewed at today's visit: Reason for testing: constipation, rectal/pelvic pressure and straining to defecate Ileoanal pouch: No Anorectal Manometry Testing: Strength: Anorectal manometry was performed. Average Pressure Interpretation Rest: 47 mmHg This is within normal range. Normal range is 35-50 mmHg. Squeeze: 80 mmHg This is within normal range. Normal range is 75 - 100 mmHg. There is minimal incremental change between resting and squeeze pressures which can indicate marginal pelvic floor movement with squeeze. Sensory: Sensation Volume First sensation : 15 mL / Normal Range: 40-80 mL First urge to defecate: 30 mL / Normal Range: 80-120 mL Maximum tolerable volume: 78 mL / Normal Range: 120-180 mL Recto-anal inhibitory reflex: Yes Balloon expulsion: No This exhibit hyperacute rectal sensation with at least 2/3 sensory tests. A recto-anal inhibitory reflex (RAIR) was present. This is a normal reflex. EMG Recruitment: EMG recruitment was performed. The patient shows a normal increase in activity with squeeze, and a appropriate decrease in activity with valsalva. This indicates normal pelvic floor movement, which can be indicative of normal pelvic floor coordination. Clinical correlation is necessary given the discrepancy in findings with balloon expulsion and EMG recruitment. Assessment and Plan: Mandeep Spencer is a 41 year old FEMALE who was referred for anorectal physiology testing due to symptoms of straining to defecate, incomplete evacuation and pelvic pressure. The testing that was performed today includes anorectal manometry, rectal sensory testing, balloon expulsion and EMG recruitment. These test results were reviewed with Mandeep Spencer and are listed above. Overall, these testsshow abnormal anal sphincter strength, hyperacute rectal sensation, and abnormal pelvic floor movement. Patient on exam and EMG was able to lengthen well, but was not able to expel balloon. It would be in best interest to get defecography due to surgical history as well as doing pelvic floor therapy as well. Recommendations for this include: 1. Stay hydrated by drinking at least 8 glasses of water per day. This will help to keep your bowelhabits more regular. 2. Continue taking your bowel regimen as prescribed. 3. Pelvic floor physical therapy. The goal of this therapy is to retrain the pelvic floor muscles to more appropriately relax and therefore improve evacuation of stool. Physical therapy is the most effective way to get the pelvic floor muscles moving and coordinating correctly. Pelvic floor PT was o rdered today, reviewed scheduling process with patient and how to find local therapists. 4. Schedule xray defecography to further assess internal pelvic organ prolapse. Defecography handout provided. 5. Follow up with your referring physician. A copy of your test results will be sent to this physician. Abiola Swanson APRN.CNP Pelvic Floor Colorectal Surgery I spent a total of 55 minutes on the date of the service which included preparing to see the patient, [id number] patient care, completing clinical documentation, obtaining and/or reviewing separately obtained history, performing a medically appropriate examination, counseling and educating the pat ient/family/caregiver, ordering medications, tests, or procedures and communicating results to the patient/family/caregiver. [facility]* Patient Instructions* Abiola Swanson APRN.CNP - 07/03/2021 8:27 AM EDT 1. Stay hydrated by drinking at least 8 glasses of water per day. This will help to keep your bowelhabits more regular. 2. Continue taking your bowel regimen as prescribed. 3. Pelvic floor physical therapy. The goal of this therapy is to retrain the pelvic floor muscles to more appropriately relax and therefore improve evacuation of stool. Physical therapy is the most effective way to get the pelvic floor muscles moving and coordinating correctly. Pelvic floor PT was o rdered today, reviewed scheduling process with patient and how to find local therapists. 4. Schedule xray defecography to further assess internal pelvic organ prolapse. Defecography handout provided. 5. Follow up with your referring physician. A copy of your test results will be sent to this physician. [facility] Miscellaneous Notes* Telephone Encounter - Kasey Price DO - 06/19/2021 6:42 AM EDT The following approved medication requests have been transmitted electronically. Signed Prescriptions Disp Refills topiramate (TOPAMAX) 50 mg tablet 60 tablet 5 Sig: Take 1 tablet by mouth twice daily. TRENT: No Kasey Price DO [facility] Miscellaneous Notes* Telephone Encounter - Kasey Price DO - 06/18/2021 6:02 PM EDT The following approved medication requests have been transmitted electronically. Signed Prescriptions Disp Refills topiramate (TOPAMAX) 50 mg tablet 60 tablet 5 Sig: Take 1 tablet by mouth twice daily. TRENT: No Authorizing Provider: KASEY PRICE DO documented [facility] History of Past illness Narrative* ProblemNoted DateResolved DateGI bleedPre-op [id number] Overview: Added automatically from request for surgery [id number] Major depressive gsleyhuk33Depression06/19/2015documented as of this encounter (statuses as of 06/19/2021) [facility] of Past illness Narrative* ProblemNoted Date Resolved DateGI bleedPre-op lyskvrgxoch49/08/2018 01/25/2018 Overview: Added automatically from request for surgery [id number] Major depressive smfrmyoe17/2186Bweplzficw29/07/2016documented as of this encounter (statuses as of 06/19/2021) [facility] Narrative* ProblemNoted Date Resolved DateGI bleedPre-op avcjezlwvod86/08/2018 01/25/2018 Overview: Added automatically from request for surgery [id number] Major depressive rbazvnfc59Depression06/19/2015documented as of this encounter (statuses as of 07/03/2021) [facility] Narrative* ProblemNoted Date Resolved DateGI bleed06/Pre-op tfbmeqacfhx92/08/2018 01/25/2018 Overview: Added automatically from request for surgery [id number] Major depressive /9310Akwloqvqoo67/07/2016documented as of this encounter (statuses as of 07/31/2021) [facility] illness Narrative* ProblemNoted Date Resolved DateGI bleedPre-op enaodjgxots91/08/2018 01/25/2018 Overview: Added automatically from request for surgery [id number] Major depressive uhviuwly72/5014Omfemsqqkg56/07/2016documented as of this encounter (statuses as of 08/01/2021) [facility] of [facility] illness Narrative* ProblemNoted Date Resolved DateGI bleedPre-op jvpooarlgbo90/08/2018 01/25/2018 Overview: Added automatically from request for surgery [id number] Major depressive /4569Xsebavjvoa50/07/2016documented as of this encounter (statuses as of 08/07/2021) [facility] Narrative* ProblemNoted Date Resolved DateGI bleedPre-op pdtdnaflbiy66/08/2018 01/25/2018 Overview: Added automatically from request for surgery [id number] Major depressive /1122Ehjkeywwwp07/2015documented as of this encounter (statuses as of 08/11/2021) [facility] illness Narrative* ProblemNoted Date Resolved DateGI bleedPre-op udpszeyvjjg29/08/2018 01/25/2018 Overview: Added automatically from request for surgery [id number] Major depressive ukgfvpuc16Depression06/19/2015documented as of this encounter (statuses as of 08/14/2021) [facility] Narrative* ProblemNoted Date Resolved DateGI bleedPre-op yodawxpmxiq37/08/2018 01/25/2018 Overview: Added automatically from request for surgery [id number] Major depressive wopfppko89/7548Hienuyperx34/07/2016documented as of this encounter (statuses as of 09/15/2021) [facility] Narrative* ProblemNoted Date Resolved DateGI bleedPre-op kcpeiveprrf94/08/2018 01/25/2018 Overview: Added automatically from request for surgery [id number] Major depressive ftgzoyzf34Depression06/19/2015documented as of this encounter (statuses as of 10/12/2021) [facility] Narrative* ProblemNoted Date Resolved DateGI bleedPre-op rrgtukkdcxm18/08/2018 01/25/2018 Overview: Added automatically from request for surgery [id number] Major depressive eajtfoxo85Depression06/19/2015documented as of this encounter (statuses as of 12/24/2021) [facility] Narrative* ProblemNoted Date Resolved DateGI bleedPre-op ocgdliwiplz43/08/2018 01/25/2018 Overview: Added automatically from request for surgery [id number] Major depressive yoyzupiy51/4014Nupgjjvcvf86/07/2016documented as of this encounter (statuses as of 01/20/2022) [facility] Narrative* ProblemNoted Date Resolved DateGI bleedPre-op /08/2018 01/25/2018 Overview: Added automatically from request for surgery [id number] Major depressive rczxgctw99Depression06/19/2015documented as of this encounter (statuses as of 02/23/2022) [facility] of [facility] Narrative* ProblemNoted Date Diagnosed DateResolved DateGI bleedPre-op examination Overview: Added automatically from request for surgery [id number] Major depressive qdnsqqnv64Depression06/19/2015documented as of this encounter (statuses as of 11/08/2022) [facility] Diagnosis Pelvic floor dysfunction in female- Primary [facility]* Diagnosis Bloating- Primary Flatulence, eructation, and gas pain documented in this encounter [facility]* Diagnosis Pelvic floor dysfunction in female [facility]* Diagnosis Constipation, unspecified constipation type- Primary [facility]* Diagnosis Primary hypertension- Primary Unspecified essential hypertension documented in this encounter [facility] note* Diagnosis Weight gain following gastric bypass surgery- Primary [facility]* Diagnosis Gastroesophageal reflux disease with esophagitis without hemorrhage Pelvic floor dysfunction Pelvic muscle wasting [facility]* Diagnosis Onset Date Resolution Status Elevated ferritin acuteFatigueacuteFibromyalgiaacuteHistory of gastric bypassacuteMedullary sponge kidneyacutePCOS (polycystic ovarian syndrome)acutePositive EDMUND (antinuclear antibody)acute [facility] Work Phone: Evaluation noteNo assessment information available [facility] Work Phone: Evaluation note* Diagnosis Weight gain following gastric bypass surgery- Primary [facility]* Diagnosis Anxiety Anxiety state, unspecified [facility] Recurrent sinusitis- Primary Unspecified sinusitis (chronic) Elevated blood-pressure reading without diagnosis of hypertension Elevated blood pressure reading without diagnosis of hypertension Benign essential hypertension (CMS/HCC)- Primary Essential hypertension, benign Adjustment disorder with anxiety (CMS/HCC) Adjustment disorder with anxiety Other iron deficiency anemia Vitamin D deficiency Other hemochromatosis (CMS/HCC) Other hemochromatosis History of gastric bypass Primary hypertension (CMS/HCC)- Primary Unspecified essential hypertension H/O gastric bypass Slow transit constipation Intractable chronic migraine without aura and without status migrainosus (CMS/HCC)- Primary [facility] Diagnosis Recurrent sinusitis- Primary Unspecified sinusitis (chronic) Elevated blood-pressure reading without diagnosis of hypertension Elevated blood pressure reading without diagnosis of hypertension Benign essential hypertension (CMS/HCC)- Primary Essential hypertension, benign Adjustment disorder with anxiety (CMS/HCC) Adjustment disorder with anxiety Other iron deficiency anemia Vitamin D deficiency Other hemochromatosis (CMS/HCC) Other hemochromatosis History of gastric bypass Primary hypertension (CMS/HCC)- Primary Unspecified essential hypertension H/O gastric bypass Slow transit constipation Anxiety Anxiety state, unspecified [facility] Diagnosis Intractable chronic migraine without aura and without status migrainosus (CMS/HCC)- Primary [facility] Diagnosis Primary hypertension (CMS/HCC)- Primary Unspecified essential hypertension H/O gastric bypass Slow transit constipation [facility] Diagnosis Migraine without aura, not intractable, without status migrainosus (CMS/HCC) [facility] Diagnosis Recurrent sinusitis- Primary Unspecified sinusitis (chronic) Elevated blood-pressure reading without diagnosis of hypertension Elevated blood pressure reading without diagnosis of hypertension Benign essential hypertension (CMS/HCC)- Primary Essential hypertension, benign Adjustment disorder with anxiety (CMS/HCC) Adjustment disorder with anxiety Other iron deficiency anemia Vitamin D deficiency Other hemochromatosis (CMS/HCC) Other hemochromatosis History of gastric bypass Primary hypertension (CMS/HCC)- Primary Unspecified essential hypertension H/O gastric bypass Slow transit constipation Intractable chronic migraine without aura and without status migrainosus (CMS/HCC)- Primary [facility] Diagnosis Recurrent sinusitis- Primary Unspecified sinusitis (chronic) Elevated blood-pressure reading without diagnosis of hypertension Elevated blood pressure reading without diagnosis of hypertension Benign essential hypertension (CMS/HCC)- Primary Essential hypertension, benign Adjustment disorder with anxiety (CMS/HCC) Adjustment disorder with anxiety Other iron deficiency anemia Vitamin D deficiency Other hemochromatosis (CMS/HCC) Other hemochromatosis History of gastric bypass Primary hypertension (CMS/HCC)- Primary Unspecified essential hypertension H/O gastric bypass Slow transit constipation Anxiety Anxiety state, unspecified [facility] Diagnosis Recurrent sinusitis- Primary Unspecified sinusitis (chronic) Elevated blood-pressure reading without diagnosis of hypertension Elevated blood pressure reading without diagnosis of hypertension Benign essential hypertension (CMS/HCC)- Primary Essential hypertension, benign Adjustment disorder with anxiety (CMS/HCC) Adjustment disorder with anxiety Other iron deficiency anemia Vitamin D deficiency Other hemochromatosis (CMS/HCC) Other hemochromatosis History of gastric bypass Primary hypertension (CMS/HCC)- Primary Unspecified essential hypertension H/O gastric bypass Slow transit constipation Well woman exam with routine gynecological exam Routine gynecological examination Breast cancer screening by mammogram [facility] Diagnosis Recurrent sinusitis- Primary Unspecified sinusitis (chronic) Elevated blood-pressure reading without diagnosis of hypertension Elevated blood pressure reading without diagnosis of hypertension Benign essential hypertension (CMS/HCC)- Primary Essential hypertension, benign Adjustment disorder with anxiety (CMS/HCC) Adjustment disorder with anxiety Other iron deficiency anemia Vitamin D deficiency Other hemochromatosis (CMS/HCC) Other hemochromatosis History of gastric bypass Primary hypertension (CMS/HCC)- Primary Unspecified essential hypertension H/O gastric bypass Slow transit constipation Wellness examination- Primary Benign essential hypertension (CMS/HCC) Essential hypertension, benign Myalgia Unspecified myalgia and myositis Other hemochromatosis (CMS/HCC) Other hemochromatosis Vitamin D deficiency Other iron deficiency anemia Anemia, unspecified type Elevated ferritin Other abnormal blood chemistry H/O gastric bypass Hypokalemia Hypopotassemia Malaise and fatigue Polycythemia vera Seasonal allergic rhinitis due to pollen Medullary sponge kidney Congenital medullary sponge kidney Varicose veins of both lower extremities, unspecified whether complicated Edema of both lower legs Chronic fatigue syndrome Disturbance of skin sensation Primary insomnia Persistent disorder of initiating or maintaining sleep Mild intermittent asthma without complication (CMS/HCC) Paraesophageal hernia Diaphragmatic hernia without mention of obstruction or gangrene Gastroesophageal reflux disease without esophagitis Esophageal reflux Slow transit constipation Fibromyalgia Unspecified myalgia and myositis PCOS (polycystic ovarian syndrome) Polycystic ovaries Positive EDMUND (antinuclear antibody) Other and unspecified nonspecific immunological findings Recurrent sinusitis Unspecified sinusitis (chronic) Adjustment disorder with anxiety (CMS/HCC) Adjustment disorder with anxiety Androgen excess, 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 Other specified endocrine disorders Generalized anxiety disorder (CMS/HCC) Generalized anxiety disorder Attention or concentration deficit Benign paroxysmal positional vertigo due to bilateral vestibular disorder History of hysterectomy Acquired absence of both cervix and uterus Hypertrophy of nasal turbinates Menopausal symptoms Symptomatic menopausal or female climacteric states Migraine without aura and without status migrainosus, not intractable (CMS/HCC) Retention cyst of nasal cavity Other diseases of nasal cavity and sinuses [facility] Diagnosis Recurrent sinusitis- Primary Unspecified sinusitis (chronic) Elevated blood-pressure reading without diagnosis of hypertension Elevated blood pressure reading without diagnosis of hypertension Benign essential hypertension (CMS/HCC)- Primary Essential hypertension, benign Adjustment disorder with anxiety (CMS/HCC) Adjustment disorder with anxiety Other iron deficiency anemia Vitamin D deficiency Other hemochromatosis (CMS/HCC) Other hemochromatosis History of gastric bypass Primary hypertension (CMS/HCC)- Primary Unspecified essential hypertension H/O gastric bypass Slow transit constipation Anxiety Anxiety state, unspecified [facility] Diagnosis Recurrent sinusitis- Primary Unspecified sinusitis (chronic) Elevated blood-pressure reading without diagnosis of hypertension Elevated blood pressure reading without diagnosis of hypertension Benign essential hypertension (CMS/HCC)- Primary Essential hypertension, benign Adjustment disorder with anxiety (CMS/HCC) Adjustment disorder with anxiety Other iron deficiency anemia Vitamin D deficiency Other hemochromatosis (CMS/HCC) Other hemochromatosis History of gastric bypass Primary hypertension (CMS/HCC)- Primary Unspecified essential hypertension H/O gastric bypass Slow transit constipation Acute cystitis with hematuria- Primary [facility] Diagnosis Recurrent sinusitis- Primary Unspecified sinusitis (chronic) Elevated blood-pressure reading without diagnosis of hypertension Elevated blood pressure reading without diagnosis of hypertension Benign essential hypertension (CMS/HCC)- Primary Essential hypertension, benign Adjustment disorder with anxiety (CMS/HCC) Adjustment disorder with anxiety Other iron deficiency anemia Vitamin D deficiency Other hemochromatosis (CMS/HCC) Other hemochromatosis History of gastric bypass Primary hypertension (CMS/HCC)- Primary Unspecified essential hypertension H/O gastric bypass Slow transit constipation Acute cystitis with hematuria- Primary Burning with urination Dysuria Gross hematuria [facility] Diagnosis Recurrent sinusitis- Primary Unspecified sinusitis (chronic) Elevated blood-pressure reading without diagnosis of hypertension Elevated blood pressure reading without diagnosis of hypertension Benign essential hypertension- Primary Essential hypertension, benign Adjustment disorder with anxiety Adjustment disorder with anxiety Other iron deficiency anemia Vitamin D deficiency Other hemochromatosis Other hemochromatosis History of gastric bypass Primary hypertension- Primary Unspecified essential hypertension H/O gastric bypass Slow transit constipation Acute cystitis with hematuria- Primary Burning with urination Dysuria Gross hematuria Anxiety Anxiety state, unspecified [facility] Diagnosis Recurrent sinusitis- Primary Unspecified sinusitis (chronic) Elevated blood-pressure reading without diagnosis of hypertension Elevated blood pressure reading without diagnosis of hypertension Benign essential hypertension- Primary Essential hypertension, benign Adjustment disorder with anxiety Adjustment disorder with anxiety Other iron deficiency anemia Vitamin D deficiency Other hemochromatosis Other hemochromatosis History of gastric bypass Primary hypertension- Primary Unspecified essential hypertension H/O gastric bypass Slow transit constipation Acute cystitis with hematuria- Primary Burning with urination Dysuria Gross hematuria Benign essential hypertension- Primary Essential hypertension, benign Generalized anxiety disorder Generalized anxiety disorder Bilateral lower extremity edema Varicose veins of both lower extremities, unspecified whether complicated Chronic fatigue syndrome Fibromyalgia Unspecified myalgia and myositis [facility] Diagnosis Recurrent sinusitis- Primary Unspecified sinusitis (chronic) Elevated blood-pressure reading without diagnosis of hypertension Elevated blood pressure reading without diagnosis of hypertension Benign essential hypertension- Primary Essential hypertension, benign Adjustment disorder with anxiety Adjustment disorder with anxiety Other iron deficiency anemia Vitamin D deficiency Other hemochromatosis Other hemochromatosis History of gastric bypass Primary hypertension- Primary Unspecified essential hypertension H/O gastric bypass Slow transit constipation Acute cystitis with hematuria- Primary Burning with urination Dysuria Gross hematuria Hormone imbalance H/O: hysterectomy Acquired absence of both cervix and uterus Vaginal odor Unspecified symptom associated with female genital organs Vaginal discharge Leukorrhea, not specified as infective Hair loss Unspecified alopecia Menopausal vaginal dryness Hormone disorder Unspecified endocrine disorder Postmenopausal atrophic vaginitis documented [facility] this [facility]* Diagnosis Recurrent sinusitis- Primary Unspecified sinusitis (chronic) Elevated blood-pressure reading without diagnosis of hypertension Elevated blood pressure reading without diagnosis of hypertension Benign essential hypertension- Primary Essential hypertension, benign Adjustment disorder with anxiety Other iron deficiency anemia Vitamin D deficiency Other hemochromatosis History of gastric bypass Primary hypertension- Primary Unspecified essential hypertension H/O gastric bypass Slow transit constipation Acute cystitis with hematuria- Primary Burning with urination Dysuria Gross hematuria Anxiety Anxiety state, unspecified documented in [facility]* Diagnosis Recurrent sinusitis- Primary Unspecified sinusitis (chronic) Elevated blood-pressure reading without diagnosis of hypertension Elevated blood pressure reading without diagnosis of hypertension Benign essential hypertension- Primary Essential hypertension, benign Adjustment disorder with anxiety Other iron deficiency anemia Vitamin D deficiency Other hemochromatosis History of gastric bypass Primary hypertension- Primary Unspecified essential hypertension H/O gastric bypass Slow transit constipation Acute cystitis with hematuria- Primary Burning with urination Dysuria Gross hematuria Encounter for medication review and counseling- Primary documented [facility] this [facility]* Diagnosis Onset Date Resolution Status Admit Date Chronic migraine without aura, intractab le, without status migrainosus acuteOctober 2024 8:22am [facility] Work Phone: Evaluation note* Diagnosis Recurrent sinusitis- Primary Unspecified sinusitis (chronic) Elevated blood-pressure reading without diagnosis of hypertension Elevated blood pressure reading without diagnosis of hypertension Benign essential hypertension- Primary Essential hypertension, benign Adjustment disorder with anxiety Other iron deficiency anemia Vitamin D deficiency Other hemochromatosis History of gastric bypass Primary hypertension- Primary Unspecified essential hypertension H/O gastric bypass Slow transit constipation Acute cystitis with hematuria- Primary Burning with urination Dysuria Gross hematuria Benign essential hypertension- Primary Essential hypertension, benign Generalized anxiety disorder Acute non-recurrent pansinusitis H/O gastric bypass documented [facility] this [facility] Narrative - Reported* Type Description Date Medical History hypertension Medical HistoryEsophageal refluxMedical Historypolycystic ovariesMedical History MEDULLARY SPONGE KIDNEYMedical HistoryGERD (gastroesophageal reflux disease) Medical HistoryMigrainesMedical HistoryPCOS (polycystic ovarian syndrome)Medical HistoryAnxietyMedical HistorySeasonal allergiesSurgical HistoryPET placement Surgical HistoryadnoidectomySurgical Historytubal ligationSurgical History cholecystectomySurgical Historyhernia repairSurgical Historyknee surgerySurgical HistoryappendectomySurgical Historymouth surgerySurgical Historyhysterectomy Surgical Historyexploratory laparotomySurgical HistorysinusSurgical History bariatric surgeryHospitalization Historysee above Autrement (HotelHotel) Other Hospital Discharge instructions Additional Instructions We evaluated you for your symptoms. Your workup here was overall unremarkable. Please follow close with your primary care doctor. Please return to the emergency department if you develop any worsening or concerning symptoms.[facility] Work Phone: Reason for referral (narrative)* Diagnostic Procedure Only (Routine) - ClosedSpecialtyDiagnoses / ProceduresReferred By Contact Referred To ContactXR IMAGING Diagnoses Pelvic floor dysfunction in female Procedures XR DEFECOGRAPHY RADIOLOGIC EXAM COLON SINGLE CONTRAST STUDY Abiola Swanson APRN.CNP [address] [place] [address] Xr Imaging Referral IDStatusReasonStart DateExpiration DateVisits RequestedVisits [id number] Auto-Generated Referral / [facility] for referral (narrative)* Diagnostic Procedure Only (Routine) - Pending ReviewSpecialtyDiagnoses / ProceduresReferred By Contact Referred To ContactXR IMAGING Diagnoses Constipation, unspecified constipation type Procedures XR COLONIC TRANSIT IMAGE 3 X-RAY ABD SINGLE AP VIEW Holli Mensah DO [address] [place] [address] Xr Imaging Referral IDStatusReasonStart DateExpiration DateVisits RequestedVisits [id number] Review Auto-Generated Referral / * Diagnostic Procedure Only (Routine) - Pending ReviewSpecialtyDiagnoses / ProceduresReferred By ContactReferred To ContactXR IMAGING Diagnoses Constipation, unspecified constipation type Procedures XR COLONIC TRANSIT IMAGE 2 X-RAY ABD SINGLE AP VIEW Holli Mensah DO [address] [place] [address] Xr Imaging Referral IDStatusReasonStart DateExpiration DateVisits RequestedVisits [id number] Review Auto-Generated Referral * Diagnostic Procedure Only (Routine) - Pending ReviewSpecialtyDiagnoses / ProceduresReferred By ContactReferred To ContactXR IMAGING Diagnoses Constipation, unspecified constipation type Procedures XR COLONIC TRANSIT IMAGE 1 X-RAY ABD SINGLE AP VIEW Holli Mensah DO [address] [place] [address] Xr Imaging Referral IDStatusReasonStart DateExpiration DateVisits RequestedVisits [id number] Review Auto-Generated Referral [facility] for referral (narrative)No reason for referral information availableSt. Mary'[facility] Work Phone: Summary Purpose Family History Relationship Condition Age at Onset Recorded Date/T mitchel father Cerebrovascular accident (CVA) Unknown HypertensionUnknowngrandparentMalignant neoplasmUnknown Relationship Condition Age at Onset Recorded Date/T mitchel father Cerebrovascular accident (CVA) Unknown HypertensionUnknowngrandparentMalignant neoplasmUnknownfatherCardiac arrest UnknownHeart diseaseUnknown Advance Directives TypeDate RecordedPatient RepresentativeExplanationAdvance Directive(s)01/02/2021 2:47 PMAdvance Directive(s)08/27/2018 10:45 AMAdvance Directive(s)01/23/2018 11:10 AMTypeDate RecordedPatient RepresentativeExplanationAdvance Directive(s) 01/02/2021 2:47 PMAdvance Directive(s)08/27/2018 10:45 AMAdvance Directive(s) 01/23/2018 11:10 AM Advance Directive Response Recorded Date/ Time Advance Directives No November 5:21pm Advance Directive Response Recorded Date/ Time Advance Directives No November 4:21pm Reason for Referral SpecialtyDiagnoses / ProceduresReferred By ContactReferred To ContactREHAB AND SPORTS THERAPY INS Diagnoses Pelvic floor dysfunction in female Procedures CONSULT TO PHYSICAL THERAPY PHYSICAL THERAPY EVALUATION HIGH COMPLEX 45 MINS Abiola Swanson APRN.CLINICAL RESEARCH DIRECTOR [address] [place] [address] [facility] [place] [address] [place] [id number] Referral IDStatusReasonStart DateExpiration DateVisits RequestedVisits [id number] Review Auto-Generated Referral [id number] / ProceduresReferred By ContactReferred To ContactXR IMAGING Diagnoses Pelvic floor dysfunction in female Procedures XR DEFECOGRAPHY RADIOLOGIC EXAM COLON SINGLE CONTRAST STUDY Abiola Swanson APRN.CLINICAL RESEARCH DIRECTOR [address] [place] [address] Xr Imaging Referral IDStatusReasonStart DateExpiration DateVisits RequestedVisits [id number] Auto-Generated Referral Chief Complaint and Reason for Visit Chief Complaint elevated ferritin Reason for Visit Elevated ferritin Fatigue Fibromyalgia History of gastric bypass Medullary sponge kidney PCOS (polycystic ovarian syndrome) Positive EDMUND (antinuclear antibody) Chief Complaint elevated ferritin Fibromyalgia, meds, OA frequent urinationReason for VisitElevated ferritin Fatigue Fibromyalgia History of gastric bypass Medullary sponge kidney PCOS (polycystic ovarian syndrome) Positive EDMUND (antinuclear antibody) Chief Complaint back pain Chief Complaint Admit Date Sinus congestion, headache March 26, 2024 9:10am Chief Complaint Admit Date BOTOX October 04, 2024 12:5 8pm Chief Complaint Admit Date BOTOX-- APPROVED # [id number] January 03, 2025 8:22am Reason for Visit Admit Date Chronic migraine without aur a, intractable, without status migrainosus January 03, 2025 8:22am Additional Source Comments INFORMATION SOURCE (unrecogn ized section and content) DATE CREATED AUTHOR 03/13/2019 [facility] DATE CREATED AUTHOR AUTHOR'S ORGANIZ ATION 01/12/2021 [facility] DATE CREATED AUTHOR AUTHOR'S ORGANIZ ATION 01/24/2021 [facility] DATE CREATED AUTHOR AUTHOR'S ORGANIZ ATION 06/20/2022 [facility] DATE CREATED AUTHOR AUTHOR'S ORGANIZ ATION 09/28/2023 [facility] DATE CREATED AUTHOR AUTHOR'S ORGANIZ ATION 10/30/2023 [facility] DATE CREATED AUTHOR AUTHOR'S ORGANIZ ATION 12/15/2024 [facility] DATE CREATED AUTHOR AUTHOR'S ORGANIZ ATION 01/19/2025 [facility] EPIC Source Comments (unrecognize d section and content) In the event this informatio n is protected by the Federal Confidentiality of Alcohol and Drug Abuse Patient Records regulations: The Federal rules restrict any use of the information to criminally investigate or prosecute any alcohol or drug abuse patient.[facility] HospitalIn the event this information is protected by the Federal Confidentiality of Alcohol and Drug Abuse Patient Records regulations: The Federal rules restrict any use of the information to criminally investigate or prosecute any alcohol or drug abuse patient.[facility] [place] [facility] HospitalIn the event this information is protected by the Federal Confidentiality of Alcohol and Drug Abuse Patient Records regulations: The Federal rules restrict any use of the information to criminally investigate or prosecute any alcohol or drug abuse patient.[facility] [place] [facility] HospitalIn the event this information is protected by the Federal Confidentiality of Alcohol and Drug Abuse Patient Records regulations: The Federal rules restrict any use of the information to criminally investigate or prosecute any alcohol or drug abuse patient.[facility] [place] [facility] HospitalIn the event this information is protected by the Federal Confidentiality of Alcohol and Drug Abuse Patient Records regulations: The Federal rules restrict any use of the information to criminally investigate or prosecute any alcohol or drug abuse patient.[facility] [place] [facility] HospitalIn the event this information is protected by the Federal Confidentiality of Alcohol and Drug Abuse Patient Records regulations: The Federal rules restrict any use of the information to criminally investigate or prosecute any alcohol or drug abuse patient.[facility] [place] [facility] HospitalIn the event this information is protected by the Federal Confidentiality of Alcohol and Drug Abuse Patient Records regulations: The Federal rules restrict any use of the information to criminally investigate or prosecute any alcohol or drug abuse patient.[facility] [place] [facility] HospitalIn the event this information is protected by the Federal Confidentiality of Alcohol and Drug Abuse Patient Records regulations: The Federal rules restrict any use of the information to criminally investigate or prosecute any alcohol or drug abuse patient.[facility] [place] [facility] HospitalIn the event this information is protected by the Federal Confidentiality of Alcohol and Drug Abuse Patient Records regulations: The Federal rules restrict any use of the information to criminally investigate or prosecute any alcohol or drug abuse patient.[facility] [place] [facility] HospitalIn the event this information is protected by the Federal Confidentiality of Alcohol and Drug Abuse Patient Records regulations: The Federal rules restrict any use of the information to criminally investigate or prosecute any alcohol or drug abuse patient.[facility] [place] [facility] HospitalIn the event this information is protected by the Federal Confidentiality of Alcohol and Drug Abuse Patient Records regulations: The Federal rules restrict any use of the information to criminally investigate or prosecute any alcohol or drug abuse patient.[facility] [place] [facility] HospitalIn the event this information is protected by the Federal Confidentiality of Alcohol and Drug Abuse Patient Records regulations: The Federal rules restrict any use of the information to criminally investigate or prosecute any alcohol or drug abuse patient.[facility] [place] [facility] HospitalIn the event this information is protected by the Federal Confidentiality of Alcohol and Drug Abuse Patient Records regulations: The Federal rules restrict any use of the information to criminally investigate or prosecute any alcohol or drug abuse patient.[facility] [place] [facility] HospitalIn the event this information is protected by the Federal Confidentiality of Alcohol and Drug Abuse Patient Records regulations: The Federal rules restrict any use of the information to criminally investigate or prosecute any alcohol or drug abuse patient.[facility] [place] [facility] HospitalIn the event this information is protected by the Federal Confidentiality of Alcohol and Drug Abuse Patient Records regulations: The Federal rules restrict any use of the information to criminally investigate or prosecute any alcohol or drug abuse patient.[facility] [place] [facility] HospitalIn the event this information is protected by the Federal Confidentiality of Alcohol and Drug Abuse Patient Records regulations: The Federal rules restrict any use of the information to criminally investigate or prosecute any alcohol or drug abuse patient.[facility] [place] [facility] HospitalIn the event this information is protected by the Federal Confidentiality of Alcohol and Drug Abuse Patient Records regulations: The Federal rules restrict any use of the information to criminally investigate or prosecute any alcohol or drug abuse patient.[facility] Care Teams (unrecognized sec tion and content) Team Status: Active Member Role Status Dates Maik Brock MD Primary Care Provider Active Team Status: Inactive Member Role Status Dates Maik Brock MD Primary Care Provider Active S tart: May 26, 2023 End: May 25lexJennifer Lemos ProviderActiveStart: May 26, 2023 End: May 26, 2023Team MemberRelationshipSpecialtyStart DateEnd Date Maik Brock [address] [facility] [address] [place] [address] PCP - GeneralFamily Practice09/24/14 Delilah Pleitez MD Gastroenterology08/31/17 Keyur Leiva, DO Primary Staff PhysicianNephrology04/09/21Te MemberRelationshipSpecialtyStart DateEnd Date Vinod Maik Mayberry [address] [place] [address] [place] [address] PCP - GeneralFamily Practice09/24/14 Delilah Pleitez MD Gastroenterology08/31/17 Keyur Leiva, DO Primary Staff PhysicianNephrology04/09/21Te MemberRelationshipSpecialtyStart DateEnd Date Vinod Maik Angely [address] [facility] [address] [place] [address] PCP - GeneralFamily Practice09/24/14 Delilah Pleitez MD Gastroenterology08/31/17 Keyur Leiva, Primary Staff PhysicianNephrology04/09/21Te MemberRelationshipSpecialtyStart DateEnd Date Vinod Maik Mayberry [address] [place] [address] [place] [address] PCP - GeneralFamily Practice09/24/14 Delilah Pleitez MD Gastroenterology08/31/17 Keyur Leiva DO Primary Staff PhysicianNephrology04/09/21Te MemberRelationshipSpecialtyStart DateEnd Date Vinod Maik Mabalay [address] [place] [address] [place] [address] PCP - GeneralFamily Practice09/24/14 Delilah Pleitez MD Gastroenterology08/31/17 Keyur Leiva, Primary Staff PhysicianNephrology04/09/21Te MemberRelationshipSpecialtyStart DateEnd Date Vinod, Maik Mayberry [address] [place] [address] [place] [address] PCP - GeneralFamily Practice09/24/14 Delilah Pleitez MD Gastroenterology08/31/17 Keyur Leiva, Primary Staff PhysicianNephrology04/09/21Te MemberRelationshipSpecialtyStart DateEnd Date Vinod Maik Mayberry [address] [place] [address] [place] [address] PCP - GeneralFamily Practice09/24/14 Delilah Pleitez MD Gastroenterology08/31/17 Keyur Leiva DO Primary Staff PhysicianNephrology04/09/21Te MemberRelationshipSpecialtyStart DateEnd Date Maik Brockamelia [address] [place] [address] [place] [address] PCP - GeneralFamily Practice09/24/14 Delilah Pleitez MD Gastroenterology08/31/17 Keyur Leiva DO Primary Staff PhysicianNephrology04/09/21Team MemberRelationshipSpecialtyStart DateEnd Date Vinod Maik Mayberry [address] [place] [address] [place] [address] PCP - GeneralFamily Practice09/24/14 Delilah Pleitez MD Gastroenterology08/31/17 Keyur Leiva, DO Primary Staff PhysicianNephrology04/09/21Te MemberRelationshipSpecialtyStart DateEnd Date Vinod Maik Mayberry [address] [place] [address] [place] [address] PCP - GeneralFamily Medicine09/24/14 Delilah Pleitez MD Gastroenterology08/31/17 Keyur Leiva, DO Primary Staff PhysicianNephrology04/09/21Te MemberRelationshipSpecialtyStart DateEnd Date Maik Brock Jefe [address] [place] [address] [place] [address] PCP - GeneralFamily Medicine09/24/14 Delilah Pleitez MD Gastroenterology08/31/17 Keyur Leiva, DO Primary Staff PhysicianNephrology04/09/21Te MemberRelationshipSpecialtyStart DateEnd Date Agnes Brockjuan Mayberry [address] [place] [address] [place] [address] PCP - GeneralFamily Medicine09/24/14 Delilah Pleitez MD [address] [place] [address] [place] [address] Gastroenterology08/31/17 Keyur Leiva DO [address] [facility] [address] [place] [address] Primary Staff PhysicianNephrology04/09/21Team MemberRelationshipSpecialtyStart DateEnd Date Maik Brock MD [address] [facility] [address] [place] [address] PCP - GeneralFamily Medicine09/24/14 Delilah Pleitez MD [address] [facility] [address] [place] [address] Gastroenterology08/31/17 Keyur Leiva DO [address] [facility] [address] [place] [address] Primary Staff PhysicianNewport [facility]04/09/21 Team Status: Active Member Role Status Tatianna Brock MD Primary Care Provider Active Madeline Hwang ProviderActiveKimberlee Beth , MACHINIST/MACHINE BUILDER-CReferring ProviderActive Team Status: Inactive Member Role Status Tatianna Brock MD Primary Care Provider Active Nelson Donald MDAttemma ProviderActive Team Status: Inactive Member Role Status Dates Maik Brock MD Primary Care Provider Active Catracho Celestin ProviderActiveTeam MemberRelationshipSpecialty Start DateEnd Date Maik Brock MD [address] [facility] [address] [place] [address] PCP - GeneralFami Medicine09/24/14 Delilah Pleitez MD [address] [facility] [address] [place] [address] Gastroenterology08/31/17 CaliKeyur DO [address] [facility] [address] [place] [address] Primary Staff PhysicianNephrology04/09/21Team MemberRelationshipSpecialtyStart DateEnd Date Maik Brock MD [address] [facility] [address] [place] [address] PCP - Generalmily Medicine09/24/14 Delilah Pleitez MD [address] [facility] [address] [place] [address] Gastroenterology08/31/17 SimbaashleyKeyur [address] [facility] [address] [place] [address] Primary Staff PhysicianNephrology04/09/21Team MemberRelationshipSpecialtyStart DateEnd Date Maik Brock MD [address] [facility] [address] [place] [address] PCP - GeneralFamily Medicine08/27/22Team MemberRelationshipSpecialtyStart DateEnd Date Maik Brock MD [address] [facility] [address] [place] [address] PCP - GeneralFamily Medicine08/27/22Team MemberRelationshipSpecialtyStart DateEnd Date Maik Brock MD [address] [facility] [address] [place] [address] PCP - GeneralFamily Medicine08/27/22 Richard Candelario DO [address] [place], [place] [address] Referring CsmoogtdiCuhghezsp63/21/24Team MemberRelationshipSpecialtyStart Date End Date Maik Brock MD [address] [facility] [address] [place] [address] PCP - GeneralFamily Medicine08/27/22 Richard Candelario DO [address] [place] [address] Referring ZdvamjgqsUdwpffkfk13/21/24Team MemberRelationshipSpecialtyStart Date End Date Maik Brock MD [address] [facility] [address] [place] [address] PCP - GeneralFamily Medicine08/27/22Team MemberRelationshipSpecialtyStart DateEnd Date Maik Brock MD [address] [facility] [address] [place] [address] PCP - GeneralFamily Medicine08/27/22Team MemberRelationshipSpecialtyStart DateEnd Date Maik Brock MD [address] [facility] [address] [place] [address] PCP - GeneralFamily Medicine08/27/22Team MemberRelationshipSpecialtyStart DateEnd Date Maik Brock MD [address] [facility] [address] [place] [address] PCP - GeneralFamily Medicine08/27/22 Team Status: Inactive Member Role Status Dates Maik Brock MD Primary Care Provider Active S tart: March 26, 2024 End: March 26Madeline Wagner ProviderActiveStart: March 26, 2024 End: March 26, 2024Team MemberRelationshipSpecialtyStart DateEnd Date Maik Brock MD [address] [place] [address] [place] [address] PCP - GeneralSaint [facility]08/27/22 Richard Candelario DO [address] [place] [address] Referring [id number]/21/24Team MemberRelationshipSpecialtyStart Date End Date Maik Brock MD [address] [facility] [address] [place] [address] PCP - [facility]08/27/22 Richard Candelario DO [address] [place] [address] Referring KmibbojslJxvfwwbik46/21/24 Raiza Soto NP [address] [place] Nurse PractitionerNeurology05/22/24Team MemberRelationshipSpecialtyStart DateEnd Date Maik Brock MD [address] [place] [address] [place] [address] PCP - GeneralSaint [facility]08/27/22 Richard Candelario DO [address] [place] [address] Referring JqazxrrzkLffhaqnxb47/21/24 Raiza Soto NP [address] [place], [place] Nurse PractitionerNeurology05/22/24Team MemberRelationshipSpecialtyStart DateEnd Date Maik Brock MD [address] [place] [address] [place] [address] PCP - GeneralFamily Medicine08/27/22 Richard Candelario DO [address] [place] [address] Referring JxamirejvKupmoupxu78/21/24 Raiza Soto NP [address] [place], [place] Nurse PractitionerNeurology05/22/24Team MemberRelationshipSpecialtyStart DateEnd Date Maik Brock MD [address] [place] [address] PCP - GeneralFamily Medicine08/27/22 Richard Candelario DO [address] [place] [address] Referring HqnstojooVmjvrhjrv68/21/24 Raiza Soto NP [address] [place], [place] Nurse PractitionerNeurology05/22/24Team MemberRelationshipSpecialtyStart DateEnd Date Maik Brock MD [address] [place] [address] PCP - GeneralFamily Medicine08/27/22 Richard Candelario DO [address] [place] [address] Referring EdoizrjidCybzndzwa11/21/24 Raiza Soto MACHINIST/MACHINE BUILDER [address] [place] Nurse PractitionerNeurology05/22/24Team MemberRelationshipSpecialtyStart DateEnd Date Maik Brock MD [address] [place] [address] PCP - GeneralFamily Medicine08/27/22 Richard Candelario DO [address] [place] [address] Referring HctntljqgLqownwvpm33/21/24 Raiza Soto NP [address] [place], [place] Nurse PractitionerNeurology05/22/24Team MemberRelationshipSpecialtyStart DateEnd Date Maik Brock MD [address] [place] [address] PCP - General[facility]ly [facility]08/27/22 Richard Candelario DO [address] [place] [address] Referring AhnfqghbnAqdnhpnkr23/21/24 Raiza Soto NP [address] [place] [address] Nurse PractitionerNeurology05/22/24Team MemberRelationshipSpecialtyStart DateEnd Date Maik Brock MD [address] [place] [address] PCP - Generalmily Medicine08/27/22 Richard Candelario DO [address] [place] [address] Referring MttedyoabNirmoicoe32/21/24 Raiza Soto NP [address] [place] [address] Nurse PractitionerNeurology05/22/24 Team Status: Inactive Member Role Status Dates Maik Brock MD Primary Care Provider Active S tart: October 04, 2024 End: October 04, 2024Nicole DO KodakAttending ProviderActiveStart: October 04, 2024 End: October 04, 2024Team MemberRelationshipSpecialtyStart DateEnd Date Maik Brock MD [address] [place] [address] [facility] - [facility]08/27/22 Richard Candelario DO [address] [place] [address] Referring JgbbfpccyMiikmvcou96/21/24 Raiza Soto NP [address] [place] [address] Nurse PractitionerNeurology05/22/24Team MemberRelationshipSpecialtyStart DateEnd Date Maik Brock MD [address] [place] [address] PCP - [facility]Saint [facility]08/27/22 Richard Candelario DO [address] [place] [address] Referring CehvnmhkkGxmwxswyi85/21/24 Raiza Soto NP [address] [place] [address] Nurse PractitionerNeurology05/22/24Team MemberRelationshipSpecialtyStart DateEnd Date Maik Brock MD [address] [place] [address] PCP - GeneralFamily Medicine08/27/22 Richard Candelario DO [address] [place] [address] Referring HmixrumoqVokrgsada14/21/24 Raiza Soto, ZOILA [address] [place] [address] Nurse PractitionerNeurology05/22/24Team MemberRelationshipSpecialtyStart DateEnd Date Maik Brock MD [address] [place] [address] PCP - GeneralWashington [facility]ics[facility]08/27/22 Richard Candelario DO [address] [place] [address] Referring BhoiqqrqhLzxewlkhm30/21/24 Raiza Soto NP [address] [place] [address] Nurse PractitionerNeurology05/22/24Team MemberRelationshipSpecialtyStart DateEnd Date Maik Brock MD [address] [place] [address] PCP - Generalmily Medicine08/27/22 Richard Candelario DO [address] [place] [address] Referring LzmlpywlwBctinzxik80/21/24 Raiza Soto, ZOILA [address] [place] [address] Nurse PractitionerNeurology05/22/24Team MemberRelationshipSpecialtyStart DateEnd Date Maik Brock MD [address] [facility] [address] [place] [address] PCP - [facility] Medicine08/27/22 Richard Candelario DO [address] [place] [address] Referring WaozrnddlCbvjspdix63/21/24 Raiza Soto NP [address] [place] [address] Nurse PractitionerNeurology05/22/24Team MemberRelationshipSpecialtyStart DateEnd Date Maik Brock MD [address] [facility] [address] [place] [address] [facility] Medicine08/27/22 Richard Candelario DO [address] [place] [address] Referring EkbjpgkguUgjjunwgc42/21/24 Raiza Soto, ZOILA [address] [place] [address] Nurse PractitionerNeurology05/22/24 Team Status: Active Member Role/Relationship Status Dates Maik Brock MD Primary Care Provider Active Team Status: Inactive Member Role/Relationship Status Dates Maik Brock MD Primary Care Provider Active S tart: January 03, 2025 End: January 03, 2025Nicole DO KodakAttending ProviderActiveStart: January 03, 2025 End: January 03, 2025Team MemberRelationshipSpecialtyStart DateEnd Date Maik Brock MD [address] [place] [address] PCP - GeneralFamily Medicine08/27/22 Richard Candelario DO [address] [place] [address] Referring BojehvonzSpgkmedzz75/21/24 Raiza Soto NP [address] [place] [address] Nurse PractitionerNeurology05/22/24Team MemberRelationshipSpecialtyStart DateEnd Date Maik Brock MD [address] [place] [address] [address] [place] [address] PCP - [facility]08/27/22 Richard Candelario DO [address] [place] [address] Referring MhdrinymeVgtzyroun85/21/24 Raiza Soto NP [address] [place] [address] Nurse PractitionerNeurology05/22/24 Reason for Visit (unrecogniz ed section and content) ReasonCommentsConstipationReasonCommentsMedication PreauthorizationXifaxanReason CommentsGERDSpecialtyDiagnoses / ProceduresReferred By ContactReferred To ContactGastroenterology Diagnoses Gastroesophageal reflux disease with esophagitis without hemorrhage Procedures CONSULT TO GASTROENTEROLOGY NEW PATIENT VISIT LEVEL [address] [place] [address] [facility] [address] [place] [id number] Referral IDStatusReasonStart DateExpiration DateVisits RequestedVisits [id number] Review PCP Requested Referral [id number] GI Main [id number] / Procedures Referred By ContactReferred To ContactXR IMAGING Diagnoses Pelvic floor dysfunction in female Procedures XR DEFECOGRAPHY RADIOLOGIC EXAM COLON SINGLE CONTRAST STUDY Abiola Swanson AUDIO VISUAL TECH.CLINICAL RESEARCH DIRECTOR [address] [place] [address] Xr Imaging Referral IDStatusReasonStart DateExpiration DateVisits RequestedVisits [id number] Auto-Generated Referral [id number]p PatientReasonCommentsRefill RequestReasonCommentsWeight ProblemReasonOnset DateCommentsRefill Request 2ReasonCommentsFollow UpWeight managementReasonOnset DateCommentsMed Vzwvyj994ReasonCommentsBotulinum Toxin InjectionReasonOnset DateComments Med Qsyuvm844ReasonCommentsHypertensionReasonCommentsMed RefillReason Onset DateCommentsMed Cbouti2104/14/2024ReasonOnset DateCommentsMed Refill 06/07/2024ReasonCommentsWell Women VisitReasonOnset DateCommentsMed Refill 08/13/2024ReasonCommentsUTIReasonOnset DateCommentsMed Rlvxpe8710/09/2024Reason CommentsHypertensionBP seems to be good with the Nifedipine.ReasonComments Hormone ImbalancePt present today to discuss hormones, foul odor and vaginal discharge.ReasonOnset DateCommentsMed Rbfyac9212/10/2024ReasonCommentsMed Refill Nifedipine - Exp scripts Goals (unrecognized section and content) Goals may be documented in a n alternate section FOR RECORDS PERTAINING TO PATIENTS WHO ARE OR HAVE BEEN ENROLLED IN A CHEMICAL DEPENDENCY/SUBSTANCEABUSE PROGRAM, SOME INFORMATION MAY BE OMITTED. This clinical summary was aggregated from multiple sources. Caution should be exercised in using it in the provision of clinical care. This summary normalizes information from multiple sources, and as a consequence, information in this document may materially change the coding, format and clinical context of patient data. In addition, data may be omitted in some cases. CLINICAL DECISIONS SHOULD BE BASED ON THE PRIMARY CLINICAL RECORDS. [facility] [email or web address] [facility]. provides no warranty or guarantee of the accuracy or completeness of information in this document.
[2025-02-18 17:59] LABS: Alanine Aminotransferase 22 U/L (14-59); Albumin Globulin Ratio 1.3; Albumin Level 3.8 g/dL (3.4-5.0); Alkaline Phosphatase 87 U/L (46-116); Anion Gap 11.4; Aspartate Amino Transferase 18 U/L (15-37); Blood Urea Nitrogen 14.0 mg/dL (7.0-18.0); Calcium 8.9 mg/dL (8.5-10.1); Carbon Dioxide 28.9 mmol/L (21.0-32.0); Chloride 109 mmol/L (98-107); Estimated GFR (African America >60 (>=60 mL/min/1.73m^2); Estimated GFR (Non-African Ame >60 (>=60 mL/min/1.73m^2); Globulin 3.0 g/dL; Glucose 126 mg/dL (74-106); Potassium 3.3 mmol/L (3.5-5.1); Sodium 146 mmol/L (136-145); Total Protein 6.8 g/dL (6.4-8.2)
--- NOTE | 2025-02-18 18:03 | CT_ITS ---
The [address] [address] Patient Name: MANDEEP DOMÍNGUEZ MRN: [id number] date: 1980 Sex: F Assigned Patient Location: ER Current Patient Location: ER Accession/Order Number: [id number] Exam Date: 02/18/2025 18:17 Report Date: 02/18/2025 19:08 At the request of: JAZMIN BOOKER Procedure: CT abdomen pelvis w con CT ABDOMEN AND PELVIS WITH INTRAVENOUS CONTRAST: CLINICAL HISTORY: LLQ tenderness, some L flank pain COMPARISON: None TECHNIQUE: Spiral images were obtained through the abdomen and pelvis following the administration of intravenous contrast. This CT exam was performed using one or more following dose reduction techniques: Automated exposure control, adjustment of the mA and/or kV according to patient size, or use of iterative reconstruction technique. FINDINGS: Lung Bases: [No focal opacity.] Organs:Cholecystectomy. Liver, spleen, adrenals, pancreas unremarkable. Bilateral renal hypodensities suggestive of cysts. No hydronephrosis.[Suspected. If clinically feasible on the right GI: Postsurgical changes status post gastric bypass surgery. Mild thickening of the GE junction noted. Possibly for reflux.[Otherwise no bowel obstruction. No surrounding inflammatory changes. No wall thickening. Colonic diverticulosis noted. Appendix not visualized. No definite pericecal plantar changes.. Pelvis:[Bladder is poorly distended. Uterus absent. No definite adnexal mass.] Peritoneum/Retroperitoneum:No free air or free fluid. Aorta normal caliber.[ Abd wall/Bones:Mild multilevel facet arthropathy.[ CT/CT abdomen pelvis w con IMPRESSION: Negative acute inflammatory process or bowel obstruction. Postsurgical changes status post gastric bypass surgery noted. Impression dictated by: Al Hernández M.D. 02/18/2025 7:08 PM Dictation Location: [place] [address] Electronically authenticated by: [id number] Y Date: 02/18/2025 19:08
[2025-02-18] MEDS: KETOROLAC TROMETHAMINE 30 MG/ML VIAL IVP (18:11)
--- NOTE | 2025-02-18 18:19 | ED_ITS ---
HPI HPI - General Adult General Chief complaint: Abdominal Pain Stated complaint: Kidney Stone Time Seen by Provider: 02/18/25 17:25 Source: patient Mode of arrival: walk-in Limitations: no limitations History of Present Illness HPI narrative: Patient is a 44-year-old female that presents with complaints of left flank and abdominal pain for about a week and a half. She states that she passed a kidney stone today and provides a picture. She does have a history of kidney stones in the past, no surgery ever needed. She reports dysuria, urinary frequency and urgency, and bladder retention. She has not multiple abdominal and pelvic surgeries including total hysterectomy, Sunil-en-Y, appendectomy, cholecystectomy, rectocele, bladder reconstruction. She has followed with Dr. Paul in [place], [place] in the past for her bladder reconstruction. She does report nausea, denies vomiting. No fevers, night sweats, or chills at home. Related Data Previous Rx's ?Medication ?Instructions ?Recorded hydrocodone 5 mg-acetaminophen 325 1 tab PO Q6H PRN pa in #10 tabs 02/18/25 mg tablet ondansetron 4 mg disintegrating 4 mg PO Q6H PRN nausea and 02/18/25 tablet vomiting #14 tabs Allergies Allergy/AdvReac Type Severity Reaction Status Date / Time No Known Drug Allergies Allergy Verified 02/18/25 17:21 Opioid HPI Opioid Management Most Recent Opioid Data: Last Pain Scale 7 Today, 18:11 Last MAR Pain Assessment Today, 18:11 Risks, benefits, and alternatives of opioids discussed: Yes Prescription drug monitoring program results: PDMP reviewed and no issues identified Review of Systems ROS Status of ROS 10 or more systems reviewed and unremark able except as noted in history and below PFSH PFSH Social History Little interest or pleasure in doing things: not at all Feeling down, depressed, or hopeless: not at all Exam Narrative Exam Narrative: General: No distress, age-appropriate Skin: Warm, dry, no pallor. No rash. Head: Normocephalic, atraumatic. Neck: Supple, non-tender. Eye: Pupils are equal, round and EOMI. No scleral icterus. Ears, Nose, Mouth, and Throat: No nasal mucosal hypertrophy. Oral mucosa is moist, no posterior oropharynx erythema, uvula is mid-line Cardiovascular: Regular Rate and Rhythm without murmur, gallop or rub. Respiratory: No accessory muscle use or respiratory distress. Lungs are clear to auscultation, no wheezing, rales or rhonchi Chest Wall: no tenderness Back: No midline thoracic or lumbar vertebral tenderness. Musculoskeletal: Full ROM of all extremities, no calf or popliteal tenderness GI: Abdomen is soft, non-distended, left lower quadrant tender to palpation. No masses appreciated. No rebound, guarding, or rigidity noted. Neurological: A&O x4. No cranial nerve dysfunction observed. No truncal ataxia. Moves all extremities. Sensation intact. Psychiatric: Cooperative and interactive. Normal mood and affect. Constitutional Vital Signs, click to edit/add: Last Vital Signs Temp 97.8 F 02/18/25 17:21 Pulse 81 02/18/25 17:21 Resp 18 02/18/25 17:21 BP 121/86 02/18/25 18:46 Pulse Ox 100 02/18/25 17:21 O2 Del Method Room Air 02/18/25 17:21 Documenting provider has reviewed patient's vital signs: yes Course Vital Signs Vital signs: Vital Signs Temperature 97.8 F 02/18/25 17:21 Pulse Rate 81 02/18/25 17:21 Respiratory Rate 18 02/18/25 17:21 Blood Pressure 143/89 H 02/18/25 17:21 Pulse Oximetry 100 02/18/25 17:21 Oxygen Delivery Method Room Air 02/18/25 17:21 Temperature 97.8 F 02/18/25 17:21 Pulse Rate 81 02/18/25 17:21 Respiratory Rate 18 02/18/25 17:21 Blood Pressure 121/86 02/18/25 18:46 Pulse Oximetry 100 02/18/25 17:21 Oxygen Delivery Method Room Air 02/18/25 17:21 Medical Decision Making [facility] Narrative Medical decision making narrative: Patient is a 44-year-old female presenting with 1.5 weeks of left flank and abdominal pain with reported stone passage earlier today. Vitals stable and afebrile in the ED. IV placed, Toradol 30 mg IV and Zofran 4 mg IV given for pain and nausea. Laboratory evaluation with WBC 5.2 without left shift, normal CMP except for mild hypokalemia (K 3.3), negative hCG, and urinalysis negative for blood, leukocyte esterase, and nitrites, making UTI less likely. CT abdomen/pelvis with IV contrast shows no hydronephrosis or obs tructing calculus, and reveals only bilateral renal hypodensities consistent with benign cysts; bladder suboptimally distended but no acute findings.Negative acute inflammatory process or bowel obstruction. On reevaluation patient appears sleepy, pain much improved, abdominal exam remains nonperitoneal, still mild tenderness at the left lower quadrant. I discussed lab and imaging results with patient and all questions answered. Given reassuring labs, imaging, and clinical stability, symptoms are most consistent with recent stone passage with residual urinary tract irritation versus chronic bladder dysfunction related to prior pelvic surgeries. Pain and nausea were controlled in the ED. The patient was deemed stable for discharge with prescriptions for [place] 5 mg for breakthrough pain and Zofran ODT 4 mg for nausea. Prescription drug monitoring system reviewed and no issues identified. She was advised on hydration, potassium replacement as directed, and strict return precautions. PCP follow-up was recommended within one week. Differential Diagnosis Differential Diagnosis: Nephrolithiasis, residual ureteral obstruction, UTI Lab Data Lab results reviewed: Yes I reviewed the patient's lab results Labs: Lab Results 02/18/25 02/18/25 Range/Units 17:30 17:34 WBC 5.2 (4.0-11.0) 10^3/uL RBC 4.16 L (4.20-5.40) 10^6/uL Hgb 12.7 (12.0-16.0) g/dL Hct 38.4 (36.0-48.0) % MCV 92.3 (81.0-99.0) fL MCH 30.5 (26.7-34.0) pg MCHC 33.1 (29.9-35.2) g/dL RDW 12.3 (11.0-15.0) % Plt Count 227 (150-450) 10^3/uL MPV 8.8 L (9.5-13.5) fL Neut % (Auto) 55.0 (43.0-75.0) % Lymph % (Auto) 36.6 (20.5-60.0) % [place] % (Auto) 6.2 (1.7-12.0) % Eos % (Auto) 1.0 (0.9-7.0) % Baso % (Auto) 1.0 (0.2-2.0) % Neut # (Auto) 2.8 (1.4-6.5) 10^3/uL Lymph # (Auto) 1.9 (1.2-3.8) 10^3/uL [place] # (Auto) 0.3 (0.3-0.8) 10^3/uL Eos # (Auto) 0.1 (0.0-0.7) 10^3/uL Baso # (Auto) 0.1 (0.0-0.1) 10^3/uL Abs Immat Gran (auto) 0.01 (0.00-0.03) 10^3/uL Imm/Tot Granulo (auto) 0.2 (0.0-0.5) % Sodium 146 H (136-145) mmol/L Potassium 3.3 L (3.5-5.1) mmol/L Chloride 109 H (98-107) mmol/L Carbon Dioxide 28.9 (21.0-32.0) mmol/L Anion Gap 11.4 BUN 14.0 (7.0-18.0) mg/dL Creatinine 0.96 (0.55-1.02) mg/dL Est GFR ( Amer) >60 (>=60 mL/min/1.73m^2) Est GFR (Non-Af Amer) >60 (>=60 mL/min/1.73m^2) BUN/Creatinine Ratio 14.6 Glucose 126 H (74-106) mg/dL Calcium 8.9 (8.5-10.1) mg/dL Total Bilirubin 0.3 (0.2-1.0) mg/dL AST 18 (15-37) U/L ALT 22 (14-59) U/L Alkaline Phosphatase 87 (46-116) U/L Total Protein 6.8 (6.4-8.2) g/dL Albumin 3.8 (3.4-5.0) g/dL Globulin 3.0 g/dL Albumin/Globulin Ratio 1.3 Serum HCG, Qual Negative (NEGATIVE) Urine Color Lt. yellow (YELLOW) Urine Clarity Clear (CLEAR) Urine pH 6.5 (5.0-9.0) Ur Specific [place] 1.015 (1.005-1.025) Urine Protein Negative (NEG/TRACE) mg/dL Urine Glucose (UA) Negative (NEGATIVE) mg/dL Urine Ketones Negative (NEGATIVE) mg/dL Urine Occult Blood Negative (NEGATIVE) Urine Nitrite Negative (NEGATIVE) Urine Bilirubin Negative (NEGATIVE) Urine Urobilinogen 0.2 (0.2-1.0) EU/dL Ur Leukocyte Esterase Negative (NEGATIVE) Imaging Data CT scan - abdomen: Attestation: I have reviewed the pertinent imaging results. Radiologist's impression: ITS Impressions Abdomen/Pelvis CT 02/18/25 18:03 IMPRESSION: Negative acute inflammatory process or bowel obstruction. Postsurgical changes status post gastric bypass surgery noted. Impression dictated by: Al Hernández M.D. 02/18/2025 7:08 PM Dictation Location: [facility] Electronically authenticated by: [id number] Y Date: 02/18/2025 19:08 Discharge Plan Discharge Chief Complaint: Abdominal Pain Clinical Impression: Acute flank pain, Renal colic Patient Disposition: Home, Self-Care Time of Disposition Decision: 19:28 Condition: Good Mode of Transportation: Private Vehicle Prescriptions / Home Meds: New hydrocodone-acetaminophen 5-325 mg tablet 1 tab PO Q6H PRN (Reason: pain) Qty: 10 0RF ondansetron 4 mg tablet,disintegrating 4 mg PO Q6H PRN (Reason: nausea and vomiting) Qty: 14 0RF Print Language: Syriac Instructions: Renal Colic (ED), Flank Pain (ED) Additional Instructions: What You Should Do at Home * Hydration: Drink plenty of fluids to help flush your urinary system unless a doctor has told you to restrict fluids. * Pain Control: * You may take ibuprofen or acetaminophen as needed for pain, following package directions. * If you were prescribed a stronger pain medication, use it only as directed. * Nausea: Take any prescribed nausea medication as needed. * You may resume normal activity as tolerated. * Rest as needed and avoid heavy exertion until discomfort improves. Return to the ER or Seek Medical Care Immediately If You Develop: * Fever, chills, or feeling suddenly worse * Increasing flank or abdominal pain * Vomiting that prevents you from keeping fluids down * Inability to urinate or worsening urinary retention * Blood in your urine * New severe symptoms or anything that concerns you Referrals: MAIK BROCK [Primary Care Provider, Family Practice] - 1 week Discharge Date/Time: 02/18/25 19:52
[2025-02-18 18:46] VITALS: BP 121/86
[2025-02-18] MEDS: HYDROCODONE/ACET 5-325 MG TABLET 1 TAB PO (19:48)
[2025-02-18] MEDS: ONDANSETRON 4 MG RAPDIS TABLET SL (19:49)
== END 2025-02-18 19:52 | disposition home or self-care (01) ==
PROVIDERS: Emergency Provider Emergency Medicine; PCP Family Medicine
DX: N23 Unspecified renal colic (principal); R11.0 Nausea; E87.6 Hypokalemia
CPT/HCPCS: 36415; 74177; 80053; 81003; 84703; 85025; 96374; 96375; 99285; J1885; J2405; Q0162; Q9967

== ENCOUNTER 2025-02-27 16:49 | Outpatient (OUT) | payer OTHER, SELFPAY ==
--- OUTSIDE RECORDS SUMMARY | 2025-02-27 16:00 | XMS_ITS | Encounter Summary ---
Author Organization [facility] Address [address] [place] [address] [place] [address] Care Team Providers Care Head Of Product Name Role Phone Jose Ramos MD Primary Care Provider [phone] Sharon Candelario DO Unavailable [phone] Raiza Soto ASSISTANT MANAGER AIRSIDE OPERATIONS Unavailable [phone] Reason for Visit * ReasonCommentsMenopause Encounter Details DateTypeDepartmentCare Team (Latest Contact Info)Cxkbukgraff89/17/2025 4:00 PM ESTOffice Visit [facility] [place] [facility] [address] [place] [address] Rick Jones DO [address] [place], [place] [id number] Menopause; Vaginal dryness, menopausal; Fatigue, unspecified type; Hormone imbalance Social History Tobacco UseTypesPacks/DayYears UsedDateSmoking Tobacco: FormerCigarettes Smokeless Tobacco: NeverAlcohol UseStandard Drinks/WeekCommentsNever0 (1 standard drink = 0.6 oz pure alcohol)Caffeine intake: soda and [id number] Health LiteracyAnswerDate RecordedHow often do you need to have someone help you when you read instructions, pamphlets, or other written material from your doctor or pharmacy?Never07/10/2024Humiliation, Afraid, Rape, and Kick questionnaireAnswer Date RecordedWithin the last year, have you been afraid of your partner or ex-partner?No07/10/2024Within the last year, have you been humiliated or emotionally abused in other ways by your partner or ex-partner?No07/10/2024 Within the last year, have you been kicked, hit, slapped, or otherwise physically hurt by your partner or ex-partner?No07/10/2024Within the last year, have you been raped or forced to have any kind of sexual activity by your part ner or ex-partner?No07/10/2024Social Connection and Isolation PanelAnswerDate RecordedIn a typical week, how many times do you talk on the phone with family, friends, or neighbors?Patient lrbpkkfi42/29/2025How often do you get together with friends or relatives?Patient zcibpscf18/29/2025How often do you attend latter-day or catholic services?Patient pbtugwwo17/29/2025Do you belong to any clubs or organizations such as latter-day groups, unions, [employer] or athletic frank ups, or school groups?Patient /29/2025How often do you attend meetings of the clubs or organizations you belong to?Patient adixwehh12/29/2025re you , , , , never , or living with a partner? Euaijci1307/10/2024UDIT-CAnswerDate RecordedQ1: How often do you have a drink containing alcohol?Never07/10/2024Q2: How many drinks containing alcohol do you have on a typical day when you are drinking?Patient does not drink07/10/2024Q3: How often do you have six or more drinks on one occasion?Never07/10/2024Overall Financial Resource Strain (CARDIA)AnswerDate RecordedHow hard is it for you to pay for the very basics like food, housing, medical care, and heating?Somewhat hard07/10/2024PHQ-2AnswerDate RecordedPatient Health Questionnaire-2 Score0 01/17/2025[facility] [place] [facility] Occup[facility] Health - Occupational Stress QuestionnaireAnswerDate RecordedDo you feel stress - tense, restless, nervous, or anxious, or unable to sleep at night because yourmind is troubled all the time - these days?Patient oqnltavt68/29/2025Exercise Vital SignAnswerDate RecordedOn average, how many days per week do you engage in moderate to strenuous exercise (like a brisk walk)?Patient nuoeueas23/29/2025On average, how many minutes do you engage in exercise at this level?Patient /29/2025 Hunger Vital SignAnswerDate RecordedWorried About Running Out of Food in the Last YearNot on file07/10/2024Within the past 12 months, the food you bought just didn't last and you didn't have money to get more.Sometimes true07/10/2024 PRAPARE - TransportationAnswerDate RecordedIn the past 12 months, has lack of transportation kept you from medical appointments or from getting medications?No 07/10/2024In the past 12 months, has lack of transportation kept you from meetings, work, or from getting things needed for daily living?No07/10/2024 Housing Stability Vital SignAnswerDate RecordedIn the last 12 months, was there a time when you were not able to pay the mortgage or rent on time?No08/30/2022In the last 12 months, how many places have you lived?In the last 12 months, was there a time when you did not have a steady place to sleep or slept in [facility] (including now)?No08/30/2022Housing Stability Vital SignAnswerDate RecordedIn the last 12 months, was there a time when you were not able to pay the mortgage or rent on time?No07/10/2024Number of Times Moved in the Last Year Not on file07/10/2024t any time in the past 12 months, were you homeless or living in a [facility] (including now)?No07/10/2024CommentsNoSex and Gender InformationValueDate RecordedSex Assigned at BirthNot on fileLegal SexFemale 05/26/2022 7:13 PM EDTGender IdentityNot on fileSexual OrientationNot on file documented as of this encounter Last Filed Vital Signs Vital SignReadingTime TakenCommentsBlood Culgesda425/7602/27/2025 4:23 PM EST Pulse--Temperature--Respiratory Rate--Oxygen Saturation--Inhaled Oxygen Concentration--Sowlcf84.9 kg (129 lb 12.8 oz)02/27/2025 4:23 PM ESTHeight--Body Mass Index22.2811 3:19 PM ESTdocumented in this encounter Plan of Treatment DateTypeDepartmentCare Team (Latest Contact Info)Eiyrxmhctvg02/04/2026 4:30 PM ESTOffice Visit [facility] [place] [facility] [address] [facility] [address] [place] [address] Kimberlee Franks, ADE [address] [facility] [address] [place] [address] 06/20/2025 8:30 AM EDTOffice Visit [facility] [place] [facility] [address] [place] [address] Rick Jones DO [address] [place] [place], [place] [id number] NameTypePriorityAssociated DiagnosesOrder ScheduleCBC and differentialLabRoutine Fatigue, unspecified type Ordered: 02/27/2025documented as of this encounter Visit Diagnoses Diagnosis Menopause Symptomatic menopausal or female climacteric states Vaginal dryness, menopausal Fatigue, unspecified type Hormone imbalance documented in this encounter Care Teams Team MemberRelationshipSpecialtyStart DateEnd Date Jose Ramos MD [address] [facility] [address] [place] [address] PCP - GeneralFamily Medicine08/27/22 Sharon Candelario DO [address] [place] [address] Referring BrklujnqkVyzsukigr37/21/24 Raiza Soto NP Nurse PractitionerNeurology05/22/24documented as of this encounter
--- OUTSIDE RECORDS SUMMARY | 2025-02-27 16:54 | XMS_ITS | Clinical Summary ---
Author Organization [employer] tem Address [id number] [place] [address] Care Team Providers Care Toe Lining Closer Name Role Phone Jose Ramos MD Primary Care Provider Allergies No known active allergies Medications MedicationSigDispense QuantityRefillsLast FilledStart DateEnd DateStatus amLODIPine (NORVASC) 10 mg tablet Take 1 tablet (10 mg total) by mouth in the morning.Active omeprazole (PriLOSEC) 20 mg capsule Take 1 capsule (20 mg total) by mouth in the morning.Active baclofen (LIORESAL) 10 mg tablet Take 1 tablet (10 mg total) by mouth 3 (three) times a day.Active hydroCHLOROthiazide (HYDRODIURIL) 25 mg tablet Take 1 tablet (25 mg total) by mouth daily.Active estrogens, conjugated, (PREMARIN) 0.9 mg tablet Take 1 tablet (0.9 mg total) by mouth in the morning.Active topiramate (TOPAMAX) 50 mg tablet Take 1 tablet (50 mg total) by mouth in the morning and 1 tablet (50 mg total) before bedtime.Active potassium chloride (KLOR-CON SPRINKLE) 10 MEQ CR capsule Take by mouth 2 (two) times a day.Active LORazepam (ATIVAN) 1 mg tablet Take 1 tablet (1 mg total) by mouth every 6 (six) hours as needed for anxiety. Active onabotulinumtoxinA (BOTOX INJ) Inject as directed.Active cyclobenzaprine (FLEXERIL) 10 mg tablet Take 1 tablet (10 mg total) by mouth 2 (two) times a day as needed for muscle spasms. 14 tablet 04/02/2022ctive ibuprofen (MOTRIN) 800 mg tablet Take 1 tablet (800 mg total) by mouth 3 (three) times a day. 21 tablet 04/02/2022ctive Social History Tobacco UseTypesPacks/DayYears UsedDateSmoking Tobacco: NeverSmokeless Tobacco: Never Tobacco Cessation:Counseling Given: Not Answered Alcohol UseStandard Drinks/WeekCommentsNot Currently0 (1 standard drink = 0.6 oz pure alcohol)ChildcareAnswerDate LwwaluytLuvbalgakOjvphky91/12/2019Employment AnswerDate BjetlnytCkhkxcwcyuBepoxgd38/12/2019Hunger ScreeningAnswerDate RecordedWithin the past 12 months we worried whether our food would run out before we got money to buy more.Never True04/02/2022Within the past 12 months the food we bought just didn't last and we didn't have money to get more.Never True04/02/2022CommentsNoSex and Gender InformationValueDate RecordedSex Assigned at BirthNot on fileLegal IytNotnob08/06/2015 11:56 AM EDTGender IdentityNot on fileSexual OrientationNot on file Last Filed Vital Signs Vital SignReadingTime TakenCommentsBlood Fhhmnxcz371/8404/02/2022 7:56 PM EST Zzxct195204/02/2022 7:56 PM UUWThegkjvphbn26.9 ??C (98.4 ??F)04/02/2022 7:56 PM ESTRespiratory Iwtz450504/02/2022 7:56 PM ESTOxygen Dpwuliblpv363%04/02/2022 7:56 PM ESTInhaled Oxygen Concentration--Zwnrro69.6 kg (160 lb)04/02/2022 7:56 PM EST Oecivh858.1 cm (5' 5 )04/02/2022 7:56 PM ESTBody Mass Index26.63004/02/2022 7:56 PM EST Plan of Treatment Health MaintenanceDue DateLast DoneCommentsDepression Hsdwrulbk77/14/1992Tobacco Qwsjutfxv60/14/1992DTaP,Tdap and Td Vaccines (1 - Tdap)06/25/1998Adult BMI Nnbfelmvu61/20/072556/Influenza Gmypgip3311/12/2024 Medical Devices Not on file Insurance Care Teams Team MemberRelationshipSpecialtyStart DateEnd Date [place] [address] [place] [address] PCP - General04/02/22
--- OUTSIDE RECORDS SUMMARY | 2025-02-27 16:54 | XMS_ITS | Encounter Summary ---
Author Organization [facility] Address [address] [place] [address] Care Team Providers Care Mechanical Design Engineer Products Name Role Phone Jose Ramos MD Primary Care Provider [phone] Sharon Candelario DO Unavailable [phone] Raiza Soto DEVELOPMENT LEAD Unavailable [phone] Encounter Details DateTypeDepartmentCare Team (Latest Contact Info)Mntndowljog12/17/2025Travel Social History Tobacco UseTypesPacks/DayYears UsedDateSmoking Tobacco: FormerCigarettes Smokeless Tobacco: NeverAlcohol UseStandard Drinks/WeekCommentsNever0 (1 standard drink = 0.6 oz pure alcohol)Caffeine intake: soda and xlhB1213 Health LiteracyAnswerDate RecordedHow often do you need [...] the phone with family, friends, or neighbors?Patient iuphskzq05/29/2025How often do you get together with friends or relatives?Patient mgloegdq63/29/2025How often do you attend faith or adventist services?Patient qbjfaima26/29/2025Do you belong to any clubs or organizations such as faith groups, unions, fraternal or athletic frank ups, or school groups?Patient mgjuxcvz38/29/2025How often do you attend meetings of the clubs or organizations you belong to?Patient dwjttidn79/29/2025re you , , , , never , or living with a partner? Jmbgyba7507/10/2024UDIT-CAnswerDate RecordedQ1: How often do you have a [...] and heating?Somewhat hard07/10/2024PHQ-2AnswerDate RecordedPatient Health Questionnaire-2 Score0 01/17/2025[facility] [place] of Occupational Health - Occupational Stress QuestionnaireAnswerDate RecordedDo you feel stress - tense, restless, nervous, or anxious, or unable to sleep at night because yourmind is troubled all the time - these days?Patient uziwqjaa94/29/2025Exercise Vital SignAnswerDate RecordedOn average, how many days per week do you engage in moderate to strenuous exercise (like a brisk walk)?Patient /29/2025On average, how many minutes do you engage in exercise at this level?Patient yvulapdx66/29/2025 Hunger Vital SignAnswerDate RecordedWorried About Running Out [...] steady place to sleep or slept in ashelter (including now)?No08/30/2022Housing Stability Vital SignAnswerDate RecordedIn the last 12 months, was there a time when you were not able to pay the mortgage or rent on time?No07/10/2024Number of Times Moved in the Last Year Not on file07/10/2024t any time in the past 12 months, were you homeless or living in a assisted (including now)?No07/10/2024CommentsNoSex and Gender InformationValueDate RecordedSex Assigned at BirthNot on fileLegal SexFemale 05/26/2022 7:13 PM EDTGender IdentityNot on fileSexual OrientationNot on file documented as of this encounter Plan of Treatment DateTypeDepartmentCare Team (Latest Contact Info)Ltcftlcgaig64/04/2026 4:30 PM ESTOffice Visit [facility] [place] [facility] [address] [facility] [address] [place] [address] Kimberlee Franks PA [address] [facility] [address] [place] [address] 06/20/2025 8:30 AM EDTOffice Visit [facility] [place] [facility] [address] [place] [address] Rick Jones, [address] [facility] [address] [address] [place] [address] documented as of this encounter Visit Diagnoses Not on filedocumented in this encounter Care Teams Team MemberRelationshipSpecialtyStart DateEnd Date Jose Ramos MD [address] [facility] [address] [place] [address] PCP - GeneralFamily Medicine08/27/22 [place] Canedlario DO [address] [place] [address] Referring NxbysujueRtkffixtr41/21/24 Raiza Soto NP Nurse PractitionerNeurology05/22/24documented as of this encounter
--- OUTSIDE RECORDS SUMMARY | 2025-02-27 16:54 | XMS_ITS | Encounter Summary ---
Author Organization [facility] Address [address] [place] [address] Care Team Providers Care Healthcare Liaison Name Role Phone Jose Ramos MD Primary Care Provider [phone] [place] Candelario DO Unavailable [phone] Raiza Soto DEMAND PLANNING MANAGER Unavailable [phone] Encounter Details DateTypeDepartmentCare Team (Latest Contact Info)Eoknyhrcywz81/17/2025amboo flowsheet [facility] [place] [facility] [address] [place] [address] Rick Jones DO [address] [facility] [address] [place], [facility] Social History Tobacco UseTypesPacks/DayYears UsedDateSmoking Tobacco: FormerCigarettes Smokeless Tobacco: NeverAlcohol UseStandard Drinks/WeekCommentsNever0 (1 standard drink = 0.6 oz pure alcohol)Caffeine intake: soda and [id number] Health LiteracyAnswerDate RecordedHow often do you need [...] the phone with family, friends, or neighbors?Patient sbnenkml11/29/2025How often do you get together with friends or relatives?Patient ltqocgwk05/29/2025How often do you attend scientologist or roman catholic services?Patient oddgzrtl60/29/2025Do you belong to any clubs or organizations such as scientologist groups, unions, [employer] or athletic frank ups, or school groups?Patient jvligyva94/29/2025How often do you attend meetings of the clubs or organizations you belong to?Patient qwygyglw74/29/2025re you , , , , never , or living with a partner? Aogqbtc0207/10/2024UDIT-CAnswerDate RecordedQ1: How often do you have a [...] and heating?Somewhat hard07/10/2024PHQ-2AnswerDate RecordedPatient Health Questionnaire-2 Score0 01/17/2025[facility] [place] of Occupational Health - Occupational Stress QuestionnaireAnswerDate RecordedDo you feel stress - tense, restless, nervous, or anxious, or unable to sleep at night because yourmind is troubled all the time - these days?Patient /29/2025Exercise Vital SignAnswerDate RecordedOn average, how many days per week do you engage in moderate to strenuous exercise (like a brisk walk)?Patient zlxdugqw80/29/2025On average, how many minutes do you engage [...] steady place to sleep or slept in located [facility] (including now)?No08/30/2022Housing Stability Vital SignAnswerDate RecordedIn the last 12 months, was there a time when you were not able to pay the mortgage or rent on time?No07/10/2024Number of Times Moved in the Last Year Not on file07/10/2024t any time in the past 12 months, were you homeless or living in a care home (including now)?No07/10/2024CommentsNoSex and Gender InformationValueDate RecordedSex Assigned at BirthNot on fileLegal SexFemale 05/26/2022 7:13 PM EDTGender IdentityNot on fileSexual OrientationNot on file documented as of this encounter Plan of Treatment DateTypeDepartmentCare Team (Latest Contact Info)Ggkgfizetfl60/04/2026 4:30 PM ESTOffice Visit [facility] [place] [facility] [address] [facility] [address] [place] [address] Kimberlee Franks PA [address] [place] [address] [place] [address] 06/20/2025 8:30 AM EDTOffice Visit [facility] [place] [facility] [address] [place] [address] Rick Jones DO [address] [facility] [place] [address] documented as of this encounter Visit Diagnoses Not on filedocumented in this encounter Care Teams Team MemberRelationshipSpecialtyStart DateEnd Date Jose Ramos MD [address] [place] [address] [place] [address] PCP - GeneralFamily Medicine08/27/22 [place] Candelario DO [address] [place] [address] Referring AjjuckrunLkdrskslm57/21/24 Raiza Soto NP Nurse PractitionerNeurology05/22/24documented as of this encounter
--- OUTSIDE RECORDS SUMMARY | 2025-02-27 16:54 | XMS_ITS | Clinical Summary ---
Author Organization [facility] Address [address] [address] Care Team Providers Care Singer Songwriter Name Role Phone Jose Brock MD Primary Care Provider [phone] Sharon Candelario DO Unavailable [phone] Raiza Soto CITIZEN PARTICIPATION SPECIALIST Unavailable [phone] Allergies Active AllergyReactionsCriticalityNoted DateCommentsOlmesartanGI intoleranceLow 08/13/2024 Nausea, Fatigue Other Reaction(s): GI Upset Medications MedicationSigDispense QuantityRefillsLast FilledStart DateEnd DateStatus Multiple Vitamin (multivitamin) capsule Take 1 capsule by mouth 1 (one) time each day.Active baclofen (Lioresal) 10 MG tablet Take 1 tablet by mouth in the morning and 1 tablet in the evening and 1 tablet before bedtime.Active biotin 5 MG tablet Take 1 tablet by mouth in the morning.Active fexofenadine (Tatiana) 180 MG tablet Take 1 tablet by mouth 1 (one) time each day at the same time.Active cholecalciferol (Vitamin D-3) 25 MCG (1000 UT) capsule Take 1,000 Units by mouth in the morning.Active naltrexone (Depade) 50 MG tablet Take 4.5 mg by mouth Daily 4.5mg Micro dose for pain from rheumatologistActive onabotulinumtoxinA (Botox) 200 units injection Inject into the shoulder, thigh, or buttocks 1 (one) timeActive topiramate 50 MG tablet Indications:Migraine without aura, not intractable, without status migrainosus Take 1 tablet by mouth in the morning and 1 tablet before bedtime. 180 tablet 5Active Atogepant (Qulipta) 60 MG tablet Indications:Chronic migraine without aura, intractable, without status migrainosusTAKE 1 TABLET BY MOUTH DAILY 30 tablet 5Active Ubrogepant (Ubrelvy) 100 MG tablet Indications:Migraine without aura, not intractable, without status migrainosus TAKE 1 TABLET BY MOUTH at onset OF migraine may repeat in 2 (TWO) HOURS, no more TWICE DAILY and 2 (TWO) days a week 10 tablet 5Active omeprazole (PriLOSEC) [address] capsule Indications:Gastroesophageal reflux disease, unspecified whether esophagitis presentTake 1 capsule (40 mg) by mouth in the morning and 1 capsule (40 mg) in the evening. Take before meals. 200 capsule 5Active Elastic Bandages & Supports (Medical Compression Stockings) [facility] Indications:Bilateral lower extremity edema,Varicose veins of both lower extremities, unspecified whether complicated2 each Daily On in AM, off in PM. Dispense 2 pairs. 20-30 mmHg. Toeless if possible 2 each 5Active estradiol (Estrace) 0.1 MG/GM vaginal cream Indications:Hormone msgvcdrgj0j vaginal daily for 2 weeks, then 2 times weekly following initial 2 weeks 42.5 g 5Active NIFEdipine XL (Procardia XL) 30 MG 24 hr tablet Indications:Benign essential hypertensionTake 1 tablet (30 mg) by mouth Daily Do not crush, chew, or split. 90 tablet 5Active LORazepam (Ativan) 1 MG tablet Indications:AnxietyTake 1 tablet (1 mg) by mouth every 12 (twelve) hours 60 tablet /5Active Estrogens Conjugated (Premarin) 0.625 MG/GM cream Indications:Menopause,Vaginal dryness, menopausalInsert 0.5 applicators into the vagina at bedtime 1/2 applicator at bedtime nightly for two weeks and then twice a week thereafter 30 g 5Active estradiol (Climara) 0.05 MG/24HR Indications:Menopause,Hormone imbalancePlace 1 patch over 7 days on the skin 1 (one) time per week 12 patch /6Active progesterone (Prometrium) 100 MG capsule Indications:Hormone imbalanceTake 1 capsule (100 mg) by mouth Daily 30 capsule 11104/30/535608/6Active LORazepam (Ativan) 1 MG tablet Indications:AnxietyTake 1 tablet (1 mg) by mouth every 12 (twelve) hours 60 tablet 5104/14/2024Discontinued(Reorder) NIFEdipine XL (Procardia XL) 30 MG 24 hr tablet Indications:Benign essential hypertensionTake 1 tablet (30 mg) by mouth Daily Do not crush, chew, or split. 90 tablet Discontinued(Reorder) Active Problems ProblemNoted DateDiagnosed DateChronic migraine without aura, intractable, without status efudnlmjjdk68/06/2025ute cystitis with hkofibibq15/09/2025 Assessment & Plan (08/20/2024 1:58 PM EDT): Add Probiotic to help replenish the good [...] fluids should the symptoms worsen. Burning with /09/2025 Assessment & Plan (08/20/2024 1:54 PM EDT): UA reviewed Antibiotic called in Gross ehxuzlknf45/09/2025 Assessment & Plan (08/20/2024 2:02 PM EDT): May need a CT scan May need a urolgy consult Dkngpqe8611/21/2023isturbance of skin ishrxicly86/15/2024nxiety disorder 07/27/2023Malaise and ozeoqpz3807/27/2023PPV (benign paroxysmal positional vertigo)07/27/2023Migraine without aura and without status migrainosus, not xwxwabkelyb86/15/2024Elevated cxsuuwrd26/12/2024ositive EDMUND (antinuclear antibody)04/25/2023H/O gastric kwjmde3208/30/2022 Assessment & Plan (11/21/2023 8:35 AM EDT): Does do martini Adjustment disorder with xyvkpoc0108/29/2022 Assessment & Plan (05/19/2023 4:05 PM EST): Patient's Medicine is effective at controlling symptoms at current dose and frequency. PDMP reviewed with no evidence of overuse and abuse D/W patient to avoid use of benzodiazepines when consuming alcohol Advised against operating heavy machinery and driving long distances while on medicines. Wuhhnk6308/29/20226843Vwsjtp46/18/2023ttention deficit /18/2023enign essential dtlprtpenyld69/18/2023 Assessment & Plan (05/19/2023 4:04 PM EST): Our specific goals, for your hypertension, is [...] the importance of taking them as prescribed. [employer] diet handouts Assessment & Plan (10/26/2022 4:41 PM EDT): Our specific goals, for your hypertension, is [...] taking them as prescribed. DASH diet handouts Chronic fatigue exztelfi34/18/9896Cunnnvegyxls34/18/2023Gastroesophageal reflux fvjrvjd7608/29/20228437Kcouyzxbqgnavic22/18/2023History of ligmdhbnnsao51/18/2023 Pjaegmujnzn04/18/2023Iron deficiency vxalai5208/29/2022Medullary sponge kidney 08/29/2022Menopausal iwaezaez01/18/2023COS (polycystic ovarian syndrome) 08/29/2022olycythemia vera08/29/2022rimary /18/2023Retention cyst of nasal burwfy4108/29/2022Recurrent ocmqxhbes26/18/2023 Assessment & Plan (10/26/2022 4:41 PM EDT): Finish out Antbx and Prednisone Seasonal allergic reoimzxm02/18/2023Slow transit xemdzebbfxxr96/18/2023 Assessment & Plan (11/21/2023 8:36 AM EDT): Senokot S gets diarrhea after 2-3 days H/O Gastric bypass Did have large BM this weekend has some relief Consider Colonoscopy Last one was 40 years ago Varicose veins of lower smjqhajry14/18/2023Vitamin D idrkqmexax85/18/2023 Paraesophageal vusirm7009/08/2017Hypertrophy of nasal acmqiistgn85/02/2016Androgen excess, female post xldvjxf3309/18/2009 Resolved Problems ProblemNoted DateDiagnosed DateResolved DateShortness of zeimhv2611/21/2023 07/16/2024Pain in limbHeadacheInsomnia, avjtahconkj63MigraineSleep disorder, eqcvhtijjt34HTN (hypertension)/07/2024 Assessment & Plan (11/21/2023 8:19 AM EDT): Our specific goals, for your hypertension, is [...] taking them as prescribed. [employer] diet handouts Urinary tract troyapekm98/ute recurrent maxillary sinusitis nxietytypical squamous cells of undetermined significance (ASCUS) on Papanicolaou smear of cvfxgu3208/29/2022 07/16/2024typical squamous cells of undetermined significance on cytologic smear of vagina (ASC-US)ipolar affective moqypzfj43/18/2023 07/16/20247187Pazsrzyfq71Elevated blood-pressure reading without diagnosis of qrghsrktnocn39 Assessment & Plan (10/26/2022 4:47 PM EDT): Our specific goals, for your hypertension, is [...] taking them as prescribed. DASH diet handouts Grief olzooyyt70Menopausal unweishj25/ Obstructive sleep apneaMorbid twfoxct23 Overview (04/25/2023): Added automatically from request for surgery [id number] Encounters DateTypeDepartmentCare GhvmSdpesxvkpdq74/17/2025 4:00 PM ESTOffice Visit [facility] [place] [facility] [address] [place] [address] Michele Jones DO Menopause; Vaginal dryness, menopausal; Fatigue, unspecified type; Hormone klnyxjukk83/17/2025amboo flowsheet [facility] [place] [facility] [address] [place] [address] Michele Jones DO 02/27/20254638Wmhsov16/09/2025Telephone [facility] [address] [place] [address] Jose Brock MD 02/11/2025Refill [facility] [address] [place] [address] Jose Brock MD Ppgqtzj2801/30/2025Refill [facility] [place] [facility] [address] [place] [address] Kimberlee Franks PA Benign essential ozvwufaigdup01/06/2025 3:30 PM ESTOffice Visit [facility] [address] [place] [address] Kimberlee Franks PA Benign essential hypertension (Primary Dx); Generalized anxiety disorder; Acute non-recurrent pansinusitis; H/O gastric afdyjk0501/17/2025amboo flowsheet [facility] [address] [place] [address] Kimberlee Franks PA 01/17/20256172Bofszp21/23/2025bstract [facility] [address] [place] [address] Jose Brock MD 12/31/2024Telephone [facility] [place] [facility] [address] [place] [address] Jose Brock MD 12/17/2024 1:30 PM EDTOffice Visit [facility] [place] [facility] [address] [place] [address] Ella Momin, ZOILA Encounter for medication review and counseling (Primary Dx)12/17/2024amboo flowsheet [facility] [place] [facility] [address] [place] [address] Ella Momin, ZOILA 12/17/20244537Teujqp85/02/2025Telephone [facility] [place] [facility] [address] [place] [address] Genesis Lee LPN 12/10/2024Refill [facility] [place] [facility] [address] [place] [address] Ella Momin, CITIZEN PARTICIPATION SPECIALIST Hormone wmjzkrpmo56/29/2025Refill [facility] [address] [facility] [address] [place] [address] Jose Brock MD Qbwcfid0112/05/2024bstract [facility] [place] [facility] [address] [place] [address] Ella Momin, ZOILA from Last 3 Months Immunizations ImmunizationAdministration DatesNext DueInfluenza, Ysbksdmqulb21/30/2019 Family History Medical HistoryRelationNameCommentsArthritisFatherMark shetzerHypertensionFather Ej shetzerStrokeFatherMark shetzerSeizuresMaternal GrandfatherLee shetzer ArthritisMaternal GrandmotherJanet shetzerDiabetesMaternal GrandmotherJanet shetzerVision lossMaternal GrandmotherJanet shetzerNo Known ProblemsMotherBone cancerPaternal GrandfatherLeeCancerPaternal GrandfatherLeeStrokePaternal GrandfatherLeeStrokePaternal GrandmotherJanetAccidental deathSonNoahRelationName KkcmlpPojxvgvtDhoebkzb5XncbqchbWdniip0JmerhgInvb shetzerAliveMaternal GrandfatherLee shetzerMaternal GrandmotherJanet shetzerMotherAlivePaternal GrandfatherLeeAlivePaternal KozplwhyoynKidxdNfqlfOiaqdsc4XfpQbefPewllrfttrem in 2019 Social History Tobacco UseTypesPacks/DayYears UsedDateSmoking Tobacco: FormerCigarettes Smokeless Tobacco: Never Tobacco Cessation:Counseling Given: Not Answered Alcohol UseStandard Drinks/WeekCommentsNever0 (1 standard drink = 0.6 oz pure alcohol)Caffeine intake: soda and cbfO8160 Health LiteracyAnswerDate RecordedHow often do you need to have someone help you when you read instructions, pamphlets, or other written material from your doctor or pharmacy?Never 07/10/2024Humiliation, Afraid, Rape, and Kick questionnaireAnswerDate Recorded Within the last year, have you been afraid of your partner or ex-partner?No 07/10/2024Within the last year, have you been humiliated or emotionally abused in other ways by your partner or ex-partner?No07/10/2024Within the last year, have you been kicked, hit, slapped, or otherwise physically hurt by your partner or ex-partner?No07/10/2024Within the last year, have you been raped or forced to have any kind of sexual activity by your partner or ex-partner?No07/10/2024 Social Connection and Isolation PanelAnswerDate RecordedIn a typical week, how many times do you talk on the phone with family, friends, or neighbors?Patient vnpjiwbi21/29/2025How often do you get together with friends or relatives? Patient efdmbtye54/29/2025How often do you attend gnosticism or quaker services? Patient aginixnz00/29/2025Do you belong to any clubs or organizations such as gnosticism groups, unions, fraternal or athletic groups, or school groups?Patient adpsfmtd34/29/2025How often do you attend meetings of the clubs or organizations you belong to?Patient topdmgyu62/29/2025re you , , , , never , or living with a partner?Lpnbdsx1107/10/2024UDIT-C AnswerDate RecordedQ1: How often do you have a drink containing alcohol?Never 07/10/2024Q2: How many drinks containing alcohol do you have on a typical day when you are drinking?Patient does not drink07/10/2024Q3: How often do you have six or more drinks on one occasion?Never07/10/2024Overall Financial Resource Strain (CARDIA)AnswerDate RecordedHow hard is it for you to pay for the very basics like food, housing, medical care, and heating?Somewhat hard07/10/2024 PHQ-2AnswerDate RecordedPatient Health Questionnaire-2 Tcolh75003/19/2024FinFranc[facility] of Occupational Health - Occupational Stress QuestionnaireAnswerDate RecordedDo you feel stress - tense, restless, nervous, or anxious, or unable to sleep at night because yourmind is troubled all the time - these days?Patient fydereko28/29/2025Exercise Vital SignAnswerDate RecordedOn average, how many days per week do you engage in moderate to strenuous exercise (like a brisk wal k)?Patient ugmkqcai65/29/2025On average, how many minutes do you engage in exercise at this level?Patient cjqobcrb38/29/2025Hunger Vital SignAnswerDate RecordedWorried About Running Out of Food in the Last YearNot on file07/10/2024 Within the past 12 months, the food you bought just didn't last and you didn't have money to get more.Sometimes true07/10/2024PRAPARE - TransportationAnswer Date RecordedIn the past 12 months, has lack of transportation kept you from medical appointments or from getting medications?No07/10/2024In the past 12 months, has lack of transportation kept you from meetings, work, or from getting things needed for daily living?No07/10/2024Housing Stability Vital SignAnswer Date RecordedIn the last 12 months, was there a time when you were not able to pay the mortgage or rent on time?No08/30/2022In the last 12 months, how many places have you lived?In the last 12 months, was there a time when you did not have a steady place to sleep or slept in ashelter (including now)?No 08/30/2022Housing Stability Vital SignAnswerDate RecordedIn the last 12 months, was there a time when you were not able to pay the mortgage or rent on time?No 07/10/2024Number of Times Moved in the Last YearNot on file07/10/2024t any time in the past 12 months, were you homeless or living in a care home (including now)? No07/10/2024CommentsNoSex and Gender InformationValueDate RecordedSex Assigned at BirthNot on fileLegal DruEkipoq55/15/2023 7:13 PM EDTGender Identity Not on fileSexual OrientationNot on file Last Filed Vital Signs Vital SignReadingTime TakenCommentsBlood Onbekocr978/7602/27/2025 4:23 PM EST Uknvw75018/06/2025 3:19 PM JQIOwojvxviesj86.6 ??C (97.8 ??F)01/17/2025 3:19 PM ESTRespiratory Nqca081903/19/2024 3:19 PM ESTOxygen Qgyeowpjff49%01/17/2025 3:19 PM ESTInhaled Oxygen Concentration--Zmbpil08.9 kg (129 lb 12.8 oz)02/27/2025 4:23 PM NRXRlqvue626.6 cm (5' 4 )01/17/2025 3:19 PM ESTBody Mass Index22.28 01/17/2025 3:19 PM EST Plan of Treatment DateTypeDepartmentCare Team (Latest Contact Info)Kjunoutmefz34/04/2026 4:30 PM ESTOffice Visit [facility] [address] [facility] [address] [place] [address] Kimberlee Franks PA [address] [facility] [address] [place] [address] 06/20/2025 8:30 AM EDTOffice Visit [facility] [place] [facility] [address] [place] [address] Michele Jones DO [address] [place] [address] Health MaintenanceDue DateLast DoneCommentsCT Vprplvlowzat66/14/1980FIT-DNA 1979FIT1979FOBT1979 4150Grvuavckiecch81/14/1980Pneumococcal Vaccine: Pediatrics (0 to 5 Years) and At-Risk Patients (6 to 64 Years) (1 of 2 - PCV)06/25/1998COVID-19 Vaccine ( season)/, 07/09/2020, 06/19/20209795Wyrzulofr10/07/364858/09/2024, 06/22/2023, 06/15/2022, Additional history existsInfluenza Vaccine (#1)Postponed from 11/12/2024 (Patient Refused)Hoksrlulbkw99Colorectal Cancer Oqtmekcdk57/18/2029Pap NytxeSbtkdcpgcvlk63/03/2025, 06/07/2023, 3Cervical Cancer ScreeningDiscontinuedHPV/CotestDiscontinued Procedures Procedure NamePriorityDate/TimeAssociated DiagnosisCommentsMM TOMOSYNTHESIS SCREENING BI07/18/2024 3:57 PM EDT PAP HPOSWEkeicrj92/03/2025 12:00 AM EDTfrom Last 3 Months or Most Recently Relevant to Health Maintenance Results * MM TOMOSYNTHESIS SCREENING BI (07/18/2024 3:57 PM EDT)Anatomical Region LateralityModalityOtherSpecimen (Source)Anatomical Location / Laterality Collection Method / VolumeCollection TimeReceived Time07/18/2024 3:57 PM EDT Narrative 07/18/2024 3:58 PM EDT [facility] ?[address] ? [place] [address] ? Mammography Report ? Signed ? Patient: MANDEEP SPENCER ?MR#: [id number] ?? : 1980 ?Acct:[id number] ?? Age/Sex: 44 / F ?ADM Date: 05//25 ?? Loc: MAMMO ? Attending Dr: Michele Jones D.O. ? Ordering Physician: Michele Jones D.O. ?Results: ? Date of Service: 07/17/24 ?Follow Up: ? Procedure(s): MM tomosynthesis screening BI ?? Accession Number(s): [id number] ? cc: JOSE BROCK ; Michele Jones D.O. ? Patient Name: ? MANDEEP SPENCER ? MR#: [id number] ? : 1980 ? Exam Date: 07/17/2024 ?? Ordering Doctor: DR MICHELE JONES . ? RADIOLOGY REPORT ? PROCEDURE: ? MM TOMOSYNTHESIS SCREENING BI ? COMPARISON: ? MM TOMOSYNTHESIS SCREENING BI, 06/22/2023. ??MG MAMM SCREEN 3D ?? JUDITH CAD, 06/15/2022. ??MG MAMM SCREEN 3D JUDITH CAD, 06/16/2021. ??MG MAMM SCREEN JUDITH ?? W CAD, 11/08/2019. ? INDICATIONS: ? Screening ? Calculator Name ? NCI Breast Cancer Risk Assessment Tool ?? 5 Year Breast Cancer Risk ? 0.60% ?? Lifetime Breast Cancer Risk ? 7.70% ?? Personal Breast Cancer ?No ?? Personal Ovarian Cancer ? No ?? Treatments ? None ?? Family Cancers ? Grandfather-paternal with esophagus/bone/skin cancer at age ?? 75. ? LOCATION: ? [facility] ? BREAST COMPOSITION: ? The breasts are heterogeneously dense,which may ?? obscure small masses. ? FINDINGS: ? DIAGNOSTIC CATEGORY 1--NEGATIVE. ? RIGHT BREAST: ??No significant suspicious finding. ? LEFT BREAST: ??No significant suspicious finding. ? RECOMMENDATIONS: ? ROUTINE MAMMOGRAM AND CLINICAL EVALUATION IN 12 MONTHS. ? PLEASE NOTE: ??A NORMAL MAMMOGRAM DOES NOT EXCLUDE THE POSSIBILITY OF BREAST ?? CANCER. ??A CLINICALLY SUSPICIOUS PALPABLE LUMP SHOULD BE BIOPSIED. ? Dictated by: Varun Sauceda DO on 07/18/2024 at 15:56 ? Approved by: Varun Sauceda DO on 07/18/2024 at 15:57 ? Dictated By: ?Varun Sauceda M.D. ? Signed By: ?07/18/248 ? DD/ 1557 ? TD/TT: ? [employer] Controls Operator: Procedure Note Radiology, Radiologist, MD - 07/18/2024 [place] [address] Mammography Report Signed Patient: MANDEEP SPENCER AMR#: [id number] : 1980Acct:[id number] Age/Sex: 44 / FADM Date: 07/17/24 Loc: MAMMO Attending Dr: Michele Jones D.O. Ordering Physician: Michele Jones D.O.Results: Date of Service: 07/17/24Follow Up: Procedure(s): MM tomosynthesis screening BI Accession Number(s): [id number] cc: JOSE BROCK ; Michele Jones D.O. Patient Name: MANDEEP SPENCER MR#: [id number] : 1980 Exam Date: 07/17/2024 Ordering Doctor: DR MICHELE JONES . RADIOLOGY REPORT PROCEDURE: MM TOMOSYNTHESIS SCREENING BI COMPARISON: MM TOMOSYNTHESIS SCREENING BI, 06/22/2023. MG MAMM PFHQEB5V JUDITH CAD, 06/15/2022. MG MAMM SCREEN 3D JUDITH CAD, 06/16/2021. MG MAMM SCREENBIL W CAD, 11/08/2019. INDICATIONS: Screening Calculator Name NCI Breast Cancer Risk Assessment Tool 5 Year Breast Cancer Risk 0.60% Lifetime Breast Cancer Risk 7.70% Personal Breast Cancer No Personal Ovarian Cancer No Treatments None Family Cancers Grandfather-paternal with esophagus/bone/skin cancer atage 75. LOCATION: [facility] BREAST COMPOSITION: The breasts are heterogeneously dense,which may obscure small masses. FINDINGS: DIAGNOSTIC CATEGORY 1--NEGATIVE. RIGHT BREAST: No significant suspicious finding. LEFT BREAST: No significant suspicious finding. RECOMMENDATIONS: ROUTINE MAMMOGRAM AND CLINICAL EVALUATION IN 12 MONTHS. PLEASE NOTE: A NORMAL MAMMOGRAM DOES NOT EXCLUDE THE POSSIBILITY OFBREAST CANCER. A CLINICALLY SUSPICIOUS PALPABLE LUMP SHOULD BE BIOPSIED. Dictated by: Varun Sauceda DO on 07/18/2024 at 15:56 Approved by: Varun Sauceda DO on 07/18/2024 at 15:57 Dictated By: Varun Sauceda M.D. Signed By:07/18/24 1558 DD/ 1557 TD/TT: [employer] Controls Operator: Authorizing ProviderResult TypeResult StatusGeneric External Data Provider CLINISYNC IMAGINGFinal Result * Pap Smear (06/14/2024 12:00 AM EDT)Specimen (Source)Anatomical Location / LateralityCollection Method / VolumeCollection TimeReceived TimeSwabCervical swab / Unknown Narrative Authorizing ProviderResult TypeResult StatusFazio Nurse [facility] ObLAB CYTOLOGY ORDERABLESFinal ResultPerforming OrganizationAddressCity/State/ZIP CodePhone Number EXTERNAL LAB from Last 3 Months or Most Recently Relevant to Health Maintenance Insurance Care Teams Team MemberRelationshipSpecialtyStart DateEnd Date Jose [place] MD [address] [facility] [address] [place] [address] [facility] - [facility]08/27/22 Sharon Candelario DO [address] [place] [address] Referring CxpubcsprQecbwkyrk61/21/24 Raiza Soto NP Nurse PractitionerNeurology05/22/24
--- OUTSIDE RECORDS SUMMARY | 2025-02-27 16:54 | XMS_ITS | Encounter Summary ---
Author Organization [facility] Address [address] [place] [address] Care Team Providers Care Aged Or Disabled Carer Name Role Phone Jose Ramos MD Primary Care Provider [phone] Sharon Candelario DO Unavailable [phone] Raiza Soto RESIDENTIAL YOUTH COUNSELOR Unavailable [phone] Encounter Details DateTypeDepartmentCare Team (Latest Contact Info)Ioovkabwzre93/09/2025Telephone [facility] [place] [facility] [address] [place] [address] [place] [id number] Jose Ramos MD [address] [facility] [address] [place] [address] Social History Tobacco UseTypesPacks/DayYears UsedDateSmoking Tobacco: FormerCigarettes Smokeless Tobacco: NeverAlcohol UseStandard Drinks/WeekCommentsNever0 (1 standard drink = 0.6 oz pure alcohol)Caffeine intake: soda and [id number] Health LiteracyAnswerDate RecordedHow often do you need to have someone help you when you read instructions, pamphlets, or other written material from your doctor or pharmacy?Never07/10/2024Humiliation, Afraid, Rape, and Kick questionnaireAnswer Date RecordedWithin the last year, have you been afraid of your partner or ex-partner?No07/10/2024Within the last year, have you been humiliated or emotionally abused in other ways by your partner or ex-partner?No04/ Within the last year, have you been kicked, hit, slapped, or otherwise physically hurt by your partner or ex-partner?No07/10/2024Within the last year, have you been raped or forced to have any kind of sexual activity by your part ner or ex-partner?No07/10/2024Social Connection and Isolation PanelAnswerDate RecordedIn a typical week, how many times do you talk on the phone with family, friends, or neighbors?Patient myybccco29/29/2025How often do you get together with friends or relatives?Patient /29/2025How often do you attend congregational or jew services?Patient xxsuqaqx32/29/2025Do you belong to any clubs or organizations such as congregational groups, unions, [employer] or athletic frank ups, or school groups?Patient bqnrvkoz21/29/2025How often do you attend meetings of the clubs or organizations you belong to?Patient stuyfnvr74/29/2025re you , , , , never , or living with a partner? Ghsdfix2407/10/2024UDIT-CAnswerDate RecordedQ1: How often do you have a [...] and heating?Somewhat hard07/10/2024PHQ-2AnswerDate RecordedPatient Health Questionnaire-2 Score0 01/17/2025[facility] [place] [facility] - Occupational Stress QuestionnaireAnswerDate RecordedDo you feel stress - tense, restless, nervous, or anxious, or unable to sleep at night because yourmind is troubled all the time - these days?Patient gfzhevwv04/29/2025Exercise Vital SignAnswerDate RecordedOn average, how many days per week do you engage in moderate to strenuous exercise (like a brisk walk)?Patient zulprmzt40/29/2025On average, how many minutes do you engage in exercise at this level?Patient vtuxtiho91/29/2025 Hunger Vital SignAnswerDate RecordedWorried About Running Out [...] steady place to sleep or slept in [facility] (including now)?No08/30/2022Housing Stability Vital SignAnswerDate RecordedIn the last 12 months, was there a time when you were not able to pay the mortgage or rent on time?No07/10/2024Number of Times Moved in the Last Year Not on file07/10/2024t any time in the past 12 months, were you homeless or living in a [place] (including now)?No07/10/2024CommentsNoSex and Gender InformationValueDate RecordedSex Assigned at BirthNot on fileLegal SexFemale 05/26/2022 7:13 PM EDTGender IdentityNot on fileSexual OrientationNot on file documented as of this encounter Miscellaneous Notes * Telephone Encounter - Liv Nunez - 02/19/2025 11:40 AM EST Olga called, she just had a call from the office but they could not hear. She asked that if someone calls her back, she is at work and does not take break til 1:00. She will not be able to answer til then. documented in this encounter Plan of Treatment DateTypeDepartmentCare Team (Latest Contact Info)Fmkcvudpopb41/04/2026 4:30 PM ESTOffice Visit [facility] [place] [facility] [address] [facility] [address] [place] [address] Kimberlee Franks, PA [address] [facility] [address] [place] [address] 06/20/2025 8:30 AM EDTOffice Visit [facility] [place] [facility] [address] [place] [address] Rick Jones DO [address] [place], [place] [id number] documented as of this encounter Visit Diagnoses Not on filedocumented in this encounter Care Teams Team MemberRelationshipSpecialtyStart DateEnd Date Jose Ramos MD [address] [facility] [address] [place] [address] PCP - GeneralFamily Medicine08/27/22 Sharon Candelario DO [address] [place] [address] Referring XtopcbbvkVapqooaby75/21/24 Raiza Soto NP Nurse PractitionerNeurology05/22/24documented as of this encounter
--- OUTSIDE RECORDS SUMMARY | 2025-02-27 16:55 | XMS_ITS | Clinical Summary ---
Author Organization [facility] Address [address] [place] [address] Care Team Providers [employer] Insurance Salesperson Name Role Phone Jose Ramos MD Primary Care Provider [phone] Delilah Pleitez MD Unavailable Keyur Leiva DO Unavailable Ella Momin CNP Unavailable Allergies Active AllergyReactionsCriticalityNoted DateCommentsOlmesartanGI UpsetLow 08/13/2024 Nausea, Fatigue Medications * This document contains information received from the source organization and may not represent a complete record from that organization. MedicationSigDispense QuantityRefillsLast FilledStart DateEnd DateStatus LORazepam (ATIVAN) 0.5 mg tab Take 1 mg by mouth as needed. Take 1 tab twice daily as needed.06/19/2015Active cholecalciferol (VITAMIN D3) 2,000 unit tablet Indications:Postoperative malabsorption (HCC),Obesity, Class I, BMI 30.0-34.9 (see actual BMI),S/P gastric bypassTake 1 tablet by mouth once daily. 30 tablet Active biotin 1,000 mcg chew Indications:Postoperative malabsorption (HCC),Obesity, Class I, BMI 30.0-34.9 (see actual BMI),S/P gastric bypassTake 1 tablet by mouth once daily. 30 tablet Active Additional Information Patient taking differently:1 tablet ORAL DAILY,Phyllis moseley, Reason: Dosage Adjustment, Reported on 01/31/2025 estradiol (ESTRACE) 1 mg tablet Take 1 mg by mouth once daily.03/21/2020ctive fluticasone (FLONASE) 50 mcg/actuation nasal spray INSTILL 1 SPRAY IN EACH NOSTRIL DAILY03/05/2020Active UBRELVY 100 mg tablet TAKE 1 TABLET at onset of migraine, may repeat in 2 HOURS but no more than 2 times per day or 2 times per week03/21/2020ctive TURMERIC ORAL Take by mouth.Active amlodipine besylate (AMLODIPINE ORAL) Take by mouth.Active topiramate (TOPAMAX) 50 mg tablet Take 1 tablet by mouth twice daily. 60 tablet 504ctive linaclotide (LINZESS) 145 mcg capsule Take 1 capsule by mouth once daily. 30 capsule 11007/23/2021ctive baclofen (LIORESAL) 10 mg tablet Take 10 mg by mouth once daily.Active calcium citrate/vitamin D3 (CITRACAL + D ORAL) Take by mouth once daily.Active vitamin B complex (B COMPLEX-VITAMIN B12 ORAL) Take by mouth once daily.Active FUROSEMIDE ORAL Take by mouth once daily.Active montelukast (SINGULAIR) 10 mg tablet Take 10 mg by mouth once daily.10/30/2021ctive amLODIPine (NORVASC) 5 mg tablet Take 1 tablet by mouth.Active fluconazole (DIFLUCAN) 150 mg tablet TAKE 1 TABLET BY MOUTH as a one time dose 1 tablet ctive topiramate (TOPAMAX) 50 mg tablet Take 1 tablet by mouth twice daily. 60 tablet ctive omeprazole (PRILOSEC) 40 mg capsule Indications:Gastroesophageal reflux disease with esophagitis without hemorrhage, Pelvic floor dysfunctionTake 1 capsule by mouth twice daily before meals. 30 min before breakfast and dinner. Open capsule and take with small amount of yogurt 180 capsule ctive PREMARIN 0.9 mg tablet Take 0.9 mg by mouth once daily.Active vitamin D3-folic acid 250 mcg (10,000 unit)-1 mg tab Take 1 tablet by mouth once daily.Active fexofenadine (GISSELLE) 180 mg tablet Take 1 tablet by mouth once daily.Active baclofen 10 mg tablet Take 1 tablet by mouth.Active Magnesium Oxide 500 mg magnesium tab Take 1 tablet by mouth once daily.Active Zinc Gluconate 50 mg tablet Take 50 mg by mouth once daily. CopperActive PROGESTERONE, BULK, MISC 20 mg per day, 1 pump per dayActive Aydhd-6-HRL-EPA-Fish Oil (FISH OIL) 1,000 mg (120 mg-180 mg) cap Take 2 g by mouth two times a day.Active ASHWAGANDHA EXTRACT ORAL Take by mouth once daily. VITAL HERBAL BRAND, 7050 MG DAILYActive vitamin D3-folic acid 250 mcg (10,000 unit)-1 mg tab Take 1 tablet by mouth once daily.Active naltrexone 4.5 mg cap Take 1 capsule by mouth two times a day.Active NIFEdipine ER (PROCARDIA XL) 30 mg 24 hr tablet Take 30 mg by mouth.5Active potassium chloride SR (MICRO-K) 10 mEq CR capsule Take by mouth.Active onabotulinum toxin type A (BOTOX) 200 unit injection Inject intramuscularly.Active QULIPTA 60 mg tablet Take 60 mg by mouth once daily.Active Active Problems ProblemNoted DateDiagnosed DateS/P gastric qhxmhe0201/24/2018Morbid obesity due to excess gtathisy93/08/2018 Overview (12/19/2017): Added automatically from request for surgery [id number] Iron deficiency xozszz5110/21/2017Gastroesophageal reflux vuoryua5909/08/2017 Paraesophageal rflwia6109/08/2017Morbid qujhqxs8509/08/2017PCOS (polycystic ovarian syndrome)02/24/2016Hypertrophy of nasal piiocfhyqx66/02/2016Artificial menopause 09/24/2014ndrogen excess, female post ddufoyg6509/18/2009HTN (hypertension) Resolved Problems ProblemNoted DateDiagnosed DateResolved DateGI bleedPre-op fbcsubtinhp71 Overview (12/19/2017): Added automatically from request for surgery [id number] Major depressive pbiuvljj29Depression06/19/2015 Encounters DateTypeDepartmentCare FejsUbejmiflrrq02/02/2025 Patient Msg Login Only Provider, [facility] Nwwdbd1301/31/2025 10:00 AM ESTOffice Visit Endocrinology [address] [place] [address] Waldo Mccullough MD Malaise and fatigue (Primary Dx); Thinning hair; Weight loss; H/O bilateral oophorectomy; History of DVT (deep vein thrombosis); History of tencatejrhdt29/13/7615Mylxyg87/13/2025Transcribe Orders Referring Physician [address] [place] [address] Ella Momin CNP Thinning hair (Primary Dx); Weight lossfrom Last 3 Months Immunizations ImmunizationAdministration DatesNext DueCOVID-19 original vaccine, age 12+ yr, monovalent ([employer] - PURPLE TOP)07/09/2020,06/19/2020influenza vaccine, unspecified ykjqclpcgkj17/30/2019 Family History Medical HistoryRelationCommentsStrokeFatherTIAsNoneMotherdoesn't know mother RelationStatusCommentsFatherMother Social History Tobacco UseTypesPacks/DayYears UsedDateSmoking Tobacco: NeverSmokeless Tobacco: NeverAlcohol UseStandard Drinks/WeekCommentsNot Currently1 (1 standard drink = 0.6 oz pure alcohol)occasionallyPHQ-2AnswerDate RecordedPHQ-2 erere756 Area Deprivation IndexAnswerDate RecordedNational Score (1-100), lower number is lower qkrc233908/15/2023State Score (1-10), lower number is lower woen910 Data from: https://www.neighborhoodatlas.[facility].[place] healthcare.edu/. Last address used for [address] [place] [address]08/15/2023CommentsNoSex and Gender InformationValueDate RecordedSex Assigned at VvviwPdtces90/05/2020 1:57 PM EDT Legal YrjYbagox39/02/2012 8:29 AM ESTGender WlidpnfrKocyxs38/05/2020 1:57 PM EDT Sexual OrientationChoose not to fhalwvws36/05/2020 1:57 PM EDTOccupationIndustry Job Start DateJob End DateNot on fileNot on fileNot on fileNot on file Last Filed Vital Signs Vital SignReadingTime TakenCommentsBlood Bhhcaiwi341/7311 9:25 AM EST Vbjzm14295 9:25 AM ZNWMldqeqlifjp32.4 ??C (97.6 ??F)03/26/2021 4:19 PM ESTRespiratory Wfpk962303/25/2020 12:25 PM ESTOxygen Pkwefbkmqr27%07/23/2021 4:05 PM EDTInhaled Oxygen Concentration--Sttgqd45.5 kg (131 lb 2.8 oz)01/31/2025 9:25 AM GCXFtlgas200.3 cm (5' 3.5 )08/15/2023 3:18 PM EDTBody Mass Index22.87 08/15/2023 3:18 PM EDT Plan of Treatment Health MaintenanceDue DateLast DoneCommentsAnnual PCP Team Chronic Disease Visit 06/25/1997Anxiety Saeophkwq84/14/1998Depression Lldnlwbia60/14/1998HIV Screening 06/25/1997DTaP,Tdap,Td Vaccine (1 - Tdap)06/25/1998Hepatitis B Vaccine (1 of 3 - 19+ 3-dose series)06/25/1998Cervical Cancer Kwlenbcrk99/14/2001HPV Vaccine (1 - 3-dose SCDM series)06/25/2006Mammogram Ygawvouni15/06/2022, 06/16/2021, 11/08/2019CT Xnyhedmeepsi99/14/2025ologuard (FIT-DNA)06/25/2024 Vajvkbesotj10/14/202506/Colorectal Cancer Jxvsyhqhz12/14/2025Fecal Occult Blood06/25/20247004Emvzsfhgoggaq26/14/2025ovid-19 Vaccine ( season) , 07/09/2020, 06/19/2020Influenza Vaccine (#1)2024 01/10/2019Lipid Dqlszfdgq28, 02/05/2019, 07/19/2018, Additional history existsDiabetes Amwdynfzm74, 06/15/2023, 12/07/2021, Additional history existsHepatitis C NqkkdkzknRgboerjvg28/07/2021 Procedures Procedure NamePriorityDate/TimeAssociated DiagnosisCommentsCOMPREHENSIVE METABOLIC RNDULLgrwyfh76/26/2022 7:43 AM EDT Primary hypertension *HEP C ZPTmrjekk74/07/2021 9:14 AM EDT Elevated ferritin EDMUND positive Fibromyalgia LIPID PANEL, WXHHLQMKfaltgl01/27/2020 8:03 AM EDT Weight gain following gastric bypass surgery BDKOJVCSDNOMsphxjg68/18/2019 11:18 AM EDT from Last 3 Months or Most Recently Relevant to Health Maintenance Results * (ABNORMAL) COMP METABOLIC PANEL (12/07/2021 7:43 AM EDT)ComponentValueRef RangeTest MethodAnalysis TimePerformed AtPathologist SignatureProtein, Total 6.1(L)6.3 - 8.0 g/dL12/07/2021 9:09 AM EDTNORTSC[facility]URER [facility] LABAlbumin4.23.9 - 4.9 g/dL12/07/2021 9:09 AM EDTNORTSCHEURER [facility] LABCalcium, Total9.18.5 - 10.2 mg/dL12/07/2021 9:09 AM EDTNOGREENB[facility] LABBilirubin, Total0.40.2 - 1.3 mg/dL12/07/2021 9:09 AM EDGR[facility] LABAlkaline Ednpxbsayui4203 - 123 U/L 12/07/2021 9:09 AM EDTNORTSC[facility]ER [facility] BVCSJE9048 - 35 U/L 12/07/2021 9:09 AM [facility]TN[facility] KLUTVM428 - 38 U/L 12/07/2021 9:09 AM EDTNOGRE[facility] LAFHxrpohj1415 - 99 mg/dL12/07/2021 9:09 AM [facility] LABComment: The [place] Diabetes Association (ADA) provides guidance for cutoff values for fasting glucose andrandom glucose. The ADA defines fasting as no caloric intake for at least 8 hours. Fasting plasma glucose results between 100 to 125 mg/dL indicate increased risk for diabetes (prediabetes). Fasting plasma glucose results greater than or equal to 126 mg/dL meet the criteria for diagnosis of diabetes. In the absence of unequivocal hyperglycemia, results should be confirmed by repeat testing. In a patient with classic symptoms of hyperglycemia or hyperglycemic crisis, random plasma glucose results greater than or equal to 200 mg/dL meet the criteria for diagnosis of diabetes. Reference: Standards of Medical Care in Diabetes 2016, [place] Diabetes Association. Diabetes Care. 2016.39(Suppl 1). AOE790 - 21 mg/dL12/07/2021 9:09 AM [facility] LAB Creatinine0.950.58 - 0.96 mg/dL12/07/2021 9:09 AM [facility] FHEUnzklp881270 - 144 mmol/L12/07/2021 9:09 AM [facility] LABPotassium3.5(L)3.7 - 5.1 mmol/L12/07/2021 9:09 AM [facility] BTAImwkmvav832(H)97 - 105 mmol/L12/07/2021 9:09 AM [facility] RECXZ27210 - 30 mmol/L12/07/2021 9:09 AM [facility] LABAnion Gap6(L)9 - 18 mmol/L12/07/2021 9:09 AM [facility] LABEstimated Glomerular Filtration Rate 77>=60 mL/min/1.73m 12/07/2021 9:09 AM [facility] LABComment:Estimated Glomerular Filtration Rate (eGFR) is calculated using the 2020 CKD-EPI creatinine equation. This equation utilizes serum creatinine, sex, and age as parameters. The creatinine assay has traceable calibration to isotope dilution- mass spectrometry. Refer to KDIGO guidelines for clinical interpretation. In patients with unstable renal function, e.g. those with acute kidney injury, the eGFRmay not accurately reflect actual GFR.Specimen (Source)Anatomical Location / LateralityCollection Method / VolumeCollection TimeReceived TimeBloodBLOOD SPECIMEN / UnknownVenipuncture / Rhtourh1312/07/2021 7:43 AM EDT12/07/2021 7:43 AM EDT Narrative Authorizing ProviderResult TypeResult StatusRobellyric Browne ELIABORATORYFinal ResultPerforming OrganizationAddressCity/State/ZIP CodePhone Number [facility] [address] [place] [address] * HEP REMOTE PANEL BL (07/18/2020 9:14 AM EDT)ComponentValueRef RangeTest Method Analysis TimePerformed AtPathologist SignatureHep B Core Ab, TotalNegative Xruinyyn89/07/2021 6:40 PM EDTCleveland Clinic LaboratoriesHep C Antibody IA ThsanrreXojpqfxp45/07/2021 6:40 PM EDTCholzer health systemand Clinic LaboratoriesHBsAg KfnssbguQwfgruer81/07/2021 6:40 PM EDTCholzer health systemand Clinic LaboratoriesHep B Surface Ab, JfsaXeeaspitTgqjnvbo30/07/2021 6:40 PM EDTCholzer health systemand Clinic LaboratoriesComment:NEGATIVESpecimen (Source)Anatomical Location / Laterality Collection Method / VolumeCollection TimeReceived TimeBloodBLOOD SPECIMEN / Mcygcjm4607/18/2020 9:14 AM EDT07/18/2020 9:16 AM EDT Narrative Authorizing ProviderResult TypeResult StatusLuci Terrazas MDLABORATORYFinal ResultPerforming OrganizationAddressCity/State/ZIP CodePhone Number [facility] [address] [facility] [place] [address] [facility] [address] [place] [address] * LIPID PANEL BASIC (01/08/2020 8:03 AM EDT)ComponentValueRef RangeTest Method Analysis TimePerformed AtPathologist SignatureCholesterol, Azftp751<200 mg/dL 01/08/2020 6:42 PM EDTCcleveland clinic [facility]uther[facility] Clinic LaboratoriesComment: <200 mg/dL, Desirable 200-239 mg/dL, Borderline high >239 mg/dL, High Ycsqxttxuqpz891<150 mg/dL01/08/2020 6:42 PM EDTCholzer health systemand Clinic Laboratories Comment: <150 mg/dL, Normal 150-199 mg/dL, Borderline high 200-499 mg/dL, High >499 mg/dL, Very high HDL Cbubduhmdwt93>39 mg/dL01/08/2020 6:42 PM [facility] Laboratories Comment: 40-59 mg/dL, Acceptable >59 mg/dL, High: Negative risk factor for coronary heart disease <40 mg/dL, Low: Positive risk factor for coronary heart disease LDL Cholesterol, Ilovzobptn55<100 mg/dL01/08/2020 6:42 PM [facility] LaboratoriesComment: <100 mg/dL, Optimal 100-129 mg/dL, Near optimal/above optimal 130-159 mg/dL, Borderline high 160-189 mg/dL, High >189 mg/dL, Very high Secondary prevention optimal LDL Cholesterol levels are recommended to be < 70 mg/dL Non HDL Ugychhisgfs85<130 mg/dL01/08/2020 6:42 PM [facility] LaboratoriesComment: <130 mg/dL, Optimal 130-159 mg/dL, Near optimal/above optimal 160-189 mg/dL, Borderline high 190-219 mg/dL, High >219 mg/dL, Very high Secondary prevention optimal non HDL Cholesterol levels are recommended to be < 100 mg/dL Fasting Yhem86ghq34/27/2020 7:55 AM [facility] VLDL Nenqnvcmncd68<30 mg/dL01/08/2020 6:42 PM [facility] Laboratories TC:HDL Ratio2.88<5.101 6:42 PM [facility] LaboratoriesLDL:HDL Ratio1.40<2.5401/08/2020 6:42 PM [facility] LaboratoriesComment: Reference: 1. National Cholesterol Education Program ATP III Guideline At-A-Glance Quick Desk Reference: National Heart, Lung, and Blood [place]. National Institutes of Health. 2001: NIH Publication No. 01-3305. 2. An International Atherosclerosis Society position paper: global recommendations for the management of dyslipidemia: executive summary, Atherosclerosis. 2014: 232(2):410-413. Specimen (Source)Anatomical Location / LateralityCollection Method / Volume Collection TimeReceived RiaaGffyj55/27/2020 8:03 AM EDT1 8:05 AM EDT Narrative Authorizing ProviderResult TypeResult StatusRitesh Browne DOLABORATORYFinal ResultPerforming OrganizationAddressCity/State/ZIP CodePhone Number [facility] [address] [place] [address] [facility] [address] [place] [address] [facility] [address] [place] [address] * COLONOSCOPY (08/29/2018 11:18 AM EDT)ComponentValueRef RangeTest Method Analysis TimePerformed AtPathologist SignatureTranscriptionFairview Hosptial Gastrointestinal Endoscopy Patient Name: Olga Skinner Procedure Date: 08/29/2018 11:18 AM Date of : 1980 Admit Type: Inpatient Age: 38 Room: [facility] Room 1 Gender: Female Note Status: Finalized Attending MD: Royal Dutta MD Sedation Initiated: 13:10 PM Procedure: ?Colonoscopy Indications: ?Last colonoscopy: July 2017, Rectal bleeding, ?Acute post hemorrhagic anemia, S/P GBS 01/2018 ?by Dr. Drake. Providers: ?Royal Dutta MD, Abiola Nick RN, Nelli ?NELLY Campuzano (Assisting Nurse) Patient Profile: ?This is a 38 year old female. Refer to note in ?patient chart for documentation of history and ?physical. Last Colonoscopy: within the past year. Referring Physician: ?Ej Spencer (Referring MD) Medicines: ?Fentanyl 100 micrograms IV, Midazolam 6 mg IV Complications: ?No immediate complications. Procedure: ?Pre-Anesthesia Assessment: ?- Prior to the procedure, a History and Physical ?was performed, and patient medications and ?allergies were reviewed. The patient's tolerance ?of previous anesthesia was also reviewed. The ?risks and benefits of the procedure and the ?sedation options and risks were discussed with ?the patient. All questions were answered, and ?informed consent was obtained. Prior ?Anticoagulants: The patient has taken no ?previous anticoagulant or antiplatelet agents. ?ASA Grade Assessment: II - A patient with mild ?systemic disease. After reviewing the risks and ?benefits, the patient was deemed in satisfactory ?condition to undergo the procedure. ?After I obtained informed consent, the scope was ?passed under direct vision. Throughout the ?procedure, the patient's blood pressure, pulse, ?and oxygen saturations were monitored ?continuously. The Colonoscope was introduced ?through the anus and advanced to the terminal ?ileum. The colonoscopy was performed without ?difficulty. The patient tolerated the procedure ?well. The quality of the bowel preparation was ?fair. The quality of the bowel preparation was ?evaluated using the BBPS ([place] Bowel ?Preparation Scale) with scores of: Right Colon = ?3, Transverse Colon = 3 and Left Colon = 3 ?(entire mucosa seen well with no residual ?staining, small fragments of stool or opaque ?liquid). The total BBPS score equals 9. The ?terminal ileum, ileocecal valve, appendiceal ?orifice, and rectum were photographed. Scope Withdrawal Time: 0 hours 8 minutes 42 seconds Total Procedure Duration: 0 hours 15 minutes 12 seconds Findings: ? The perianal and digital rectal examinations were normal. Pertinent ? negatives include normal sphincter tone and no palpable rectal ? lesions. ? The terminal ileum appeared normal. No old blood seen in TI. ? Multiple small-mouthed diverticula were found in the sigmoid colon. ? There was no evidence of diverticular bleeding. ? The entire examined colon appeared normal. ? A 5 mm polyp was found in the splenic flexure. The polyp was sessile. ? The polyp was removed with a cold biopsy forceps. Resection and ? retrieval were complete. ? The exam was otherwise without abnormality. ? The retroflexed view of the distal rectum and anal verge was normal ? and showed no anal or rectal abnormalities. Impression: ? - Preparation of the colon was fair. ?- The examined portion of the ileum was normal. ?- Moderate diverticulosis in the sigmoid colon. ?There was no evidence of diverticular bleeding. ?- The entire examined colon is normal. ?- One 5 mm polyp at the splenic flexure, removed ?with a cold biopsy forceps. Resected and ?retrieved. ?- The examination was otherwise normal. ?- The distal rectum and anal verge are normal on ?retroflexion view. Recommendation: ? - Discharge patient to home. ?- Return patient to hospital [facility] for ongoing ?care. ?- Resume regular diet. ?- Continue present medications. ?- Await pathology results. ?- Repeat colonoscopy in 5 years for surveillance. ?- Patient has a contact number available for ?emergencies. The signs and symptoms of potential ?delayed complications were discussed with the ?patient. Return to normal activities tomorrow. ?Written discharge instructions were provided to ?the patient. Attending Participation: ? I was present and participated during the entire procedure, including ? non-liu portions, and during the administration and monitoring of ? Moderate Sedation. Scope In: 1:12:36 PM Scope Out: 1:27:48 PM MD Royal Ortiz MD 08/29/2018 1:33:24 PM This report has been signed electronically by Royal Dutta MD Number of Addenda: 0 Note Initiated On: 08/29/2018 11:18 AM Estimated Blood Loss: ? Estimated blood loss: none.[facility] DISEASE INSTITUTESpecimen (Source)Anatomical Location / LateralityCollection Method / VolumeCollection TimeReceived Time08/29/2018 11:18 AM EDT Narrative Authorizing ProviderResult TypeResult StatusRoyal Dutta MDDIGESTIVE DISEASE REGIONALFinal ResultPerforming OrganizationAddressCity/State/ZIP CodePhone Number [facility] [address] [place] [address] [facility] from Last 3 Months or Most Recently Relevant to Health Maintenance Insurance Care Teams Team MemberRelationshipSpecialtyStart DateEnd Date Jose Ramos MD [address] [address] PCP - GeneralFaokly Medicine09/24/14 Delilah Pleitez MD [address] [address] Gastroenterology08/31/17 Keyur Leiva DO [address] [address] Primary Staff PhysicianNephrology04/09/21 Ella Momin CNP [address] [place] [address] [facility] Mprizcji29/13/25
[2025-02-27 17:24] LABS: Hematocrit 39.4 % (36.0-48.0); Hemoglobin 13.1 g/dL (12.0-16.0); Immature Granulocytes Abs Auto 0.01 10^3/uL (0.00-0.03); Immature Granulocytes Pct Auto 0.2 % (0.0-0.5); Lymphocytes Absolute Auto 2.1 10^3/uL (1.2-3.8); Mean Corpuscular HGB Conc 33.2 g/dL (29.9-35.2); Mean Corpuscular Hemoglobin 30.8 pg (26.7-34.0); Mean Corpuscular Volume 92.5 fL (81.0-99.0); Platelet Count 242 10^3/uL (150-450); Red Blood Count 4.26 10^6/uL (4.20-5.40); White Blood Count 5.3 10^3/uL (4.0-11.0)
== END 2025-02-27 16:50 | disposition home or self-care (01) ==
PROVIDERS: PCP Family Medicine; Visit Provider Obstetrics & Gynecology
DX: R53.83 Other fatigue (principal)
CPT/HCPCS: 36415; 85025